=== PATIENT | female | born 1945 | race Caucasian/White ===

== ENCOUNTER 2020-08-27 16:33 | Inpatient (IN) | payer MEDICARE ==
[~2020-08-27] VITALS: Ht 167.7 cm; Wt 78.5 kg
[~2020-08-27 16:33] MED LIST: AZIT250T12 PO; METO10TA3 PO
--- NOTE | 2020-08-27 17:05 | ED Cough/URI ---
General Chief Complaint: Respiratory Problems Stated Complaint: SOB Nursing Triage Note: PT ARRIVED BY [facility] WITH CHIEF COMPLAINT OF SHAKING. PT WAS ALERT AND ORIENTED X 4 AT ARRIVAL. EMS STARTED IV IN LEFT AC WITH FLUIDS GOING. ABOUT 200 ML INPUT AT ARRIVAL. PT WAS SEEN IN [facility] [facility] AND WAS DIAGNOSED WITH PNEUMONIA. PT'S FAMILY WANTED PT TO GO STRAIGHT HERE. PT LAST TOOK HER ANTIBIOTIC TODAY AT 0600. PT STATED HER BREATHING IS BETTER. PT STATED SHE WOKE UP AND WAS SHAKING, SO SHE WENT TO STOVE AND COVERED UP WITH BLANKET AND COULDN'T GET WARM. EMS STATED THAT PT HAD FEVER OF 103. PT DID NOT TAKE ANYTHING FOR FEVER TODAY. Sepsis Screen: Possible Severe Sepsis Risk (UCHE FRANCO MD) History of Present Illness Date Seen by Provider: Aug 27, 2020 Time Seen by Provider: 16:50 Initial Comments Patient is a 74-year-old female who presents to the emergency department today with a chief complaint of generalized shaking all over "like I have Parkinson's disease". Patient states that she gets shaking and then she developed shortness of breath. Patient states that she was recently diagnosed with bilateral pneumonia at [facility] a couple of days ago. Patient at that time refused her coronavirus test. Patient states that she was given prescriptions for antibiotics at that time, per review of the medical record she was put on azithromycin. Patient states that she has been feeling pretty good but when she has the shaking spell she becomes very short of breath. Patient is not on home oxygen. Patient does have a history of diabetes and hypertension however she states her primary care doctor took her off all of her medications at her last visit. She only takes [id number] vitamins as prevention for COVID-19. All other review of systems reviewed and negative except as stated above. Timing/Duration: just prior to arrival Severity/Quality: mild (Mild cough) Prior Episodes/Possible Cause: occasional episodes Associated Symptoms: cough, fever/chills (UCHE FRANCO MD) Allergies and Home Medications Allergies Coded Allergies: No Known Drug Allergies (Unverified , 08/27/20) Home Medications Azithromycin 250 Mg Tablet, 250 MG PO DAILY Prescribed by: AG SUERO on 08/25/20 0908 Cefdinir 300 Mg Capsule, 300 MG PO BID Prescribed by: UCHE FRANCO on 08/27/20 1717 Metoclopramide HCl 10 Mg Tablet, 10 MG PO Q6H PRN for NAUSEA/VOMITING Prescribed by: GA SUERO on 08/25/20 0908 Patient Home Medication List Home Medication List Reviewed: Yes (UCHE FRANCO MD) Review of Systems Review of Systems Constitutional: see HPI EENTM: no symptoms reported Respiratory: cough, short of breath Cardiovascular: no symptoms reported Gastrointestinal: no symptoms reported Genitourinary: no symptoms reported Musculoskeletal: no symptoms reported Skin: no symptoms reported Psychiatric/Neurological: Tremors (UCHE FRANCO MD) All Other Systems Reviewed Negative Unless Noted: Yes (UCHE FRANCO MD) Past Ylhzzrg-Qpnnkc-Iqogme Hx Patient Social History Alcohol Use: Denies Use Smoking Status: Never a Smoker Recent Infectious Disease Expo: No Recent Hopitalizations: No (UCHE FRANCO MD) Seasonal Allergies Seasonal Allergies: No (UCHE FRANCO MD) Past Medical History Surgeries: Yes Orthopedic, Thyroidectomy Respiratory: No Cardiac: Yes Hypertension 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 oz. kg; 29.00 BMI Method: General Appearance: WD/WN, no apparent distress Eyes: Bilateral Eye Normal Inspection, Bilateral Eye PERRL, Bilateral Eye EOMI HEENT: normal ENT inspection Neck: full range of motion Respiratory: chest non-tender, lungs clear, normal breath sounds, no respiratory distress, no accessory muscle use Cardiovascular: regular rate, rhythm Gastrointestinal: normal bowel sounds Extremities: normal range of motion, non-tender, normal inspection, no pedal edema Neurologic/Psychiatric: alert, normal mood/affect, oriented x 3 Skin: normal color, warm/dry (UCHE FRANCO MD) Cardiovascular: no murmur Gastrointestinal: non tender (JOHN PRIETO MD) Focused Exam Lactate Level 08/27/20 17:44: Lactic Acid Level 1.68 (JOHN PRIETO MD) Lactic Acid Level Laboratory Tests Test 08/27/20 17:44 Lactic Acid Level 1.68 MMOL/L (0.50-2.00) (JOHN PRIETO MD) Progress/Results/Core Measures Suspected Sepsis Recent Fever Within 48 Hours: Yes Infection Criteria Present: Suspected New Infection New/Unexplained Altered Menta: No Sepsis Screen: Possible Severe Sepsis Risk SIRS Temperature: Pulse: 101 Respiratory Rate: 26 Blood Pressure 157 /76 Mean: 103 (UCHE FRANCO MD) SIRS Laboratory Tests 08/27/20 16:41: White Blood Count 19.2H 08/27/20 17:44: Lactic Acid Level 1.68 Laboratory Tests 08/27/20 16:41: Creatinine 0.88, INR Comment 1.1, Platelet Count 164, Total Bilirubin 1.0 (JOHN PRIETO MD) Results/Orders Lab Results Laboratory Tests Test 08/27/20 16:41 08/27/20 17:44 08/27/20 18:55 Range/Units White Blood Count 19.2 H 4.3-11.0 10^3/uL Red Blood Count 4.93 3.80-5.11 10^6/uL Hemoglobin 15.0 11.5-16.0 g/dL Hematocrit 44 35-52 % Mean Corpuscular Volume 89 80-99 fL Mean Corpuscular Hemoglobin 30 25-34 pg Mean Corpuscular Hemoglobin Concent 34 32-36 g/dL Red Cell Distribution Width 13.8 10.0-14.5 % Platelet Count 164 130-400 10^3/uL Mean Platelet Volume 11.6 9.0-12.2 fL Immature Granulocyte % (Auto) 2 % Neutrophils (%) (Auto) 87 H 42-75 % Lymphocytes (%) (Auto) 5 L 12-44 % Monocytes (%) (Auto) 4 0-12 % Eosinophils (%) (Auto) 2 0-10 % Basophils (%) (Auto) 0 0-10 % Neutrophils # (Auto) 16.6 H 1.8-7.8 10^3/uL Lymphocytes # (Auto) 0.9 L 1.0-4.0 10^3/uL Monocytes # (Auto) 0.8 0.0-1.0 10^3/uL Eosinophils # (Auto) 0.5 H 0.0-0.3 10^3/uL Basophils # (Auto) 0.1 0.0-0.1 10^3/uL Immature Granulocyte # (Auto) 0.4 H 0.0-0.1 10^3/uL Neutrophils % (Manual) 91 % Lymphocytes % (Manual) 5 % Monocytes % (Manual) 3 % Eosinophils % (Manual) 1 % Blood Morphology Comment NORMAL Prothrombin Time 14.9 H 12.2-14.7 SEC INR Comment 1.1 0.8-1.4 Activated Partial Thromboplast Time 33 24-35 SEC D-Dimer 2.09 H 0.00-0.49 UG/ML Sodium Level 136 135-145 MMOL/L Potassium Level 4.2 3.6-5.0 MMOL/L Chloride Level 102 98-107 MMOL/L Carbon Dioxide Level 23 21-32 MMOL/L Anion Gap 11 5-14 MMOL/L Blood Urea Nitrogen 22 H 7-18 MG/DL Creatinine 0.88 0.60-1.30 MG/DL Estimat Glomerular Filtration Rate > 60 BUN/Creatinine Ratio 25 Glucose Level 266 H 70-105 MG/DL Calcium Level 9.4 8.5-10.1 MG/DL Corrected Calcium 9.7 8.5-10.1 MG/DL Total Bilirubin 1.0 0.1-1.0 MG/DL Aspartate Amino Transf (AST/SGOT) 37 H 5-34 U/L Alanine Aminotransferase (ALT/SGPT) 66 H 0-55 U/L Alkaline Phosphatase 189 H 40-136 U/L C-Reactive Protein High Sensitivity 19.32 H 0.00-0.50 MG/DL Total Protein 6.7 6.4-8.2 GM/DL Albumin 3.6 3.2-4.5 GM/DL Procalcitonin 10.14 H <0.10 NG/ML Lactic Acid Level 1.68 0.50-2.00 MMOL/L Coronavirus 2018 (CHRISTA) Negative Negative Urine Color YELLOW Urine Clarity CLEAR Urine pH 6.0 5-9 Urine Specific [place] 1.025 H 1.016-1.022 Urine Protein 2+ H NEGATIVE Urine Glucose (UA) 3+ H NEGATIVE Urine Ketones TRACE H NEGATIVE Urine Nitrite POSITIVE H NEGATIVE Urine Bilirubin NEGATIVE NEGATIVE Urine Urobilinogen 1.0 < = 1.0 MG/DL Urine Leukocyte Esterase NEGATIVE NEGATIVE Urine RBC (Auto) 1+ H NEGATIVE Urine RBC 0-2 /HPF Urine WBC 10-25 H /HPF Urine Crystals NONE /LPF Urine Bacteria LARGE H /HPF Urine Casts PRESENT /LPF Urine Granular Casts 2-5 H /LPF Urine Mucus NEGATIVE /LPF Urine Culture Indicated CULTURE PENDING (JOHN PRIETO MD) My Orders Orders - JOHN PRIETO MD Cbc With Automated Diff (08/27/20 17:41) Comprehensive Metabolic Panel (08/27/20 17:41) Blood Culture (08/27/20 17:41) Sputum Culture (08/27/20 17:41) Urinalysis (08/27/20 17:41) Urine Culture (08/27/20 17:41) Protime With Inr (08/27/20 17:41) Partial Thromboplastin Time (08/27/20 17:41) Chest 1 View, Ap/Pa Only (08/27/20 17:41) Ed Iv/Invasive Line Start (08/27/20 17:41) Vital Signs Adult Sepsis Patie Q15M (08/27/20 17:41) O2 (08/27/20 17:41) Remove Rings In Anticipation O (08/27/20 17:41) Lactic Acid Analyzer (08/27/20 17:41) Fibrin Degradation Products (08/27/20 17:41) Procalcitonin (Pct) (08/27/20 17:41) Hs C Reactive Protein (08/27/20 17:41) Covid 19 Inhouse Test (08/27/20 17:41) Manual Differential (08/27/20 16:41) General/Regular (08/27/20 Dinner) (JOHN PRIETO MD) Medications Given in ED Current Medications Medications Dose Ordered Sig/Bridger Route Start Time Stop Time Status Last Admin Dose Admin Ceftriaxone Sodium 1000 mg/ Sterile Water 10 ml @ 200 mls/hr ONCE ONCE IV 08/27/20 17:15 08/27/20 17:17 DC 08/27/20 18:26 200 MLS/HR (JOHN PRIETO MD) Vital Signs/I&O 08/27/20 16:38 Temp 37.7 Pulse 101 Resp 26 B/P (MAP) 157/76 (103) Pulse Ox 92 O2 Delivery Room Air (JOHN PRIETO MD) Vital Signs/I&O Capillary Refill : Less Than 3 Seconds (UCHE FRANCO MD) Blood Pressure Mean: 103 Progress Note : Time: 17:10 Progress Note 74-year-old presents to the emergency room with a chief complaint of "shaking" and shortness of breath. Patient recently diagnosed with pneumonia and placed on a azithromycin. Patient declining her Covid test. Patient looks well satting 93 to 96% on room air. No complaints at this time, "shaking spell" has completely resolved as has her shortness of breath. Patient is not taking any Tylenol for fever since her diagnosis of pneumonia. She only takes 4 ibuprofen in the morning at home every day for her arthritis. Evaluation today includes a physical examination. Patient has clear lung sounds without any signs of respiratory distress. No swelling consistent with congestive heart failure, no chest pain. At this time the patient has no clinical or objective findings for an extensive work-up to be repeated. She did have a CTA at [facility] 2 days ago which was negative for acute pulmonary embolism. It did show bilateral groundglass opacities in the lung bases consistent with pneumonia. We will add cefdinir to her antibiotic regimen to broaden her coverage for bacterial illness. She is given a gram of Rocephin here in the emergency department. Plan of care is communicated to the patient. She is comfortable with it. All questions were sought and answered patient will be discharged (UCHE FRANCO MD) Progress Note : Progress Note 1740: Patient did receive 1 g of Rocephin IV. We did talk with her family who are very concerned about how the patient was acting at home and are concerned about worsening pneumonia or COVID-19. Patient has been sick since the . Patient's family did talk with the patient and now the patient is stating that she would like further work-up. She did have rather significant work-up a few days ago at our [place] location as discussed above. We will go ahead and repeat some labs for comparison given her change in concern and wished for evaluation. We will check COVID-19 swab and patient has ultimately decided she is okay with that now. Monitor patient. 1930: Patient was found to have urinary tract infection and there is a question of left lower lobe pneumonia. Her COVID-19 evaluation is negative and I do not believe that she has COVID-19. I believe her presentation and current laboratory findings are consistent with urinary tract infection. Of note, patient did get all labs drawn for sepsis protocol prior to antibiotic administration although was ordered after antib iotic administration as we had intended for her to go home. Patient did get 1 L of normal saline earlier. Overall doing better currently. That being said, patient does have quite elevated CRP and pro calcitonin indicating rather significant bacterial infection with negative lactic acid and normal blood pressures currently. Patient would benefit from inpatient admission for urinary tract infection monitoring and management till cultures are complete. Admit, inpatient status. Patient agrees with plan. I did discuss the case with Dr. Hargrove and she agrees to admission. 1950: I did update the family of the current situation and findings and they were appreciative of the admission and care. (JOHN PRIETO MD) Diagnostic Imaging Diagonstic Imaging: Xray Plain Films/CT/US/NM/MRI: chest Comments [facility]. [place], [place] NAME: ABRAHAM SANTIAGO [facility] REC#: [id number] PT STATUS: REG ER : 1945 PHYSICIAN: JOHN PRIETO MD ADMIT DATE: 08/27/20/ER Draft Date of Exam:08/27/20 CHEST 1 VIEW, AP/PA ONLY EXAMINATION: Chest 1 view. HISTORY: Sepsis. COMPARISON: 08/25/2020. FINDINGS: Left basilar airspace opacity is seen with silhouetting of the left hemidiaphragm. Heart is upper limits of normal for portable technique. No pneumothorax. IMPRESSION: Left base airspace opacity suggestive of pneumonia. Dictated on workstation # [id number] Dict: 08/27/20 1819 Trans: 08/27/20 1823 PJ [id number] Interpreted by: VIOLET WARD MD Electronically signed by: (JOHN PRIETO MD) Departure Communication (Admissions) Time/Spoke to Admitting Phy: 19:30 (JOHN PRIETO MD) Impression Primary Impression: Urinary tract infection Qualified Codes: N30.00 - Acute cystitis without hematuria Additional Impression: Left lower lobe pneumonia Qualified Codes: J18.9 - Pneumonia, unspecified organism Disposition: ADMITTED INPATIENT Condition: Stable Admissions Decision to Admit Reason: Admit from ER (General) Decision to Admit/Date: Aug 27, 2020 Time/Decision to Admit Time: 19:30 (JOHN PRIETO MD) Departure-Patient Inst. Decision time for Depature: 17:13 (UCHE FRANCO MD) Add. Discharge Instructions: Scripts Cefdinir (Cefdinir) 300 Mg Capsule 300 MG PO BID for 7 Days, #14 CAP 0 Refills Prov: UCHE FRANCO MD 08/27/20 UCHE FRANCO MD Aug 27, 2020 17:05 JOHN PRIETO MD Aug 27, 2020 17:53
[2020-08-27] MEDS ORDERED: cefTRIAXone FOR IV USE 1,000 MG in WATER (STERILE) FOR INJECTION 10 ML IV ONE (17:15)
[2020-08-27] MEDS ORDERED: CEFD300C3 PO (17:17)
[2020-08-27 17:54] LABS: ALBUMIN 3.6 GM/DL (3.2-4.5); CHLORIDE 102 MMOL/L (98-107); POTASSIUM 4.2 MMOL/L (3.6-5.0); SODIUM 136 MMOL/L (135-145)
[2020-08-27 17:55] LABS: CALCIUM 9.4 MG/DL (8.5-10.1)
[2020-08-27 17:56] LABS: BASOPHILS # (AUTO) 0.1 10^3/uL (0.0-0.1); BASOPHILS % (AUTO) 0 % (0-10); EOSINOPHILS # (AUTO) 0.5 10^3/uL (0.0-0.3); EOSINOPHILS % (AUTO) 2 % (0-10); HEMATOCRIT 44 % (35-52); LYMPHOCYTES # (AUTO) 0.9 10^3/uL (1.0-4.0); LYMPHOCYTES % (AUTO) 5 % (12-44); MEAN CORPUSCULAR HEMOGLOBIN 30 pg (25-34); MEAN CORPUSCULAR HGB CONC 34 g/dL (32-36); MEAN CORPUSCULAR VOLUME 89 fL (80-99); MEAN PLATELET VOLUME 11.6 fL (9.0-12.2); MONOCYTES # (AUTO) 0.8 10^3/uL (0.0-1.0); MONOCYTES % (AUTO) 4 % (0-12); NEUTROPHILS # (AUTO) 16.6 10^3/uL (1.8-7.8); NEUTROPHILS % (AUTO) 87 % (42-75); PLATELET COUNT 164 10^3/uL (130-400); WHITE BLOOD COUNT 19.2 10^3/uL (4.3-11.0)
[2020-08-27 17:57] LABS: GLUCOSE 266 MG/DL (70-105); TOTAL PROTEIN 6.7 GM/DL (6.4-8.2)
[2020-08-27 17:58] LABS: CARBON DIOXIDE 23 MMOL/L (21-32)
--- NOTE | 2020-08-27 17:59 | NUR ---
THIS RN TALKED TO FAMILY ABOUT PT REFUSING TO GET A COVID SWAB ON TUESDAY IN [place]. THIS RN EXPLAINED TO THE FAMILY THAT THERE IS VIRAL PNEUMONIA AND BACTERIAL PNEUMONIA. WE WILL NOT KNOW IF SHE HAS VIRAL PNEUMONIA WHICH CAN BE CAUSED BY COVID IF WE DO NOT TEST HER. FAMILY INSISTED ON SPEAKING TO PATIENT. AFTER THEY TALKED, THE PATIENT AGREED TO GET SWABBED FOR COVID. RAPID COVID AND SEND OUT COVID WAS OBTAINED.
[2020-08-27 18:00] LABS: ALKALINE PHOSPHATASE 189 U/L (40-136); CREATININE SERUM 0.88 MG/DL (0.60-1.30); GFR ESTIMATED > 60
[2020-08-27 18:01] LABS: BUN/CREATININE RATIO 25
[2020-08-27 18:03] LABS: ALANINE AMINOTRANSFERASE 66 U/L (0-55)
--- NOTE | 2020-08-27 18:23 | Diagnostic Imaging Report ---
EXAMINATION: Chest 1 view. HISTORY: Sepsis. COMPARISON: 08/25/2020. FINDINGS: Left basilar airspace opacity is seen with silhouetting of the left hemidiaphragm. Heart is upper limits of normal for portable technique. No pneumothorax. IMPRESSION: Left base airspace opacity suggestive of pneumonia. Dictated by: Dictated on workstation # [email or web address]
[2020-08-27 18:31] LABS: INR 1.1 (0.8-1.4); PROTHROMBIN TIME PATIENT 14.9 SEC (12.2-14.7)
[2020-08-27 18:32] LABS: FIBRIN DEGRADATION PRODUCTS 2.09 UG/ML (0.00-0.49)
[2020-08-27 19:17] LABS: BILIRUBIN,URINE NEGATIVE (NEGATIVE); CLARITY,URINE CLEAR; COLOR,URINE YELLOW; GLUCOSE, URINE (UA) 3+ (NEGATIVE); KETONES,URINE TRACE (NEGATIVE); LEUKOCYTE ESTERASE ,URINE NEGATIVE (NEGATIVE); NITRITE,URINE POSITIVE (NEGATIVE); PROTEIN,URINE 2+ (NEGATIVE); RBC,URINE 0-2 /HPF
[2020-08-27 19:18] LABS: BACTERIA,URINE LARGE /HPF
[2020-08-27 19:34] LABS: EOSINOPHILS % (MANUAL) 1 %; LYMPHOCYTES % (MANUAL) 5 %; MONOCYTES % (MANUAL) 3 %; NEUTROPHILS % (MANUAL) 91 %; RBC MORPH NORMAL
[2020-08-27 20:20] VITALS: BP 166/71
--- NOTE | 2020-08-27 20:20 | NUR ---
ABRAHAM SANTIAGO admitted to room 405-1, with an admitting diagnosis of Pneumonia and UTI, on 08/27/20 from AM via wheelchair, accompanied by ED staff.ABRAHAM SANTIAGO introduced to surroundings, call light, bed controls, phone, TV, temperature control, lights, meal times, smoking policy, visitor policy, side rail policy, bathrooms and showers. Patient Rights given to patient in the handbook. ABRAHAM SANTIAGO verbalizes understanding that [facility] is not responsible for the loss or damage to any personal effects or valuables that are kept in the patients possession during their hospitalization. ABRAHAM SANTIAGO verbalizes understanding of Interdisciplinary Patient Education. Patient and/or family were informed about the Rapid Response Team and its purpose.
[2020-08-27] MEDS ORDERED: NS IV 1000 ML 1,000 ML IV SCH (21:45)
[2020-08-27] MEDS ORDERED: ONDANSETRON 4 MG/2 ML (SDV) Z0FRAN IVP PRN (21:45)
[2020-08-27] MEDS ORDERED: ACETAMINOPHEN 500 MG TAB (TYLENOL) PO PRN (21:45)
[2020-08-28] VITALS: BP 160/75
[2020-08-28 04:00] VITALS: BP 171/75
[2020-08-28 06:13] LABS: BASOPHILS # (AUTO) 0.1 10^3/uL (0.0-0.1); BASOPHILS % (AUTO) 1 % (0-10); EOSINOPHILS % (AUTO) 0 % (0-10); HEMATOCRIT 40 % (35-52); HEMOGLOBIN 13.4 g/dL (11.5-16.0); LYMPHOCYTES # (AUTO) 2.5 10^3/uL (1.0-4.0); LYMPHOCYTES % (AUTO) 14 % (12-44); MEAN CORPUSCULAR HEMOGLOBIN 30 pg (25-34); MEAN CORPUSCULAR HGB CONC 33 g/dL (32-36); MEAN CORPUSCULAR VOLUME 90 fL (80-99); MEAN PLATELET VOLUME 10.5 fL (9.0-12.2); MONOCYTES # (AUTO) 1.8 10^3/uL (0.0-1.0); MONOCYTES % (AUTO) 10 % (0-12); NEUTROPHILS # (AUTO) 13.1 10^3/uL (1.8-7.8); NEUTROPHILS % (AUTO) 74 % (42-75); PLATELET COUNT 147 10^3/uL (130-400); WHITE BLOOD COUNT 17.7 10^3/uL (4.3-11.0)
[2020-08-28] MEDS: inSUlin ASPART (NovoLOG) 1 UNIT/0.01 ML (CHARGE PER UNIT) SC SCH ×4 (06:15→21:12)
[2020-08-28 06:24] LABS: ALBUMIN 3.2 GM/DL (3.2-4.5); CHLORIDE 106 MMOL/L (98-107); POTASSIUM 3.7 MMOL/L (3.6-5.0); SODIUM 137 MMOL/L (135-145)
[2020-08-28 06:25] LABS: CALCIUM 8.8 MG/DL (8.5-10.1)
[2020-08-28 06:27] LABS: GLUCOSE 189 MG/DL (70-105)
[2020-08-28 06:28] LABS: CARBON DIOXIDE 23 MMOL/L (21-32)
[2020-08-28 06:29] LABS: BILIRUBIN,TOTAL 0.8 MG/DL (0.1-1.0)
[2020-08-28 06:30] LABS: ALKALINE PHOSPHATASE 141 U/L (40-136); CREATININE SERUM 0.73 MG/DL (0.60-1.30); GFR ESTIMATED > 60
[2020-08-28 06:31] LABS: BUN/CREATININE RATIO 26
[2020-08-28 06:33] LABS: ALANINE AMINOTRANSFERASE 64 U/L (0-55)
[2020-08-28 08:00] VITALS: BP 198/89
[2020-08-28] MEDS ORDERED: ZINC50TA11 PO (09:56)
[2020-08-28] MEDS ORDERED: ASCO100024 PO (09:56)
[2020-08-28] MEDS ORDERED: NAPR220T66 PO (09:56)
[2020-08-28] MEDS ORDERED: AZIT250T12 PO (09:56)
[2020-08-28] MEDS ORDERED: CHOL20002 PO (09:56)
[2020-08-28] MEDS ORDERED: METO10TA3 PO (09:56)
[2020-08-28] MEDS ORDERED: MELA5TAB14 PO (09:56)
--- NOTE | 2020-08-28 09:57 | NUR ---
SPOKE WITH THE PT AND CALLED TUCKER PARKER TO COMPLETE THE MED REC ACCORDING TO THE PT THE ONLY PRESCRIPTIONS SHE TAKES ARE THE ANTIBIOTIC AND NAUSEA MEDICATION (AZITHROMYCIN AND METOCLOPRAMIDE). PT SAYS SHE USED TO TAKE A BLOOD PRESSURE MEDICATION (LISINOPRIL 20MG) BUT SHE WAS OUT OF REFILLS AND THE DR REQUESTED SHE COME IN FOR AN APPT. PT DID NOT GO SEE HER DR DUE TO COVID AND SHE ASSUMED THE DR WANTED HER TO QUIT THE MEDICATION SINCE HE DID NOT GIVE HER REFILLS. IN JULY 2020 PT WENT TO AN APPT AND I ASKED HER IF SHE BROUGHT UP THAT SHE WAS OUT OF REFILLS AND HAD NOT BEEN TAKING; BUT SAID NO AND THAT THE DR SHOULD KNOW ALL THAT. OTC MEDS: VIT D VIT C ZINC 50MG- PT SAYS SHE TAKES 4 BC SHE WAS TOLD TO TAKE A TOTAL OF 200MG DAILY MELATONIN ALEVE 220MG- PT SAYS SHE TAKES 4 TABS AM
--- NOTE | 2020-08-28 11:52 | History & Physical-Hospitalist ---
SRINIVAS CHAPMAN MED STUDENT 08/28/20 1152: History of Present Illness HPI/Chief Complaint This is a 74 year old famle that presented yesterday to the ED with shaking and SOB. She was diagnosed with pneumonia and sent to [facility]. She had pneumonia a few days prior and has been taking ABX fo rit. She has received cefdinir, rocephin, and azithromycin. She was also found to have a UTI. CXR suggested a Lower left lobe pneumonia. Today she has an elevated whit count of 17.7. She also complains of hip and knee pain. She states that she has surgery on it about a year ago and now takes aleeve for pain at home. She has not received any pain medication today. She has no other fever, pain, chest pain, SOB, stomach pains today. Denies pain with urination. She uses a walker at home, does not use O2. She lives by herself. Urine culture positive for E.coli. She expressed that she wants to leave hospital as soon as possible. Explained to patient it'll be at least one more day. Source: patient Exam Limitations: no limitations Date Seen 08/28/20 Time Seen by a Provider: 08:45 Attending Physician Nancy Hargrove MD PCP No,Local Physician Referring Physician Date of Admission Aug 27, 2020 at 19:45 Home Medications & Allergies Home Medications Reviewed patient Home Medication Reconciliation performed by pharmacy medication reconciliations reproduction technician and/or nursing. Patients Allergies have been reviewed. Allergies Allergies Coded Allergies No Known Drug Allergies (Unverified08/27/20) Past Tgikxms-Umnmte-Ijirwt Hx Past Med/Social Hx: Reviewed Nursing Past Med/Soc Hx Patient Social History Marrital Status: single Alcohol Use: Denies Use Recreational Drug Use: No Smoking Status: Former Smoker Recent Foreign Travel: No Contact w/other who traveled: No Recent Hopitalizations: No Recent Infectious Disease Expo: No Seasonal Allergies Seasonal Allergies: No Past Medical History Surgeries: Orthopedic, Thyroidectomy Cardiac: Hypertension Neurological: Stroke Menopausal Review of Systems Constitutional: no symptoms reported EENTM: no symptoms reported Respiratory: no symptoms reported Cardiovascular: no symptoms reported Gastrointestinal: no symptoms reported Genitourinary: no symptoms reported Musculoskeletal: joint pain (Joint pain in R hip and knee) Skin: no symptoms reported Psychiatric/Neurological: No Symptoms Reported Physical Exam Physical Exam Vital Signs Vital Signs - First Documented 08/27/20 16:38 Temp 37.7 Pulse 101 Resp 26 B/P (MAP) 157/76 (103) Pulse Ox 92 O2 Delivery Room Air Capillary Refill : Less Than 3 SecondsLess Than 3 Seconds Height, Weight, BMI Height: '" Weight: lbs. oz. kg; 27.91 BMI Method: General Appearance: No Apparent Distress, WD/WN Neck: Full Range of Motion, Non Tender Respiratory: Chest Non Tender, Lungs Clear, Normal Breath Sounds, No Accessory Muscle Use, No Respiratory Distress Cardiovascular: Regular Rate, Rhythm, No Edema, No Gallop, No JVD, No Murmur, Normal Peripheral Pulses Gastrointestinal: Normal Bowel Sounds, No Organomegaly, No Pulsatile Mass, Non Tender, Soft Rectal: Deferred Back: Normal Inspection, No Vertebral Tenderness Extremity: Normal Inspection, Normal Range of Motion, No Calf Tenderness, No Pedal Edema, Other (Pain in L knee and hip on palpation) Neurologic/Psychiatric: Alert, Oriented x3 Skin: Normal Color, Warm/Dry Lymphatic: No Adenopathy Results Results/Procedures Labs Laboratory Tests 08/27/20 16:41 08/28/20 06:08 Patient resulted labs reviewed. Assessment/Plan Admission Diagnosis UTI Admission Status: Inpatient Order (span 2 midnights) Reason for Inpatient Admission: IV ABX, Elevated WBC Assessment and Plan 74 Year old female recovering from pneumonia found to also have UTI and Hip pain Pneumonia -Pneumonia likely resolved -Continue to monitor for fevers and SOB -If any new respiratory sx arise, will prescribe abx, CXR UTI -Continue ABX -Monitor for worsening fever, or urinary symptoms HTN -Blood pressures likely due to Leg and hip pain -Will get Pt her home pain medications -If pressures to not improve with analgesia, consider adding or adjusting medication Hip/Knee Pain -Start Patient on home meds, 4x Aleve Diagnosis/Problems Diagnosis/Problems (1) Hyperglycemia Status: Acute (2) Diffuse pneumonia Status: Acute (3) Shortness of breath Status: Acute (4) Rigors Status: Acute (5) Urinary tract infection Status: Acute Qualifiers: Urinary tract infection type: acute cystitis Hematuria presence: without hematuria Qualified Codes: N30.00 - Acute cystitis without hematuria (6) Left lower lobe pneumonia Status: Acute Qualifiers: Pneumonia type: due to unspecified organism Qualified Codes: J18.9 - Pneu monia, unspecified organism Supervisory-Addendum Brief Verification & Attestation Participated in pt care: history, physical Personally performed: exam Care discussed with: other Procedures: n/a n/a NANCY HARGROVE MD 08/28/20 1832: History of Present Illness Source: patient Exam Limitations: no limitations Review of Systems Constitutional: No chills, No fever; malaise, weakness EENTM: no symptoms reported; No mouth pain, No nose congestion, No nose pain Respiratory: no symptoms reported; No cough, No dyspnea on exertion, No short of breath Cardiovascular: no symptoms reported; No chest pain, No edema, No palpitations Gastrointestinal: no symptoms reported; No abdominal pain, No constipation, No diarrhea, No nausea, No vomiting Genitourinary: No dysuria; frequency; No hematuria : No Musculoskeletal: joint pain (Joint pain in R hip and knee) Skin: lesions (left shoulder) Psychiatric/Neurological: No Symptoms Reported Physical Exam Physical Exam General Appearance: No Apparent Distress, WD/WN Neck: Full Range of Motion, Non Tender Respiratory: Chest Non Tender, Lungs Clear, Normal Breath Sounds, No Accessory Muscle Use, No Respiratory Distress Cardiovascular: Regular Rate, Rhythm, No Edema, No Murmur, Normal Peripheral Pulses Gastrointestinal: Normal Bowel Sounds, Non Tender, Soft Back: No CVA Tenderness, No Vertebral Tenderness Extremity: Normal Capillary Refill, Normal Inspection, Normal Range of Motion, No Calf Tenderness, No Pedal Edema; No Swelling; Other (Pain in L knee and hip on palpation) Neurologic/Psychiatric: Alert, Oriented x3, space studies faculty member II-XII Norm as Tested Skin: Other (lesion on left shoulder, irregular borders, puritic and raised) Lymphatic: No Adenopathy Assessment/Plan Admission Diagnosis Admission Status: Inpatient Order (span 2 midnights) Reason for Inpatient Admission: Needing IVFs and antibiotics Supervisory-Addendum Brief Verification & Attestation Participated in pt care: history, physical Personally performed: exam, history Care discussed with: Medical Student Procedures: n/a Verification and Attestation of Medical Student E/M Service A medical student performed and documented this service in my presence. I reviewed and verified all information documented by the medical student and made modifications to such information, when appropriate. I personally performed the physical exam and medical decision making. Nancy Hargrove, Aug 28, 2020,18:29 74 yo F that presented to ER with fatigue and found to have UTI UTI: Ecoli, continue Rocephin Bacteremia: Consistent with Ecoli HTN: Started on Lisinopril due to elevated blood pressures Elevated LFTs: Recommend patient have work up as outpatient Left Knee pain: Chronic, continue aleve Left shoulder lesion: Recommended that patient have lesion biopsied by PCP DVT PPx: Lovenox Dispo: Possible d/c in AM if labs improve SRINIVAS CHAPMAN MED STUDENT Aug 28, 2020 11:52 NANCY HARGROVE MD Aug 28, 2020 18:32
[2020-08-28 12:00] VITALS: BP 198/91
--- NOTE | 2020-08-28 12:09 | Short Stay Summary ---
SRINIVAS CHAPMAN MED STUDENT 08/28/20 1208: History of Present Illness History of Present Illness Reason for visit/HPI This is a 77 year old male that presented yesterday to ER with chest pains and a "fast heart". Said it started at rest. He gets afib intermittently but states that over 8 minutes is abnormal for him. He had chest pain that radiated to his back and both shoulders. He denies SOB, and NV, diaphoresis. His pain almost entirely resolved in the ED. He was admitted and sent to ICU to monitor Cardizem. States today that he has no pain other than the pain in his shoulder from a recent replacement. He denies CP, SOB. States his heart is feeling better. Has an ostomy bag. Can walk on his own. Lives at home with his and does not use O2 at home. He has a knee surgery scheduled for SEP 23. Dr. Guevara consulted. He is slightly hypokalemic today. His cardizem is currently off. Receiving elequis, he is on room air. Being monitored for anemia and K is being replaced. Date of Admission Aug 27, 2020 at 19:45 Date of Discharge Aug 28, 2020 Time Seen by Provider: 09:00 Attending Physician Ni Hargrove MD Admitting Physician No,Local Physician Consult Allergies and Home Medications Allergies Coded Allergies: No Known Drug Allergies (Unverified , 08/27/20) Home Medications Ascorbic Acid 1,000 Mg Tablet, 1,000 MG PO DAILY, (Reported) Azithromycin 250 Mg Tablet, 250 MG PO DAILY, (Reported) FILLED 08-25-2020 #4/4 DAY SUPPLY Cholecalciferol (Vitamin D3) 50 Mcg Capsule, 50 MCG PO DAILY, (Reported) Melatonin 5 Mg Tablet, 5 MG PO HS, (Reported) Metoclopramide HCl 10 Mg Tablet, 10 MG PO Q6H PRN for NAUSEA/VOMITING-3RD LINE, (Reported) Naproxen Sodium 220 Mg Tablet, 880 MG PO DAILY, (Reported) TAKES 4 (220MG) TABS Zinc Gluconate 50 Mg Tablet, 200 MG PO DAILY, (Reported) TAKES 4 (50MG) TABS Patient Home Medication List Home Medication List Reviewed: Yes Past Usxhxlf-Xelawp-Dcvxre Hx Patient Social History Marrital Status: single Smoking Status: Former Smoker Recent Hopitalizations: No Have you traveled recently?: No Alcohol Use?: No Pt feels they are or have been: No Seasonal Allergies Seasonal Allergies: No Surgeries Yes Orthopedic, Thyroidectomy Respiratory No Cardiovascular Yes Hypertension Neurological Yes Stroke 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 History: Menopausal Genitourinary No Gastrointestinal No Musculoskeletal No Endocrine History of Endocrine Disorders: No HEENT History of HEENT Disorders: No Cancer No Psychosocial History of Psychiatric Problem: No Integumentary History of Skin or Integumenta: No Review of Systems Constitutional: no symptoms reported EENTM: no symptoms reported Respiratory: no symptoms reported Cardiovascular: no symptoms reported Gastrointestinal: no symptoms reported Genitourinary: no symptoms reported Musculoskeletal: joint pain (Some R shoulder pain/Stiffness that is normal due to recent surgery) Skin: no symptoms reported Psychiatric/Neurological: No Symptoms Reported Physical Exam Vital Signs Vital Signs - First Documented 08/27/20 16:38 Temp 37.7 Pulse 101 Resp 26 B/P (MAP) 157/76 (103) Pulse Ox 92 O2 Delivery Room Air Capillary Refill : Less Than 3 SecondsLess Than 3 Seconds Height, Weight, BMI Height: '" Weight: lbs. oz. kg; 27.91 BMI Method: General Appearance: No Apparent Distress, WD/WN Neck: Full Range of Motion, Non Tender Respiratory: Chest Non Tender, Lungs Clear, Normal Breath Sounds, No Accessory Muscle Use, No Respiratory Distress Cardiovascular: Regular Rate, Rhythm, No Edema, No Gallop, No JVD, No Murmur, Normal Peripheral Pulses Gastrointestinal: Normal Bowel Sounds, No Organomegaly, No Pulsatile Mass, Non Tender, Soft Rectal: Deferred Back: No Vertebral Tenderness Extremity: Normal Capillary Refill, Normal Inspection, Normal Range of Motion, No Calf Tenderness, No Pedal Edema Neurologic/Psychiatric: Alert, Oriented x3 Skin: Normal Color, Warm/Dry Lymphatic: No Adenopathy Short Stay Diagnosis Discharge Diagnosis-Short Stay Admission Diagnosis: Afib Final Discharge Diagnosis: Afib Conclusion Labs Laboratory Tests 08/27/20 16:41: White Blood Count 19.2H, Red Blood Count 4.93, Hemoglobin 15.0, Hematocrit 44, Mean Corpuscular Volume 89, Mean Corpuscular Hemoglobin 30, Mean Corpuscular Hemoglobin Concent 34, Red Cell Distribution Width 13.8, Platelet Count 164, Mean Platelet Volume 11.6, Immature Granulocyte % (Auto) 2, Neutrophils (%) (Auto) 87H, Lymphocytes (%) (Auto) 5L, Monocytes (%) (Auto) 4, Eosinophils (%) (Auto) 2, Basophils (%) (Auto) 0, Neutrophils # (Auto) 16.6H, Lymphocytes # (Auto) 0.9L, Monocytes # (Auto) 0.8, Eosinophils # (Auto) 0.5H, Basophils # (Auto) 0.1, Immature Granulocyte # (Auto) 0.4H, Neutrophils % (Manual) 91, Lymphocytes % (Manual) 5, Monocytes % (Manual) 3, Eosinophils % (Manual) 1, Blood Morphology Comment NORMAL, Prothrombin Time 14.9H, INR Comment 1.1, Activated Partial Thromboplast Time 33, D-Dimer 2.09H, Sodium Level 136, Potassium Level 4.2, Chloride Level 102, Carbon Dioxide Level 23, Anion Gap 11, Blood Urea Nitrogen 22H, Creatinine 0.88, Estimat Glomerular Filtration Rate > 60, BUN/Creatinine Ratio 25, Glucose Level 266H, Calcium Level 9.4, Corrected Calcium 9.7, Total Bilirubin 1.0, Aspartate Amino Transf (AST/SGOT) 37H, Alanine Aminotransferase (ALT/SGPT) 66H, Alkaline Phosphatase 189H, C-Reactive Protein High Sensitivity 19.32H, Total Protein 6.7, Albumin 3.6, Procalcitonin 10.14H 08/27/20 17:44: Lactic Acid Level 1.68, Coronavirus 2019 ([facility]) Negative 08/27/20 18:55: Urine Color YELLOW, Urine Clarity CLEAR, Urine pH 6.0, Urine Specific [place] 1.025H, Urine Protein 2+H, Urine Glucose (UA) 3+H, Urine Ketones TRACEH, Urine Nitrite POSITIVEH, Urine Bilirubin NEGATIVE, Urine Urobilinogen 1.0, Urine Leukocyte Esterase NEGATIVE, Urine RBC (Auto) 1+H, Urine RBC 0-2, Urine WBC 10- 25H, Urine Crystals NONE, Urine Bacteria LARGEH, Urine Casts PRESENT, Urine Granular Casts 2-5H, Urine Mucus NEGATIVE, Urine Culture Indicated CULTURE PENDING 08/28/20 06:08: White Blood Count 17.7H, Red Blood Count 4.49, Hemoglobin 13.4, Hematocrit 40, Mean Corpuscular Volume 90, Mean Corpuscular Hemoglobin 30, Mean Corpuscular Hemoglobin Concent 33, Red Cell Distribution Width 13.6, Platelet Count 147, Mean Platelet Volume 10.5, Immature Granulocyte % (Auto) 1, Neutrophils (%) (Auto) 74, Lymphocytes (%) (Auto) 14, Monocytes (%) (Auto) 10, Eosinophils (%) (Auto) 0, Basophils (%) (Auto) 1, Neutrophils # (Auto) 13.1H, Lymphocytes # (Auto) 2.5, Monocytes # (Auto) 1.8H, Eosinophils # (Auto) 0.0, Basophils # (Auto) 0.1, Immature Granulocyte # (Auto) 0.2H, Sodium Level 137, Potassium Level 3.7, Chloride Level 106, Carbon Dioxide Level 23, Anion Gap 8, Blood Urea Nitrogen 19H, Creatinine 0.73, Estimat Glomerular Filtration Rate > 60, BUN/Creatinine Ratio 26, Glucose Level 189H, Calcium Level 8.8, Corrected Calcium 9.4, Total Bilirubin 0.8, Aspartate Amino Transf (AST/SGOT) 49H, Alanine Aminotransferase (ALT/SGPT) 64H, Alkaline Phosphatase 141H, Total Protein 6.0L, Albumin 3.2 08/28/20 06:09: Glucometer 164H 08/28/20 11:19: Glucometer 211H Microbiology 08/27/20 Urine Culture - Preliminary, Resulted Escherichia coli 08/27/20 Blood Culture - Preliminary, Resulted Gram Negative Bacillus 1 Conclusion/Plan This is a 77 YO male that presented with AFIB AFIB -Cardizem drip started, currently not running -Afib currently resolved -Monitor for new Chest pain, SOB, new AFIB -Elequis Hypokalemia -Monitored with labs -K replacement given Anemia -Anemia being watched with labs -Anemia is not severe, concern only if HGB continues to decrease -If worsens, consider Occult blood, or Surg consult. 08/28/20 1230: Allergies and Home Medications Allergies Coded Allergies: No Known Drug Allergies (Unverified , 08/27/20) Home Medications Ascorbic Acid 1,000 Mg Tablet, 1,000 MG PO DAILY, (Reported) Azithromycin 250 Mg Tablet, 250 MG PO DAILY, (Reported) FILLED 08-25-2020 #4/4 DAY SUPPLY Cholecalciferol (Vitamin D3) 50 Mcg Capsule, 50 MCG PO DAILY, (Reported) Melatonin 5 Mg Tablet, 5 MG PO HS, (Reported) Metoclopramide HCl 10 Mg Tablet, 10 MG PO Q6H PRN for NAUSEA/VOMITING-3RD LINE, (Reported) Naproxen Sodium 220 Mg Tablet, 880 MG PO DAILY, (Reported) TAKES 4 (220MG) TABS Zinc Gluconate 50 Mg Tablet, 200 MG PO DAILY, (Reported) TAKES 4 (50MG) TABS SRINIVAS CHAPMAN MED STUDENT Aug 28, 2020 12:08 AMLIK DICKEY Aug 28, 2020 12:30
--- NOTE | 2020-08-28 13:13 | NUR ---
I received a message patient's daughter Kiersten called (who is not listed as the social contact worker) for an update on her mother. Spoke with patient who indicated she already spoke with her other daughter Promise, designated contact and told me I didn't need to call Kiersten, indicated she would handle it.
--- NOTE | 2020-08-28 13:15 | NUR ---
"RD ASSESSMENT PMHx: HTN; stroke; PT INTERACTION: Pt was awake and pleasant during nutrition consult for MST score. Pt states current appetite is getting better. Note PO intake 100% x1meal, per chart review. Pt states following a regular diet at home, and has no issues with chewing/swallowing food. Pt states no recent issues with n/v/c/d, and that her last BM was 08/27. Note pt not currently on bowel regimen per chart review. Pt states recent wt loss, but was unsure of amount/timeframe. Note unable to determine recent wt hx, per chart review. Upon visual assessment, pt appears to adequately nourished with no visible signs of muscle/fat wasting, and a BMI of 27.9. Given PO intake, wt hx, and visual assessment, pt does not meet criteria for malnutrition per ASPEN guidelines. Est. kcal needs: 1265-4529 kcal | 20-25 kcal/kg Est. Pro needs: 63-79 g Pro | 0.8-1.0 g Pro/kg PES STATEMENT: Inadequate oral intake (NI-2.1) related to loss of appetite, as evidenced by pt interview. INTERVENTION: Continue with current diet order of CHO 60g/m 3snack diet. Will continue to follow and reassess as pt needs, intake, and status change. Kevan PAYNE, MS RD LD [phone] cell"
[2020-08-28] MEDS ORDERED: CATHETER FLUSH 10 ML SYR IV PRN (14:30)
[2020-08-28] MEDS ORDERED: IBUPROFEN 600 MG (MOTRIN) TAB PO SCH (14:30)
[2020-08-28] MEDS: lisINopril 10 MG (PRINIVIL) TABLET PO SCH (14:42)
[2020-08-28] MEDS: IBUPROFEN 600 MG (MOTRIN) TAB PO SCH ×2 (14:42→21:12)
[2020-08-28 15:55] VITALS: BP 176/80
[2020-08-28] MEDS ORDERED: cefTRIAXone FOR IV USE 1,000 MG in WATER (STERILE) FOR INJECTION 10 ML IV SCH (17:00)
[2020-08-28 19:49] VITALS: BP 180/77
[2020-08-29] VITALS: BP 178/92
[2020-08-29] MEDS: IBUPROFEN 600 MG (MOTRIN) TAB PO SCH ×2 (03:05→08:42)
[2020-08-29 04:00] VITALS: BP 178/84
[2020-08-29 05:05] LABS: BASOPHILS # (AUTO) 0.1 10^3/uL (0.0-0.1); BASOPHILS % (AUTO) 1 % (0-10); EOSINOPHILS # (AUTO) 0.1 10^3/uL (0.0-0.3); EOSINOPHILS % (AUTO) 1 % (0-10); HEMATOCRIT 43 % (35-52); HEMOGLOBIN 14.5 g/dL (11.5-16.0); LYMPHOCYTES # (AUTO) 3.4 10^3/uL (1.0-4.0); LYMPHOCYTES % (AUTO) 22 % (12-44); MEAN CORPUSCULAR HEMOGLOBIN 30 pg (25-34); MEAN CORPUSCULAR HGB CONC 34 g/dL (32-36); MEAN CORPUSCULAR VOLUME 90 fL (80-99); MONOCYTES # (AUTO) 1.9 10^3/uL (0.0-1.0); MONOCYTES % (AUTO) 12 % (0-12); NEUTROPHILS # (AUTO) 8.8 10^3/uL (1.8-7.8); NEUTROPHILS % (AUTO) 57 % (42-75); PLATELET COUNT 183 10^3/uL (130-400); WHITE BLOOD COUNT 15.4 10^3/uL (4.3-11.0)
[2020-08-29 05:13] LABS: ALBUMIN 3.2 GM/DL (3.2-4.5); CHLORIDE 105 MMOL/L (98-107); POTASSIUM 3.5 MMOL/L (3.6-5.0); SODIUM 139 MMOL/L (135-145)
[2020-08-29 05:14] LABS: CALCIUM 8.9 MG/DL (8.5-10.1)
[2020-08-29 05:16] LABS: GLUCOSE 134 MG/DL (70-105)
[2020-08-29 05:17] LABS: CARBON DIOXIDE 23 MMOL/L (21-32)
[2020-08-29 05:18] LABS: BILIRUBIN,TOTAL 0.8 MG/DL (0.1-1.0)
[2020-08-29 05:19] LABS: ALKALINE PHOSPHATASE 147 U/L (40-136); CREATININE SERUM 0.74 MG/DL (0.60-1.30); GFR ESTIMATED > 60
[2020-08-29 05:20] LABS: BUN/CREATININE RATIO 20
[2020-08-29 05:22] LABS: ALANINE AMINOTRANSFERASE 76 U/L (0-55)
[2020-08-29] MEDS: inSUlin ASPART (NovoLOG) 1 UNIT/0.01 ML (CHARGE PER UNIT) SC SCH ×2 (05:40→12:09)
[2020-08-29 08:00] VITALS: BP 182/83
[2020-08-29] MEDS: lisINopril 10 MG (PRINIVIL) TABLET PO SCH (08:42)
--- NOTE | 2020-08-29 09:06 | Progress Note - Hospitalist ---
SRINIVAS CHAPMAN MED STUDENT 08/29/20 0906: Subjective HPI/CC On Admission Date Seen by Provider: Aug 29, 2020 Time Seen by Provider: 08:35 This is a 74 year old famle that presented yesterday to the ED with shaking and SOB. She was diagnosed with pneumonia and sent [facility]. She had pneumonia a few days prior and has been taking ABX fo rit. She has received cefdinir, rocephin, and azithromycin. She was also found to have a UTI. CXR suggested a Lower left lobe pneumonia. Today she has an elevated whit count of 17.7. She also complains of hip and knee pain. She states that she has surgery on it about a year ago and now takes aleeve for pain at home. She has not received any pain medication today. She has no other fever, pain, chest pain, SOB, stomach pains today. Denies pain with urination. She uses a walker at home, does not use O2. She lives by herself. Urine culture positive for E.coli. She expressed that she wants to leave hospital as soon as possible. Explained to patient it'll be at least one more day. Subjective/Events-last exam Pt states that she is feeling great this morning. She states that since she got her pain medication her hip has not bothered her at all. Her blood pressure is elevated to 178/84. She was started on lisinopril. She states she was taken off all her other BP meds by her doctor recently. She thinks it is also elevated due to the stress of being in the hospital. She denies any new headaches, CP, SOB, NVD, and stomach pain. She states she is ready to go home. She is afebrile and her white count has decreased. She is able to swallow and take oral medication. She has no other complaints or concerns this morning. Focused Exam Lactate Level 08/27/20 17:44: Lactic Acid Level 1.68 Objective Exam Vital Signs Vital Signs Date Time Temp Pulse Resp B/P (MAP) Pulse Ox O2 Delivery O2 Flow Rate FiO2 08/29/20 08:00 36.2 75 18 182/83 (116) 96 Room Air Capillary Refill : Less Than 3 SecondsLess Than 3 Seconds General Appearance: No Apparent Distress, WD/WN Neck: Full Range of Motion, Non Tender Respiratory: Chest Non Tender, Lungs Clear, Normal Breath Sounds, No Accessory Muscle Use, No Respiratory Distress Cardiovascular: Regular Rate, Rhythm, No Edema, No Gallop, No JVD, No Murmur, Normal Peripheral Pulses Gastrointestinal: Normal Bowel Sounds, No Organomegaly, No Pulsatile Mass, Non Tender, Soft Rectal: Deferred Back: Normal Inspection, No Vertebral Tenderness Extremity: Normal Inspection, Normal Range of Motion, Non Tender, No Calf Tenderness, No Pedal Edema Neurologic/Psychiatric: Alert, Oriented x3, No Motor/Sensory Deficits Skin: Normal Color, Warm/Dry Lymphatic: No Adenopathy Results/Procedures Lab Laboratory Tests 08/29/20 04:40 Patient resulted labs reviewed. Assessment/Plan Assessment and Plan Assess & Plan/Chief Complaint 74 Year old female recovering from pneumonia found to also have UTI and Hip pain Pneumonia 08/29 -Resolved 08/28 -Pneumonia likely resolved -Continue to monitor for fevers and SOB -If any new respiratory sx arise, will prescribe abx, CXR UTI 08/29 -Switched to oral ABX -White count improved 08/28 -Continue ABX -Monitor for worsening fever, or urinary symptoms HTN 08/29 -Started lisinopril -Schedule F/u with pcp to restart BP medications 08/28 -Blood pressures likely due to Leg and hip pain -Will get Pt her home pain medications -If pressures to not improve with analgesia, consider adding or adjusting medication Hip/Knee Pain 08/29 -Pt received home pain medications, pain completely resolved this morning 08/28 -Start Patient on home meds, 4x Aleve Hypokalemia 08/29 -Mild, continue to monitor Pt WBC improvement and has ability to take oral medications. Can discharge tod ay. Diagnosis/Problems Diagnosis/Problems (1) Hyperglycemia Status: Acute (2) Diffuse pneumonia Status: Acute (3) Shortness of breath Status: Acute (4) Rigors Status: Acute (5) Urinary tract infection Status: Acute Qualifiers: Qualified Codes: N30.00 - Acute cystitis without hematuria (6) Left lower lobe pneumonia Status: Acute Qualifiers: Qualified Codes: J18.9 - Pneumonia, unspecified organism Supervisory-Addendum Brief Verification & Attestation Participated in pt care: history, physical Personally performed: exam Care discussed with: other Procedures: n/a n/a NANCY HARGROVE MD 2/11/21 1300: Subjective Review of Systems Pulmonary: No Dyspnea Cardiovascular: No: Chest Pain, Orthopnea, Edema Gastrointestinal: No: Nausea, Abdominal Pain, Diarrhea, Constipation Neurological: Weakness; No: Confusion Objective Exam General Appearance: No Apparent Distress, WD/WN Respiratory: Chest Non Tender, Lungs Clear, Normal Breath Sounds, No Accessory Muscle Use, No Respiratory Distress Cardiovascular: Regular Rate, Rhythm, No Edema, No Murmur, Normal Peripheral Pulses Gastrointestinal: Normal Bowel Sounds, Non Tender, Soft Back: Normal Inspection, No Vertebral Tenderness Extremity: Normal Capillary Refill, Normal Range of Motion, Non Tender, No Calf Tenderness, No Pedal Edema Neurologic/Psychiatric: Alert, Oriented x3, No Motor/Sensory Deficits Skin: Normal Color, Warm/Dry Lymphatic: No Adenopathy Assessment/Plan Assessment and Plan Assess & Plan/Chief Complaint See Discharge Summary Supervisory-Addendum Brief Verification & Attestation Participated in pt care: history, physical Personally performed: exam, history Care discussed with: Medical Student Procedures: n/a Verification and Attestation of Medical Student E/M Service A medical student performed and documented this service in my presence. I reviewed and verified all information documented by the medical student and made modifications to such information, when appropriate. I personally performed the physical exam and medical decision making. Nancy Hargrove, Aug 29, 2020,13:00 SRINIVAS CHAPMAN MED STUDENT Aug 29, 2020 09:06 NANCY HARGROVE MD Sep 18, 2020 13:00
--- NOTE | 2020-08-29 12:24 | Discharge Summary ---
Diagnosis/Chief Complaint Date of Admission Aug 27, 2020 at 19:45 Date of Discharge 08/29/2020 Admission Diagnosis Admission Diagnosis UTI Hip Pain HTN Discharge Diagnosis See Above Discharge Summary-Simple/Stand Consultations Discharge Physical Examination Allergies: Coded Allergies: No Known Drug Allergies (Unverified , 08/27/20) Vitals & I&Os Vital Sign - Last 12Hours Date Time Temp Pulse Resp B/P (MAP) Pulse Ox O2 Delivery O2 Flow Rate FiO2 08/29/20 08:00 90 Room Air 08/29/20 08:00 36.2 75 18 182/83 (116) Intake and Output 08/29/20 00:00 Intake Total 1450 ml Balance 1450 ml General Appearance: Alert, Oriented X3, Cooperative, No Acute Distress Respiratory: Clear to Auscultation, Normal Air Movement Cardiovascular: Regular Rate, No Murmurs Abdominal: Normal Bowel Sounds, Soft, No Tenderness, No Masses Extremities: Other (mild ttp right hip with ROM) Neuro: Normal Speech, Sensation Intact, Cranial Nerves 3-12 NL Hospital Course See final discharge diagnosis. Discharge Condition at discharge Stable Instructions to patient/family Please see electronic discharge instructions given to patient. Discharge Medications Reviewed and agree with Discharge Medication list on patient's Discharge Instruction sheet NANCY MORRISON MD Aug 29, 2020 12:24
[2020-08-29] MEDS ORDERED: LISI10TA2 PO (12:26)
[2020-08-29] MEDS ORDERED: CEFD300C3 PO (12:26)
--- NOTE | 2020-08-29 12:27 | Discharge Summary ---
Discharge [facility] Reconcile Patient Problems Problems Reviewed?: Yes Discharge Medications New, Converted or Re-Newed RX: Transmitted to Pharmacy New Medications: Cefdinir (Cefdinir) 300 Mg Capsule 300 MG PO BID for 5 Days, #10 CAP Lisinopril (Lisinopril) 10 Mg Tablet 10 MG PO DAILY, #30 TAB Continued Medications: Ascorbic Acid (Vitamin C) 1,000 Mg Tablet 1000 MG PO DAILY, TAB Cholecalciferol (Vitamin D3) (Vitamin D3) 50 Mcg Capsule 50 MCG PO DAILY, CAP Melatonin (Melatonin) 5 Mg Tablet 5 MG PO HS, TAB Naproxen Sodium (Aleve) 220 Mg Tablet 880 MG PO DAILY, TAB TAKES 4 (220MG) TABS Zinc Gluconate (Zinc) 50 Mg Tablet 200 MG PO DAILY, TAB TAKES 4 (50MG) TABS Discontinued Medications: Azithromycin (Azithromycin) 250 Mg Tablet 250 MG PO DAILY, TAB FILLED 08-25-2020 #4/4 DAY SUPPLY Metoclopramide HCl (Metoclopramide HCl) 10 Mg Tablet 10 MG PO Q6H PRN for NAUSEA/VOMITING-3RD LINE, TAB Patient Instructions Goal/Follow Up Appt: FMaryu next week with PCP Andrew Patient Instructions: - Make sure to complete your antibiotics Activity & Diet Discharge Diet: Cardiac Diet Copy Copies To 1: [facility] NANCY Valentin MD Aug 29, 2020 12:27
--- NOTE | 2020-08-29 14:22 | NUR ---
Reviewed patients discharge orders, follow up appts, and medications. She had no questions. Family picked her up at 1400.
--- NOTE | 2020-09-01 13:36 | Physician Query Clarification ---
PQ-Further Specificity Admission/Discharge Admission Date: Aug 27, 2020 at 19:45 Discharge Date: Aug 29, 2020 at 14:00 Dr. Hargrove, The medical record reflects the following clinical scenario: History/Risk Factors: E COLI UTI, Pneumonia, diabetes, HTN Clinical Findings: rigors, T 37.7, P 101, R 26, WBC 19.2, Lactic acid 1.68 Treatment: IV Ceftriaxone Question: Can you further specify the medical condition associated with e coli blood culture per the clinical indicators above? Please document a response in the Progress Notes or Discharge Summary. 1. e coli sepsis d/t UTI 2. e coli bacteremia only, no sepsis 3. Other, with explanation of the clinical findings. 4. Clinically undetermined, no explanation for the clinical findings. PHYSICIAN RESPONSE Can you specify per above: 2 Please remember a lack of response to the above will prompt a phone page by CDI/Coding staff. In responding to this query, please exercise your independent professional judgment. The purpose of this communication is to more accurately reflect the complexity of your patients condition. The fact that a question is asked does not imply that any particular answer is desired or expected. Thank you for your timely response to this clarification. Requestors name: Zuleima jose [email or web address] THIS PHYSICIAN QUERY FORM IS A PERMANENT PART OF THE MEDICAL RECORD ZULEIMA METCALF Sep 01, 2020 13:36 NANCY HARGROVE MD Sep 18, 2020 12:58
== END 2020-08-29 14:00 | disposition home or self-care (01) | DRG 689 ==
LOC: EDUNIT# 16:33 → ER 16:35 → 4TH 19:45
PROVIDERS: ADMIT Family Medicine; ATTEND Family Medicine
DX: N39.0 Urinary tract infection, site not specified (principal); J18.9 Pneumonia, unspecified organism; R78.81 Bacteremia; B96.20 Unspecified Escherichia coli [E. coli] as the cause of diseases classified elsewhere; Z20.822 Contact with and (suspected) exposure to COVID-19; E11.65 Type 2 diabetes mellitus with hyperglycemia; I10 Essential (primary) hypertension; M19.91 Primary osteoarthritis, unspecified site; E87.6 Hypokalemia
CPT/HCPCS: 36415; 71045; 80053; 81000; 82962; 83605; 84145; 85007; 85025; 85027; 85379; 85610; 85730; 86141; 87040; 87077; 87088; 87186; 87635; 96374

== ENCOUNTER 2020-09-01 22:12 | Inpatient (IN) | payer MEDICARE ==
[~2020-09-01] VITALS: Ht 172 cm; Wt 77.4 kg
[~2020-09-01 22:12] MED LIST changes: +ASCO100024 PO; +CEFD300C3 PO; +CHOL20002 PO; +LISI10TA2 PO; +MELA5TAB14 PO; +NAPR220T66 PO; +ZINC50TA11 PO
--- NOTE | 2020-09-01 22:32 | ED Cardiac General ---
History of Present Illness General Chief Complaint: Chest Pain Stated Complaint: CHEST PAIN/SOA Source: patient (LIMITED HISTORIAN ), EMS, old records History of Present Illness Date Seen by Provider: Sep 01, 2020 Time Seen by Provider: 22:13 Initial Comments PT ARRIVES VIA [facility] FROM HOME, [place] [facility] C/O CHEST PAIN SINCE 1400 THIS AFTERNOON PAIN IS IN LEFT BREAST AREA NO RADIATION OF PAIN STATES PAIN WAS 10/10, TOOK NTG X 4 THROUGHOUT THE DAY, PAIN DOWN TO 6/10 PT WAS SHORT OF BREATH--STATES SHE IS NOT VERY SHORT OF BREATH NOW PT STATES SHE DID BREAK OUT IN A SWEAT, BUT IS NOT NOW. EMS GAVE 4 BABY ASPIRIN, AND MORPHINE 2 MG AND PAIN IS COMPLETELY GONE NOW PT WAS SEEN AT [facility] 08/25/20 AND DX WITH PNEUMONIA AND SENT HOME WITH RX FOR ZITHROMAX. PT HAD CT CHEST ANGIOGRAM--NO P.E. FOUND, CXR AND GB ULTRASOUND WHICH SHOWED MULTIPLE GALLSTONES. ADMITTED HERE 08/27-08/29/20 FOR UTI, PNEUMONIA, CHEST PAIN AND SENT HOME ON ANTIBIOTIC. RECORDS SHOW PT SENT HOME WITH CEFDINIR AND LISINOPRIL. PT ALSO FOUND TO HAVE ELEVATED BLOOD SUGARS DURING HOSPITAL STAY NO COUGH NO FEVER NO LOSS OF TASTE OR SMELL NO HEADACHE NO BODY ACHES NO NAUSEA/VOMITING/DIARRHEA OR ABDOMINAL PAIN PCP: DR. RAMSAY, WITH [facility] --SEES HIM IN [place] Allergies and Home Medications Allergies Coded Allergies: No Known Drug Allergies (Unverified , 08/27/20) Home Medications Ascorbic Acid 1,000 Mg Tablet, 1,000 MG PO DAILY, (Reported) Cefdinir 300 Mg Capsule, 300 MG PO BID Prescribed by: NANCY MORRISON on 08/29/20 1226 Cholecalciferol (Vitamin D3) 50 Mcg Capsule, 50 MCG PO DAILY, (Reported) Lisinopril 10 Mg Tablet, 10 MG PO DAILY Prescribed by: NANCY MORRISON on 08/29/20 1226 Melatonin 5 Mg Tablet, 5 MG PO HS, (Reported) Naproxen Sodium 220 Mg Tablet, 880 MG PO DAILY, (Reported) TAKES 4 (220MG) TABS Zinc Gluconate 50 Mg Tablet, 200 MG PO DAILY, (Reported) TAKES 4 (50MG) TABS Patient Home Medication List Home Medication List Reviewed: Yes Review of Systems Review of Systems Constitutional: see HPI, diaphoresis; No fever, No malaise EENTM: No Symptoms Reported Respiratory: See HPI; Denies Cough; Shortness of Air Cardiovascular: See HPI, Chest Pain; Denies Edema, Denies Lightheadedness, Denies Syncope Gastrointestinal: No Symptoms Reported; Denies Abdominal Pain, Denies Diarrhea, Denies Nausea, Denies Vomiting Genitourinary: No Symptoms Reported Musculoskeletal: no symptoms reported Skin: no symptoms reported Psychiatric/Neurological: No Symptoms Reported Endocrine: No Symptoms Reported Hematologic/Lymphatic: No Symptoms Reported Past Fzeuqsi-Yxgklk-Sakspe Hx Past Med/Social Hx: Reviewed and Corrections made Patient Social History Alcohol Use: Denies Use Drug of Choice: DENIES Smoking Status: Former Smoker (QUIT YEARS AGO) Type Used: Cigarettes Recent Hopitalizations: No Seasonal Allergies Seasonal Allergies: No Past Medical History Surgeries: Yes (BILATERAL KNEE REPLACEMENTS; NEUROMA RIGHT FOOT) Joint Replacement, Orthopedic, Thyroidectomy Respiratory: Yes (PNEUMONIA DX 08/25/20) Pneumonia Cardiac: Yes Hypertension Neurological: Yes Stroke HR INTERNSHIP History: Menopausal Genitourinary: No Gastrointestinal: Yes (GALLSTONES ON CT AND US 08/25/20) Gall Bladder Disease Musculoskeletal: Yes (HIP AND KNEE PAIN ;BILAT KNEE REPLACEMENTS; NEUROMA RIGHT FOOT) Arthritis Endocrine: Yes (HYPERGLYCEMIA ON ADMIT 08/27/20 ;THYROIDECTOMY) Hypothyroidsim HEENT: No Cancer: No Psychosocial: No Integumentary: No Blood Disorders: No Physical Exam Vital Signs Vital Signs - First Documented 09/01/20 22:24 Temp 36.5 Pulse 96 Resp 17 B/P (MAP) 135/72 (93) Pulse Ox 93 O2 Delivery Nasal Cannula O2 Flow Rate 2.00 Capillary Refill : Height, Weight, BMI Height: '" Weight: lbs. oz. kg; 27.91 BMI Method: General Appearance: No Apparent Distress, WD/WN, Obese, Other (SMILING, LAUGHING, TALKS AT LENGTH, DOES NOT APPEAR TO BE IN ANY DISCOMFORT OR DISTRESS) Neck: Full Range of Motion, Normal Inspection, Non Tender, Supple; No Carotid Bruit, No JVD Respiratory: Chest Non Tender, No Accessory Muscle Use, No Respiratory Distress Cardiovascular: Regular Rate, Rhythm, No Edema, No JVD, No Murmur, Normal Peripheral Pulses Gastrointestinal: Non Tender, Soft Extremity: Normal Capillary Refill, Normal Inspection, Normal Range of Motion, Non Tender, No Calf Tenderness, No Pedal Edema Neurologic/Psychiatric: Alert, Oriented x3, No Motor/Sensory Deficits, Normal 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 ) Focused Exam Lactate Level 09/01/20 23:31: Lactic Acid Level 1.32 Lactic Acid Level Laboratory Tests Test 09/01/20 23:31 Lactic Acid Level 1.32 MMOL/L (0.50-2.00) Progress/Results/Core Measures Results/Orders Lab Results Laboratory Tests Test 09/01/20 23:06 09/01/20 23:31 09/01/20 23:42 09/02/20 02:55 Range/Units White Blood Count 33.7 *H 4.3-11.0 10^3/uL Red Blood Count 4.84 3.80-5.11 10^6/uL Hemoglobin 14.7 11.5-16.0 g/dL Hematocrit 43 35-52 % Mean Corpuscular Volume 89 80-99 fL Mean Corpuscular Hemoglobin 30 25-34 pg Mean Corpuscular Hemoglobin Concent 34 32-36 g/dL Red Cell Distribution Width 13.4 10.0-14.5 % Platelet Count 309 130-400 10^3/uL Mean Platelet Volume 9.7 9.0-12.2 fL Immature Granulocyte % (Auto) 3 % Neutrophils (%) (Auto) 90 H 42-75 % Lymphocytes (%) (Auto) 4 L 12-44 % Monocytes (%) (Auto) 3 0-12 % Eosinophils (%) (Auto) 0 0-10 % Basophils (%) (Auto) 0 0-10 % Neutrophils # (Auto) 30.2 H 1.8-7.8 10^3/uL Lymphocytes # (Auto) 1.3 1.0-4.0 10^3/uL Monocytes # (Auto) 1.1 H 0.0-1.0 10^3/uL Eosinophils # (Auto) 0.0 0.0-0.3 10^3/uL Basophils # (Auto) 0.1 0.0-0.1 10^3/uL Immature Granulocyte # (Auto) 1.0 H 0.0-0.1 10^3/uL Neutrophils % (Manual) 91 % Lymphocytes % (Manual) 2 % Monocytes % (Manual) 0 % Eosinophils % (Manual) 0 % Basophils % (Manual) 0 % Band Neutrophils 6 % Reactive Lymphocytes 1 % Smudge Cells SLIGHT Rouleau SLIGHT Prothrombin Time 13.9 12.2-14.7 SEC INR Comment 1.0 0.8-1.4 Activated Partial Thromboplast Time 29 24-35 SEC D-Dimer 1.30 H 0.00-0.49 UG/ML Sodium Level 136 135-145 MMOL/L Potassium Level 3.8 3.6-5.0 MMOL/L Chloride Level 102 98-107 MMOL/L Carbon Dioxide Level 23 21-32 MMOL/L Anion Gap 11 5-14 MMOL/L Blood Urea Nitrogen 17 7-18 MG/DL Creatinine 0.95 0.60-1.30 MG/DL Estimat Glomerular Filtration Rate 57 BUN/Creatinine Ratio 18 Glucose Level 350 H 70-105 MG/DL Calcium Level 9.1 8.5-10.1 MG/DL Corrected Calcium 9.5 8.5-10.1 MG/DL Magnesium Level 2.3 1.6-2.4 MG/DL Total Bilirubin 0.7 0.1-1.0 MG/DL Aspartate Amino Transf (AST/SGOT) 37 H 5-34 U/L Alanine Aminotransferase (ALT/SGPT) 57 H 0-55 U/L Alkaline Phosphatase 175 H 40-136 U/L Total Creatine Kinase 21 L 29-168 U/L Creatine Kinase MB 0.7 <6.6 NG/ML Myoglobin 45.8 10.0-92.0 NG/ML Troponin I < 0.028 <0.028 NG/ML C-Reactive Protein High Sensitivity 8.73 H 0.00-0.50 MG/DL B-Type Natriuretic Peptide 56.9 <100.0 PG/ML Total Protein 6.7 6.4-8.2 GM/DL Albumin 3.5 3.2-4.5 GM/DL Amylase Level 55 25-125 U/L Lipase 22 8-78 U/L Procalcitonin 2.51 H <0.10 NG/ML Erythrocyte Sedimentation Rate 11 0-30 MM/HR Lactic Acid Level 1.32 0.50-2.00 MMOL/L Urine Color YELLOW Urine Clarity CLEAR Urine pH 6.0 5-9 Urine Specific [place] 1.025 H 1.016-1.022 Urine Protein NEGATIVE NEGATIVE Urine Glucose (UA) 3+ H NEGATIVE Urine Ketones 1+ H NEGATIVE Urine Nitrite NEGATIVE NEGATIVE Urine Bilirubin NEGATIVE NEGATIVE Urine Urobilinogen 1.0 < = 1.0 MG/DL Urine Leukocyte Esterase NEGATIVE NEGATIVE Urine RBC (Auto) 1+ H NEGATIVE Urine RBC 10-25 H /HPF Urine WBC RARE /HPF Urine Squamous Epithelial Cells 5-10 /HPF Urine Crystals NONE /LPF Urine Bacteria NEGATIVE /HPF Urine Casts NONE /LPF Urine Mucus LARGE H /LPF Urine Culture Indicated NO My Orders Orders - CHARLIE ROACH DO Ed Iv/Invasive Line Start (09/01/20 22:20) Ekg Tracing (09/01/20 22:20) O2 (09/01/20 22:20) Monitor-Rhythm Ecg Trace Only (09/01/20 22:20) Cbc With Automated Diff (09/01/20 22:20) Magnesium (09/01/20 22:20) Chest 1 View, Ap/Pa Only (09/01/20 22:20) Ekg Tracing (09/01/20 22:20) Comprehensive Metabolic Panel (09/01/20 22:20) Myoglobin Serum (09/01/20 22:20) Protime With Inr (09/01/20 22:20) Partial Thromboplastin Time (09/01/20 22:20) O2 (09/01/20 22:20) Ed Iv/Invasive Line Start (09/01/20 22:20) Creatine Kinase (09/01/20 22:20) Creatine Kinase Mb (09/01/20 22:20) Lipase (09/01/20 22:20) Amylase (09/01/20 22:20) BNP (09/01/20 22:20) Fibrin Degradation Products (09/01/20 22:20) Troponin I (09/01/20 22:20) Manual Differential (09/01/20 23:06) Hs C Reactive Protein (09/01/20 23:20) Lactic Acid Analyzer (09/01/20 23:20) Procalcitonin (Pct) (09/01/20 23:20) Ua Culture If Indicated (09/01/20 23:20) Blood Culture (09/01/20 23:20) Erythrocyte Sedimentation Rate (09/01/20 23:20) Ct Ellen Chest/Noang Abd-Pelv W (09/02/20 00:09) Iohexol Injection (Omnipaque 350 Mg/Ml 1 (09/02/20 01:00) Received Contrast (Hold Metformin- Contr (09/02/20 01:00) Ns (Ivpb) (Sodium Chloride 0.9% Ivpb Bag (09/02/20 01:00) Troponin I (09/02/20 02:29) Ed Iv/Invasive Line Start (09/02/20 02:42) Ns Iv 1000 Ml (Sodium Chloride 0.9%) (09/02/20 02:45) Meropenem (Merrem 500 Mg) (09/02/20 02:45) Influenza A And B Antigens (09/02/20 02:49) Covid 19 Inhouse Test (09/02/20 02:49) Urine Culture (09/02/20 02:49) Vital Signs Adult Sepsis Patie Q15M (09/02/20 02:49) Remove Rings In Anticipation O (09/02/20 02:49) Lactic Acid Analyzer (09/02/20 02:49) Medications Given in ED Current Medications Medications Dose Ordered Sig/Bridger Route Start Time Stop Time Status Last Admin Dose Admin Iohexol 100 ml ONCE ONCE IV 09/02/20 01:00 09/02/20 01:01 DC 09/02/20 01:17 100 ML Meropenem 500 mg/ Sterile Water 10 ml @ 200 mls/hr ONCE ONCE IV 09/02/20 02:45 09/02/20 02:47 DC 09/02/20 02:58 200 MLS/HR Sodium Chloride 80 ml ONCE ONCE IV 09/02/20 01:00 09/02/20 01:01 DC 09/02/20 01:17 80 ML Vital Signs/I&O 09/01/20 09/01/20 22:24 22:32 Temp 36.5 Pulse 96 Resp 17 B/P (MAP) 135/72 (93) Pulse Ox 93 O2 Delivery Nasal Cannula Nasal Cannula O2 Flow Rate 2.00 2.0 Progress Progress Note : Progress Note NO COMPLAINTS OF CHEST PAIN OR ANY OTHER COMPLAINTS OF ANY KIND DURING ENTIRE ER STAY PT RESTED QUIETLY FOR MOST OF ER STAY PT ADAMANTLY REFUSES COVID-1O AND FLU TESTS PT ADAMANTLY REFUSES CATHETER VITALS STABLE Initial ECG Impression Date: Sep 01, 2020 Initial ECG Impression Time: 22:28 Initial ECG Rate: 95 Initial ECG Rhythm: Normal Sinus Initial ECG Impression: Nonspecific Changes Diagnostic Imaging Comments CXR--CARDIOMEGALY, MILD VASCULAR CONGESTION--PENDING RADIOLOGIST REVIEW CT ANGIOGRAM CHEST /ABDOMEN AND PELVIS--PER [facility] VIA FAX AT 2298 NON-SPECIFIC GROUND GLASS INFILTRATES BILATERALLY--INTERSTITIAL EDEMA OR PNEUMONITIS. NO P.E. INFLAMMATORY OR COMPLEX CYSTIC LESION IN RIGHT KIDNEY 2.5 CM DIAMETER. --DIFF DX SMALL RENAL ABSCESS OR INFECTED CYST. UNLIKELY NEOPLASM. CHOLELITHIASIS, OTHERWISE NORMAL GALLBLADDER 6 CM MASS ON UTERUS-POSSIBLE FIBROID FATTY LIVER BENIGN APPEARING 1.6 CM SPLENIC CYST 8 MM RIGHT ADRENAL ADENOMA Reviewed: Reviewed by [place] Departure Communication (Admissions) 0235--SPOKE WITH DR. GARCIA, HOSPITALIST FOR [facility], ACCEPTS PT FOR ADMIT. ORDERS NOTED. Impression Primary Impression: Severe sepsis Additional Impressions: Pneumonitis UTI (urinary tract infection) Gallstones without obstruction of gallbladder Hyperglycemia Chest pain INFLAMED RIGHT RENAL CYST ABNORMAL SKIN LESION LEFT SHOULDER Disposition: ADMITTED INPATIENT Condition: Stable Admissions Decision to Admit Reason: Admit from ER (General) Decision to Admit/Date: Sep 02, 2020 Time/Decision to Admit Time: 02:35 Departure-Patient Inst. Referrals: NO,LOCAL PHYSICIAN (PCP/Family) Primary Care Physician CHARLIE ROACH DO Sep 01, 2020 22:32
[2020-09-01 23:15] LABS: BASOPHILS # (AUTO) 0.1 10^3/uL (0.0-0.1); BASOPHILS % (AUTO) 0 % (0-10); EOSINOPHILS % (AUTO) 0 % (0-10); HEMATOCRIT 43 % (35-52); HEMOGLOBIN 14.7 g/dL (11.5-16.0); LYMPHOCYTES # (AUTO) 1.3 10^3/uL (1.0-4.0); LYMPHOCYTES % (AUTO) 4 % (12-44); MEAN CORPUSCULAR HEMOGLOBIN 30 pg (25-34); MEAN CORPUSCULAR HGB CONC 34 g/dL (32-36); MEAN CORPUSCULAR VOLUME 89 fL (80-99); MEAN PLATELET VOLUME 9.7 fL (9.0-12.2); MONOCYTES # (AUTO) 1.1 10^3/uL (0.0-1.0); MONOCYTES % (AUTO) 3 % (0-12); NEUTROPHILS # (AUTO) 30.2 10^3/uL (1.8-7.8); NEUTROPHILS % (AUTO) 90 % (42-75); PLATELET COUNT 309 10^3/uL (130-400)
[2020-09-01 23:19] LABS: WHITE BLOOD COUNT 33.7 10^3/uL (4.3-11.0)
[2020-09-01 23:24] LABS: ALBUMIN 3.5 GM/DL (3.2-4.5); POTASSIUM 3.8 MMOL/L (3.6-5.0)
[2020-09-01 23:26] LABS: CALCIUM 9.1 MG/DL (8.5-10.1)
[2020-09-01 23:27] LABS: PROTHROMBIN TIME PATIENT 13.9 SEC (12.2-14.7); TOTAL PROTEIN 6.7 GM/DL (6.4-8.2)
[2020-09-01 23:28] LABS: BILIRUBIN,TOTAL 0.7 MG/DL (0.1-1.0)
[2020-09-01 23:30] LABS: CREATININE SERUM 0.95 MG/DL (0.60-1.30)
[2020-09-01 23:31] LABS: BAND NEUTROPHILS 6 %; BASOPHILS % (MANUAL) 0 %; EOSINOPHILS % (MANUAL) 0 %; LYMPHOCYTES % (MANUAL) 2 %; MONOCYTES % (MANUAL) 0 %; NEUTROPHILS % (MANUAL) 91 %; REACTIVE LYMPHOCYTES 1 %; ROULEAUX SLIGHT; SMUDGE CELLS SLIGHT
[2020-09-01 23:33] LABS: MAGNESIUM 2.3 MG/DL (1.6-2.4)
[2020-09-01 23:41] LABS: CREATINE KINASE MB 0.7 NG/ML (<6.6)
[2020-09-01 23:49] LABS: BILIRUBIN,URINE NEGATIVE (NEGATIVE); CLARITY,URINE CLEAR; COLOR,URINE YELLOW; GLUCOSE, URINE (UA) 3+ (NEGATIVE); KETONES,URINE 1+ (NEGATIVE); LEUKOCYTE ESTERASE ,URINE NEGATIVE (NEGATIVE); NITRITE,URINE NEGATIVE (NEGATIVE); PROTEIN,URINE NEGATIVE (NEGATIVE)
[2020-09-02 00:05] LABS: BACTERIA,URINE NEGATIVE /HPF; WBC,URINE RARE /HPF
[2020-09-02] MEDS ORDERED: IOHEXOL 350 MG/ML 100 ML (OMNIPAQUE 350) VIAL IV ONE (01:00)
[2020-09-02] MEDS ORDERED: HOLD METFORMIN - RECEIVED CONTRAST 20 ML VIAL IV SCH (01:00)
[2020-09-02] MEDS ORDERED: NS 100 ML (IVPB) BAG IV ONE (01:00)
[2020-09-02] MEDS ORDERED: MEROPENEM 500 MG in WATER (STERILE) FOR INJECTION 10 ML IV ONE (02:45)
[2020-09-02] MEDS ORDERED: NS IV 1000 ML 1,000 ML IV SCH ×2 (02:45→05:00)
--- NOTE | 2020-09-02 03:00 | NUR ---
PT REFUSES COVID-19 SWAB ET FLU SWAB STATING, "YOU AINT SHOVING THAT UP MY NOSE AGAIN! I WAS NEGATIVE LAST WEEEK!" Addendum: 09/02/20 at 0435 by KENNY PROVIDER NOTIFIED.
--- NOTE | 2020-09-02 03:50 | NUR ---
PER PT REQUEST THIS RN DID NOT CONTACT DAUGHTER REGARDING ADMISSION STATUS. PT REPORTS HER DAUGHTER WILL CONTACT PT WHEN SHE WAKES UP FOR THE DAY.
[2020-09-02] MEDS ORDERED: VANCOMYCIN INJECTION 1,000 MG in NS (IVPB) 250 ML IV NR (04:15)
[2020-09-02 04:21] VITALS: BP 148/81
[2020-09-02 04:30] VITALS: BP 147/91
[2020-09-02] MEDS ORDERED: ACETAMINOPHEN 500 MG TAB (TYLENOL) PO PRN (04:30)
[2020-09-02] MEDS ORDERED: ONDANSETRON 4 MG/2 ML (SDV) Z0FRAN IV PRN (04:30)
[2020-09-02] MEDS ORDERED: IBUPROFEN 800 MG (MOTRIN) TAB PO PRN (04:30)
[2020-09-02 04:45] VITALS: BP 122/93
[2020-09-02] MEDS ORDERED: morphine INJ 4 MG/ML 1 ML (VIAL/SYRINGE) IV PRN (04:45)
[2020-09-02] MEDS ORDERED: NITROGLYCERIN 0.4 MG SL TABS BTL 25'S SL PRN (04:45)
[2020-09-02] MEDS ORDERED: VASOPRESSIN INJECTION 20 UNIT in NS (IVPB) 100 ML IV SCH (05:00)
[2020-09-02] MEDS ORDERED: NOREPINEPHRINE 4 MG/250 ML 250 ML IV SCH (05:00)
[2020-09-02] MEDS ORDERED: EPINEPHrine 1 MG INJECTION 4 MG in NS (IVPB) 248 ML IV SCH (05:00)
--- NOTE | 2020-09-02 05:21 | Pulmonary Consultation ---
History of Present Illness History of Present Illness Date Seen by Provider: Sep 02, 2020 Time Seen by Provider: 05:16 Date of Admission Allergies and Home Medications Allergies Coded Allergies: No Known Drug Allergies (Unverified , 08/27/20) Home Medications Ascorbic Acid 1,000 Mg Tablet, 1,000 MG PO DAILY, (Reported) Cefdinir 300 Mg Capsule, 300 MG PO BID Prescribed by: NANCY MORRISON on 08/29/20 1226 Cholecalciferol (Vitamin D3) 50 Mcg Capsule, 50 MCG PO DAILY, (Reported) Lisinopril 10 Mg Tablet, 10 MG PO DAILY Prescribed by: NANCY MORRISON on 08/29/20 1226 Melatonin 5 Mg Tablet, 5 MG PO HS, (Reported) Naproxen Sodium 220 Mg Tablet, 880 MG PO DAILY, (Reported) TAKES 4 (220MG) TABS Zinc Gluconate 50 Mg Tablet, 200 MG PO DAILY, (Reported) TAKES 4 (50MG) TABS Past Oflnxvq-Ehxodd-Aqcxvn Hx Past Med/Social Hx: Reviewed and Corrections made Patient Social History Alcohol Use: Denies Use Drug of Choice: DENIES Smoking Status: Former Smoker (QUIT YEARS AGO) Type Used: Cigarettes Recent Infectious Disease Expo: No Recent Hopitalizations: No Seasonal Allergies Seasonal Allergies: No Past Medical History Surgeries: Yes (BILATERAL KNEE REPLACEMENTS; NEUROMA RIGHT FOOT) Joint Replacement, Orthopedic, Thyroidectomy Respiratory: Yes (PNEUMONIA DX 08/25/20) Pneumonia Cardiac: Yes Hypertension 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 oz. kg; 27.10 BMI Method: Exam Exam Vital Signs Date Time Temp Pulse Resp B/P (MAP) Pulse Ox O2 Delivery O2 Flow Rate FiO2 09/02/20 04:21 36.7 72 16 148/81 (103) 99 Nasal Cannula 2.00 09/02/20 04:05 36.5 74 18 148/95 (93) 98 Nasal Cannula 2.00 09/01/20 22:32 Nasal Cannula 2.0 09/01/20 22:24 36.5 96 17 135/72 (93) 93 Nasal Cannula 2.00 Height & Weight Height: '" Weight: lbs. oz. kg; 27.10 BMI Method: General Appearance: No Apparent Distress, WD/WN, Obese, Other (SMILING, LAUGHING, TALKS AT LENGTH, DOES NOT APPEAR TO BE IN ANY DISCOMFORT OR DISTRESS) Neck: Full Range of Motion, Normal Inspection, Non Tender, Supple; No Carotid Bruit, No JVD Respiratory: Chest Non Tender, No Accessory Muscle Use, No Respiratory Distress Cardiovascular: Regular Rate, Rhythm, No Edema, No JVD, No Murmur, Normal Peripheral Pulses Capillary Refill: Less Than 3 Seconds Extremity: Normal Capillary Refill, Normal Inspection, Normal Range of Motion, Non Tender, No Calf Tenderness, No Pedal Edema Neurologic/Psychiatric: Alert, Oriented x3, No Motor/Sensory Deficits, Normal 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 ) Results Lab Laboratory Tests 09/01/20 23:06 Assessment/Plan Assessment/Plan Severe sepsis with pneumonia -oxygen - Only requiring 2 liters -Pt is refusing COVID and influenza testing -Pt is DNR -Pt is not hypotensive CP - now resolved NSTEMI -Cardiology following JOSEPH FRAZIER DO Sep 02, 2020 05:21
[2020-09-02] MEDS ORDERED: PHARMACY TO DOSE IV SCH (05:30)
[2020-09-02] MEDS ORDERED: VANCOMYCIN 1000 MG/VIAL ONE (05:43)
[2020-09-02] MEDS ORDERED: NS (IVPB) 250 ML ONE (05:43)
[2020-09-02 05:47] LABS: BASOPHILS # (AUTO) 0.1 10^3/uL (0.0-0.1); BASOPHILS % (AUTO) 0 % (0-10); EOSINOPHILS % (AUTO) 0 % (0-10); HEMATOCRIT 41 % (35-52); HEMOGLOBIN 13.8 g/dL (11.5-16.0); LYMPHOCYTES # (AUTO) 3.1 10^3/uL (1.0-4.0); LYMPHOCYTES % (AUTO) 12 % (12-44); MEAN CORPUSCULAR HEMOGLOBIN 31 pg (25-34); MEAN CORPUSCULAR HGB CONC 34 g/dL (32-36); MEAN CORPUSCULAR VOLUME 90 fL (80-99); MEAN PLATELET VOLUME 9.6 fL (9.0-12.2); MONOCYTES # (AUTO) 1.2 10^3/uL (0.0-1.0); MONOCYTES % (AUTO) 5 % (0-12); NEUTROPHILS # (AUTO) 21.1 10^3/uL (1.8-7.8); NEUTROPHILS % (AUTO) 81 % (42-75); PLATELET COUNT 290 10^3/uL (130-400); WHITE BLOOD COUNT 26.1 10^3/uL (4.3-11.0)
[2020-09-02 05:56] LABS: CHLORIDE 107 MMOL/L (98-107); POTASSIUM 3.6 MMOL/L (3.6-5.0); SODIUM 138 MMOL/L (135-145)
[2020-09-02 05:57] LABS: ALBUMIN 3.1 GM/DL (3.2-4.5)
[2020-09-02 05:58] LABS: CALCIUM 8.5 MG/DL (8.5-10.1)
[2020-09-02 05:59] LABS: GLUCOSE 156 MG/DL (70-105); TOTAL PROTEIN 6.1 GM/DL (6.4-8.2); TRIGLYCERIDES 114 MG/DL (<150); VLDL CHOLESTEROL 23 MG/DL (5-40)
[2020-09-02 06:00] LABS: CARBON DIOXIDE 21 MMOL/L (21-32)
[2020-09-02 06:01] LABS: BILIRUBIN,TOTAL 0.6 MG/DL (0.1-1.0)
[2020-09-02 06:03] LABS: ALKALINE PHOSPHATASE 149 U/L (40-136); GFR ESTIMATED > 60
[2020-09-02 06:04] LABS: BUN/CREATININE RATIO 19; CHOLESTEROL 119 MG/DL (< 200); PHOSPHORUS 2.6 MG/DL (2.3-4.7)
[2020-09-02 06:05] LABS: HDL CHOLESTEROL 21 MG/DL (40-60)
[2020-09-02 06:06] LABS: ALANINE AMINOTRANSFERASE 47 U/L (0-55); MAGNESIUM 2.2 MG/DL (1.6-2.4)
[2020-09-02 06:21] VITALS: BP 168/72
[2020-09-02] MEDS: NS IV 1000 ML 1,000 ML IV SCH ×4 (06:25→23:40)
[2020-09-02] MEDS: inSUlin ASPART (NovoLOG) 1 UNIT/0.01 ML (CHARGE PER UNIT) SC SCH ×4 (06:25→20:35)
[2020-09-02] MEDS ORDERED: VANCOMYCIN INJECTION 500 MG in NS (IVPB) 100 ML IV ONE (07:00)
--- NOTE | 2020-09-02 07:05 | Diagnostic Imaging Report ---
Clinical indication: Patient with chest pain. Exam: Portable chest x-ray upright view. Comparisons: Chest x-ray dated 08/27/2020. Findings: Lungs/pleura: There is suspected mild bibasilar atelectasis. Otherwise, lungs are clear. There is no pneumothorax. There is no pleural effusion. Mediastinum: Unremarkable. Pulmonary vasculature: There is increased curvilinear opacities in both lungs which may represent pulmonary venous distention. Heart: There is cardiomegaly. Bones/extrathoracic soft tissue: Right curvature of the thoracic spine is noted. Impression: 1: There is cardiomegaly with suspected mild pulmonary venous distention. 2: There is suspected mild bibasilar atelectasis. Dictated by: Dictated on workstation # [id number]
--- NOTE | 2020-09-02 07:27 | Diagnostic Imaging Report ---
INDICATION: CP, ELEVATE WBC, ELEVATED LFT'S CTA chest, abdomen and pelvis Thin axial sections through the chest, abdomen and pelvis are obtained following intravenous contrast bolus. Multiplanar MIP images were reconstructed and reviewed. All CT scans use one or more of the following dose optimizing techniques: automated exposure control, MA and/or KvP adjustment based on patient size and exam type or iterative reconstruction. CORRELATION STUDY: CTA chest 08/25/2020 FINDINGS: CTA CHEST: Overall assessment of the pulmonary arteries is limited with motion artifact and contrast bolus timing. No definitive large central pulmonary embolus. Small peripheral emboli could easily go undetected. Heart size is an enlarged but without disproportionate right ventricular dysfunction. No pericardial effusion. Thoracic aortic contour unremarkable. No pathologically enlarged mediastinal lymph nodes. Small hiatal hernia. Lung camp are with scattered vague groundglass opacities. No walter lobar consolidation. No pneumothorax or effusion. CT ABDOMEN and PELVIS: Diffuse hepatic steatosis. Gallbladder is filled with multiple gallstones. Small low-density foci anterior spleen favors probable cyst. Pancreas unremarkable. Right adrenal gland contains small low attenuating nodule, just under 1 cm. Left adrenal gland unremarkable. Approximately 2.5 cm low density mass superior pole right kidney. There does appear to be somewhat ill-defined thickening along the peripheral margins may be reflective of inflammation. Additional mild stranding adjacent capsule margin of the cyst. The kidney and collecting system otherwise unremarkable. Left kidney unremarkable. Gastrointestinal tract demonstrates a few fluid-filled loops of small bowel to be present. No obstruction. Mild stool retention within the colon. Minimal diverticulosis. No evidence for acute diverticulitis. No evidence for acute appendicitis. Urinary bladder unremarkable. The uterus contains a approximately 5.8 x 5.9 cm mass fundal aspect. Leftward curvature lumbar spine with moderate multilevel degenerative changes are present. There is rather severe degenerative changes left hip. IMPRESSION: CTA CHEST: 1. No definitive CT evidence for pulmonary emboli. However, examination compromised by respiratory motion artifact. Smaller peripheral emboli could easily go undetected. 2. Groundglass infiltrates throughout both lung camp. Nonspecific but could be reflective of edema versus a underlying pneumonitis. CT ABDOMEN and PELVIS: 1. Inflammatory or complex cystic lesion superior pole right kidney. This may reflect potential abscess or infected cyst. Cystic neoplasm is also the differential. 2. Cholelithiasis with a gallbladder filled with gallstones. However, otherwise relatively normal appearance about the gallbladder. 3. Nearly 6 cm mass of the uterus may reflect a fibroid. However, correlation with pelvic ultrasound imaging recommended. 4. Additional incidental findings including hepatic steatosis, rather benign-appearing splenic cyst and probable right adrenal adenoma. Initial report was provided by [facility]. Dictated by: Dictated on workstation # [id number]
[2020-09-02] MEDS: MEROPENEM 500 MG in WATER (STERILE) FOR INJECTION 10 ML IV SCH ×3 (08:22→20:24)
[2020-09-02] MEDS: ASPIRIN E.C. 81 MG (ECOTRIN) TAB PO SCH (08:23)
[2020-09-02] MEDS: ENOXAPARIN 40 MG/0.4 ML (LOVENOX) SYR SC SCH (08:23)
--- NOTE | 2020-09-02 09:07 | Consultation-Cardiology ---
HPI-Cardiology Cardiology Consultation Date of Consultation 09/02/20 Date of Admission Time Seen by Provider: 05:22 Indication: chest pain HPI 74-year-old lady with no significant cardiac history, was seen last week for pneumonia started on antibiotic. Reported episode of chest pain, described it as severe, dull in the retrosternal area associated with diaphoresis, no shortness of breath. Patient came into the emergency room and noted to have urinary tract infection and persistent pulmonary infiltrate. On my evaluation she denied any active chest pain at this point, no acute KG changes. She reported that the nitroglycerin she has used were for her Home Medications & Allergies Allergies: Coded Allergies: No Known Drug Allergies (Unverified , 08/27/20) Home Medication List Reviewed: Yes WBH-Bhqwps-Subjck Hx Patient Social History Marital Status: Employed/Student: retired Recreational Drug Use: No Drug of Choice: DENIES Smoking Status: Former Smoker (QUIT YEARS AGO) Type Used: Cigarettes Recent Hopitalizations: No Past Medical History discussed below Review of Systems-General Review of Systems Constitutional: see HPI, diaphoresis; No fever, No malaise; weakness EENTM: see HPI Respiratory: see HPI; No cough, No dyspnea on exertion, No hemoptysis, No orthopnea, No phlegm; short of breath; No stridor, No wheezing, No other Cardiovascular: see HPI, chest pain; No edema, No Hx of Intervention, No palpitations, No syncope, No vascular heart diseas, No other Gastrointestinal: no symptoms reported, see HPI Genitourinary: no symptoms reported, see HPI Musculoskeletal: no symptoms reported, see HPI Skin: no symptoms reported, see HPI Psychiatric/Neurological: No Symptoms Reported, See HPI Reviewed Test Results Reviewed Test Results Lab Laboratory Tests Test 09/01/20 23:06 09/01/20 23:31 09/01/20 23:42 09/02/20 02:55 Range/Units White Blood Count 33.7 *H 4.3-11.0 10^3/uL Red Blood Count 4.84 3.80-5.11 10^6/uL Hemoglobin 14.7 11.5-16.0 g/dL Hematocrit 43 35-52 % Mean Corpuscular Volume 89 80-99 fL Mean Corpuscular Hemoglobin 30 25-34 pg Mean Corpuscular Hemoglobin Concent 34 32-36 g/dL Red Cell Distribution Width 13.4 10.0-14.5 % Platelet Count 309 130-400 10^3/uL Mean Platelet Volume 9.7 9.0-12.2 fL Immature Granulocyte % (Auto) 3 % Neutrophils (%) (Auto) 90 H 42-75 % Lymphocytes (%) (Auto) 4 L 12-44 % Monocytes (%) (Auto) 3 0-12 % Eosinophils (%) (Auto) 0 0-10 % Basophils (%) (Auto) 0 0-10 % Neutrophils # (Auto) 30.2 H 1.8-7.8 10^3/uL Lymphocytes # (Auto) 1.3 1.0-4.0 10^3/uL Monocytes # (Auto) 1.1 H 0.0-1.0 10^3/uL Eosinophils # (Auto) 0.0 0.0-0.3 10^3/uL Basophils # (Auto) 0.1 0.0-0.1 10^3/uL Immature Granulocyte # (Auto) 1.0 H 0.0-0.1 10^3/uL Neutrophils % (Manual) 91 % Lymphocytes % (Manual) 2 % Monocytes % (Manual) 0 % Eosinophils % (Manual) 0 % Basophils % (Manual) 0 % Band Neutrophils 6 % Reactive Lymphocytes 1 % Smudge Cells SLIGHT Rouleau SLIGHT Prothrombin Time 13.9 12.2-14.7 SEC INR Comment 1.0 0.8-1.4 Activated Partial Thromboplast Time 29 24-35 SEC D-Dimer 1.30 H 0.00-0.49 UG/ML Sodium Level 136 135-145 MMOL/L Potassium Level 3.8 3.6-5.0 MMOL/L Chloride Level 102 98-107 MMOL/L Carbon Dioxide Level 23 21-32 MMOL/L Anion Gap 11 5-14 MMOL/L Blood Urea Nitrogen 17 7-18 MG/DL Creatinine 0.95 0.60-1.30 MG/DL Estimat Glomerular Filtration Rate 57 BUN/Creatinine Ratio 18 Glucose Level 350 H 70-105 MG/DL Calcium Level 9.1 8.5-10.1 MG/DL Corrected Calcium 9.5 8.5-10.1 MG/DL Magnesium Level 2.3 1.6-2.4 MG/DL Total Bilirubin 0.7 0.1-1.0 MG/DL Aspartate Amino Transf (AST/SGOT) 37 H 5-34 U/L Alanine Aminotransferase (ALT/SGPT) 57 H 0-55 U/L Alkaline Phosphatase 175 H 40-136 U/L Total Creatine Kinase 21 L 29-168 U/L Creatine Kinase MB 0.7 <6.6 NG/ML Myoglobin 45.8 10.0-92.0 NG/ML Troponin I < 0.028 0.046 H <0.028 NG/ML C-Reactive Protein High Sensitivity 8.73 H 0.00-0.50 MG/DL B-Type Natriuretic Peptide 56.9 <100.0 PG/ML Total Protein 6.7 6.4-8.2 GM/DL Albumin 3.5 3.2-4.5 GM/DL Amylase Level 55 25-125 U/L Lipase 22 8-78 U/L Procalcitonin 2.51 H <0.10 NG/ML Erythrocyte Sedimentation Rate 11 0-30 MM/HR Lactic Acid Level 1.32 0.50-2.00 MMOL/L Urine Color YELLOW Urine Clarity CLEAR Urine pH 6.0 5-9 Urine Specific Bowden 1.025 H 1.016-1.022 Urine Protein NEGATIVE NEGATIVE Urine Glucose (UA) 3+ H NEGATIVE Urine Ketones 1+ H NEGATIVE Urine Nitrite NEGATIVE NEGATIVE Urine Bilirubin NEGATIVE NEGATIVE Urine Urobilinogen 1.0 < = 1.0 MG/DL Urine Leukocyte Esterase NEGATIVE NEGATIVE Urine RBC (Auto) 1+ H NEGATIVE Urine RBC 10-25 H /HPF Urine WBC RARE /HPF Urine Squamous Epithelial Cells 5-10 /HPF Urine Crystals NONE /LPF Urine Bacteria NEGATIVE /HPF Urine Casts NONE /LPF Urine Mucus LARGE H /LPF Urine Culture Indicated NO Test 09/02/20 05:34 09/02/20 08:20 Range/Units White Blood Count 26.1 H 4.3-11.0 10^3/uL Red Blood Count 4.52 3.80-5.11 10^6/uL Hemoglobin 13.8 11.5-16.0 g/dL Hematocrit 41 35-52 % Mean Corpuscular Volume 90 80-99 fL Mean Corpuscular Hemoglobin 31 25-34 pg Mean Corpuscular Hemoglobin Concent 34 32-36 g/dL Red Cell Distribution Width 13.6 10.0-14.5 % Platelet Count 290 130-400 10^3/uL Mean Platelet Volume 9.6 9.0-12.2 fL Immature Granulocyte % (Auto) 2 % Neutrophils (%) (Auto) 81 H 42-75 % Lymphocytes (%) (Auto) 12 12-44 % Monocytes (%) (Auto) 5 0-12 % Eosinophils (%) (Auto) 0 0-10 % Basophils (%) (Auto) 0 0-10 % Neutrophils # (Auto) 21.1 H 1.8-7.8 10^3/uL Lymphocytes # (Auto) 3.1 1.0-4.0 10^3/uL Monocytes # (Auto) 1.2 H 0.0-1.0 10^3/uL Eosinophils # (Auto) 0.0 0.0-0.3 10^3/uL Basophils # (Auto) 0.1 0.0-0.1 10^3/uL Immature Granulocyte # (Auto) 0.5 H 0.0-0.1 10^3/uL Sodium Level 138 135-145 MMOL/L Potassium Level 3.6 3.6-5.0 MMOL/L Chloride Level 107 98-107 MMOL/L Carbon Dioxide Level 21 21-32 MMOL/L Anion Gap 10 5-14 MMOL/L Blood Urea Nitrogen 13 7-18 MG/DL Creatinine 0.70 0.60-1.30 MG/DL Estimat Glomerular Filtration Rate > 60 BUN/Creatinine Ratio 19 Glucose Level 156 H 70-105 MG/DL Lactic Acid Level 0.86 0.50-2.00 MMOL/L Calcium Level 8.5 8.5-10.1 MG/DL Corrected Calcium 9.2 8.5-10.1 MG/DL Phosphorus Level 2.6 2.3-4.7 MG/DL Magnesium Level 2.2 1.6-2.4 MG/DL Total Bilirubin 0.6 0.1-1.0 MG/DL Aspartate Amino Transf (AST/SGOT) 29 5-34 U/L Alanine Aminotransferase (ALT/SGPT) 47 0-55 U/L Alkaline Phosphatase 149 H 40-136 U/L Troponin I 0.054 H <0.028 NG/ML Total Protein 6.1 L 6.4-8.2 GM/DL Albumin 3.1 L 3.2-4.5 GM/DL Triglycerides Level 114 <150 MG/DL Cholesterol Level 119 < 200 MG/DL LDL Cholesterol Direct 82 1-129 MG/DL VLDL Cholesterol 23 5-40 MG/DL HDL Cholesterol 21 L 40-60 MG/DL Radiology CTA CHEST: 1. No definitive CT evidence for pulmonary emboli. However, examination compromised by respiratory motion artifact. Smaller peripheral emboli could easily go undetected. 2. Groundglass infiltrates throughout both lung camp. Nonspecific but could be reflective of edema versus a underlying pneumonitis. CT ABDOMEN and PELVIS: 1. Inflammatory or complex cystic lesion superior pole right kidney. This may reflect potential abscess or infected cyst. Cystic neoplasm is also the differential. 2. Cholelithiasis with a gallbladder filled with gallstones. However, otherwise relatively normal appearance about the gallbladder. 3. Nearly 6 cm mass of the uterus may reflect a fibroid. However, correlation with pelvic ultrasound imaging recommended. 4. Additional incidental findings including hepatic steatosis, rather benign-appearing splenic cyst and probable right adrenal adenoma. Physical Exam Physical Exam Vital Signs Vital Signs - First Documented 09/01/20 22:24 Temp 36.5 Pulse 96 Resp 17 B/P (MAP) 135/72 (93) Pulse Ox 93 O2 Delivery Nasal Cannula O2 Flow Rate 2.00 Capillary Refill : Less Than 3 Seconds Height, Weight, BMI Height: '" Weight: lbs. oz. kg; 27.10 BMI Method: General Appearance: No Apparent Distress, WD/WN, Obese, Other (SMILING, LAUG NATHALY, TALKS AT LENGTH, DOES NOT APPEAR TO BE IN ANY DISCOMFORT OR DISTRESS) Neck: Full Range of Motion, Normal Inspection, Non Tender, Supple; No Carotid Bruit, No JVD Respiratory: Chest Non Tender, No Accessory Muscle Use, No Respiratory Distress Cardiovascular: Regular Rate, Rhythm, No Edema, No JVD, No Murmur, Normal Peripheral Pulses Gastrointestinal: Non Tender, Soft Extremity: Normal Capillary Refill, Normal Inspection, Normal Range of Motion, Non Tender, No Calf Tenderness, No Pedal Edema Neurologic/Psychiatric: Alert, Oriented x3, No Motor/Sensory Deficits, Normal 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 ) A/P-Cardiology Admission Diagnosis sepsis Pneumonia Urinary tract infection Type II myocardial infarction Assessment/Plan Severe sepsis with pneumonia, admitted to intensive care unit and started on antibiotic, reporting improvement in her symptoms. Continue to monitor Pneumonia, receiving antibiotic, managed by primary care team Urinary tract infection, receiving antibiotic, managed by primary care team Chest pain, no acute EKG changes, mild elevation in troponin, probably secondary to hypoxemia and sepsis, underlying coronary artery disease cannot be excluded. Patient will be started on aspirin and Lovenox and monitor tolerance and response Hypertension was on lisinopril as an outpatient. Restart and monitor blood pressure COVID-19 testing on August 27, 2020 was negative, another set was sent and it is pending CT of the abdomen and pelvis reported gallstones, 6 cm uterine mass, possible fibroid, managed by primary care team Clinical Quality Measures AMI/AHF: ASA po Prior to arrival: Yes MARZENA AVALOS MD Sep 02, 2020 09:07
--- NOTE | 2020-09-02 10:42 | Progress Note ---
VENICE KOCH MED STUDENT 09/02/20 1042: Progress Note HPI Cecilia Hess is a 74yoWF who presented to [facility] ED on 09/01/20 via [facility] for c/o chest pain and was given ASA and morphine by EMS which relieved pain. Upon presentation she had a WBC of 33.7k, lactic acid 1.32 and glucose 350. She was admitted to ICU with severe sepsis secondary to PNA with a UTI and started on abx with 2L O2 NC. After one day she is improving nicely - WBC down to 26.1k and O2 98% on the 2L. She has been ill the preceding 2 weeks, seen at [facility] for PNA 08/25/20 (sent home with Zithromax) and admitted to [facility] for UTI, PNA, and chest pain 08/27-08/29/20 (sent home with Cefdinir and Lisinopril). She is a former smoker with a history of hyperglycemia, thyroidectomy, multiple joint replacements and gallstones. Cardiology was consulted and found no abnormalities on EKG but could not exclude underlying CAD so initiated ASA, Lovenox and Lisinopril. CT scan revealed no evidence of PE but did show ground glass infiltrates throughout lungs with an inflammatory or complex cystic lesion found on right kidney and possible uterine fibroid. Influenza and COVID-19 testing pending. Patient will remain in ICU as sepsis resolves. Workup of lesion on right kidney may be warranted as well as outpatient cardiac followup upon recovery. Assessment/Plan Sepsis secondary to PNA - continue broad spectrum abx UTI HTN - Lisinopril CAD - Lovenox and ASA, cardiology following Hyperglycemia - continue insulin Inflamed cyst R kidney - monitor labs for maintained kidney function Abnormal skin lesion L shoulder R adrenal adenoma Splenic cyst Hepatic steatosis Possible uterine fibroid Cholelithiasis Bilateral knee replacements Neuroma R foot H/O hypothyroidism - previous thyroidectomy QUYEN GARCIA DO 09/02/20 2015: Supervisory-Addendum Brief Verification & Attestation Participated in pt care: history, MDM, physical Personally performed: exam, history, MDM, supervision of care Care discussed with: Medical Student Procedures: n/a Results interpretation: Verified all documentation Verification and Attestation of Medical Student E/M Service A medical student performed and documented this service in my presence. I reviewed and verified all information documented by the medical student and made modifications to such information, when appropriate. I personally performed the physical exam and medical decision making. Quyen Garcia, Sep 02, 2020,20:15 VENICE KOCH MED STUDENT Sep 02, 2020 10:42 QUYEN GARCIA DO Sep 02, 2020 20:15
[2020-09-02] MEDS ORDERED: CEFD300C3 PO (10:51)
[2020-09-02] MEDS ORDERED: LISI10TA2 PO (10:51)
--- NOTE | 2020-09-02 10:52 | NUR ---
SPOKE WITH THE PT (CALLED THE ROOM PHONE) AND CALLED [facility] TO COMPLETE THE MED REC 08-29-2019 LISINOPRIL 10MG #30/30DS 08-29-2019 CEFDINIR 300MG #10/5DS OTC MEDS: VIT D VIT C ZINC 50MG- PT SAYS SHE TAKES 4 TABS AT A TIME MELATONIN ALEVE 220MG- PT SAYS SHE TAKES 4 TABS AM
[2020-09-02 13:45] VITALS: BP 138/80
--- NOTE | 2020-09-02 20:16 | History & Physical-Hospitalist ---
History of Present Illness HPI/Chief Complaint CC: Severe sepsis from pneumonia HPI: This is a 74yoWF who presented to the ER with severe pneumonia, UTI, and chest pain. Pt was found to have a recurrent pneumonia. CT Scan did not show any evidence of any pulmonary embolism but artifact precluded a detailed evaluation. WC was 33,000, it is improved at 26,000 for empiric treatment and pt will undergo catheterization tomorrow if she is willing. She is historically declined any testing. 98% on two liters currently. Source: patient Exam Limitations: clinical condition Date Seen 09/02/20 Time Seen by a Provider: 10:00 Attending Physician Quyen Aguirre DO PCP [facility] Referring Physician Date of Admission Sep 02, 2020 at 02:35 Home Medications & Allergies Home Medications Reviewed patient Home Medication Reconciliation performed by pharmacy medication reconciliations technical maintenance technician and/or nursing. Patients Allergies have been reviewed. Allergies Allergies Coded Allergies No Known Drug Allergies (Unverified08/27/20) Past Xvqkiys-Bgbwzp-Rcqpsf Hx Past Med/Social Hx: Reviewed Nursing Past Med/Soc Hx, Reviewed and Corrections made Patient Social History Marrital Status: Employed/Student: retired Alcohol Use: Denies Use Recreational Drug Use: No Drug of Choice: DENIES Smoking Status: Former Smoker (QUIT YEARS AGO) Type Used: Cigarettes Recent Foreign Travel: No Contact w/other who traveled: No Recent Hopitalizations: No Recent Infectious Disease Expo: No Seasonal Allergies Seasonal Allergies: No Past Medical History Surgeries: Joint Replacement, Orthopedic, Thyroidectomy Respiratory: COPD, Pneumonia Cardiac: Hypertension Neurological: Stroke Menopausal Gastrointestinal: Gall Bladder Disease Musculoskeletal: Arthritis Endocrine: Hypothyroidsim History of Blood Disorders: No Review of Systems Constitutional: see HPI, dizziness, fever, malaise, weakness Respiratory: cough, dyspnea on exertion Physical Exam Physical Exam Vital Signs Vital Signs - First Documented 09/01/20 22:24 Temp 36.5 Pulse 96 Resp 17 B/P (MAP) 135/72 (93) Pulse Ox 93 O2 Delivery Nasal Cannula O2 Flow Rate 2.00 Capillary Refill : Less Than 3 Seconds Height, Weight, BMI Height: '" Weight: lbs. oz. kg; 27.10 BMI Method: General Appearance: No Apparent Distress, Chronically ill Eyes: Right Eye Normal Inspection, Right Eye PERRL HEENT: PERRL/EOMI, Normal ENT Inspection, Pharynx Normal, Moist Mucous Membranes Neck: Full Range of Motion, Normal Inspection, Non Tender Respiratory: Chest Non Tender, No Accessory Muscle Use, No Respiratory Distress, Crackles, Decreased Breath Sounds Cardiovascular: Regular Rate, Rhythm, No Edema, No Gallop, No JVD, No Murmur, Normal Peripheral Pulses Gastrointestinal: Normal Bowel Sounds, No Organomegaly, No Pulsatile Mass, Non Tender, Soft Back: Normal Inspection, No CVA Tenderness, No Vertebral Tenderness Extremity: Normal Capillary Refill, Normal Inspection, Normal Range of Motion, Non Tender, No Calf Tenderness, No Pedal Edema Neurologic/Psychiatric: Alert, Oriented x3, No Motor/Sensory Deficits, Normal Mood/Affect Skin: Normal Color, Warm/Dry Lymphatic: No Adenopathy Results Results/Procedures Labs Laboratory Tests 09/01/20 23:06 09/02/20 05:34 09/03/20 03:15 Patient resulted labs reviewed. Assessment/Plan Admission Diagnosis Assessment: Severe sepsis PNA Leukocytosis Gram negative bacteremia Elevated troponin Plan: Dr Mejía and eicu appreciated Abx Admission Status: Inpatient Order (span 2 midnights) Reason for Inpatient Admission: severe sepsis Diagnosis/Problems Diagnosis/Problems (1) Severe sepsis Status: Acute (2) Pneumonitis Status: Acute (3) Chest pain Status: Acute (4) UTI (urinary tract infection) Status: Acute (5) Left lower lobe pneumonia Status: Acute (6) Gallstones without obstruction of gallbladder Status: Acute Clinical Quality Measures AMI/AHF: ASA po Prior to arrival: Yes QUYEN AGUIRRE DO Sep 02, 2020 20:16
[2020-09-02] MEDS: VANCOMYCIN INJECTION 750 MG in NS (IVPB) 250 ML IV SCH (20:24)
[2020-09-02 20:27] VITALS: BP 140/70
[2020-09-03] VITALS (7 sets, daily range): BP systolic 116–187; BP diastolic 73–91
[2020-09-03] MEDS: MEROPENEM 500 MG in WATER (STERILE) FOR INJECTION 10 ML IV SCH ×4 (03:19→20:25)
[2020-09-03 03:50] LABS: BASOPHILS # (AUTO) 0.1 10^3/uL (0.0-0.1); BASOPHILS % (AUTO) 0 % (0-10); EOSINOPHILS # (AUTO) 0.1 10^3/uL (0.0-0.3); EOSINOPHILS % (AUTO) 1 % (0-10); HEMATOCRIT 38 % (35-52); HEMOGLOBIN 12.9 g/dL (11.5-16.0); LYMPHOCYTES # (AUTO) 2.9 10^3/uL (1.0-4.0); LYMPHOCYTES % (AUTO) 15 % (12-44); MEAN CORPUSCULAR HEMOGLOBIN 30 pg (25-34); MEAN CORPUSCULAR HGB CONC 34 g/dL (32-36); MEAN CORPUSCULAR VOLUME 90 fL (80-99); MEAN PLATELET VOLUME 9.7 fL (9.0-12.2); MONOCYTES # (AUTO) 1.5 10^3/uL (0.0-1.0); MONOCYTES % (AUTO) 8 % (0-12); NEUTROPHILS % (AUTO) 75 % (42-75); PLATELET COUNT 272 10^3/uL (130-400); WHITE BLOOD COUNT 18.8 10^3/uL (4.3-11.0)
[2020-09-03 04:12] LABS: CHLORIDE 107 MMOL/L (98-107); POTASSIUM 3.2 MMOL/L (3.6-5.0); SODIUM 138 MMOL/L (135-145)
[2020-09-03 04:13] LABS: CALCIUM 8.4 MG/DL (8.5-10.1)
[2020-09-03 04:14] LABS: GLUCOSE 107 MG/DL (70-105)
[2020-09-03 04:15] LABS: TOTAL PROTEIN 5.9 GM/DL (6.4-8.2)
[2020-09-03 04:16] LABS: BILIRUBIN,TOTAL 0.6 MG/DL (0.1-1.0); CARBON DIOXIDE 22 MMOL/L (21-32)
[2020-09-03 04:18] LABS: ALKALINE PHOSPHATASE 156 U/L (40-136); CREATININE SERUM 0.61 MG/DL (0.60-1.30); GFR ESTIMATED > 60; PHOSPHORUS 2.2 MG/DL (2.3-4.7)
[2020-09-03 04:19] LABS: BUN/CREATININE RATIO 15
[2020-09-03 04:21] LABS: ALANINE AMINOTRANSFERASE 47 U/L (0-55); MAGNESIUM 2.2 MG/DL (1.6-2.4)
[2020-09-03] MEDS: inSUlin ASPART (NovoLOG) 1 UNIT/0.01 ML (CHARGE PER UNIT) SC SCH ×4 (05:00→20:43)
--- NOTE | 2020-09-03 05:34 | Pulmonary Progress Note ---
Subjective Time Seen by a Provider: 05:30 Subjective/Events-last exam No complications noted. Sepsis Event Evaluation Height, Weight, BMI Height: '" Weight: lbs. oz. kg; 27.10 BMI Method: Focused Exam Lactate Level 09/01/20 23:31: Lactic Acid Level 1.32 09/02/20 05:34: Lactic Acid Level 0.86 Exam Exam Vital Signs Date Time Temp Pulse Resp B/P (MAP) Pulse Ox O2 Delivery O2 Flow Rate FiO2 09/03/20 03:18 70 13 156/75 (102) 94 Room Air 09/03/20 01:00 68 09/03/20 00:00 67 25 148/79 (102) 92 Room Air 09/02/20 23:37 36.5 09/02/20 21:00 98 Room Air 09/02/20 20:27 36.4 80 20 140/70 (93) 95 Room Air 09/02/20 19:00 74 09/02/20 16:00 79 24 89 Nasal Cannula 2.00 09/02/20 13:45 104 44 138/80 (99) 93 Nasal Cannula 2.00 09/02/20 13:03 107 09/02/20 12:00 99 Nasal Cannula 2.00 09/02/20 09:45 99 Nasal Cannula 2.00 09/02/20 08:00 99 Nasal Cannula 2.00 09/02/20 06:21 74 18 168/72 (104) 98 Nasal Cannula 2.00 I & O 09/03/20 07:00 Intake Total 3667.5 ml Output Total 1300 ml Balance 2367.5 ml Height & Weight Height: '" Weight: lbs. oz. kg; 27.10 BMI Method: General Appearance: No Apparent Distress, WD/WN, Obese, Other (SMILING, LAUGHING, TALKS AT LENGTH, DOES NOT APPEAR TO BE IN ANY DISCOMFORT OR DISTRESS) Neck: Full Range of Motion, Normal Inspection, Non Tender, Supple; No Carotid Bruit, No JVD Respiratory: Chest Non Tender, No Accessory Muscle Use, No Respiratory Distress Cardiovascular: Regular Rate, Rhythm, No Edema, No JVD, No Murmur, Normal Peripheral Pulses Capillary Refill: Less Than 3 Seconds Extremity: Normal Capillary Refill, Normal Inspection, Normal Range of Motion, Non Tender, No Calf Tenderness, No Pedal Edema Neurologic/Psychiatric: Alert, Oriented x3, No Motor/Sensory Deficits, Normal Mood/Affect, 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 ) Results Lab Laboratory Tests 09/01/20 23:06 09/02/20 05:34 09/03/20 03:15 Assessment/Plan Assessment/Plan Severe sepsis with pneumonia -oxygen - Only requiring 2 liters -COVID is negative -Pt is DNR Hypokalemia and hypophos -Replace CP - now resolved NSTEMI -Cardiology following UTI JOSEPH IZAGUIRRE DO Sep 03, 2020 05:34
[2020-09-03] MEDS: POTASSIUM CL 10MEQ/50ML IVPB 50 ML IV SCH ×2 (05:59→07:02)
[2020-09-03] MEDS: NS IV 1000 ML 1,000 ML IV SCH ×2 (06:32→14:21)
[2020-09-03] MEDS: ENOXAPARIN 40 MG/0.4 ML (LOVENOX) SYR SC SCH (08:40)
[2020-09-03] MEDS: ASPIRIN E.C. 81 MG (ECOTRIN) TAB PO SCH (08:40)
--- NOTE | 2020-09-03 08:41 | Diagnostic Imaging Report ---
INDICATION: Pneumonia Compared with study 09/01/2020. FINDINGS: No focal consolidation. The heart size stable. No effusion, pneumothorax or overt failure pattern. IMPRESSION: Stable chest. Dictated by: Dictated on workstation # [id number]
[2020-09-03] MEDS: VANCOMYCIN INJECTION 750 MG in NS (IVPB) 250 ML IV SCH (08:44)
[2020-09-03] MEDS ORDERED: POTASSIUM PHOSPHATE INJ 30 MM in NS (IVPB) 250 ML IV ONE (09:00)
--- NOTE | 2020-09-03 11:29 | Progress Note - Hospitalist ---
VENICE KOCH MED STUDENT 09/03/20 1129: Subjective HPI/CC On Admission Date Seen by Provider: Sep 03, 2020 Time Seen by Provider: 09:00 CC: Severe sepsis from pneumonia HPI: This is a 74yoWF who presented to the ER with severe pneumonia, UTI, and chest pain. Pt was found to have a recurrent pneumonia. CT Scan did not show any evidence of any pulmonary embolism but artifact precluded a detailed evaluation. WC was 33,000, it is improved at 26,000 for empiric treatment and pt will undergo catheterization tomorrow if she is willing. She is historically declined any testing. 98% on two liters currently. Subjective/Events-last exam Pt doing well Reports mild shortness of breath and denies chest pain WBC trending down (18.8k down from 26.1 yesterday) CXR today reveals no focal consolidation NPO - will go to aquatic laborer today Focused Exam Lactate Level 09/01/20 23:31: Lactic Acid Level 1.32 09/02/20 05:34: Lactic Acid Level 0.86 Objective Exam Vital Signs Vital Signs Date Time Temp Pulse Resp B/P (MAP) Pulse Ox O2 Delivery O2 Flow Rate FiO2 09/03/20 11:05 36.5 09/03/20 09:00 98 Room Air 09/03/20 07:03 85 09/03/20 03:18 13 156/75 (102) 09/02/20 16:00 2.00 Capillary Refill : Less Than 3 Seconds General Appearance: No Apparent Distress, WD/WN HEENT: Pharynx Normal, Moist Mucous Membranes Neck: Full Range of Motion, Non Tender Respiratory: Chest Non Tender, Normal Breath Sounds, No Accessory Muscle Use, No Respiratory Distress Cardiovascular: Regular Rate, Rhythm, No Gallop, No JVD, Normal Peripheral Pulses Gastrointestinal: No Pulsatile Mass, Non Tender, Soft Back: Normal Inspection, No Vertebral Tenderness Extremity: Normal Capillary Refill, No Calf Tenderness, No Pedal Edema Neurologic/Psychiatric: Alert, Oriented x3, Normal Mood/Affect Skin: Normal Color, Warm/Dry Lymphatic: No Adenopathy Results/Procedures Lab Laboratory Tests 09/03/20 03:15 Patient resulted labs reviewed. Assessment/Plan Assessment and Plan Assess & Plan/Chief Complaint Assessment: Severe sepsis PNA Leukocytosis Gram negative bacteremia Elevated troponin Plan: Dr Mejía and chelsea appreciated Abx 09/03/20 Continue abx Cardiology following - aquatic laborer today Clinical Quality Measures AMI/AHF: ASA po Prior to arrival: Yes QUYEN GARCIA DO 09/04/20 0523: Subjective Subjective/Events-last exam Cardiac cath will be held off for a couple of days until severe sepsis resolves Transferring to fourth floor Overall improved Updated daughter who called for an update Antibiotics maintained Review of Systems General: Fatigue, Malaise Objective Exam General Appearance: No Apparent Distress, WD/WN, Chronically ill Respiratory: Lungs Clear Cardiovascular: Regular Rate, Rhythm Neurologic/Psychiatric: Alert, Oriented x3, No Motor/Sensory Deficits, Normal Mood/Affect Assessment/Plan Assessment and Plan Assess & Plan/Chief Complaint 09/03/20: IV abx Monitor closely Cath soon Supervisory-Addendum Brief Verification & Attestation Participated in pt care: history, MDM, physical Personally performed: exam, history, MDM, supervision of care Care discussed with: Medical Student Procedures: n/a Results interpretation: Verified all documentation Verification and Attestation of Medical Student E/M Service A medical student performed and documented this service in my presence. I reviewed and verified all information documented by the medical student and made modifications to such information, when appropriate. I personally performed the physical exam and medical decision making. Quyen Garcia, Sep 04, 2020,05:21 VENICE KOCH MED STUDENT Sep 03, 2020 11:29 QUYEN GARCIA DO Sep 04, 2020 05:23
--- NOTE | 2020-09-03 14:19 | Cardiology Progress Note ---
Subjective Date Seen by Provider: Sep 03, 2020 Time Seen by Provider: 14:18 Subjective/Events-last exam Patient sitting up in bed, denies any chest pain Focused Exam Lactate Level 09/01/20 23:31: Lactic Acid Level 1.32 09/02/20 05:34: Lactic Acid Level 0.86 Objective-Cardiology Exam Last Set of Vital Signs Vital Signs 09/02/20 09/03/20 09/03/20 16:00 14:15 15:18 Temp 37.2 Pulse 76 Resp 26 B/P (MAP) 149/91 (110) Pulse Ox 96 O2 Delivery Room Air O2 Flow Rate 2.00 Capillary Refill : Less Than 3 Seconds I&O Intake and Output 09/03/20 00:00 Intake Total 4617.5 ml Output Total 1100 ml Balance 3517.5 ml Intake Oral 980 ml IV Total 3637.5 ml Output Urine Total 1100 ml General: Alert, Oriented X3, Cooperative HEENT: Atraumatic, PERRLA Neck: Supple, No JVD, No Thyromegaly Lungs: Other (bilat rhonchi) Heart: Regular Rate, Normal S1, Normal S2 Abdomen: Soft, No Tenderness Extremities: No Clubbing, No Edema Neuro: Normal Speech, Cranial Nerves 3-12 NL Results Lab Laboratory Tests 09/03/20 03:15 A/P-Cardiology Admission Diagnosis sepsis Pneumonia Urinary tract infection Type II myocardial infarction Assessment/Plan Severe sepsis with pneumonia, admitted to intensive care unit and started on antibiotic, reporting improvement in her symptoms. Continue to monitor Pneumonia, receiving antibiotic, managed by primary care team Urinary tract infection, receiving antibiotic, managed by primary care team Chest pain, no acute EKG changes, mild elevation in troponin, probably secondary to hypoxemia and sepsis, underlying coronary artery disease cannot be excluded. Started on aspirin and Lovenox. Denies any further episode of chest pain Hypertension, controlled, continue to monitor. COVID-19 testing on August 27, 2020 was negative, another set was sent and it is pending CT of the abdomen and pelvis reported gallstones, 6 cm uterine mass, possible fibroid, managed by primary care team Patient was seen and evaluated with Isatu, examination performed, management plan was discussed, agree with the current scribed note, I made few changes to the note using Italic font Continue on current medication, patient is reporting improvement I am considering cardiac catheterization once her pneumonia and sepsis are under control. At this time there is no urgency to proceed with any cardiac procedure Clinical Quality Measures AMI/AHF: ASA po Prior to arrival: Yes ISATU LOPEZ Sep 03, 2020 14:19 MARZENA AVALOS MD Sep 03, 2020 17:06
[2020-09-03] MEDS ORDERED: TROUGH ORDER-PHARMACY XX NR (19:00)
[2020-09-03] MEDS ORDERED: VANCOMYCIN 1250 MG/NS 250 ML IVPB IV SCH ×2 (20:00)
[2020-09-03] MEDS ORDERED: amLODIPine 5 MG (NORVASC) TAB PO NR (20:30)
[2020-09-03] MEDS ORDERED: ONDANSETRON 4 MG/2 ML (SDV) Z0FRAN IVP PRN (20:30)
[2020-09-03] MEDS ORDERED: FUROSEMIDE 40 MG/4 ML INJ (LASIX) IVP NR (20:30)
[2020-09-03] MEDS ORDERED: diphenhydrAMINE 25 MG TAB (BENADRYL) PO PRN (20:30)
[2020-09-03] MEDS ORDERED: HYDROcodone/APAP 5 MG/325 MG (LORTAB) TAB PO PRN (20:30)
[2020-09-03] MEDS ORDERED: hydrALAZINE (APESOLINE) 20 MG/ML VIAL IV PRN (20:30)
[2020-09-03] MEDS ORDERED: ALPRAZolam 0.25 MG (XANAX) TAB PO PRN (20:30)
[2020-09-03] MEDS ORDERED: CALCIUM CARBONATE 500 MG (TUMS) TAB.CHEW PO PRN (20:30)
[2020-09-03] MEDS ORDERED: DOCUSATE SODIUM 100 MG (COLACE) CAP PO PRN (20:30)
[2020-09-03] MEDS: MELATONIN 10 MG TABLET PO SCH (20:36)
[2020-09-03] MEDS: polyethylene glycoL POWDER 17 GM (MIRALAX) PACK PO SCH (20:37)
[2020-09-03] MEDS: SENNA W/DOCUSATE (SENOKOT S) TABLET PO SCH (20:37)
[2020-09-03] MEDS ORDERED: NON-FORMULARY MEDICATION 1 EA EA (Melatonin 5 MG) PO SCH (21:00)
[2020-09-04 01:55] VITALS: BP 150/78
[2020-09-04] MEDS: MEROPENEM 500 MG in WATER (STERILE) FOR INJECTION 10 ML IV SCH ×4 (03:08→20:05)
[2020-09-04 03:10] VITALS: BP 159/89
[2020-09-04 03:39] LABS: BASOPHILS # (AUTO) 0.1 10^3/uL (0.0-0.1); BASOPHILS % (AUTO) 0 % (0-10); EOSINOPHILS # (AUTO) 0.1 10^3/uL (0.0-0.3); EOSINOPHILS % (AUTO) 1 % (0-10); HEMATOCRIT 41 % (35-52); HEMOGLOBIN 13.7 g/dL (11.5-16.0); LYMPHOCYTES % (AUTO) 16 % (12-44); MEAN CORPUSCULAR HEMOGLOBIN 30 pg (25-34); MEAN CORPUSCULAR HGB CONC 33 g/dL (32-36); MEAN CORPUSCULAR VOLUME 89 fL (80-99); MEAN PLATELET VOLUME 9.6 fL (9.0-12.2); MONOCYTES # (AUTO) 1.4 10^3/uL (0.0-1.0); MONOCYTES % (AUTO) 8 % (0-12); NEUTROPHILS # (AUTO) 13.6 10^3/uL (1.8-7.8); NEUTROPHILS % (AUTO) 74 % (42-75); PLATELET COUNT 331 10^3/uL (130-400); WHITE BLOOD COUNT 18.4 10^3/uL (4.3-11.0)
[2020-09-04 03:59] LABS: ALANINE AMINOTRANSFERASE 40 U/L (0-55); ALBUMIN 3.1 GM/DL (3.2-4.5); ALKALINE PHOSPHATASE 134 U/L (40-136); BILIRUBIN,TOTAL 0.7 MG/DL (0.1-1.0); BUN/CREATININE RATIO 12; CALCIUM 8.7 MG/DL (8.5-10.1); CARBON DIOXIDE 21 MMOL/L (21-32); CHLORIDE 105 MMOL/L (98-107); CREATININE SERUM 0.66 MG/DL (0.60-1.30); GFR ESTIMATED > 60; GLUCOSE 130 MG/DL (70-105); MAGNESIUM 2.2 MG/DL (1.6-2.4); PHOSPHORUS 2.6 MG/DL (2.3-4.7); POTASSIUM 3.5 MMOL/L (3.6-5.0); SODIUM 139 MMOL/L (135-145); TOTAL PROTEIN 6.3 GM/DL (6.4-8.2)
--- NOTE | 2020-09-04 04:15 | Pulmonary Progress Note ---
Subjective Time Seen by a Provider: 04:13 Subjective/Events-last exam No complications noted. Sepsis Event Evaluation Height, Weight, BMI Height: '" Weight: lbs. oz. kg; 27.10 BMI Method: Focused Exam Lactate Level 09/01/20 23:31: Lactic Acid Level 1.32 09/02/20 05:34: Lactic Acid Level 0.86 Exam Exam Vital Signs Date Time Temp Pulse Resp B/P (MAP) Pulse Ox O2 Delivery O2 Flow Rate FiO2 09/04/20 03:10 87 20 159/89 (112) 37 Room Air 09/04/20 01:55 36.9 83 22 150/78 (102) 95 Room Air 09/04/20 01:00 80 09/03/20 23:35 36.3 77 18 166/83 (110) 95 Room Air 09/03/20 21:28 37.3 82 22 165/73 (103) 98 Room Air 09/03/20 20:30 97 Room Air 09/03/20 20:25 38.1 09/03/20 19:36 37.9 09/03/20 19:00 37.9 92 28 187/79 (115) 97 Room Air 09/03/20 19:00 93 09/03/20 15:18 37.2 09/03/20 14:15 76 26 149/91 (110) 96 Room Air 09/03/20 12:44 84 09/03/20 11:05 36.5 09/03/20 09:15 68 12 116/82 (93) 95 Room Air 09/03/20 09:00 98 Room Air 09/03/20 07:03 85 I & O 09/04/20 07:00 Intake Total 1072.5 ml Output Total 5375 ml Balance -4302.5 ml Height & Weight Height: '" Weight: lbs. oz. kg; 27.10 BMI Method: General Appearance: No Apparent Distress, WD/WN HEENT: Pharynx Normal, Moist Mucous Membranes Neck: Full Range of Motion, Non Tender Respiratory: Chest Non Tender, Normal Breath Sounds, No Accessory Muscle Use, No Respiratory Distress Cardiovascular: Regular Rate, Rhythm, No Gallop, No JVD, Normal Peripheral Pulses Capillary Refill: Less Than 3 Seconds Extremity: Normal Capillary Refill, No Calf Tenderness, No Pedal Edema Neurologic/Psychiatric: Alert, Oriented x3, Normal Mood/Affect Skin: Normal Color, Warm/Dry Lymphatic: No Adenopathy Results Lab Laboratory Tests 09/02/20 05:34 09/03/20 03:15 09/04/20 03:17 Assessment/Plan Assessment/Plan Severe sepsis with pneumonia -oxygen - Only requiring 2 liters -COVID is negative -Pt is DNR Hypokalemia and hypophos -Replace CP - now resolved NSTEMI -Cardiology following UTI JOSEPH IZAGUIRRE DO Sep 04, 2020 04:15
[2020-09-04] MEDS: inSUlin ASPART (NovoLOG) 1 UNIT/0.01 ML (CHARGE PER UNIT) SC SCH ×4 (04:24→20:05)
--- NOTE | 2020-09-04 05:51 | Pulmonary Progress Note ---
Subjective Time Seen by a Provider: 05:48 Subjective/Events-last exam No complications noted. Sepsis Event Evaluation Height, Weight, BMI Height: '" Weight: lbs. oz. kg; 27.10 BMI Method: Focused Exam Lactate Level 09/01/20 23:31: Lactic Acid Level 1.32 09/02/20 05:34: Lactic Acid Level 0.86 Exam Exam Vital Signs Date Time Temp Pulse Resp B/P (MAP) Pulse Ox O2 Delivery O2 Flow Rate FiO2 09/04/20 03:10 87 20 159/89 (112) 97 Room Air 09/04/20 01:55 36.9 83 22 150/78 (102) 95 Room Air 09/04/20 01:00 80 09/03/20 23:35 36.3 77 18 166/83 (110) 95 Room Air 09/03/20 21:28 37.3 82 22 165/73 (103) 98 Room Air 09/03/20 20:30 97 Room Air 09/03/20 20:25 38.1 09/03/20 19:36 37.9 09/03/20 19:00 37.9 92 28 187/79 (115) 97 Room Air 09/03/20 19:00 93 09/03/20 15:18 37.2 09/03/20 14:15 76 26 149/91 (110) 96 Room Air 09/03/20 12:44 84 09/03/20 11:05 36.5 09/03/20 09:15 68 12 116/82 (93) 95 Room Air 09/03/20 09:00 98 Room Air 09/03/20 07:03 85 I & O 09/04/20 07:00 Intake Total 1222.5 ml Output Total 5775 ml Balance -4552.5 ml Height & Weight Height: '" Weight: lbs. oz. kg; 27.10 BMI Method: General Appearance: No Apparent Distress, WD/WN, Chronically ill HEENT: Pharynx Normal, Moist Mucous Membranes Neck: Full Range of Motion, Non Tender Respiratory: Lungs Clear Cardiovascular: Regular Rate, Rhythm Capillary Refill: Less Than 3 Seconds Extremity: Normal Capillary Refill, No Calf Tenderness, No Pedal Edema Neurologic/Psychiatric: Alert, Oriented x3, No Motor/Sensory Deficits, Normal Mood/Affect Skin: Normal Color, Warm/Dry Lymphatic: No Adenopathy Results Lab Laboratory Tests 09/03/20 03:15 09/04/20 03:17 Assessment/Plan Assessment/Plan Severe sepsis with pneumonia -Pt is now on RA -COVID is negative -Pt is DNR Hypokalemia and hypophos -Replace CP - now resolved NSTEMI -Cardiology following UTI JOSEPH IZAGUIRRE DO Sep 04, 2020 05:51
--- NOTE | 2020-09-04 06:57 | Diagnostic Imaging Report ---
HISTORY: Pneumonia COMPARISON: 09/03/2020 TECHNIQUE: Frontal view of the chest FINDINGS: Lung volumes are mildly low. There is increased perihilar opacities bilaterally, which may be accentuated by the low lung volumes. The cardiac silhouette is stable in size. There is no pleural effusion or pneumothorax. IMPRESSION: 1. Increased perihilar opacities, likely accentuated by the low lung volumes. These may be due to edema or infection. Dictated by: Dictated on workstation # [id number]
[2020-09-04 07:30] VITALS: BP 163/96
[2020-09-04] MEDS ORDERED: KCL 20 MEQ TAB (K-DUR) PO ONE ×2 (08:00→10:00)
[2020-09-04] MEDS: SENNA W/DOCUSATE (SENOKOT S) TABLET PO SCH ×2 (08:13→20:20)
[2020-09-04] MEDS: ASPIRIN E.C. 81 MG (ECOTRIN) TAB PO SCH (08:13)
[2020-09-04] MEDS: ENOXAPARIN 40 MG/0.4 ML (LOVENOX) SYR SC SCH (08:13)
[2020-09-04] MEDS: amLODIPine 5 MG (NORVASC) TAB PO SCH (08:14)
[2020-09-04] MEDS: lisINopril 10 MG (PRINIVIL) TABLET PO SCH (08:14)
[2020-09-04] MEDS: polyethylene glycoL POWDER 17 GM (MIRALAX) PACK PO SCH ×2 (08:19→20:20)
--- NOTE | 2020-09-04 08:53 | Cardiology Progress Note ---
Subjective Date Seen by Provider: Sep 04, 2020 Time Seen by Provider: 08:51 Subjective/Events-last exam patient is sitting in bed, feeling better today. No new complaint Review of Systems General: No Chills, No Night Sweats, No Fatigue, No Malaise, No Appetite, No Other HEENT: No Head Aches, No Visual Changes, No Eye Pain, No Ear Pain, No Dysphasia, No Sinus Congestion, No Post Nasal Drip, No Sore Throat, No Other Pulmonary: No Dyspnea, No Cough, No Pleuritic Chest Pain, No Other Cardiovascular: No: Chest Pain, Palpitations, Orthopnea, Paroxysmal Noc. Dyspnea, Edema, Lt Headedness, Other Focused Exam Lactate Level 09/01/20 23:31: Lactic Acid Level 1.32 09/02/20 05:34: Lactic Acid Level 0.86 Objective-Cardiology Exam Last Set of Vital Signs Vital Signs 09/02/20 09/04/20 09/04/20 09/04/20 16:00 03:10 06:47 08:00 Temp 37.2 Pulse 75 Resp 20 B/P (MAP) 159/89 (112) Pulse Ox 97 O2 Delivery Room Air O2 Flow Rate 2.00 Capillary Refill : Less Than 3 Seconds I&O Intake and Output 09/04/20 00:00 Intake Total 2032.5 ml Output Total 6425 ml Balance -4392.5 ml Intake Oral 700 ml IV Total 1332.5 ml Output Urine Total 6425 ml # Bowel Movements 2 General: Alert, Oriented X3, Cooperative HEENT: Atraumatic, PERRLA Neck: Supple, No JVD, No Thyromegaly Lungs: Other (bilat rhonchi) Heart: Regular Rate, Normal S1, Normal S2 Abdomen: Soft, No Tenderness Extremities: No Clubbing, No Edema Neuro: Normal Speech, Cranial Nerves 3-12 NL Results Lab Laboratory Tests 09/04/20 03:17 A/P-Cardiology Admission Diagnosis sepsis Pneumonia Urinary tract infection Type II myocardial infarction Assessment/Plan Severe sepsis with pneumonia, admitted to intensive care unit and started on antibiotic, reporting improvement in her symptoms. Continue to monitor Pneumonia, receiving antibiotic, managed by primary care team Urinary tract infection, receiving antibiotic, managed by primary care team Chest pain, no acute EKG changes, mild elevation in troponin, probably secondary to hypoxemia and sepsis, underlying coronary artery disease cannot be excluded. Started on aspirin and Lovenox. planning for left heart catheter tomorrow Hypertension, controlled, continue to monitor. COVID-19 testing on August 27, 2020 was negative, another set was sent and it is pending CT of the abdomen and pelvis reported gallstones, 6 cm uterine mass, possible fibroid, managed by primary care team Clinical Quality Measures AMI/AHF: ASA po Prior to arrival: Yes MARZENA AVALOS MD Sep 04, 2020 08:53
[2020-09-04 11:45] VITALS: BP 165/85
--- NOTE | 2020-09-04 12:37 | Progress Note - Hospitalist ---
VENICE KOCH MED STUDENT 09/04/20 1237: Subjective HPI/CC On Admission Date Seen by Provider: Sep 04, 2020 Time Seen by Provider: 10:00 CC: Severe sepsis from pneumonia HPI: This is a 74yoWF who presented to the ER with severe pneumonia, UTI, and chest pain. Pt was found to have a recurrent pneumonia. CT Scan did not show any evidence of any pulmonary embolism but artifact precluded a detailed evaluation. WC was 33,000, it is improved at 26,000 for empiric treatment and pt will undergo catheterization tomorrow if she is willing. She is historically declined any testing. 98% on two liters currently. Subjective/Events-last exam Pt sitting up in bed doing well this am after a "good night of rest" Denies shortness of breath, chest pain, N/V, diarrhea WBC continues to trend down (18.4) BP 159/89 - cardiology following CXR shows increased perihilar opacities bilaterally with lung volumes low Focused Exam Lactate Level 09/01/20 23:31: Lactic Acid Level 1.32 09/02/20 05:34: Lactic Acid Level 0.86 Objective Exam Vital Signs Vital Signs Date Time Temp Pulse Resp B/P (MAP) Pulse Ox O2 Delivery O2 Flow Rate FiO2 09/04/20 09:00 97 Room Air 09/04/20 08:00 37.2 09/04/20 07:30 85 26 163/96 (118) 09/02/20 16:00 2.00 Capillary Refill : Less Than 3 Seconds General Appearance: No Apparent Distress, WD/WN HEENT: PERRL/EOMI, Moist Mucous Membranes Neck: Full Range of Motion, Non Tender Respiratory: Chest Non Tender, Lungs Clear, No Accessory Muscle Use, No Respiratory Distress Cardiovascular: Regular Rate, Rhythm, No Edema, No JVD, Normal Peripheral Pulses Gastrointestinal: Normal Bowel Sounds, Non Tender Back: Normal Inspection, No Vertebral Tenderness Extremity: No Calf Tenderness, No Pedal Edema Neurologic/Psychiatric: Alert, Oriented x3, Normal Mood/Affect Skin: Normal Color, Warm/Dry Lymphatic: No Adenopathy Results/Procedures Lab Laboratory Tests 09/04/20 03:17 Patient resulted labs reviewed. Assessment/Plan Assessment and Plan Assess & Plan/Chief Complaint Assessment: Severe sepsis PNA Leukocytosis Gram negative bacteremia Elevated troponin Plan: Dr Mejía and eicu appreciated Abx 09/03/20 Continue abx Cardiology following - lab clerk today 09/04/20 L heart cath tomorrow per Dr. Arevalo d/gracie Vancomycin Clinical Quality Measures AMI/AHF: ASA po Prior to arrival: Yes QUYEN GARCIA DO 09/05/20 0539: Subjective Subjective/Events-last exam Pt feels a lot better today Cardiac catheterization tomorrow WBC 18.4 Elevated BP noted Chest X-ray reviewed PT and OT will be started Supervisory-Addendum Brief Verification & Attestation Participated in pt care: history, MDM, physical Personally performed: exam, history, MDM, supervision of care Care discussed with: Medical Student Procedures: n/a Results interpretation: Verified all documentation Verification and Attestation of Medical Student E/M Service A medical student performed and documented this service in my presence. I reviewed and verified all information documented by the medical student and made modifications to such information, when appropriate. I personally performed the physical exam and medical decision making. Quyen Garcia, Sep 05, 2020,05:38 VENICE KOCH MED STUDENT Sep 04, 2020 12:37 QUYEN GARCIA DO Sep 05, 2020 05:39
[2020-09-04 16:00] VITALS: BP 157/81
--- NOTE | 2020-09-04 19:22 | Physician Query Clarification ---
"Physician Query-General Query to Physician: The medical record reflects the following clinical scenario: History/Risk factors: Sepsis, significant cardiac history Clinical Findings: Troponin 0.046, 0.054, 0.035, c/o Chest pain, SOB Treatment: Aspirin, Lovenox, Cardiology Consult Question: Do you agree with the impression of Type II OR per Irina Shaikh? If you agree, please document in Progress Notes or Discharge Summary. 1. Yes; will document Type II OR in the Progress Notes 2. No; will continue to document Elevated troponin in the Progress Notes 3. Other; will document explanation of clinical findings 4. Clinically undetermined; no explanation for clinical findings Please remember a lack of response to the above will prompt a phone page by CDI/coding staff. In responding to this query, please exercise your independent professional judgment. The purpose of this communication is to more accurately reflect the complexity of your patients condition. The fact that a question is asked does not imply that any particular answer is desired or expected. Thank you for timely response to this clarification. Geneva Morgan, MSN, RN RN Specialist-Clinical Doc Improvement CD -Health Info Mgmt Operations [address] [facility] t: [phone] | f: [phone] If you are unable to reach me at my extension, I may be working from home. Please contact me at [phone] PHYSICIAN RESPONSE: Based on the clinical findings in the record, please respond to the query above on this document as an addendum. Physician Response: Physician Response 1 If you have questions please contact: [place]: Ext: Thank you for your time and cooperation. Clinical Artist'S Representative/[place] This is a permanent part of the medical record GENEVA MORGAN Sep 04, 2020 19:22 MING GARCIA DO Sep 04, 2020 20:42"
[2020-09-04 19:51] VITALS: BP 133/80
[2020-09-04] MEDS: MELATONIN 10 MG TABLET PO SCH (20:20)
[2020-09-05 00:08] VITALS: BP 128/82
[2020-09-05] MEDS: MEROPENEM 500 MG in WATER (STERILE) FOR INJECTION 10 ML IV SCH ×2 (02:24→11:26)
[2020-09-05 03:55] LABS: BASOPHILS # (AUTO) 0.1 10^3/uL (0.0-0.1); BASOPHILS % (AUTO) 0 % (0-10); EOSINOPHILS % (AUTO) 0 % (0-10); HEMATOCRIT 42 % (35-52); HEMOGLOBIN 14.2 g/dL (11.5-16.0); LYMPHOCYTES # (AUTO) 2.4 10^3/uL (1.0-4.0); LYMPHOCYTES % (AUTO) 14 % (12-44); MEAN CORPUSCULAR HEMOGLOBIN 30 pg (25-34); MEAN CORPUSCULAR HGB CONC 34 g/dL (32-36); MEAN CORPUSCULAR VOLUME 88 fL (80-99); MEAN PLATELET VOLUME 9.6 fL (9.0-12.2); MONOCYTES # (AUTO) 1.2 10^3/uL (0.0-1.0); MONOCYTES % (AUTO) 7 % (0-12); NEUTROPHILS # (AUTO) 12.8 10^3/uL (1.8-7.8); NEUTROPHILS % (AUTO) 77 % (42-75); PLATELET COUNT 388 10^3/uL (130-400); WHITE BLOOD COUNT 16.6 10^3/uL (4.3-11.0)
[2020-09-05 04:10] LABS: ALBUMIN 3.2 GM/DL (3.2-4.5); CHLORIDE 103 MMOL/L (98-107); POTASSIUM 4.2 MMOL/L (3.6-5.0); SODIUM 134 MMOL/L (135-145)
[2020-09-05 04:11] LABS: CALCIUM 8.9 MG/DL (8.5-10.1)
[2020-09-05 04:12] LABS: GLUCOSE 241 MG/DL (70-105); TOTAL PROTEIN 6.6 GM/DL (6.4-8.2)
[2020-09-05 04:13] LABS: CARBON DIOXIDE 21 MMOL/L (21-32)
[2020-09-05 04:14] LABS: BILIRUBIN,TOTAL 0.6 MG/DL (0.1-1.0)
[2020-09-05 04:15] LABS: PHOSPHORUS 2.5 MG/DL (2.3-4.7)
[2020-09-05 04:16] LABS: ALKALINE PHOSPHATASE 146 U/L (40-136); GFR ESTIMATED > 60
[2020-09-05 04:17] LABS: BUN/CREATININE RATIO 21
[2020-09-05 04:19] LABS: ALANINE AMINOTRANSFERASE 35 U/L (0-55); MAGNESIUM 2.2 MG/DL (1.6-2.4)
[2020-09-05 04:20] VITALS: BP 110/84
--- NOTE | 2020-09-05 04:51 | Pulmonary Progress Note ---
Subjective Time Seen by a Provider: 04:50 Subjective/Events-last exam Plan is for heart cath today. Sepsis Event Evaluation Height, Weight, BMI Height: '" Weight: lbs. oz. kg; 27.10 BMI Method: Focused Exam Lactate Level 09/02/20 05:34: Lactic Acid Level 0.86 Exam Exam Vital Signs Date Time Temp Pulse Resp B/P (MAP) Pulse Ox O2 Delivery O2 Flow Rate FiO2 09/05/20 04:20 37.2 89 20 110/84 (93) 95 Room Air 09/05/20 01:00 90 09/05/20 00:08 37.2 94 20 128/82 (97) 95 Room Air 09/04/20 21:00 97 Room Air 09/04/20 19:51 37.3 6 20 133/80 (97) 96 Room Air 09/04/20 19:00 83 09/04/20 16:00 85 23 157/81 (106) 94 Room Air 09/04/20 12:39 75 09/04/20 12:00 37.3 09/04/20 11:45 84 20 165/85 (111) Room Air 09/04/20 09:00 97 Room Air 09/04/20 08:00 37.2 09/04/20 07:30 85 26 163/96 (118) Room Air 09/04/20 06:47 75 I & O 09/05/20 07:00 Intake Total 1960 ml Output Total 2390 ml Balance -430 ml Height & Weight Height: '" Weight: lbs. oz. kg; 27.10 BMI Method: General Appearance: No Apparent Distress, WD/WN HEENT: PERRL/EOMI, Moist Mucous Membranes Neck: Full Range of Motion, Non Tender Respiratory: Chest Non Tender, Lungs Clear, No Accessory Muscle Use, No Respiratory Distress Cardiovascular: Regular Rate, Rhythm, No Edema, No JVD, Normal Peripheral Pulses Capillary Refill: Less Than 3 Seconds Extremity: No Calf Tenderness, No Pedal Edema Neurologic/Psychiatric: Alert, Oriented x3, Normal Mood/Affect Skin: Normal Color, Warm/Dry Lymphatic: No Adenopathy Results Lab Laboratory Tests 09/04/20 03:17 09/05/20 03:30 Assessment/Plan Assessment/Plan Severe sepsis with pneumonia- improving -Pt is now on RA -COVID is negative -Pt is DNR Hypokalemia and hypophos -Replace CP - now resolved NSTEMI -Cardiology following UTI JOSEPH IZAGUIRRE DO Sep 05, 2020 04:51
[2020-09-05] MEDS: inSUlin ASPART (NovoLOG) 1 UNIT/0.01 ML (CHARGE PER UNIT) SC SCH ×2 (05:06→11:27)
[2020-09-05 08:00] VITALS: BP 173/86
[2020-09-05] MEDS ORDERED: HEParin (CATH LAB) 2,000 ML IV ONE (08:58)
[2020-09-05] MEDS ORDERED: NS IV 1000 ML 1,000 ML ONE (08:58)
[2020-09-05] MEDS ORDERED: LIDOCAINE 1% INJ 20 ML 20 ML VIAL ONE (08:58)
[2020-09-05] MEDS ORDERED: fentaNYL INJECTION 100 MCG/2 ML AMP ONE (08:59)
[2020-09-05] MEDS ORDERED: MIDAZOLAM 5 MG/5 ML (VERSED) VIAL ONE (08:59)
[2020-09-05] MEDS ORDERED: NITRO DRIP 25000 MCG/D5W 250 ML IV ONE (09:22)
[2020-09-05] MEDS ORDERED: HEParin 1000 UNIT/ML (10ML VIAL) FOR BOLUS ONE (09:22)
[2020-09-05] MEDS ORDERED: VERAPAMIL 5 MG/2 ML (CALAN) VIAL IV ONE (09:22)
--- NOTE | 2020-09-05 10:01 | Cardiac Procedure Note-CS/ASA ---
Pre-Procedure Note Pre-Op Procedure Note H&P Reviewed The H&P was reviewed, patient examined and no changes noted. Date H&P Reviewed: Sep 05, 2020 Time H&P Reviewed: 10:01 Conscious Sedation Pre-Proced Time 10:01 ASA Score 3 For ASA 3 and 4: Consider anesthesia and medical clearance. Also, for patients with a history of failed moderate sedation consider anesthesia. Airway Lungs Heart ASA score ASA 1: a normal healthy patient ASA 2: a patient with a mild systemic disease (mid diabetes, controlled hypertension, obesity x ASA 3: a patient with a severe systemic disease that limits activity (angina, COPD, prior Myocardial infarction) ASA 4: a patient with an incapacitating disease that is a constant threat to life (CHF, renal failure) ASA 5: a moribund patient not expected to survive 24 hrs. (ruptured aneurysm) ASA 6: a declared brain- patient whose organs are being harvested. For emergent operations, add the letter E after the classification Mallampati Classification Grade 3 Sedation Plan Analgesia, Amnesia, Plan communicated to team members, Discussed options with patient/fam, Discussed risks with patient/fam The patient is an appropriate candidate to undergo the planned procedure, sedation, and anesthesia. The patient immediately re-assessed prior to indication. MARZENA AVALOS MD Sep 05, 2020 10:01
--- NOTE | 2020-09-05 10:06 | Cardiac Cath Report ---
Cardiac Cath Report Physician (s)/Insurance Sales Specialist (s) Physician MARZENA AVALOS MD Pre-Procedure Diagnosis Pre-Procedure Diagnosis: non-ST elevation myocardial infarction Post-Procedure Note Procedure Start Date: Sep 05, 2020 Name of Procedure: Left heart catheterization Aortic arch angiogram Findings/Procedure Note PROCEDURE NOTE: 74-year-old lady admitted with sepsis and pneumonia, UTI, treated with antibiotic, had elevation in troponin and reported some chest pain on admission. Has been asymptomatic since admission. Due to her elevated troponin and chest pain I decided to proceed with cardiac catheterization possible PTCA. After explaining the procedure to the patient, all pros and cons were explained, all questions were answered. The patient signed the consent and then she was placed on the cardiac catheterization laboratory. Groin was prepped SL fashion local anesthesia was used. Sheath placed in the right radial artery, Acton catheter advanced to the left ventricular cavity, pressure was measured, pullback LV to aorta was done. Advanced to the left coronary system and an giogram was done then to the right coronary system and angiogram was done. Then the catheter was pulled back to the aortic arch and aortic arch angiogram was done At the end of the procedure the sheath was removed. Vascular band was used FINDINGS: Hemodynamics LV 130/15 end-diastolic pressure 15 Aorta 118/66 mean of 83 ANATOMY: Left Main is free of obstructive disease Left Anterior Descending is tortuous artery with moderate to severe lesion in the midportion and moderate lesion distally Left Circumflex is moderate in size, first obtuse marginal branch has severe stenosis proximally, the proper circumflex artery has severe stenosis and it is a small artery Right Coronory Artery is a dominant artery with severe stenosis at the ostium and proximal LV Gram was not done pressure was measured Aorta evaluation done with aortic arch angiogram showing normal aortic arch with mild hypertensive changes slightly tortuous innominate artery, nonobstructive disease in the left carotid and left subclavian arteries CONCLUSION: 1. Multivessel coronary artery disease including moderate severe stenosis in the mid LAD, severe stenosis at the distal LAD, severe stenosis at the first obtuse marginal branch and proper circumflex artery, severe stenosis at the ostium and proximal right coronary artery 2. Normal left ventricular end-diastolic pressure 3. Normal aortic arch and great vessels of the neck DISCUSSION AND RECOMMENDATION: Arrangement for evaluation for high risk intervention versus CABG Anesthesia Type: Conscious Sedation Estimated blood loss (mL): 10 ml Contrast Amount: 64 ml Total Radiation Dose: 337 mGy Post-Procedure Diagnosis (1) Severe sepsis (2) Pneumonitis (3) Chest pain (4) UTI (urinary tract infection) (5) Left lower lobe pneumonia (6) Gallstones without obstruction of gallbladder MARZENA AVALOS MD Sep 05, 2020 10:06 am
--- NOTE | 2020-09-05 10:11 | Cardiology Progress Note ---
Subjective Date Seen by Provider: Sep 05, 2020 Time Seen by Provider: 10:09 Subjective/Events-last exam Patient was seen at bedside sitting comfortably, denied any active pain, reporting improvement in her symptoms. Review of Systems General: No Chills, No Night Sweats, No Fatigue, No Malaise, No Appetite, No Other HEENT: No Head Aches, No Visual Changes, No Eye Pain, No Ear Pain, No Dysphasia, No Sinus Congestion, No Post Nasal Drip, No Sore Throat, No Other Pulmonary: No Dyspnea, No Cough, No Pleuritic Chest Pain, No Other Cardiovascular: No: Chest Pain, Palpitations, Orthopnea, Paroxysmal Noc. Dyspnea, Edema, Lt Headedness, Other Objective-Cardiology Exam Last Set of Vital Signs Vital Signs 09/02/20 09/05/20 09/05/20 16:00 04:20 08:00 Temp 37.2 Pulse 85 Resp 13 B/P (MAP) 173/86 (115) Pulse Ox 95 O2 Delivery Room Air O2 Flow Rate 2.00 Capillary Refill : Less Than 3 Seconds I&O Intake and Output 09/05/20 00:00 Intake Total 2220 ml Output Total 3240 ml Balance -1020 ml Intake Oral 2210 ml IV Total 10 ml Output Urine Total 3240 ml # Voids 3 # Bowel Movements 1 General: Alert, Oriented X3, Cooperative HEENT: Atraumatic, PERRLA Neck: Supple, No JVD, No Thyromegaly Lungs: Other (bilat rhonchi) Heart: Regular Rate, Normal S1, Normal S2 Abdomen: Soft, No Tenderness Extremities: No Clubbing, No Edema Skin: No Rashes, No Breakdown Neuro: Normal Gait, Normal Speech, Strength at 5/5 X4 Ext, Cranial Nerves 3-12 NL Psych/Mental Status: Mental Status NL, Mood NL Results Lab Laboratory Tests 09/05/20 03:30 A/P-Cardiology Admission Diagnosis sepsis Pneumonia Urinary tract infection Type II myocardial infarction Assessment/Plan Severe sepsis with pneumonia, improved, receiving antibiotic, managed by primary care team Non-ST elevation myocardial infarction, no acute EKG changes, had some chest pain with elevated troponin, cardiac catheterization showed severe multivessel coronary artery disease, planning to arrange for evaluation for CABG Pneumonia, receiving antibiotic, reporting improvement. Continue to monitor Urinary tract infection, improved, managed by primary care physician Hypertension, controlled, continue to monitor. COVID-19 testing on August 27, 2020 was negative, another set was sent and it is pending CT of the abdomen and pelvis reported gallstones, 6 cm uterine mass, possible fibroid, managed by primary care team LDL 82, I am adding Lipitor 10 mg daily Clinical Quality Measures AMI/AHF: ASA po Prior to arrival: Yes MARZENA AVALOS MD Sep 05, 2020 10:11 am
[2020-09-05] MEDS ORDERED: NS IV 1000 ML 1,000 ML IV SCH (10:15)
[2020-09-05] MEDS: SENNA W/DOCUSATE (SENOKOT S) TABLET PO SCH (11:26)
[2020-09-05] MEDS: polyethylene glycoL POWDER 17 GM (MIRALAX) PACK PO SCH (11:26)
[2020-09-05] MEDS: ASPIRIN E.C. 81 MG (ECOTRIN) TAB PO SCH (11:26)
[2020-09-05] MEDS: ENOXAPARIN 40 MG/0.4 ML (LOVENOX) SYR SC SCH (11:27)
[2020-09-05] MEDS: lisINopril 10 MG (PRINIVIL) TABLET PO SCH (11:27)
[2020-09-05] MEDS: amLODIPine 5 MG (NORVASC) TAB PO SCH (11:27)
[2020-09-06] MEDS ORDERED: ASPIRIN E.C. 81 MG (ECOTRIN) TAB PO SCH (09:00)
== END 2020-09-05 13:30 | disposition short-term general hospital (02) | DRG 871 ==
LOC: EDUNIT# 22:12 → ER 22:20 → ICU 09-02 02:35 → CSD 09-05 10:47
PROVIDERS: ADMIT Internal Medicine; ATTEND Internal Medicine
PROC: 4A023N7 Measurement of Cardiac Sampling and Pressure, Left Heart, Percutaneous Approach (ICD-10-PCS; principal; 2020-09-05)
PROC: B2151ZZ Fluoroscopy of Left Heart using Low Osmolar Contrast (ICD-10-PCS; 2020-09-05)
PROC: B2111ZZ Fluoroscopy of Multiple Coronary Arteries using Low Osmolar Contrast (ICD-10-PCS; 2020-09-05)
PROC: B3101ZZ Fluoroscopy of Thoracic Aorta using Low Osmolar Contrast (ICD-10-PCS; 2020-09-05)
DX: A41.9 Sepsis, unspecified organism (principal); J18.9 Pneumonia, unspecified organism; I21.A1 Myocardial infarction type 2; N39.0 Urinary tract infection, site not specified; R65.20 Severe sepsis without septic shock; Z87.891 Personal history of nicotine dependence; Z66 Do not resuscitate; Z20.822 Contact with and (suspected) exposure to COVID-19; I10 Essential (primary) hypertension; R07.9 Chest pain, unspecified; M19.90 Unspecified osteoarthritis, unspecified site; E03.9 Hypothyroidism, unspecified; Z86.73 Personal history of transient ischemic attack (TIA), and cerebral infarction without residual deficits; I25.10 Atherosclerotic heart disease of native coronary artery without angina pectoris; R73.9 Hyperglycemia, unspecified; N28.1 Cyst of kidney, acquired; L98.9 Disorder of the skin and subcutaneous tissue, unspecified; D35.01 Benign neoplasm of right adrenal gland; D73.4 Cyst of spleen; E88.89 Other specified metabolic disorders; D25.9 Leiomyoma of uterus, unspecified; K80.20 Calculus of gallbladder without cholecystitis without obstruction; D36.13 Benign neoplasm of peripheral nerves and autonomic nervous system of lower limb, including hip; E87.6 Hypokalemia; E83.39 Other disorders of phosphorus metabolism
CPT/HCPCS: 36221; 36415; 71045; 71275; 74177; 80053; 80061; 80202; 81000; 82150; 82550; 82553; 82962; 83605; 83690; 83735; 83874; 83880; 84100; 84145; 84484; 85007; 85025; 85027; 85379; 85610; 85652; 85730; 86141; 87040; 87077; 87081; 87088; 87186; 87635; 93005; 93041; 93306; 93458

== ENCOUNTER 2020-10-06 21:17 | Emergency (ER) | payer MEDICARE ==
[~2020-10-06] VITALS: Ht 167.7 cm; Wt 72.5 kg
[~2020-10-06 21:17] MED LIST changes: -LISI10TA2 PO; +LISI10TA25 PO; -METO10TA3 PO; +MTC10T PO
[2020-10-06] MEDS ORDERED: NS IV 1000 ML 1,000 ML IV SCH (21:45)
[2020-10-06 21:50] LABS: HEMOGLOBIN 10.3 G/DL (11.5-16.0); WHITE BLOOD COUNT 8.7 10^3/uL (4.3-11.0)
[2020-10-06 21:51] LABS: MEAN PLATELET VOLUME 9.5 FL (7.4-10.4)
[2020-10-06 22:04] LABS: PROTHROMBIN TIME PATIENT 13.4 SEC (12.2-14.7)
[2020-10-06 22:11] LABS: BUN/CREATININE RATIO 30; CALCIUM 9.4 MG/DL (8.5-10.1); CARBON DIOXIDE 21 MMOL/L (21-32); CHLORIDE 109 MMOL/L (98-107); CREATININE SERUM 0.82 MG/DL (0.60-1.30); GFR ESTIMATED > 60; GLUCOSE 158 MG/DL (70-105); POTASSIUM 4.2 MMOL/L (3.6-5.0); SODIUM 141 MMOL/L (135-145)
[2020-10-06 22:12] LABS: ALANINE AMINOTRANSFERASE 14 U/L (0-55); ALBUMIN 4.1 GM/DL (3.2-4.5); ALKALINE PHOSPHATASE 97 U/L (40-136); BILIRUBIN,TOTAL 0.3 MG/DL (0.1-1.0); TOTAL PROTEIN 6.7 GM/DL (6.4-8.2)
--- NOTE | 2020-10-06 23:23 | ED General ---
General Chief Complaint: Female Reproductive Stated Complaint: VAGINAL BLEEDING Nursing Triage Note: Patient states that she began bleeding from her vagina on 10/04/20 and has intermittently bled since that date. Patient states that she had a D&C a month ago at [place] and she has bled intermittently since then. Patient states these periods of bleeding are often severe and she went to see Dr. Chung for this. Patient states that she is unable to get the bleeding to stop this time so she came to the ER for evaluation. Patient currently has on 2 pads and she has bled through. When patient stood up to transfer on the bed, there was a steady stream of bright red blood. is notified. Nursing Sepsis Screen: No Definite Risk History of Present Illness Date Seen by Provider: Oct 06, 2020 Time Seen by Provider: 22:30 Initial Comments Patient is a 74-year-old female with history of coronary artery disease with recent stent placement x3 at [facility] per Dr. 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 Eliel Ford. D&C was performed over a month ago. Since that time patient has intermittent vaginal bleeding which was treated with Provera 10 mg daily and TXA 1300 mg 3 times daily f starting 2 weeks ago. However, the patient has had recurrence of moderate vaginal bleeding since completing TXA and Provera. Reports pulling and gushing when standing. She denies dizziness lightheadedness chest pain palpitations shortness of breath. She has not spoken with Dr. Ford or Dr. Chung today about her current symptoms. She continues to take Plavix as prescribed and recommended. No other symptoms or complaints. Timing/Duration: Other (1 month) Modifying Factors: improves with Other Associated Systoms: Other Allergies and Home Medications Allergies Coded Allergies: No Known Drug Allergies (Unverified , 08/27/20) Home Medications Ascorbic Acid 1,000 Mg Tablet, 1,000 MG PO DAILY, (Reported) Cefdinir 300 Mg Capsule, 300 MG PO BID, (Reported) FILLED 08-29-2020 #10/5 DAY SUPPLY Cholecalciferol (Vitamin D3) 50 Mcg Capsule, 50 MCG PO DAILY, (Reported) Lisinopril 10 Mg Tablet, 10 MG PO DAILY, (Reported) Melatonin 5 Mg Tablet, 5 MG PO HS, (Reported) Naproxen Sodium 220 Mg Tablet, 880 MG PO DAILY, (Reported) TAKES 4 (220MG) TABS Zinc Gluconate 50 Mg Tablet, 200 MG PO DAILY, (Reported) TAKES 4 (50MG) TABS Patient Home Medication List Home Medication List Reviewed: Yes Review of Systems Review of Systems Constitutional: see HPI EENTM: see HPI Respiratory: see HPI Cardiovascular: see HPI Gastrointestinal: see HPI Genitourinary: see HPI Musculoskeletal: see HPI Skin: see HPI Psychiatric/Neurological: See HPI Hematologic/Lymphatic: See HPI Immunological/Allergic: see HPI All Other Systems Reviewed Negative Unless Noted: Yes Past Kvznbbg-Nenfwk-Zynanm Hx Past Med/Social Hx: Reviewed Nursing Past Med/Soc Hx Patient Social History Alcohol Use: Denies Use Drug of Choice: DENIES Smoking Status: Never a Smoker Type Used: Cigarettes Recent Infectious Disease Expo: No Recent Hopitalizations: No Seasonal Allergies Seasonal Allergies: No Past Medical History Surgeries: Yes (BILATERAL KNEE REPLACEMENTS; NEUROMA RIGHT FOOT, D&C) Coronary Stent, Joint Replacement, Orthopedic, Thyroidectomy Respiratory: Yes (PNEUMONIA DX 08/25/20) Pneumonia Cardiac: Yes Hypertension Neurological: Yes Stroke 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 oz. kg; 25.00 BMI Method: General Appearance: Other Eyes: Bilateral Eye Normal Inspection, Bilateral Eye PERRL, Bilateral Eye EOMI HEENT: PERRL/EOMI, Normal ENT Inspection, Pharynx Normal Neck: Full Range of Motion, Non Tender, Supple Respiratory: Lungs Clear Cardiovascular: Regular Rate, Rhythm Gastrointestinal: Non Tender, Soft Neurologic/Psychiatric: Alert, Oriented x3, Other Reflexes: 4+ Bicep (R), 4+ Bicep (L), 4+ Tricep (R) Skin: Normal Color Lymphatic: No Adenopathy Focused Exam Sepsis Stage: Ruled Out Progress/Results/Core Measures Suspected Sepsis Recent Fever Within 48 Hours: No Infection Criteria Present: None New/Unexplained Altered Menta: No Sepsis Screen: No Definite Risk SIRS Temperature: Pulse: 80 Respiratory Rate: 20 Laboratory Tests 10/06/20 21:41: White Blood Count 8.7 Blood Pressure 144 /68 Mean: 93 Laboratory Tests 10/06/20 21:41: Creatinine 0.82, INR Comment 1.0, Platelet Count 329, Total Bilirubin 0.3 Results/Orders Lab Results Laboratory Tests Test 10/06/20 21:41 Range/Units White Blood Count 8.7 4.3-11.0 10^3/uL Red Blood Count 3.46 L 4.35-5.85 10^6/uL Hemoglobin 10.3 L 11.5-16.0 G/DL Hematocrit 32 L 35-52 % Mean Corpuscular Volume 91 80-99 FL Mean Corpuscular Hemoglobin 30 25-34 PG Mean Corpuscular Hemoglobin Concent 33 32-36 G/DL Red Cell Distribution Width 15.0 H 10.0-14.5 % Platelet Count 329 130-400 10^3/uL Mean Platelet Volume 9.5 7.4-10.4 FL Prothrombin Time 13.4 12.2-14.7 SEC INR Comment 1.0 0.8-1.4 Activated Partial Thromboplast Time 28 24-35 SEC Sodium Level 141 135-145 MMOL/L Potassium Level 4.2 3.6-5.0 MMOL/L Chloride Level 109 H 98-107 MMOL/L Carbon Dioxide Level 21 21-32 MMOL/L Anion Gap 11 5-14 MMOL/L Blood Urea Nitrogen 25 H 7-18 MG/DL Creatinine 0.82 0.60-1.30 MG/DL Estimat Glomerular Filtration Rate > 60 BUN/Creatinine Ratio 30 Glucose Level 158 H 70-105 MG/DL Calcium Level 9.4 8.5-10.1 MG/DL Corrected Calcium 9.3 8.5-10.1 MG/DL Total Bilirubin 0.3 0.1-1.0 MG/DL Aspartate Amino Transf (AST/SGOT) 21 5-34 U/L Alanine Aminotransferase (ALT/SGPT) 14 0-55 U/L Alkaline Phosphatase 97 40-136 U/L Total Protein 6.7 6.4-8.2 GM/DL Albumin 4.1 3.2-4.5 GM/DL My Orders Orders - NARDA JAMES DO Cbc No Diff (10/06/20 21:36) Comprehensive Metabolic Panel (10/06/20 21:36) Protime With Inr (10/06/20 21:36) Partial Thromboplastin Time (10/06/20 21:36) Ns Iv 1000 Ml (Sodium Chloride 0.9%) (10/06/20 21:45) Continuous Ekg Monitoring (10/06/20 21:36) Ed Iv/Invasive Line Start (10/06/20 21:46) Ekg Tracing (10/06/20 21:46) Vital Signs/I&O 10/06/20:21 Temp 37.0 Pulse 80 Resp 20 B/P (MAP) 144/68 (93) Pulse Ox 99 O2 Delivery Room Air Capillary Refill : Less Than 3 Seconds Blood Pressure Mean: 93 Departure Communication (Admissions) Lab work reviewed. Patient with bleeding fibroids unable to have surgery due to Plavix or dis continue Plavix due to recent coronary stent placement. She has had approximately a 4 g drop of hemoglobin since her surgery 4 weeks ago. Patient has trial of TXA and Provera which she has failed. Case reviewed in detail with Dr. 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 Recommendations are for Aygestin 5 mg daily, watchful waiting and for 2 weeks with close follow-up with Dr. Rasheed in the office. This was discussed with the patient in detail that it is in her in her best interest to avoid surgery if at all possible for several more months. Return precautions reviewed. Patient verbalizes understanding and agreement with discharge instructions prior to departure. Impression Primary Impression: Vaginal bleeding Disposition: HOME, SELF-CARE Condition: Stable Departure-Patient Inst. Referrals: GALILEA CHUNG DO (PCP) Primary Care Physician [facility] (Family) Primary Care Physician Patient Instructions: Bleeding After Menopause Add. Discharge Instructions: Please take newly prescribed medications and follow-up with Dr. Chung office or your PCPs later this week for repeat CBC. Contact Dr. Ford's office to schedule follow-up appointment. Return to the ED if he developed dizziness lightheadedness chest pain shortness of breath or other symptoms. All discharge instructions reviewed with patient and/or family. Voiced understanding. Scripts Norethindrone Acetate (Aygestin) 5 Mg Tablet 5 MG PO DAILY, #14 TAB Prov: NARDA JAMES DO 10/06/20 NARDA JAMES DO Oct 06, 2020 23:23
[2020-10-06] MEDS ORDERED: NORE5TAB2 PO (23:35)
[2020-10-07 01:03] LABS: HEMATOCRIT 28 % (35-52); HEMOGLOBIN 8.9 G/DL (11.5-16.0); MEAN CORPUSCULAR HEMOGLOBIN 30 PG (25-34); WHITE BLOOD COUNT 9.2 10^3/uL (4.3-11.0)
[2020-10-07 01:04] LABS: BASOPHILS # (AUTO) 0.1 10^3/uL (0.0-0.1); BASOPHILS % (AUTO) 1 % (0-10); EOSINOPHILS # (AUTO) 0.2 10^3/uL (0.0-0.3); EOSINOPHILS % (AUTO) 3 % (0-10); LYMPHOCYTES # (AUTO) 3.5 X 10^3 (1.0-4.0); LYMPHOCYTES % (AUTO) 38 % (12-44); MEAN CORPUSCULAR HGB CONC 32 G/DL (32-36); MEAN CORPUSCULAR VOLUME 93 FL (80-99); MEAN PLATELET VOLUME 9.7 FL (7.4-10.4); MONOCYTES # (AUTO) 0.6 X 10^3 (0.0-1.0); MONOCYTES % (AUTO) 7 % (0-12); NEUTROPHILS # (AUTO) 4.8 X 10^3 (1.8-7.8); NEUTROPHILS % (AUTO) 52 % (42-75); PLATELET COUNT 315 10^3/uL (130-400)
[2020-10-07 01:36] VITALS: BP 130/74
== END 2020-10-07 01:54 | disposition home or self-care (01) ==
LOC: EDUNIT# 21:17 → ER FS 21:18
DX: N93.9 Abnormal uterine and vaginal bleeding, unspecified (principal); I10 Essential (primary) hypertension; Z95.5 Presence of coronary angioplasty implant and graft
CPT/HCPCS: 36415; 80053; 84484; 85025; 85027; 85610; 85730; 93005

== ENCOUNTER 2021-02-04 03:11 | Emergency (ER) | payer MEDICARE ==
[~2021-02-04] VITALS: Ht 167.7 cm; Wt 78.0 kg
[~2021-02-04 03:11] MED LIST changes: +NORE5TAB2 PO
--- NOTE | 2021-02-04 03:29 | ED GU-Female ---
General Stated Complaint: VAGINAL BLEEDING,CRAMPING,NECK PAIN,HIGH BP Source: patient Exam Limitations: no limitations History of Present Illness Date Seen by Provider: Feb 04, 2021 Time Seen by Provider: 03:24 Initial Comments 75-year-old female presents with vaginal bleeding for the past 4 days. Pain has been heavy and dark red. She has been changing a mini pad hourly tonight. History of present illness patient had onset of vaginal bleeding 4 months ago and was seen at [facility] as well as [facility] for the same. Patient advised to have a hysterectomy, however she is on Plavix and her sports medicine masseur does not want her off of it. Also 4 months ago she had two stents put in due to coronary artery disease. Patient had a D&C and a complete work-up showing no significant abnormality other than the bleeding, according to the patient. She denies feeling lightheaded or dizzy, just tired of the bleeding and feeling weak. She did have a blood transfusion 4 months ago as well. Allergies and Home Medications Allergies Coded Allergies: No Known Drug Allergies (Unverified , 08/27/20) Home Medications Ascorbic Acid 1,000 Mg Tablet, 1,000 MG PO DAILY, (Reported) Cefdinir 300 Mg Capsule, 300 MG PO BID, (Reported) FILLED 08-29-2020 #10/5 DAY SUPPLY Cephalexin 500 Mg Tablet, 500 MG PO TID Prescribed by: UCHE FRANCO on 02/04/212106 Cholecalciferol (Vitamin D3) 50 Mcg Capsule, 50 MCG PO DAILY, (Reported) Hydrocodone/Acetaminophen 1 Each Tablet, 1 TAB PO Q6H PRN for PAIN-MODERATE (5- 7) Prescribed by: UCHE FRANCO on 02/04/212107 Lisinopril 10 Mg Tablet, 10 MG PO DAILY, (Reported) Melatonin 5 Mg Tablet, 5 MG PO HS, (Reported) Naproxen Sodium 220 Mg Tablet, 880 MG PO DAILY, (Reported) TAKES 4 (220MG) TABS Norethindrone Acetate 5 Mg Tablet, 5 MG PO DAILY Prescribed by: NARDA JAMES on 10/06/20 2335 Progesterone,Micronized 200 Mg Capsule, 200 MG PO DAILY Prescribed by: DUSTIN GO on 02/04/21 0416 Zinc Gluconate 50 Mg Tablet, 200 MG PO DAILY, (Reported) TAKES 4 (50MG) TABS Patient Home Medication List Home Medication List Reviewed: Yes Review of Systems Review of Systems Constitutional: No chills, No diaphoresis, No dizziness, No fever, No malaise; weakness EENTM: no symptoms reported Respiratory: No cough, No short of breath, No stridor, No wheezing Cardiovascular: No chest pain, No edema, No palpitations, No syncope Gastrointestinal: No abdominal pain, No constipation, No loss of appetite, No nausea, No vomiting Genitourinary: see HPI; denies dysuria, denies frequency, denies flank pain, denies hematuria, denies incontinence; pain (uterine cramping) Skin: No change in color, No rash Psychiatric/Neurological: Denies Headache, Denies Numbness, Denies Paresthesia Hematologic/Lymphatic: See HPI, Blood Clots, Easy Bleeding Past Xwomgiv-Hnuzxx-Jseyxr Hx Past Med/Social Hx: Reviewed Nursing Past Med/Soc Hx Patient Social History Drug of Choice: DENIES Type Used: Cigarettes Recent Hopitalizations: No Seasonal Allergies Seasonal Allergies: No Past Medical History Surgeries: Yes (BILATERAL KNEE REPLACEMENTS; NEUROMA RIGHT FOOT, D&C) Coronary Stent, Joint Replacement, Orthopedic, Thyroidectomy Respiratory: Yes (PNEUMONIA DX 08/25/20) Pneumonia Cardiac: Yes Hypertension Neurological: Yes Stroke 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 oz. kg; 25.00 BMI Method: General Appearance: WD/WN, no apparent distress Cardiovascular: regular rate, rhythm, no edema, no JVD Respiratory: chest non-tender, lungs clear, normal breath sounds, no respiratory distress, no accessory muscle use Gastrointestinal: soft; No distended, No guarding, No rebound; tenderness (lower abdominal/pelvic) Pelvic: normal external exam; No mass; vaginal bleeding (dark red blood vaginal vault - small amount. NO active bleeding) Progress/Results/Core Measures Suspected Sepsis SIRS Temperature: Pulse: Respiratory Rate: Blood Pressure / Mean: Results/Orders Lab Results My Orders Vital Signs/I&O Capillary Refill : Progress Note : Progress Note Patient with normal vital signs, no distress and relatively benign exam with some small dark blood in the vaginal vault without active bleeding. No significant abdominal or flank tenderness. Hemoglobin hematocrit very stable. Patient vies follow-up with her RESOURCES REPRESENTATIVE who she is already established care with and has an appointment in just a couple weeks. Departure Impression Primary Impression: Vaginal bleeding Disposition: HOME, SELF-CARE Condition: Stable Departure-Patient Inst. Decision time for Depature: 04:00 Referrals: GALILEA BROWN DO (PCP) Primary Care Physician [facility] (Family) Primary Care Physician PJ TAY BASHAR J MD Patient Instructions: Bleeding After Menopause Add. Discharge Instructions: Call Dr Tay this morning (when office opens) to notify them of continued vaginal bleeding and need for care. Also, notify Dr Arevalo of continued bleeding since he is prescribing your Plavix Scripts Progesterone,Micronized (Progesterone) 200 Mg Capsule 200 MG PO DAILY, #14 CAP Prov: DUSTIN GO DO 02/04/21 DUSTIN GO DO Feb 04, 2021 03:29
[2021-02-04 03:57] LABS: HEMOGLOBIN 13.9 G/DL (11.5-16.0); MEAN CORPUSCULAR HEMOGLOBIN 27 PG (25-34); WHITE BLOOD COUNT 11.4 10^3/uL (4.3-11.0)
[2021-02-04 03:58] LABS: BASOPHILS # (AUTO) 0.1 10^3/uL (0.0-0.1); BASOPHILS % (AUTO) 0 % (0-10); EOSINOPHILS # (AUTO) 0.2 10^3/uL (0.0-0.3); EOSINOPHILS % (AUTO) 2 % (0-10); HEMATOCRIT 41 % (35-52); LYMPHOCYTES # (AUTO) 2.9 X 10^3 (1.0-4.0); LYMPHOCYTES % (AUTO) 25 % (12-44); MEAN CORPUSCULAR HGB CONC 34 G/DL (32-36); MEAN CORPUSCULAR VOLUME 81 FL (80-99); MEAN PLATELET VOLUME 9.3 FL (7.4-10.4); MONOCYTES % (AUTO) 9 % (0-12); NEUTROPHILS # (AUTO) 7.3 X 10^3 (1.8-7.8); NEUTROPHILS % (AUTO) 64 % (42-75); PLATELET COUNT 376 10^3/uL (130-400)
[2021-02-04 04:06] LABS: PROTHROMBIN TIME PATIENT 13.2 SEC (12.2-14.7)
[2021-02-04 04:13] LABS: ALANINE AMINOTRANSFERASE 15 U/L (0-55); ALBUMIN 4.2 GM/DL (3.2-4.5); ALKALINE PHOSPHATASE 77 U/L (40-136); BILIRUBIN,TOTAL 0.6 MG/DL (0.1-1.0); BUN/CREATININE RATIO 23; CALCIUM 9.2 MG/DL (8.5-10.1); CARBON DIOXIDE 22 MMOL/L (21-32); CHLORIDE 102 MMOL/L (98-107); GFR ESTIMATED > 60; GLUCOSE 149 MG/DL (70-105); POTASSIUM 3.8 MMOL/L (3.6-5.0); SODIUM 137 MMOL/L (135-145); TOTAL PROTEIN 7.1 GM/DL (6.4-8.2)
[2021-02-04] MEDS ORDERED: fentaNYL INJ 100 MCG/2 ML AMP IVP ONE (04:15)
[2021-02-04] MEDS ORDERED: PROG200C10 PO (04:16)
[2021-02-04] MEDS ORDERED: HYDROcodone/APAP 5 MG/325 MG (LORTAB) TAB ONE (04:19)
[2021-02-04 04:30] VITALS: BP 183/81
[2021-02-04] MEDS ORDERED: ACHD5005 PO (21:07)
[2021-02-04] MEDS ORDERED: CEPH500T PO (21:07)
== END 2021-02-04 04:30 | disposition home or self-care (01) ==
LOC: EDUNIT# 03:11 → ER FS 03:13
DX: N93.9 Abnormal uterine and vaginal bleeding, unspecified (principal); I10 Essential (primary) hypertension; Z86.73 Personal history of transient ischemic attack (TIA), and cerebral infarction without residual deficits
CPT/HCPCS: 36415; 80053; 85025; 85610; 85730

== ENCOUNTER 2021-02-04 18:56 | Emergency (ER) | payer MEDICARE ==
[~2021-02-04 18:56] MED LIST changes: +PROG200C10 PO
[2021-02-04 19:39] LABS: BASOPHILS # (AUTO) 0.1 10^3/uL (0.0-0.1); BASOPHILS % (AUTO) 0 % (0-10); EOSINOPHILS # (AUTO) 0.3 10^3/uL (0.0-0.3); EOSINOPHILS % (AUTO) 2 % (0-10); HEMATOCRIT 43 % (35-52); LYMPHOCYTES # (AUTO) 2.6 10^3/uL (1.0-4.0); LYMPHOCYTES % (AUTO) 19 % (12-44); MEAN CORPUSCULAR HEMOGLOBIN 27 pg (25-34); MEAN CORPUSCULAR HGB CONC 33 g/dL (32-36); MEAN CORPUSCULAR VOLUME 83 fL (80-99); MEAN PLATELET VOLUME 9.4 fL (9.0-12.2); MONOCYTES # (AUTO) 1.4 10^3/uL (0.0-1.0); MONOCYTES % (AUTO) 10 % (0-12); NEUTROPHILS # (AUTO) 9.5 10^3/uL (1.8-7.8); NEUTROPHILS % (AUTO) 68 % (42-75); PLATELET COUNT 380 10^3/uL (130-400); WHITE BLOOD COUNT 13.9 10^3/uL (4.3-11.0)
--- NOTE | 2021-02-04 19:40 | ED Abdominal Pain ---
General Chief Complaint: Female Reproductive Stated Complaint: VAGINAL BLEEDING Nursing Triage Note: PRESENTS TO ROOM #5 VIA ER W/C FROM POV W/CO ABNORMAL VAGINAL BLEEDING AND ABD CRAMPING. PT REPORTS SHE BEGAN TO EXPERIENCE VAGINAL BLEEDING THAT BEGAN ON 02/01/21 AND HAS BEEN PERSISTANT SINCE ONSET. PT DESCRIBED VAGINAL BLEEDING DARK RED. PT REPORTS SHE BEGAN TO EXPERIENCE BILAT SHOULDER DISCOMFORT RADIATING DOWN NECK THAT BEGAN "A COUPLE DAYS AGO." PT STATES "IT FEELS LIKE I'M HAVING A KID." PT REPORTS SHE IS PRESCRIBED PLAVIX D/T CARDIAC STENTS. Source of Information: Patient Exam Limitations: No Limitations History of Present Illness Date Seen by Provider: Feb 04, 2021 Time Seen by Provider: 19:25 Initial Comments Patient is a 75-year-old female who presents to the emergency department today with a chief complaint of vaginal bleeding. Patient states that she had onset of heavy vaginal bleeding on Tuesday. She has had this vaginal bleeding off and on for several months since she had stents placed by Dr. Orta at [facility] and was started on Plavix. Patient states around that time as well she was seen by Dr. Rasheed at [facility] and they were investigating a polyp that she had. She actually ultimately underwent a D&C. Patient states that the bleeding has been intermittent since that time. She has been on a round of Provera and TXA. She has been on Aygestin. She states that the bleeding has not stopped. She states that she is currently on the Aygestin. Nothing seems to be helping the bleeding and she feels like she is getting "weaker and weaker". Patient denies any lightheaded or shortness or dizziness with standing. She denies shortness of breath or chest pain. Patient states for the last 3 days she has had some left lateral neck pain and shoulder pain that has been persistent and unchanging. She states she has not stopped taking her Plavix and is under the care of Dr. Fletcher for cardiology. No recent illnesses such as fevers, chills, cough or congestion. She denies dysuria, urgency or frequency. She is having lower abdominal cramping that she states feels like "having a baby". All other review of systems reviewed and negative except as stated above. Timing/Duration: 2-3 Days Severity/Quality: Cramping Location: Suprapubic Associated Symptoms: Other (Neck pain) Allergies and Home Medications Allergies Coded Allergies: No Known Drug Allergies (Unverified , 08/27/20) Home Medications Ascorbic Acid 1,000 Mg Tablet, 1,000 MG PO DAILY, (Reported) Cefdinir 300 Mg Capsule, 300 MG PO BID, (Reported) FILLED 08-29-2020 #10/5 DAY SUPPLY Cephalexin 500 Mg Tablet, 500 MG PO TID Prescribed by: UCHE FRANCO on 02/04/212106 Cholecalciferol (Vitamin D3) 50 Mcg Capsule, 50 MCG PO DAILY, (Reported) Hydrocodone/Acetaminophen 1 Each Tablet, 1 TAB PO Q6H PRN for PAIN-MODERATE (5- 7) Prescribed by: UCHE FRANCO on 02/04/212107 Lisinopril 10 Mg Tablet, 10 MG PO DAILY, (Reported) Melatonin 5 Mg Tablet, 5 MG PO HS, (Reported) Naproxen Sodium 220 Mg Tablet, 880 MG PO DAILY, (Reported) TAKES 4 (220MG) TABS Norethindrone Acetate 5 Mg Tablet, 5 MG PO DAILY Prescribed by: NARDA JAMES on 10/06/20 2335 Progesterone,Micronized 200 Mg Capsule, 200 MG PO DAILY Prescribed by: DUSTIN GO on 02/04/21 0416 Zinc Gluconate 50 Mg Tablet, 200 MG PO DAILY, (Reported) TAKES 4 (50MG) TABS Patient Home Medication List Home Medication List Reviewed: Yes Review of Systems Review of Systems Constitutional: see HPI EENTM: No Symptoms Reported Respiratory: No Symptoms Reported Cardiovascular: No Symptoms Reported Gastrointestinal: Abdominal Pain Genitourinary: Other (Heavy vaginal bleeding) Musculoskeletal: neck pain Skin: no symptoms reported Psychiatric/Neurological: No Symptoms Reported All Other Systems Reviewed Negative Unless Noted: Yes Past Ddvvlka-Xmosat-Lxsuta Hx Seasonal Allergies Seasonal Allergies: No Past Medical History Surgeries: Yes (BILATERAL KNEE REPLACEMENTS; NEUROMA RIGHT FOOT, D&C) Coronary Stent, Joint Replacement, Orthopedic, Thyroidectomy Respiratory: Yes (PNEUMONIA DX 08/25/20) Pneumonia Cardiac: Yes Hypertension 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 oz. kg; 27.00 BMI Method: General Appearance: WD/WN, no apparent distress HEENT: PERRL/EOMI Neck: non-tender, full range of motion Respiratory: lungs clear, normal breath sounds, no respiratory distress, no accessory muscle use Cardiovascular: regular rate, rhythm Gastrointestinal: non tender, soft Extremities: non-tender, normal inspection, no pedal edema, no calf tenderness Neurologic/Psychiatric: alert, normal mood/affect, oriented x 3 Skin: normal color, warm/dry Progress/Results/Core Measures Results/Orders Lab Results Laboratory Tests Test 02/04/21 19:20 02/04/21 19:35 02/04/21 19:55 Range/Units White Blood Count 13.9 H 4.3-11.0 10^3/uL Red Blood Count 5.11 3.80-5.11 10^6/uL Hemoglobin 14.0 11.5-16.0 g/dL Hematocrit 43 35-52 % Mean Corpuscular Volume 83 80-99 fL Mean Corpuscular Hemoglobin 27 25-34 pg Mean Corpuscular Hemoglobin Concent 33 32-36 g/dL Red Cell Distribution Width 17.1 H 10.0-14.5 % Platelet Count 380 130-400 10^3/uL Mean Platelet Volume 9.4 9.0-12.2 fL Immature Granulocyte % (Auto) 0 % Neutrophils (%) (Auto) 68 42-75 % Lymphocytes (%) (Auto) 19 12-44 % Monocytes (%) (Auto) 10 0-12 % Eosinophils (%) (Auto) 2 0-10 % Basophils (%) (Auto) 0 0-10 % Neutrophils # (Auto) 9.5 H 1.8-7.8 10^3/uL Lymphocytes # (Auto) 2.6 1.0-4.0 10^3/uL Monocytes # (Auto) 1.4 H 0.0-1.0 10^3/uL Eosinophils # (Auto) 0.3 0.0-0.3 10^3/uL Basophils # (Auto) 0.1 0.0-0.1 10^3/uL Immature Granulocyte # (Auto) 0.1 0.0-0.1 10^3/uL Sodium Level 138 135-145 MMOL/L Potassium Level 3.7 3.6-5.0 MMOL/L Chloride Level 105 98-107 MMOL/L Carbon Dioxide Level 22 21-32 MMOL/L Anion Gap 11 5-14 MMOL/L Blood Urea Nitrogen 16 7-18 MG/DL Creatinine 0.88 0.60-1.30 MG/DL Estimat Glomerular Filtration Rate > 60 BUN/Creatinine Ratio 18 Glucose Level 195 H 70-105 MG/DL Calcium Level 9.5 8.5-10.1 MG/DL Total Creatine Kinase 47 29-168 U/L Creatine Kinase MB 0.7 <6.6 NG/ML Troponin I < 0.028 <0.028 NG/ML Urine Color DARK YELLOW Urine Clarity SL CLOUDY Urine pH 5.5 5-9 Urine Specific [place] >=1.030 1.016-1.022 Urine Protein TRACE H NEGATIVE Urine Glucose (UA) TRACE H NEGATIVE Urine Ketones NEGATIVE NEGATIVE Urine Nitrite POSITIVE H NEGATIVE Urine Bilirubin NEGATIVE NEGATIVE Urine Urobilinogen 2.0 < = 1.0 MG/DL Urine Leukocyte Esterase NEGATIVE NEGATIVE Urine RBC (Auto) TRACE-I NEGATIVE Urine RBC RARE /HPF Urine WBC 5-10 H /HPF Urine Squamous Epithelial Cells RARE /HPF Urine Crystals NONE /LPF Urine Bacteria LARGE H /HPF Urine Casts NONE /LPF Urine Mucus NEGATIVE /LPF Urine Culture Indicated YES My Orders Orders - UCHE FRANCO MD Cbc With Automated Diff (02/04/21 19:25) Basic Metabolic Panel (02/04/21 19:35) Ua Culture If Indicated (02/04/21 19:35) Creatine Kinase (02/04/21 19:35) Creatine Kinase Mb (02/04/21 19:35) Troponin I (02/04/21 19:35) Orphenadrine Inj (Ed Only) (Norflex Inje (02/04/21 20:00) Urine Culture (02/04/21 19:55) Rx-Hydrocodone/Apap 5-325 Mg (Rx-Vicodin (02/04/21 21:15) Medications Given in ED Current Medications Medications Dose Ordered Sig/Bridger Route Start Time Stop Time Status Last Admin Dose Admin Acetaminophen/ Hydrocodone Bitart 1 ea Q6H PRN PO 02/04/21 21:15 02/04/21 21:26 DC 02/04/21 21:10 1 EA Orphenadrine Citrate 30 mg ONCE ONCE IV 02/04/21 20:00 02/04/21 20:01 DC 02/04/21 20:02 30 MG Vital Signs/I&O 02/04/21 02/04/21 19:10 21:25 Temp 36.7 36.7 Pulse 85 97 Resp 17 16 B/P (MAP) 182/77 (112) 178/91 (112) Pulse Ox 95 97 O2 Delivery Room Air Room Air Blood Pressure Mean: 112 Progress Progress Note : Time: 20:20 Progress Note Discussed with Dr. Cantrell on for BE[employer]PAR[employer] call. He recommends outpatient follow-up for this patient who has continued vaginal bleeding and a stable hemoglobin. I have reviewed the case with him including her vital signs laboratory evaluation and physical exam findings. He states that there is no emergent reason for which to admit her to the hospital at this time. He recommends that she call Dr. Tay's office first thing in the morning for a follow-up appointment. Initial ECG Impression Date: Feb 05, 2021 Initial ECG Impression Time: 19:18 Initial ECG Rate: 89 Initial ECG Rhythm: Normal Sinus Initial ECG Intervals: Normal Initial ECG Impression: Nonspecific Changes Departure Impression Primary Impression: Vaginal bleeding, abnormal Additional Impressions: Cervical pain (neck) Urinary tract infection Disposition: 01 HOME, SELF-CARE Condition: Stable Departure-Patient Inst. Decision time for Depature: 21:03 Referrals: AMY RAMSAY MD (PCP) Primary Care Physician PJ TAY DENNIS G MD Patient Instructions: IRREGULAR VAGINAL BLEEDING, Urinary Tract Infection, Adult (DC) Add. Discharge Instructions: Please call Dr. Tay's office in the morning or Dr. Cantrell for follow-up of your abnormal vaginal bleeding. I have given you a prescription for hydrocodone for your neck pain. You can take 1 every 6 hours as needed for pain. You also have a urinary tract infection this evening. I have sent you a prescription for antibiotics to your pharmacy. Please take 1 3 times daily for 7 days. Follow-up with your primary care physician as needed. Return to the emergency room for any new, concerning or emergent complaints. Scripts Hydrocodone/Acetaminophen (Hydrocodone-Acetamin 5-325 mg) 1 Each Tablet 1 TAB PO Q6H PRN for PAIN-MODERATE (5-7), #10 TAB Prov: UCHE FRANCO MD 02/04/21 Cephalexin (Cephalexin) 500 Mg Tablet 500 MG PO TID for 7 Days, #21 TAB 0 Refills Prov: UCHE FRANCO MD 02/04/21 Work/School Note: Family Work Note Patient Received Medical Care In the Emergency Department On: Feb 04, 2021 Patient Will Be Able to Return to Work/School On: Feb 06, 2021 Patient Restrictions: patient family member will need to be off work 02/05/21 UCHE FRANCO MD Feb 04, 2021 19:40
[2021-02-04 19:42] LABS: CHLORIDE 105 MMOL/L (98-107); POTASSIUM 3.7 MMOL/L (3.6-5.0); SODIUM 138 MMOL/L (135-145)
[2021-02-04 19:43] LABS: CALCIUM 9.5 MG/DL (8.5-10.1)
[2021-02-04 19:44] LABS: GLUCOSE 195 MG/DL (70-105)
[2021-02-04 19:45] LABS: CARBON DIOXIDE 22 MMOL/L (21-32)
[2021-02-04 19:48] LABS: BUN/CREATININE RATIO 18; CREATININE SERUM 0.88 MG/DL (0.60-1.30); GFR ESTIMATED > 60
[2021-02-04 19:50] LABS: CREATINE KINASE 47 U/L (29-168)
[2021-02-04 19:56] LABS: CREATINE KINASE MB 0.7 NG/ML (<6.6)
[2021-02-04] MEDS ORDERED: ORPHENADRINE 60 MG/2 ML (NORFLEX) AMP (ED ONLY) IV ONE (20:00)
[2021-02-04 20:05] LABS: BILIRUBIN,URINE NEGATIVE (NEGATIVE); COLOR,URINE DARK YELLOW; GLUCOSE, URINE (UA) TRACE (NEGATIVE); KETONES,URINE NEGATIVE (NEGATIVE); LEUKOCYTE ESTERASE ,URINE NEGATIVE (NEGATIVE); NITRITE,URINE POSITIVE (NEGATIVE); PH,URINE 5.5 (5-9); PROTEIN,URINE TRACE (NEGATIVE)
[2021-02-04 20:10] LABS: CLARITY,URINE SL CLOUDY
[2021-02-04 20:11] LABS: BACTERIA,URINE LARGE /HPF; RBC,URINE RARE /HPF; SQUAMOUS EPITHELIAL CELL,UR RARE /HPF
[2021-02-04] MEDS ORDERED: CEPH500T PO (21:07)
[2021-02-04] MEDS ORDERED: ACHD5005 PO (21:07)
[2021-02-04 21:25] VITALS: BP 178/91
== END 2021-02-04 21:25 | disposition home or self-care (01) ==
LOC: EDUNIT# 18:56 → ER 18:58
DX: N93.9 Abnormal uterine and vaginal bleeding, unspecified (principal); M54.2 Cervicalgia; N39.0 Urinary tract infection, site not specified; I10 Essential (primary) hypertension; Z86.73 Personal history of transient ischemic attack (TIA), and cerebral infarction without residual deficits
CPT/HCPCS: 36415; 80048; 81000; 82550; 82553; 84484; 85025; 87088; 93005; 96374

== ENCOUNTER 2021-02-09 16:07 | Emergency (ER) | payer MEDICARE ==
[~2021-02-09] VITALS: Ht 167 cm; Wt 78.0 kg
[~2021-02-09 16:07] MED LIST changes: +ACHD5005 PO; +CEPH500T PO
[2021-02-09] MEDS ORDERED: fentaNYL INJ 100 MCG/2 ML AMP IVP ONE ×2 (16:30→18:00)
--- NOTE | 2021-02-09 16:31 | ED GU-Female ---
General Stated Complaint: VAGINAL BLEEDING Source: patient Exam Limitations: no limitations (DICKSON HERNANDEZ APRN) History of Present Illness Date Seen by Provider: Feb 09, 2021 Time Seen by Provider: 16:31 Initial Comments To ER with vaginal bleeding x 4 months. . She also has some recent coronary stenting and is on Plavix. She is had several hospital admissions for vaginal bleeding. Today she passed a very large clot has severe lower abdominal cramping and lightheadedness. She is scheduled to see Dr. Tay on the . Timing/Duration: just prior to arrival Severity/Quality: moderate Location: unknown Radiation: none Activities at Onset: none Prior Genitourinary Problems: none Associated Symptoms: denies symptoms (DICKSON HERNANDEZ APRN) Allergies and Home Medications Allergies Coded Allergies: No Known Drug Allergies (Unverified , 08/27/20) Home Medications Ascorbic Acid 1,000 Mg Tablet, 1,000 MG PO DAILY, (Reported) Cefdinir 300 Mg Capsule, 300 MG PO BID, (Reported) FILLED 08-29-2020 #10/5 DAY SUPPLY Cephalexin 500 Mg Tablet, 500 MG PO TID Prescribed by: UCHE FRANCO on 02/04/212106 Cholecalciferol (Vitamin D3) 50 Mcg Capsule, 50 MCG PO DAILY, (Reported) Hydrocodone/Acetaminophen 1 Each Tablet, 1 TAB PO Q6H PRN for PAIN-MODERATE (5- 7) Prescribed by: UCHE FRANCO on 02/04/212107 Lisinopril 10 Mg Tablet, 10 MG PO DAILY, (Reported) Medroxyprogesterone Acetate 10 Mg Tablet, 10 MG PO DAILY Prescribed by: DICKSON HERNANDEZ on 02/09/211922 Melatonin 5 Mg Tablet, 5 MG PO HS, (Reported) Naproxen Sodium 220 Mg Tablet, 880 MG PO DAILY, (Reported) TAKES 4 (220MG) TABS Norethindrone Acetate 5 Mg Tablet, 5 MG PO DAILY Prescribed by: NARDA JAMES on 10/06/20 2335 Progesterone,Micronized 200 Mg Capsule, 200 MG PO DAILY Prescribed by: DUSTIN GO on 02/04/21 0416 Zinc Gluconate 50 Mg Tablet, 200 MG PO DAILY, (Reported) TAKES 4 (50MG) TABS Patient Home Medication List Home Medication List Reviewed: Yes (DICKSON HERNANDEZ APRN) Review of Systems Review of Systems Constitutional: see HPI EENTM: see HPI Respiratory: no symptoms reported Cardiovascular: no symptoms reported Genitourinary: no symptoms reported Musculoskeletal: no symptoms reported Skin: no symptoms reported Psychiatric/Neurological: No Symptoms Reported Endocrine: No Symptoms Reported (DICKSON HERNANDEZ APRN) Past Cgxyfyj-Tygjno-Ffqkvb Hx Seasonal Allergies Seasonal Allergies: No (DICKSON HERNANDEZ APRN) Past Medical History Surgeries: Yes (BILATERAL KNEE REPLACEMENTS; NEUROMA RIGHT FOOT, D&C) Coronary Stent, Joint Replacement, Orthopedic, Thyroidectomy Respiratory: Yes (PNEUMONIA DX 08/25/20) Pneumonia Cardiac: Yes Hypertension 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 Genitourinary: No Gastrointestinal: Yes (GALLSTONES ON CT AND US 08/25/20) Gall Bladder Disease Musculoskeletal: Yes (HIP AND KNEE PAIN ;BILAT KNEE REPLACEMENTS; NEUROMA RIGHT FOOT) Arthritis Endocrine: Yes (HYPERGLYCEMIA ON ADMIT 08/27/20 ;THYROIDECTOMY) Hypothyroidsim HEENT: No Cancer: No Psychosocial: No Integumentary: No Blood Disorders: No (DICKSON HERNANDEZ APRN) Physical Exam Vital Signs Vital Signs - First Documented 02/09/21 16:12 Temp 36.7 Pulse 79 Resp 20 B/P (MAP) 169/66 (100) Pulse Ox 100 O2 Delivery Room Air (FRANCY COX MD) Vital Signs Capillary Refill : (DICKSON HERNANDEZ APRN) Height, Weight, BMI Height: '" Weight: lbs. oz. kg; 27.00 BMI Method: General Appearance: WD/WN, no apparent distress HEENT: PERRL/EOMI, normal ENT inspection Neck: non-tender, full range of motion Cardiovascular: regular rate, rhythm Respiratory: no respiratory distress, no accessory muscle use Gastrointestinal: normal bowel sounds, non tender Pelvic: other (Pelvic exam done with Carmella WHITE at the bedside there is clotted blood in the vaginal vault and clotted blood coming from the cervical os.) Neurologic/Psychiatric: alert, normal mood/affect, oriented x 3 Skin: normal color, warm/dry (DICKSON HERNANDEZ APRN) Progress/Results/Core Measures Suspected Sepsis SIRS Temperature: Pulse: Respiratory Rate: Laboratory Tests 02/09/21 16:24: White Blood Count 10.0 Blood Pressure / Mean: Laboratory Tests 02/09/21 16:24: Creatinine 0.78, INR Comment 1.0, Platelet Count 465H, Total Bilirubin 0.3 (DICKSON HERNANDEZ APRN) Results/Orders Lab Results Laboratory Tests Test 02/09/21 16:24 Range/Units White Blood Count 10.0 4.3-11.0 10^3/uL Red Blood Count 3.73 L 3.80-5.11 10^6/uL Hemoglobin 10.0 #L 11.5-16.0 g/dL Hematocrit 31 L 35-52 % Mean Corpuscular Volume 83 80-99 fL Mean Corpuscular Hemoglobin 27 25-34 pg Mean Corpuscular Hemoglobin Concent 32 32-36 g/dL Red Cell Distribution Width 16.7 H 10.0-14.5 % Platelet Count 465 H 130-400 10^3/uL Mean Platelet Volume 9.1 9.0-12.2 fL Immature Granulocyte % (Auto) 1 % Neutrophils (%) (Auto) 61 42-75 % Lymphocytes (%) (Auto) 25 12-44 % Monocytes (%) (Auto) 11 0-12 % Eosinophils (%) (Auto) 2 0-10 % Basophils (%) (Auto) 1 0-10 % Neutrophils # (Auto) 6.2 1.8-7.8 10^3/uL Lymphocytes # (Auto) 2.5 1.0-4.0 10^3/uL Monocytes # (Auto) 1.1 H 0.0-1.0 10^3/uL Eosinophils # (Auto) 0.2 0.0-0.3 10^3/uL Basophils # (Auto) 0.1 0.0-0.1 10^3/uL Immature Granulocyte # (Auto) 0.1 0.0-0.1 10^3/uL Prothrombin Time 13.4 12.2-14.7 SEC INR Comment 1.0 0.8-1.4 Activated Partial Thromboplast Time 30 24-35 SEC Sodium Level 141 135-145 MMOL/L Potassium Level 3.6 3.6-5.0 MMOL/L Chloride Level 106 98-107 MMOL/L Carbon Dioxide Level 22 21-32 MMOL/L Anion Gap 13 5-14 MMOL/L Blood Urea Nitrogen 11 7-18 MG/DL Creatinine 0.78 0.60-1.30 MG/DL Estimat Glomerular Filtration Rate > 60 BUN/Creatinine Ratio 14 Glucose Level 186 H 70-105 MG/DL Calcium Level 9.2 8.5-10.1 MG/DL Corrected Calcium 9.3 8.5-10.1 MG/DL Total Bilirubin 0.3 0.1-1.0 MG/DL Aspartate Amino Transf (AST/SGOT) 29 5-34 U/L Alanine Aminotransferase (ALT/SGPT) 38 0-55 U/L Alkaline Phosphatase 66 40-136 U/L Total Protein 7.3 6.4-8.2 GM/DL Albumin 3.9 3.2-4.5 GM/DL (FRANCY COX MD) Medications Given in ED Current Medications Medications Dose Ordered Sig/Bridger Route Start Time Stop Time Status Last Admin Dose Admin Fentanyl Citrate 50 mcg ONCE ONCE IVP 02/09/21 16:30 02/09/21 16:31 DC 02/09/21 16:36 50 MCG Fentanyl Citrate 50 mcg ONCE ONCE IVP 02/09/21 18:00 02/09/21 18:01 DC 02/09/21 18:02 50 MCG Medroxyprogesterone Acetate 15 mg ONCE ONCE PO 02/09/21 18:15 02/09/21 18:16 DC 02/09/21 18:30 15 MG Tranexamic Acid 1,000 mg ONCE ONCE IV 02/09/21 18:30 02/09/21 18:31 DC 02/09/21 18:43 1,000 MG (FRANCY COX MD) Vital Signs/I&O 02/09/21 02/09/21 16:12 19:34 Temp 36.7 Pulse 79 86 Resp 20 20 B/P (MAP) 169/66 (100) 159/85 Pulse Ox 100 99 O2 Delivery Room Air Room Air (FRANCY COX MD) Vital Signs/I&O Capillary Refill : (DICKSON HERNANDEZ APRN) Departure Communication (Admissions) Shes had a 4 g drop in hemoglobin in the last 5 days. 1812-spoke with Dr. Tay, recommends Provera 10 to 15 mg daily and he will see her on Tuesday as scheduled. She is hemodynamically stable with a heart rate of 71, she is not hypotensive. 1919-patient is upset that she is going home. She feels like she should be admitted for hysterectomy. I discussed with her that that was not going to be done here or likely at any hospital on an emergency basis given that she is hemodynamically stable. She certainly is frustrated and understandably so given the duration of symptoms. I touched base with Dr. Tay again to ask about observation admission however with stable vital signs and the follow-up for only 36 hours from now this current plan should be just fine. We will proceed as planned with a prescription for Provera. Her ultrasound reports 2 masses in the uterus, these are likely clots. [place] [facility] [place] (DICKSON HERNANDEZ APRN) Impression Primary Impression: Vaginal bleeding, abnormal Disposition: HOME, SELF-CARE Condition: Stable Departure-Patient Inst. Decision time for Depature: 19:23 (DICKSON HERNANDEZ APRN) Referrals: AMY RAMSAY MD (PCP/Family) Primary Care Physician Patient Instructions: IRREGULAR VAGINAL BLEEDING Add. Discharge Instructions: 1. Fill the Provera prescription and start tomorrow. Return to ER for any lightheadedness shortness of breath or other concerns. Keep your appointment with Dr. Tay on Tuesday. Scripts Medroxyprogesterone Acetate (Provera) 10 Mg Tablet 10 MG PO DAILY, #7 TAB Prov: DICKSON HERNANDEZ APRN 02/09/21 ATTENDING PHYSICIAN NOTE: I was physically present as attending physician in the emergency department during the care of this patient, but I was not directly involved in the decision making or delivery of care for this patient. (FRANCY COX MD) DICKSON HERNANDEZ APRN Feb 09, 2021 16:31 FRANCY COX MD Feb 09, 2021 20:34
[2021-02-09 16:39] LABS: BASOPHILS # (AUTO) 0.1 10^3/uL (0.0-0.1); BASOPHILS % (AUTO) 1 % (0-10); EOSINOPHILS # (AUTO) 0.2 10^3/uL (0.0-0.3); EOSINOPHILS % (AUTO) 2 % (0-10); HEMATOCRIT 31 % (35-52); LYMPHOCYTES # (AUTO) 2.5 10^3/uL (1.0-4.0); LYMPHOCYTES % (AUTO) 25 % (12-44); MEAN CORPUSCULAR HEMOGLOBIN 27 pg (25-34); MEAN CORPUSCULAR HGB CONC 32 g/dL (32-36); MEAN CORPUSCULAR VOLUME 83 fL (80-99); MEAN PLATELET VOLUME 9.1 fL (9.0-12.2); MONOCYTES # (AUTO) 1.1 10^3/uL (0.0-1.0); MONOCYTES % (AUTO) 11 % (0-12); NEUTROPHILS # (AUTO) 6.2 10^3/uL (1.8-7.8); NEUTROPHILS % (AUTO) 61 % (42-75); PLATELET COUNT 465 10^3/uL (130-400)
[2021-02-09 16:50] LABS: ALBUMIN 3.9 GM/DL (3.2-4.5)
[2021-02-09 16:51] LABS: CHLORIDE 106 MMOL/L (98-107); POTASSIUM 3.6 MMOL/L (3.6-5.0); SODIUM 141 MMOL/L (135-145)
[2021-02-09 16:52] LABS: CALCIUM 9.2 MG/DL (8.5-10.1)
[2021-02-09 16:53] LABS: GLUCOSE 186 MG/DL (70-105); TOTAL PROTEIN 7.3 GM/DL (6.4-8.2)
[2021-02-09 16:54] LABS: CARBON DIOXIDE 22 MMOL/L (21-32)
[2021-02-09 16:55] LABS: BILIRUBIN,TOTAL 0.3 MG/DL (0.1-1.0); PROTHROMBIN TIME PATIENT 13.4 SEC (12.2-14.7)
[2021-02-09 16:56] LABS: ALKALINE PHOSPHATASE 66 U/L (40-136)
[2021-02-09 16:57] LABS: CREATININE SERUM 0.78 MG/DL (0.60-1.30); GFR ESTIMATED > 60
[2021-02-09 16:58] LABS: BUN/CREATININE RATIO 14
[2021-02-09 16:59] LABS: ALANINE AMINOTRANSFERASE 38 U/L (0-55)
--- NOTE | 2021-02-09 18:06 | Diagnostic Imaging Report ---
PROCEDURE: US Non-ob pelvis comp/trans. TECHNIQUE: Multiple realtime grayscale images were obtained of the pelvis in various projections endovaginally. Transabdominal imaging was also performed. INDICATION: Vaginal bleeding. COMPARISON: None Available FINDINGS: Transabdominal: The uterus has a heterogeneous and enlarged appearance. The adnexa have a unremarkable transabdominal appearance. Transvaginal images were obtained for additional characterization. Transvaginal: The uterus is anteverted and measures 10.3 x 6.2 x 5.3 cm. There is a heterogeneous appearance of the uterus with 2 prominent masses within the uterus. This obscures visualization of the endometrium. Cystic components are also present within these masses. The ovaries are not visualized due to overlying bowel gas. No adnexal masses. No free fluid is seen in the pelvis. IMPRESSION: 1. Heterogeneous masses within the uterus which obscure the endometrium. There is fluid and debris noted associated with these masses. Findings may represent fibroids with other etiologies not excluded. Consider further evaluation with MRI of the pelvis. 2. Nonvisualization of the ovaries due to overlying bowel gas. Dictated by: Dictated on workstation # [id number]
[2021-02-09] MEDS ORDERED: medroxyPROGESTERone 10 MG (PROVERA) TAB PO ONE (18:15)
[2021-02-09] MEDS ORDERED: TRANEXAMIC ACID 100 MG/ML 10 ML INJECTION IV ONE (18:30)
[2021-02-09] MEDS ORDERED: MEDR10TA PO (19:23)
[2021-02-09 19:34] VITALS: BP 159/85
== END 2021-02-09 19:34 | disposition home or self-care (01) ==
LOC: EDUNIT# 16:07 → ER 16:09
DX: N93.9 Abnormal uterine and vaginal bleeding, unspecified (principal); I10 Essential (primary) hypertension; Z86.73 Personal history of transient ischemic attack (TIA), and cerebral infarction without residual deficits; Z95.5 Presence of coronary angioplasty implant and graft; Z79.01 Long term (current) use of anticoagulants
CPT/HCPCS: 36415; 76830; 76856; 80053; 85025; 85610; 85730; 86850; 86900; 86901

== ENCOUNTER 2021-02-12 11:02 | Emergency (ER) | payer MEDICARE, OTHER ==
[~2021-02-12 11:02] MED LIST changes: +MEDR10TA PO
--- NOTE | 2021-02-12 11:07 | ED GU-Female ---
General Stated Complaint: VAGINAL BLEEDING History of Present Illness Date Seen by Provider: Feb 12, 2021 Time Seen by Provider: 11:07 Initial Comments 75-year-old female presents with vaginal bleeding x4 months. Patient was seen at [facility] on 02/09/2021. At that time her hemoglobin was 10 and ultrasound showed a large clot. The ER at [facility] consulted Dr. Tay. She was started on Provera and had a follow-up appointment with him yesterday. Patient reports that yesterday all he talks about his bleeding and what sounds like an IUD. Patient is angry because she wants to go to [place]. Patient was brought in by EMS and wanted EMS just to take her to [facility] in [place]. Patient symptoms that she presents with today are not new. Allergies and Home Medications Allergies Coded Allergies: No Known Drug Allergies (Unverified , 08/27/20) Home Medications Ascorbic Acid 1,000 Mg Tablet, 1,000 MG PO DAILY, (Reported) Cefdinir 300 Mg Capsule, 300 MG PO BID, (Reported) FILLED 08-29-2020 #10/5 DAY SUPPLY Cephalexin 500 Mg Tablet, 500 MG PO TID Prescribed by: UCHE FRANCO on 02/04/212106 Cholecalciferol (Vitamin D3) 50 Mcg Capsule, 50 MCG PO DAILY, (Reported) Hydrocodone/Acetaminophen 1 Each Tablet, 1 TAB PO Q6H PRN for PAIN-MODERATE (5- 7) Prescribed by: UCHE FRANCO on 02/04/212107 Lisinopril 10 Mg Tablet, 10 MG PO DAILY, (Reported) Medroxyprogesterone Acetate 10 Mg Tablet, 10 MG PO DAILY Prescribed by: DICKSON HERNANDEZ on 02/09/21 192 Melatonin 5 Mg Tablet, 5 MG PO HS, (Reported) Naproxen Sodium 220 Mg Tablet, 880 MG PO DAILY, (Reported) TAKES 4 (220MG) TABS Norethindrone Acetate 5 Mg Tablet, 5 MG PO DAILY Prescribed by: NARDA JAMES on 10/06/20 233 Progesterone,Micronized 200 Mg Capsule, 200 MG PO DAILY Prescribed by: DUSTIN GO on 02/04/21 0416 Zinc Gluconate 50 Mg Tablet, 200 MG PO DAILY, (Reported) TAKES 4 (50MG) TABS Patient Home Medication List Home Medication List Reviewed: Yes Review of Systems Review of Systems Constitutional: no symptoms reported EENTM: no symptoms reported Respiratory: no symptoms reported Cardiovascular: no symptoms reported Gastrointestinal: see HPI Genitourinary: see HPI Musculoskeletal: no symptoms reported Skin: no symptoms reported Past Dlhfcqf-Axdazj-Kinwrt Hx Seasonal Allergies Seasonal Allergies: No Past Medical History Surgeries: Yes (BILATERAL KNEE REPLACEMENTS; NEUROMA RIGHT FOOT, D&C) Coronary Stent, Joint Replacement, Orthopedic, Thyroidectomy Respiratory: Yes (PNEUMONIA DX 08/25/20) Pneumonia Cardiac: Yes Hypertension Neurological: Yes Stroke 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 oz. kg; 27.00 BMI Method: General Appearance: no apparent distress Cardiovascular: regular rate, rhythm Respiratory: no respiratory distress, no accessory muscle use Progress/Results/Core Measures Suspected Sepsis SIRS Temperature: Pulse: Respiratory Rate: Laboratory Tests 02/12/21 11:50: White Blood Count 11.7H Blood Pressure / Mean: Laboratory Tests 02/12/21 11:50: Platelet Count 640H Results/Orders Lab Results Laboratory Tests Test 02/12/21 11:50 Range/Units White Blood Count 11.7 H 4.3-11.0 10^3/uL Red Blood Count 3.40 L 4.35-5.85 10^6/uL Hemoglobin 9.2 L 11.5-16.0 G/DL Hematocrit 28 L 35-52 % Mean Corpuscular Volume 84 80-99 FL Mean Corpuscular Hemoglobin 27 25-34 PG Mean Corpuscular Hemoglobin Concent 32 32-36 G/DL Red Cell Distribution Width 17.0 H 10.0-14.5 % Platelet Count 640 H 130-400 10^3/uL Mean Platelet Volume 8.5 7.4-10.4 FL Immature Granulocyte % (Auto) 1 % Neutrophils (%) (Auto) 71 42-75 % Lymphocytes (%) (Auto) 19 12-44 % Monocytes (%) (Auto) 8 0-12 % Eosinophils (%) (Auto) 1 0-10 % Basophils (%) (Auto) 1 0-10 % Neutrophils # (Auto) 8.3 H 1.8-7.8 X 10^3 Lymphocytes # (Auto) 2.2 1.0-4.0 X 10^3 Monocytes # (Auto) 1.0 0.0-1.0 X 10^3 Eosinophils # (Auto) 0.1 0.0-0.3 10^3/uL Basophils # (Auto) 0.1 0.0-0.1 10^3/uL Immature Granulocyte # (Auto) 0.1 0.0-0.1 10^3/uL My Orders Orders - RUDOLPH PINTO DO Basic Metabolic Panel (02/12/21 11:07) Cbc With Automated Diff (02/12/21 11:07) Vital Signs/I&O 02/12/21 11:02 Temp 36.5 Pulse 80 Resp 20 B/P (MAP) 153/52 (85) Pulse Ox 99 O2 Delivery Room Air Capillary Refill : Progress Note : Progress Note Patient is refusing labs and care here at our hospital. She reports that she just wants to go to [place]. Patient has a limited physical exam based on this. She will be discharged for private transfer by her family to [place] since that is her request. Patient agreed to have her hemoglobin and labs checked. This time her hemoglobin is 9.2. Discussed with her at this time there is no reason for emergent transfer. However I did offered to call [facility] and her OB at [facility]. She declined this offer. Patient to be discharged in stable condition and should follow-up with her OB on an outpatient basis as already discussed with her OB yesterday. Departure Impression Primary Impression: Vaginal bleeding, abnormal Disposition: 01 HOME, SELF-CARE Condition: Stable Departure-Patient Inst. Referrals: AMY RAMSAY MD (PCP/Family) Primary Care Physician Add. Discharge Instructions: Follow-up with your costume director as discussed yesterday or get a second opinion if you feel that that is warranted with another costume director. Take your medication as prescribed. RUDOLPH PINTO DO Feb 12, 2021 11:07
[2021-02-12 12:02] LABS: HEMATOCRIT 28 % (35-52); HEMOGLOBIN 9.2 G/DL (11.5-16.0); MEAN CORPUSCULAR HEMOGLOBIN 27 PG (25-34); MEAN CORPUSCULAR HGB CONC 32 G/DL (32-36); MEAN CORPUSCULAR VOLUME 84 FL (80-99); MEAN PLATELET VOLUME 8.5 FL (7.4-10.4); PLATELET COUNT 640 10^3/uL (130-400); WHITE BLOOD COUNT 11.7 10^3/uL (4.3-11.0)
[2021-02-12 12:03] LABS: BASOPHILS # (AUTO) 0.1 10^3/uL (0.0-0.1); BASOPHILS % (AUTO) 1 % (0-10); EOSINOPHILS # (AUTO) 0.1 10^3/uL (0.0-0.3); EOSINOPHILS % (AUTO) 1 % (0-10); LYMPHOCYTES # (AUTO) 2.2 X 10^3 (1.0-4.0); LYMPHOCYTES % (AUTO) 19 % (12-44); MONOCYTES % (AUTO) 8 % (0-12); NEUTROPHILS # (AUTO) 8.3 X 10^3 (1.8-7.8); NEUTROPHILS % (AUTO) 71 % (42-75)
[2021-02-12 12:21] LABS: BUN/CREATININE RATIO 15; CARBON DIOXIDE 24 MMOL/L (21-32); CHLORIDE 105 MMOL/L (98-107); CREATININE SERUM 0.75 MG/DL (0.60-1.30); GFR ESTIMATED > 60; GLUCOSE 120 MG/DL (70-105); POTASSIUM 3.6 MMOL/L (3.6-5.0); SODIUM 140 MMOL/L (135-145)
[2021-02-12 12:41] VITALS: BP 138/72
== END 2021-02-12 12:40 | disposition home or self-care (01) ==
LOC: EDUNIT# 11:02 → ER FS 11:04
DX: N93.9 Abnormal uterine and vaginal bleeding, unspecified (principal); I10 Essential (primary) hypertension; Z86.73 Personal history of transient ischemic attack (TIA), and cerebral infarction without residual deficits
CPT/HCPCS: 36415; 80048; 85025

== ENCOUNTER 2021-05-05 09:57 | Inpatient (IN) | payer MEDICARE, OTHER ==
[~2021-05-05] VITALS: Ht 167.7 cm; Wt 69.6 kg
--- NOTE | 2021-05-05 10:56 | ED Cough/URI ---
General Chief Complaint: Cough/Cold/Flu Symptoms Stated Complaint: COUGHING BLOOD Nursing Triage Note: Patient presents to the ED with c/o coughing up blood. Patient states that she is feeling a little more short of breath for the last 2 days and started coughing yesterday. This morning she reports that she coughed up a small amount of bright red blood. She states she recently had a open total hysterectomy. Source: patient Exam Limitations: no limitations History of Present Illness Date Seen by Provider: May 05, 2021 Time Seen by Provider: 10:10 Initial Comments 75-year-old female with past medical history of hypertension, CAD with stenting, and recent hysterectomy due to vaginal bleeding just under a month ago coming in due to an episode of hemoptysis. She has had 3 days of cough as well as left- sided chest wheezing she said. She says she feels short of breath specifically when she lays on her left side and better when she lays on her right side. She had an episode of hemoptysis a couple hours prior to arrival this morning. She has not had a repeat episode. It was about the size of a half dollar. This is never happened in the past. She is currently not taking any blood thinners. She has not been on Plavix since her surgery beginning of April. Denies any history of DVT or PE. Her surgery was in [place] at [facility] and she was told it was not cancerous. She is otherwise denying any other acute complaints. Allergies and Home Medications Allergies Coded Allergies: No Known Drug Allergies (Unverified , 08/27/20) Patient Home Medication List Home Medication List Reviewed: Yes Ascorbic Acid (Vitamin C) 1,000 Mg Tablet, 1,000 MG PO DAILY, (Reported) Entered as Reported by: RYAN GARCÍA on 08/28/20 0956 Cefdinir (Cefdinir) 300 Mg Capsule, 300 MG PO BID, (Reported) Entered as Reported by: RYAN GARCÍA on 09/02/20 1051 Cephalexin (Cephalexin) 500 Mg Tablet, 500 MG PO TID Prescribed by: UCHE FRANCO on 02/04/212106 Cholecalciferol (Vitamin D3) (Vitamin D3) 50 Mcg Capsule, 50 MCG PO DAILY, (Reported) Entered as Reported by: RYAN GARCÍA on 08/28/20 0956 Hydrocodone/Acetaminophen (Hydrocodone-Acetamin 5-325 mg) 1 Each Tablet, 1 TAB PO Q6H PRN for PAIN-MODERATE (5-7) Prescribed by: UCHE FRANCO on 02/04/212107 Lisinopril (Lisinopril) 10 Mg Tablet, 10 MG PO DAILY, (Reported) Entered as Reported by: RYAN GARCÍA on 09/02/20 105 Medroxyprogesterone Acetate (Provera) 10 Mg Tablet, 10 MG PO DAILY Prescribed by: DICKSON HERNANDEZ on 02/09/21 192 Melatonin (Melatonin) 5 Mg Tablet, 5 MG PO HS, (Reported) Entered as Reported by: RYAN GARCÍA on 08/28/20 0956 Naproxen Sodium (Aleve) 220 Mg Tablet, 880 MG PO DAILY, (Reported) Entered as Reported by: RYAN GARCÍA on 08/28/20 09 Norethindrone Acetate (Aygestin) 5 Mg Tablet, 5 MG PO DAILY Prescribed by: NARDA JAMES on 10/06/20 2335 Progesterone,Micronized (Progesterone) 200 Mg Capsule, 200 MG PO DAILY Prescribed by: DUSTIN GO on 02/04/21 0416 Zinc Gluconate (Zinc) 50 Mg Tablet, 200 MG PO DAILY, (Reported) Entered as Reported by: RYAN GARCÍA on 08/28/20 0956 Review of Systems Review of Systems Constitutional: No fever EENTM: no symptoms reported Respiratory: cough, hemoptysis, short of breath Cardiovascular: No chest pain, No palpitations Gastrointestinal: No abdominal pain, No melena, No nausea, No vomiting Genitourinary: no symptoms reported : No Musculoskeletal: no symptoms reported Skin: no symptoms reported Psychiatric/Neurological: No Symptoms Reported Hematologic/Lymphatic: No Symptoms Reported Immunological/Allergic: no symptoms reported All Other Systems Reviewed Negative Unless Noted: Yes Past Pokmboh-Mwablm-Gklway Hx Patient Social History Tobacco Use?: No Use of E-Cig and/or Vaping dev: No Substance use?: No Alcohol Use?: No Pt feels they are or have been: No Immunizations Up To Date First/Initial COVID19 Vaccinat: Not currently vaccinated Seasonal Allergies Seasonal Allergies: No Past Medical History Surgery/Hospitalization HX: Total open hysterectomy around 04/08/21. 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 oz. kg; 30.00 BMI Method: General Appearance: WD/WN, no apparent distress HEENT: PERRL/EOMI, normal ENT inspection, pharynx normal Neck: non-tender, full range of motion, supple, normal inspection Respiratory: chest non-tender, lungs clear, no respiratory distress, no accessory muscle use, crackles Cardiovascular: regular rate, rhythm, no edema, no murmur Gastrointestinal: normal bowel sounds, non tender, soft; No distended, No guarding, No rebound Extremities: normal range of motion, non-tender, normal inspection, no pedal edema, no calf tenderness, normal capillary refill Neurologic/Psychiatric: no motor/sensory deficits, alert, normal mood/affect Skin: normal color, warm/dry Lymphatic: no adenopathy Progress/Results/Core Measures Suspected Sepsis SIRS Temperature: Pulse: 92 Respiratory Rate: 18 Laboratory Tests 05/05/21 11:00: White Blood Count 11.7H Blood Pressure 164 /67 Mean: 99 Laboratory Tests 05/05/21 11:00: Creatinine 0.75, INR Comment 1.1, Platelet Count 21*L 05/05/21 11:29: Platelet Count 19*L Results/Orders Lab Results Laboratory Tests Test 05/05/21 11:00 05/05/21 11:29 Range/Units White Blood Count 11.7 H 4.3-11.0 10^3/uL Red Blood Count 3.77 L 3.80-5.11 10^6/uL Hemoglobin 9.0 L 11.5-16.0 g/dL Hematocrit 30 L 35-52 % Mean Corpuscular Volume 79 L 80-99 fL Mean Corpuscular Hemoglobin 24 L 25-34 pg Mean Corpuscular Hemoglobin Concent 30 L 32-36 g/dL Red Cell Distribution Width 22.4 H 10.0-14.5 % Platelet Count 21 *L 19 *L 130-400 10^3/uL Mean Platelet Volume 9.0-12.2 fL Immature Granulocyte % (Auto) 1 % Neutrophils (%) (Auto) 72 42-75 % Lymphocytes (%) (Auto) 17 12-44 % Monocytes (%) (Auto) 8 0-12 % Eosinophils (%) (Auto) 2 0-10 % Basophils (%) (Auto) 1 0-10 % Neutrophils # (Auto) 8.4 H 1.8-7.8 X 10^3 Lymphocytes # (Auto) 2.0 1.0-4.0 X 10^3 Monocytes # (Auto) 0.9 0.0-1.0 X 10^3 Eosinophils # (Auto) 0.2 0.0-0.3 10^3/uL Basophils # (Auto) 0.1 0.0-0.1 10^3/uL Immature Granulocyte # (Auto) 0.1 0.0-0.1 10^3/uL Neutrophils % (Manual) 74 % Lymphocytes % (Manual) 19 % Monocytes % (Manual) 3 % Eosinophils % (Manual) 3 % Basophils % (Manual) 1 % Nucleated Red Blood Cells 1 Platelet Estimate DECREASED Percent Immature Platelet Fraction 12.1 H 0.0-7.6 % Polychromasia MODERATE Hypochromasia MODERATE Anisocytosis MARKED Microcytosis MODERATE Blood Morphology Comment NORMAL Prothrombin Time 14.2 12.2-14.7 SEC INR Comment 1.1 0.8-1.4 Activated Partial Thromboplast Time 32 24-35 SEC D-Dimer 6.57 H 0.00-0.49 UG/ML Sodium Level 140 135-145 MMOL/L Potassium Level 4.2 3.6-5.0 MMOL/L Chloride Level 104 98-107 MMOL/L Carbon Dioxide Level 25 21-32 MMOL/L Anion Gap 11 5-14 MMOL/L Blood Urea Nitrogen 13 7-18 MG/DL Creatinine 0.75 0.60-1.30 MG/DL Estimat Glomerular Filtration Rate 75 BUN/Creatinine Ratio 17 Glucose Level 170 H 70-105 MG/DL Calcium Level 9.9 8.5-10.1 MG/DL Pro-B-Type Natriuretic Peptide 130.3 H <75.0 PG/ML Smear Scan NUC RBC'S NOTED My Orders Orders - FELIPA GONZALEZ MD Basic Metabolic Panel (05/05/21 10:43) Cbc With Automated Diff (05/05/21 10:43) Fibrin Degradation Products (05/05/21 10:43) Protime With Inr (05/05/21 10:43) Partial Thromboplastin Time (05/05/21 10:43) Probnp Fs (05/05/21 10:43) Chest 1 View Ap/Pa Only (05/05/21 10:43) Covid 19 Inhouse Test (05/05/21 10:43) Ekg Tracing (05/05/21 10:59) Platelet Count (05/05/21 11:26) Manual Differential (05/05/21 11:00) Ct Angio Chest W (05/05/21 12:15) Iohexol Injection (Omnipaque 350 Mg/Ml 1 (05/05/21 12:30) Received Contrast (Hold Metformin- Contr (05/05/21 12:30) Sodium Chloride Flush (Catheter Flush Sy (05/05/21 12:30) Ns (Ivpb) (Sodium Chloride 0.9% Ivpb Bag (05/05/21 12:30) Acetaminophen Tablet (Tylenol Tablet) (05/05/21 14:00) Medications Given in ED Current Medications Medications Dose Ordered Sig/Bridger Route Start Time Stop Time Status Last Admin Dose Admin Acetaminophen 1,000 mg ONCE ONCE PO 05/05/21 14:00 05/05/21 14:01 DC 05/05/21 13:55 1,000 MG Iohexol 150 ml ONCE ONCE IV 05/05/21 12:30 05/05/21 12:31 DC 05/05/21 12:51 125 ML Sodium Chloride 10 ml NEEDED PRN IV 05/05/21 12:30 05/05/21 12:51 10 ML Sodium Chloride 100 ml ONCE ONCE IV 05/05/21 12:30 05/05/21 12:31 DC 05/05/21 12:51 80 ML Vital Signs/I&O 05/05/21 05/05/21 10:07 13:50 Temp 36.8 36.7 Pulse 92 89 Resp 18 18 B/P (MAP) 164/67 (99) 190/83 Pulse Ox 96 95 O2 Delivery Room Air Room Air Capillary Refill : Less Than 3 Seconds Blood Pressure Mean: 99 Progress Note : Progress Note 75-year-old female with above history coming in due to 1 episode of hemoptysis in the setting of 3 days of cough. ABCs were intact and vitals were stable on presentation. Physical exam reassuring with no obvious signs of bleeding, no petechiae or bruising, some crackles in her lung bases. An IV was placed and labs were drawn were significant for a platelet count of 21 with a repeat of 19. Unsure as to why she has such profound thrombocytopenia, her recent platelet counts done in our hospital have all been normal or high. She says she has never been low that she knows of. She has received blood transfusions in the past but never received platelet transfusions. Does not take any blood thinners such as heparin or Lovenox ruling out HIT. Differential is broad for her thrombocytopenia including ITP, TTP, essential thrombocytopenia, medication related, infectious related, versus some other etiology. D-dimer is elevated an d given the hemoptysis with that CT PE protocol ordered. On my interpretation I do not see any large saddle pulmonary embolus, pneumothorax, or hemothorax. She does have scattered opacities however. I called and discussed the case with Dr. Hargrove with [facility] he will admit the patient for further evaluation and management and she recommended inpatient status. I then contacted Dr. Ramirez for consult as well for the thrombocytopenia. ECG Initial ECG Impression Date: May 05, 2021 Initial ECG Impression Time: 11:00 Initial ECG Rate: 95 Initial ECG Rhythm: Normal Sinus Comment Narrow QRS, normal axis, no significant ST changes or T wave abnormalities, baseline wander, Q waves in III and aVF Diagnostic Imaging Diagonstic Imaging: Xray Plain Films/CT/US/NM/MRI: chest Comments [facility] [place], [place] NAME: ABRAHAM SANTIAGO [facility] REC#: [id number] PT STATUS: REG ER : 1945 PHYSICIAN: FELIPA GONZALEZ MD ADMIT DATE: 05/05/21/ER FS Draft Date of Exam:05/05/21 CHEST 1 VIEW AP/PA ONLY Indication: Hemoptysis Comparison: 09/04/2020 Findings: Single view of the chest demonstrates slight cardiac enlargement. Perihilar infiltrates are present. There is no pneumothorax or effusion. Osseous structures are stable. Impression: Perihilar infiltrates. Followup recommended. If this does not resolve, consider CT imaging. Dictated on workstation # [id number] Dict: 05/05/21 1056 Trans: 05/05/21 1100 CV [id number] Interpreted by: PARVIZ RENE Electronically signed by: MICHAEL VIA [place], [place] NAME: ABRAHAM SANTIAGO [facility] REC#: [id number] PT STATUS: REG ER : 1945 PHYSICIAN: FELIPA GONZALEZ MD ADMIT DATE: 05/05/21/ER FS Draft Date of Exam:05/05/21 CT ANGIO CHEST W PROCEDURE: CT angiography of the chest with contrast. TECHNIQUE: Multiple contiguous axial images were obtained through the chest after uneventful bolus administration of intravenous contrast. 3D reconstructed CTA MIP acquisitions were also performed. Auto Exposure Controls were utilized during the CT exam to meet ALARA standards for radiation dose reduction. INDICATION: Positive D-dimer with chest pain and hemoptysis. COMPARISON: Study is compared with exam 09/02/2020. FINDINGS: There are new multi-foci nodular areas of ground-glass infiltrate bilaterally involving the left greater than right lungs but seen in all five lobes. A more peripheral juxtapleural airspace wedged configured opacity and airspace consolidation in the lingular segment of the left upper lobe is present. Aorta is patent, nonaneurysmal, and nonacute. There are no intraluminal pulmonary arterial filling defects. No PE is found. There has, however, been interval development of pathological appearing lymph nodes in the jimmy and mediastinum. A precarinal node measured 2.3 x 1.8 cm. A lower right paratracheal node has a short axis of 1.6 cm. A subcarinal mass measures 3.0 x 1.9 cm. An AP window lymph node has a short axis of 1.5 cm. The largest left pulmonary hilar mass has a diameter of 2.1 cm. The largest right hilar nodule measures 2.7 x 2.4 cm. Some posteroinferior right hilar adenopathy is contiguous with a soft tissue density nodule in the right lower lobe, which may be carcinoma versus consolidation. This lesion measured 3.3 x 1.9 cm. This patient has a tiny subcentimeter right pleural effusion, nonloculated, and a new small pericardial effusion anteriorly measuring a thickness of 1 cm. Visualized upper abdomen shows an upper pole anterior splenic cyst, chronic. The incompletely visualized liver is nonacute and nonfocal. There are gallstones without biliary dilatation. No acute or suspect bone lesion. IMPRESSION: 1. No identifiable PE or acute aortic disease. 2. New pathological-appearing hilar and mediastinal lymphadenopathy, worrisome for neoplastic infiltration. Medial right lower lobe juxtahilar lung masses may be a primary carcinoma. 3. There are multifocal nodular ground-glass infiltrates scattered throughout the five lobes suspicious for superimposed infectious etiology including viral pathogens such as COVID; correlate clinically. 4. Small right pleural and pericardial effusions with cholelithiasis. Dictated on workstation # [id number] Dict: 05/05/21 1256 Trans: 05/05/21 1309 [id number] Interpreted by: CAITLYN ROLLINS Electronically signed by: Departure Impression Primary Impression: Hemoptysis Additional Impression: Thrombocytopenia Disposition: 30 STILL A PATIENT Condition: Stable Transfer Transfer Reason: Patient preference Time Spoke to Accepting Phy: 13:00 Transfer Progress Notes Called and discussed with Dr. Hargrove who accepted as inpatient. Dr. Ramirez consulted. Transfer Time: 14:20 Transfer Facility: [facility] Method of Transfer: EMS Departure-Patient Inst. Referrals: AMY RAMSAY MD (PCP/Family) Primary Care Physician FELIPA GONZALEZ MD May 05, 2021 10:56
--- NOTE | 2021-05-05 11:00 | Diagnostic Imaging Report ---
Indication: Hemoptysis Comparison: 09/04/2020 Findings: Single view of the chest demonstrates slight cardiac enlargement. Perihilar infiltrates are present. There is no pneumothorax or effusion. Osseous structures are stable. Impression: Perihilar infiltrates. Followup recommended. If this does not resolve, consider CT imaging. Dictated by: Dictated on workstation # [id number]
[2021-05-05 11:22] LABS: HEMATOCRIT 30 % (35-52); MEAN CORPUSCULAR HEMOGLOBIN 24 pg (25-34); WHITE BLOOD COUNT 11.7 10^3/uL (4.3-11.0)
[2021-05-05 11:23] LABS: MEAN CORPUSCULAR HGB CONC 30 g/dL (32-36); MEAN CORPUSCULAR VOLUME 79 fL (80-99)
[2021-05-05 11:29] LABS: BASOPHILS % (AUTO) 1 % (0-10); EOSINOPHILS % (AUTO) 2 % (0-10); LYMPHOCYTES % (AUTO) 17 % (12-44); MONOCYTES % (AUTO) 8 % (0-12); NEUTROPHILS % (AUTO) 72 % (42-75); PLATELET COUNT 21 10^3/uL (130-400)
[2021-05-05 11:30] LABS: BASOPHILS # (AUTO) 0.1 10^3/uL (0.0-0.1); EOSINOPHILS # (AUTO) 0.2 10^3/uL (0.0-0.3); MONOCYTES # (AUTO) 0.9 X 10^3 (0.0-1.0); NEUTROPHILS # (AUTO) 8.4 X 10^3 (1.8-7.8)
[2021-05-05 11:33] LABS: SMEAR SCAN COMMENT NUC RBC'S NOTED
[2021-05-05 11:57] LABS: ANISOCYTOSIS MARKED; BASOPHILS % (MANUAL) 1 %; EOSINOPHILS % (MANUAL) 3 %; HYPOCHROMASIA MODERATE; LYMPHOCYTES % (MANUAL) 19 %; MICROCYTOSIS MODERATE; MONOCYTES % (MANUAL) 3 %; NEUTROPHILS % (MANUAL) 74 %; NUCLEATED RED BLOOD CELLS 1; PLATELET ESTIMATE DECREASED; RBC MORPH NORMAL
[2021-05-05 11:58] LABS: POLYCHROMASIA MODERATE
[2021-05-05 12:02] LABS: POTASSIUM 4.2 MMOL/L (3.6-5.0)
[2021-05-05 12:03] LABS: CALCIUM 9.9 MG/DL (8.5-10.1); CREATININE SERUM 0.75 MG/DL (0.60-1.30)
[2021-05-05 12:04] LABS: INR 1.1 (0.8-1.4); PROTHROMBIN TIME PATIENT 14.2 SEC (12.2-14.7)
[2021-05-05 12:05] LABS: FIBRIN DEGRADATION PRODUCTS 6.57 UG/ML (0.00-0.49)
[2021-05-05] MEDS ORDERED: HOLD METFORMIN - RECEIVED CONTRAST 20 ML VIAL IV SCH (12:30)
[2021-05-05] MEDS ORDERED: NS 100 ML (IVPB) BAG IV ONE (12:30)
[2021-05-05] MEDS ORDERED: CATHETER FLUSH 10 ML SYR IV PRN ×2 (12:30→15:45)
[2021-05-05] MEDS ORDERED: IOHEXOL 350 MG/ML 150 ML (OMNIPAQUE 350) VIAL IV ONE (12:30)
--- NOTE | 2021-05-05 13:09 | Diagnostic Imaging Report ---
PROCEDURE: CT angiography of the chest with contrast. TECHNIQUE: Multiple contiguous axial images were obtained through the chest after uneventful bolus administration of intravenous contrast. 3D reconstructed CTA MIP acquisitions were also performed. Auto Exposure Controls were utilized during the CT exam to meet ALARA standards for radiation dose reduction. INDICATION: Positive D-dimer with chest pain and hemoptysis. COMPARISON: Study is compared with exam 09/02/2020. FINDINGS: There are new multi-foci nodular areas of ground-glass infiltrate bilaterally involving the left greater than right lungs but seen in all five lobes. A more peripheral juxtapleural airspace wedged configured opacity and airspace consolidation in the lingular segment of the left upper lobe is present. Aorta is patent, nonaneurysmal, and nonacute. There are no intraluminal pulmonary arterial filling defects. No PE is found. There has, however, been interval development of pathological appearing lymph nodes in the jimmy and mediastinum. A precarinal node measured 2.3 x 1.8 cm. A lower right paratracheal node has a short axis of 1.6 cm. A subcarinal mass measures 3.0 x 1.9 cm. An AP window lymph node has a short axis of 1.5 cm. The largest left pulmonary hilar mass has a diameter of 2.1 cm. The largest right hilar nodule measures 2.7 x 2.4 cm. Some posteroinferior right hilar adenopathy is contiguous with a soft tissue density nodule in the right lower lobe, which may be carcinoma versus consolidation. This lesion measured 3.3 x 1.9 cm. This patient has a tiny subcentimeter right pleural effusion, nonloculated, and a new small pericardial effusion anteriorly measuring a thickness of 1 cm. Visualized upper abdomen shows an upper pole anterior splenic cyst, chronic. The incompletely visualized liver is nonacute and nonfocal. There are gallstones without biliary dilatation. No acute or suspect bone lesion. IMPRESSION: 1. No identifiable PE or acute aortic disease. 2. New pathological-appearing hilar and mediastinal lymphadenopathy, worrisome for neoplastic infiltration. Medial right lower lobe juxtahilar lung masses may be a primary carcinoma. 3. There are multifocal nodular ground-glass infiltrates scattered throughout the five lobes suspicious for superimposed infectious etiology including viral pathogens such as COVID; correlate clinically. 4. Small right pleural and pericardial effusions with cholelithiasis. Dictated by: Dictated on workstation # [id number]
[2021-05-05] MEDS ORDERED: ACETAMINOPHEN 500 MG TAB (TYLENOL) PO ONE (14:00)
--- NOTE | 2021-05-05 16:30 | Oncology Consultation ---
Visit Information Visit Information Date of Admission May 05, 2021 at 15:10 Attending Physician Ni Hargrove MD Admitting Physician Spencer Morales MD Chief Complaint Coughing out blood, Plt acutely drop from normal to 19 today, recent hysterectomy at [facility] Interval History Called to see this pt as consult for acute thrombocytopenia and hemoptsis. Ms. Hess is a 75 year old white female who had over 6 months of vaginal bleeding and had open hysterectomy at [facility] by Dr Levi. She needed 4 units of RBC transfusion during nad after the surgery. She was discharged home and had her stitches out last Tuesday05/01/2021. She has no idea her pathology report from the surgery. She refused to go back to [facility] for f/u. She presented to [place] [facility] with 2 days h/o coughing up blood and was found to have Plt 21, and repeat Plt 19. WBC 11.7, Hb 9, Hct 30. normal diff. CXR showed perihilar infiltrates and slightly enlarged heart. She had nearly normal CBC 02/04/2021. On 03/04/2021, CBC showed WBC 11.7, Hb 9.2, Hct 28, Plt 640 unremarkable diff. I consulted the patient on: 05/05/21 16:23 Time Seen by Provider: 16:00 Review of Systems Constitutional: see HPI Health Status Allergies Coded Allergies: No Known Drug Allergies (Unverified , 08/27/20) Home Medications Acetaminophen (Tylenol Extra Strength) 500 Mg Tablet, 500 MG PO Q4H PRN for PAIN-MILD (1-4), (Reported) Ascorbic Acid (Vitamin C) 1,000 Mg Tablet, 1,000 MG PO DAILY, (Reported) Atorvastatin Calcium (Atorvastatin Calcium) 40 Mg Tablet, 40 MG PO HS, (Reported) Carvedilol (Carvedilol) 3.125 Mg Tablet, 3.125 MG PO BID, (Reported) Cholecalciferol (Vitamin D3) (Vitamin D3) 50 Mcg Capsule, 50 MCG PO DAILY, ( Reported) Cyanocobalamin (Vitamin B-12) (B-12) 1,000 Mcg Tablet, 1,000 MCG PO DAILY, (Reported) Multivitamin with Folic Acid (One Daily Multivitamin Tablet) 400 Mcg Tablet, 400 MCG PO DAILY, (Reported) [id number] Hx Patient Social History Drug of Choice: DENIES Type Used: Cigarettes 2nd Hand Smoke Exposure: No Recent Hopitalizations: No Alcohol Use?: No Have you traveled recently?: No Physical Exam Vital Signs Vital Signs - First Documented 05/05/21 05/05/21 10:07 16:45 Temp 36.8 Pulse 92 Resp 18 B/P (MAP) 164/67 (99) Pulse Ox 96 O2 Delivery Room Air O2 Flow Rate 1.00 Capillary Refill : Less Than 3 Seconds Height, Weight, BMI Height: '" Weight: lbs. oz. kg; 30.00 BMI Method: General Appearance: No Apparent Distress Neck: Non Tender, Supple Respiratory: No Accessory Muscle Use, No Respiratory Distress, Wheezing Cardiovascular: Regular Rate, Rhythm, No Edema Gastrointestinal: Non Tender, Soft, Other (Long incision scar in the mid abdome n, no drainage nor sign of infection) Extremity: Non Tender, No Calf Tenderness, No Pedal Edema Neurologic/Psychiatric: Alert, Oriented x3 Data Review Labs Laboratory Tests 05/06/21 13:35 Laboratory Tests 05/05/21 11:00: White Blood Count 11.7H, Red Blood Count 3.77L, Hemoglobin 9.0L, Hematocrit 30L, Mean Corpuscular Volume 79L, Mean Corpuscular Hemoglobin 24L, Mean Corpuscular Hemoglobin Concent 30L, Red Cell Distribution Width 22.4H, Platelet Count 21*L, Neutrophils # (Auto) 8.4H, Percent Immature Platelet Fraction 12.1H, D-Dimer 6.57H, Glucose Level 170H, Pro-B-Type Natriuretic Peptide 130.3H 05/05/21 11:29: Platelet Count 19*L 05/06/21 13:35: White Blood Count 11.7H, Red Blood Count 3.47L, Hemoglobin 8.3L, Hematocrit 27L, Mean Corpuscular Volume 79L, Mean Corpuscular Hemoglobin 24L, Mean Corpuscular Hemoglobin Concent 30L, Red Cell Distribution Width 22.4H, Platelet Count 22*L, Neutrophils # (Auto) 9.5H, Percent Immature Platelet Fraction 17.7H, Neutrophils (%) (Auto) 81H, Immature Granulocyte # (Auto) 0.3H Impression & Plan Impression & Plan IMP: 1. Acute thrombocytopenia, possible ITP. ?trigger factor. Need to get the record from [facility] for recent hysterectomy 2. 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 3. ?pnuemonia on CXR showed perihilar infiltration 4. Recent open total hysterectomy at [facility] by Dr Levi. Pt was not happy with the service there and refuse to go back. 5. Anemia from chronic bleeding and recent surgery. She required 4 units of the blood during and after the hysterectomy early this month. Plan: 1. Trial of high dose steroid (Methyprednisone 500mg IV today and Prednisone 60mg daily) and repeat CBC tomorrow morning. Pepcid while on high dose steroid. 2. Get the record from [facility] 3. Will re-evaluate patient tomorrow . 4. Pt is stable. Hold off Plt transfusion for now unless acutely change or major bleeding. HECTOR ALONSO MD May 05, 2021 16:30
[2021-05-05 16:45] VITALS: BP 187/84
[2021-05-05] MEDS ORDERED: METHYLPREDNISOLONE SOD SUCC IV ONE (17:15)
[2021-05-05] MEDS ORDERED: NS IV ONE (17:15)
[2021-05-05 19:10] VITALS: BP 204/88
[2021-05-05 19:54] VITALS: BP 178/77
[2021-05-05] MEDS: FAMOTIDINE 20 MG (PEPCID) TABLET PO SCH (21:32)
[2021-05-06] VITALS (8 sets, daily range): BP systolic 130–193; BP diastolic 65–94
[2021-05-06] MEDS: CATHETER FLUSH 10 ML SYR IV SCH ×4 (00:45→21:45)
[2021-05-06] MEDS: HYDROcodone/APAP 5 MG/325 MG (LORTAB) TAB PO PRN ×3 (00:58→16:39)
[2021-05-06] MEDS: lisINopril 10 MG (PRINIVIL) TABLET ONE ×2 (01:21→01:37)
[2021-05-06] MEDS ORDERED: lisINopril 10 MG (PRINIVIL) TABLET PO ONE (01:30)
[2021-05-06] MEDS: predniSONE 20 MG TAB PO SCH ×2 (06:42)
[2021-05-06] MEDS: FAMOTIDINE 20 MG (PEPCID) TABLET PO SCH (08:08)
[2021-05-06] MEDS: lisINopril 10 MG (PRINIVIL) TABLET PO SCH (08:09)
[2021-05-06] MEDS ORDERED: CARV3.122 PO (12:54)
[2021-05-06] MEDS ORDERED: ATOR40TA70 PO (12:54)
[2021-05-06] MEDS ORDERED: ACET325C7 PO (12:55)
[2021-05-06] MEDS ORDERED: ACET500P24 PO (12:56)
[2021-05-06] MEDS ORDERED: CYAN100088 PO (12:57)
[2021-05-06] MEDS ORDERED: ACET-2267 PO (13:05)
[2021-05-06] MEDS ORDERED: MULT400T5 PO (13:19)
[2021-05-06 13:42] LABS: BASOPHILS % (AUTO) 0 % (0-10); HEMOGLOBIN 8.3 g/dL (11.5-16.0); WHITE BLOOD COUNT 11.7 10^3/uL (4.3-11.0)
[2021-05-06 13:44] LABS: EOSINOPHILS % (AUTO) 0 % (0-10); HEMATOCRIT 27 % (35-52); LYMPHOCYTES # (AUTO) 1.4 10^3/uL (1.0-4.0); LYMPHOCYTES % (AUTO) 12 % (12-44); MEAN CORPUSCULAR HEMOGLOBIN 24 pg (25-34); MEAN CORPUSCULAR HGB CONC 30 g/dL (32-36); MEAN CORPUSCULAR VOLUME 79 fL (80-99); MONOCYTES # (AUTO) 0.5 10^3/uL (0.0-1.0); MONOCYTES % (AUTO) 4 % (0-12); NEUTROPHILS # (AUTO) 9.5 10^3/uL (1.8-7.8); NEUTROPHILS % (AUTO) 81 % (42-75)
[2021-05-06 13:57] LABS: PLATELET COUNT 22 10^3/uL (130-400)
--- NOTE | 2021-05-06 14:22 | Progress Note ---
Progress Note Assessment/Plan Date Seen by Provider: May 06, 2021 Time Seen by Provider: 14:22 Events since last exam Pt is feeling better. No more coughing out blood. No active bleeding. Still trying to get the record from [place]. Plt is 22 today, 19 yesterday. Hb 8.3. Laboratory Tests 05/06/21 13:35 Assessment/Plan IMP: 1. Acute thrombocytopenia, possible ITP. ?trigger factor. Need to get the record from [place] for recent hysterectomy 2. 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 3. ?pnuemonia on CXR showed perihilar infiltration 4. Recent open total hysterectomy at [facility] by Dr Levi. Pt was not happy with the service there and refuse to go back. 5. Anemia from chronic bleeding and recent surgery. She required 4 units of the blood during and after the hysterectomy early this month. Hb slightly lower today, most likely dilution. Hemodynamic stable. Plan: 1. Stay on Prednisone 60mg daily for now and repeat CBC tomorrow morning. Pepcid while on high dose steroid. 2. Get the record from [place] 3. Will re-evaluate patient tomorrow . 4. Pt is stable. Hold off Plt transfusion for now unless acutely change or major bleeding. 5. Watch for anemia for now. Vitals Last set of Vitals Signs Vital Signs Date Time Temp Pulse Resp B/P (MAP) Pulse Ox O2 Delivery O2 Flow Rate FiO2 05/06/21 11:27 37.0 99 18 160/72 (101) 93 Nasal Cannula 1.00 I&O I&O Intake and Output 05/06/21 00:00 Intake Total 580 ml Balance 580 ml Intake Oral 480 ml IV Total 100 ml # Voids 2 Daily Weight Change Yes, Greater than 33 lbs Labs Laboratory Tests 05/06/21 13:35: White Blood Count 11.7H, Red Blood Count 3.47L, Hemoglobin 8.3L, Hematocrit 27L, Mean Corpuscular Volume 79L, Mean Corpuscular Hemoglobin 24L, Mean Corpuscular Hemoglobin Concent 30L, Red Cell Distribution Width 22.4H, Platelet Count 22*L, Mean Platelet Volume , Immature Granulocyte % (Auto) 3, Neutrophils (%) (Auto) 81H, Lymphocytes (%) (Auto) 12, Monocytes (%) (Auto) 4, Eosinophils (%) (Auto) 0, Basophils (%) (Auto) 0, Neutrophils # (Auto) 9.5H, Lymphocytes # (Auto) 1.4, Monocytes # (Auto) 0.5, Eosinophils # (Auto) 0.0, Basophils # (Auto) 0.0, Immature Granulocyte # (Auto) 0.3H, Percent Immature Platelet Fraction 17.7H HECTOR ALONSO MD May 06, 2021 14:22
[2021-05-06] MEDS ORDERED: ZOLPIDEM 5 MG (AMBIEN) TAB PO PRN (15:30)
[2021-05-06] MEDS ORDERED: RT-ALBUTEROL/IPRATROPIUM 3 ML (DUONEB) VIAL INH PRN (16:00)
--- NOTE | 2021-05-06 16:51 | History & Physical ---
HPI History of Present Illness: 75 yo F that was having significant post menopausal bleeding and underwent hysterectomy several weeks ago. Patient has continued to have some vaginal bleeding and then started coughing up blood yesterday prior to arrival to ER. Patient was found to have extremely low plts. Denies ever having bleeding concerns or blood clots. Patient states that she has not previously had any episodes of coughing up blood. Denies any pain at this time. States that she does not know pathology from her hysterecomy but was told that it was not cancer. CT in ER had concerns for mediastinal lymphedenopathy. Source: patient Exam Limitations: no limitations Date seen by provider: May 06, 2021 Time Seen by Provider: 10:25 Attending Physician Nancy Hargrove MD PCP Spencer Morales MD Consult Date of Admission May 05, 2021 at 15:10 Home Medications Home Medications Reviewed patient Home Medication Reconciliation performed by pharmacy medication reconciliations weld technician and/or nursing. Patients Allergies have been reviewed. Allergies Coded Allergies: No Known Drug Allergies (Unverified , 08/27/20) [id number]-[id number] Hx Patient Social History Drug of Choice: DENIES Smoking Status: Former Smoker 2nd Hand Smoke Exposure: No Recent Hopitalizations: No Alcohol Use?: No Have you traveled recently?: No Past Medical History Post menopausal bleeding s/p hysterectomy Family Medical History Significant Family History: No Pertinent Family Hx Review of Systems ([facility]) Constitutional: No chills, No fever; malaise; No weakness EENTM: no symptoms reported; No epistaxis, No nose congestion, No throat pain Respiratory: No cough, No dyspnea on exertion; hemoptysis; No short of breath Cardiovascular: no symptoms reported; No chest pain, No edema, No palpitations Gastrointestinal: no symptoms reported; No abdominal pain, No constipation, No diarrhea, No nausea, No vomiting Genitourinary: no symptoms reported; No dysuria, No frequency, No hematuria : No Musculoskeletal: no symptoms reported; No back pain, No joint pain, No muscle pain Skin: other (brusing on arms) Psychiatric/Neurological: No Symptoms Reported; Denies Anxiety, Denies Depressed, Denies Weakness Reviewed Test Results Reviewed Test Results Lab Laboratory Tests Test 05/06/21 13:35 Range/Units White Blood Count 11.7 H 4.3-11.0 10^3/uL Red Blood Count 3.47 L 3.80-5.11 10^6/uL Hemoglobin 8.3 L 11.5-16.0 g/dL Hematocrit 27 L 35-52 % Mean Corpuscular Volume 79 L 80-99 fL Mean Corpuscular Hemoglobin 24 L 25-34 pg Mean Corpuscular Hemoglobin Concent 30 L 32-36 g/dL Red Cell Distribution Width 22.4 H 10.0-14.5 % Platelet Count 22 *L 130-400 10^3/uL Mean Platelet Volume 9.0-12.2 fL Immature Granulocyte % (Auto) 3 % Neutrophils (%) (Auto) 81 H 42-75 % Lymphocytes (%) (Auto) 12 12-44 % Monocytes (%) (Auto) 4 0-12 % Eosinophils (%) (Auto) 0 0-10 % Basophils (%) (Auto) 0 0-10 % Neutrophils # (Auto) 9.5 H 1.8-7.8 10^3/uL Lymphocytes # (Auto) 1.4 1.0-4.0 10^3/uL Monocytes # (Auto) 0.5 0.0-1.0 10^3/uL Eosinophils # (Auto) 0.0 0.0-0.3 10^3/uL Basophils # (Auto) 0.0 0.0-0.1 10^3/uL Immature Granulocyte # (Auto) 0.3 H 0.0-0.1 10^3/uL Percent Immature Platelet Fraction 17.7 H 0.0-7.6 % Physical Exam-([facility]) Physical Exam Vital Signs VS - Last 72 Hours, by Label 05/05/21 05/05/21 05/05/21 05/05/21 10:07 13:50 16:45 17:01 Temp 36.8 36.7 36.8 Pulse 92 89 79 Resp 18 18 18 B/P (MAP) 164/67 (99) 190/83 187/84 (118) Pulse Ox 96 95 96 O2 Delivery Room Air Room Air Nasal Cannula Nasal Cannula O2 Flow Rate 1.00 1.00 05/05/21 05/05/21 05/05/21 05/06/21 19:10 19:54 19:55 00:58 Temp 36.8 36.6 Pulse 84 98 100 Resp 22 18 18 B/P (MAP) 204/88 (126) 178/77 (110) 193/94 (127) Pulse Ox 95 95 96 O2 Delivery Nasal Cannula Room Air Nasal Cannula Nasal Cannula O2 Flow Rate 1.00 1.00 1.00 05/06/21 05/06/21 05/06/21 05/06/21 04:00 07:37 08:00 08:35 Temp 36.8 36.2 Pulse 92 98 Resp 18 20 B/P (MAP) 174/82 (112) 171/86 (114) Pulse Ox 95 96 96 O2 Delivery Nasal Cannula Nasal Cannula Nasal Cannula Nasal Cannula O2 Flow Rate 1.00 1.00 1.00 1.00 05/06/21 05/06/21 05/06/21 11:27 15:32 15:42 Temp 37.0 36.2 36.2 Pulse 99 97 97 Resp 18 18 B/P (MAP) 160/72 (101) 141/74 (96) Pulse Ox 93 95 95 O2 Delivery Nasal Cannula Nasal Cannula O2 Flow Rate 1.00 1.00 FiO2 24 Capillary Refill : Less Than 3 Seconds General Appearance: WD/WN, no apparent distress HEENT: PERRL/EOMI Neck: non-tender, full range of motion, supple Respiratory: chest non-tender, lungs clear, normal breath sounds, no respiratory distress, no accessory muscle use Cardiovascular: normal peripheral pulses, regular rate, rhythm, no edema, no murmur Gastrointestinal: normal bowel sounds, non tender, soft Back: no CVA tenderness, no vertebral tenderness Extremities: normal range of motion, non-tender, normal inspection, no pedal edema, no calf tenderness, normal capillary refill Neurologic/Psychiatric: regulatory affairs director II-XII nml as tested, no motor/sensory deficits, alert, normal mood/affect, oriented x 3 Skin: ecchymosis Lymphatic: no adenopathy Assessment/Plan Assessment/Plan Admission Status: Inpatient Order (span 2 midnights) Reason for Inpatient Admission: Close monitoring for bleeding risk (1) Hemoptysis Status: Acute Assessment & Plan: - Mediastinal LA, D-dimer elevated, normal CTA (2) Thrombocytopenia Status: Acute Assessment & Plan: - Hematology consulted, appreciated recommendations, high dose steroids, monitoring CBC (3) Mediastinal lymphadenopathy Status: Acute (4) Microcytic anemia Status: Acute Assessment & Plan: - Iron studies pending (5) Vaginal bleeding, abnormal Status: Acute Assessment & Plan: - s/p hysterectomy GAULT,NANCY R MD May 06, 2021 16:51
[2021-05-06] MEDS: RT-ALBUTEROL/IPRATROPIUM 3 ML (DUONEB) VIAL INH SCH ×2 (19:31→22:21)
[2021-05-06] MEDS ORDERED: fentaNYL INJ 100 MCG/2 ML AMP IVP PRN (21:45)
[2021-05-07] VITALS (12 sets, daily range): BP systolic 140–193; BP diastolic 63–105
[2021-05-07] MEDS: RT-ALBUTEROL/IPRATROPIUM 3 ML (DUONEB) VIAL INH SCH ×6 (02:11→22:43)
[2021-05-07] MEDS: HYDROcodone/APAP 5 MG/325 MG (LORTAB) TAB PO PRN ×2 (05:16→18:30)
[2021-05-07 05:37] LABS: BASOPHILS % (AUTO) 0 % (0-10); EOSINOPHILS % (AUTO) 0 % (0-10); HEMOGLOBIN 7.5 g/dL (11.5-16.0); NEUTROPHILS % (AUTO) 78 % (42-75)
[2021-05-07 05:40] LABS: HEMATOCRIT 25 % (35-52); LYMPHOCYTES # (AUTO) 2.1 10^3/uL (1.0-4.0); LYMPHOCYTES % (AUTO) 11 % (12-44); MEAN CORPUSCULAR HEMOGLOBIN 24 pg (25-34); MEAN CORPUSCULAR HGB CONC 31 g/dL (32-36); MEAN CORPUSCULAR VOLUME 80 fL (80-99); MONOCYTES # (AUTO) 1.3 10^3/uL (0.0-1.0); MONOCYTES % (AUTO) 7 % (0-12); NEUTROPHILS # (AUTO) 14.5 10^3/uL (1.8-7.8); WHITE BLOOD COUNT 18.6 10^3/uL (4.3-11.0)
[2021-05-07 05:54] LABS: CALCIUM 9.8 MG/DL (8.5-10.1)
[2021-05-07 05:59] LABS: CREATININE SERUM 0.88 MG/DL (0.60-1.30)
[2021-05-07] MEDS: predniSONE 20 MG TAB PO SCH ×2 (06:08→06:09)
[2021-05-07] MEDS: CATHETER FLUSH 10 ML SYR IV SCH ×3 (06:10→21:18)
[2021-05-07 06:12] LABS: BAND NEUTROPHILS 2 %; BASOPHILS % (MANUAL) 0 %; EOSINOPHILS % (MANUAL) 0 %; LYMPHOCYTES % (MANUAL) 16 %; MONOCYTES % (MANUAL) 6 %; NEUTROPHILS % (MANUAL) 76 %; NUCLEATED RED BLOOD CELLS 1; PLATELET COUNT 31 10^3/uL (130-400); POLYCHROMASIA SLIGHT
[2021-05-07 06:13] LABS: HYPOCHROMASIA MARKED; ROULEAUX SLIGHT
[2021-05-07 06:14] LABS: ANISOCYTOSIS MODERATE
[2021-05-07] MEDS: lisINopril 10 MG (PRINIVIL) TABLET PO SCH (09:04)
[2021-05-07] MEDS: FAMOTIDINE 20 MG (PEPCID) TABLET PO SCH (09:05)
[2021-05-07] MEDS ORDERED: predniSONE 20 MG TAB PO ONE (10:00)
[2021-05-07] MEDS ORDERED: IVIG 40 GM/400 ML (PRIVIGEN) IV ONE (10:00)
--- NOTE | 2021-05-07 10:01 | Progress Note ---
Progress Note Assessment/Plan Date Seen by Provider: May 07, 2021 Time Seen by Provider: 10:00 Events since last exam No more bleeding Plt slightly better to 30s Assessment/Plan IMP: 1. Acute thrombocytopenia, possible ITP. ?trigger factor. Need to get the record from [place] for recent hysterectomy 2. 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 3. ?pnuemonia on CXR showed perihilar infiltration 4. Recent open total hysterectomy at [facility] by Dr Levi. Pt was not happy with the service there and refuse to go back. 5. Anemia from chronic bleeding and recent surgery. She required 4 units of the blood during and after the hysterectomy early this month. Hb slightly lower today, most likely dilution. Hemodynamic stable. Plan: 1. Increase Prednisone to 100mg daily. Pepcid while on high dose steroid. Add IVIG 40g today. 2. Get the record from [place] 3. Will re-evaluate patient tomorrow . 4. Pt is stable. Hold off Plt transfusion for now unless acutely change or major bleeding. 5. Watch for anemia for now. If Hb is below 7, then transfuse one unit. Or transfuse RBC and Plt if patient becomes hemodynamic unstable. Vitals Last set of Vitals Signs Vital Signs Date Time Temp Pulse Resp B/P (MAP) Pulse Ox O2 Delivery O2 Flow Rate FiO2 05/07/21 08:21 37.0 97 18 164/74 (104) 92 Room Air 05/07/21 03:26 1.00 05/06/21 15:42 24 I&O I&O Intake and Output 05/07/21 00:00 Intake Total 2070 ml Output Total 860 ml Balance 1210 ml Intake Oral 2070 ml Output Urine Total 860 ml # Voids 1 # Bowel Movements 1 Labs Laboratory Tests 05/06/21 13:15: 05/06/21 13:35: White Blood Count 11.7H, Red Blood Count 3.47L, Hemoglobin 8.3L, Hematocrit 27L, Mean Corpuscular Volume 79L, Mean Corpuscular Hemoglobin 24L, Mean Corpuscular Hemoglobin Concent 30L, Red Cell Distribution Width 22.4H, Platelet Count 22*L, Mean Platelet Volume , Immature Granulocyte % (Auto) 3, Neutrophils (%) (Auto) 81H, Lymphocytes (%) (Auto) 12, Monocytes (%) (Auto) 4, Eosinophils (%) (Auto) 0, Basophils (%) (Auto) 0, Neutrophils # (Auto) 9.5H, Lymphocytes # (Auto) 1.4, Monocytes # (Auto) 0.5, Eosinophils # (Auto) 0.0, Basophils # (Auto) 0.0, Immature Granulocyte # (Auto) 0.3H, Percent Immature Platelet Fraction 17.7H 05/07/21 05:18: White Blood Count 18.6H, Red Blood Count 3.07L, Hemoglobin 7.5L, Hematocrit 25L, Mean Corpuscular Volume 80, Mean Corpuscular Hemoglobin 24L, Mean Corpuscular Hemoglobin Concent 31L, Red Cell Distribution Width 22.5H, Platelet Count 31*L, Mean Platelet Volume , Immature Granulocyte % (Auto) 4, Neutrophils (%) (Auto) 78H, Lymphocytes (%) (Auto) 11L, Monocytes (%) (Auto) 7, Eosinophils (%) (Auto) 0, Basophils (%) (Auto) 0, Neutrophils # (Auto) 14.5H, Lymphocytes # (Auto) 2.1, Monocytes # (Auto) 1.3H, Eosinophils # (Auto) 0.0, Basophils # (Auto) 0.0, Immature Granulocyte # (Auto) 0.7H, Percent Immature Platelet Fraction 13.6H, Neutrophils % (Manual) 76, Lymphocytes % (Manual) 16, Monocytes % (Manual) 6, Eosinophils % (Manual) 0, Basophils % (Manual) 0, Band Neutrophils 2, Nucleated Red Blood Cells 1, Polychromasia SLIGHT, Hypochromasia MARKED, Anisocytosis MODERATE, Rouleau SLIGHT, Sodium Level 135, Potassium Level 4.0, Chloride Level 102, Carbon Dioxide Level 19L, Anion Gap 14, Blood Urea Nitrogen 27H, Creatinine 0.88, Estimat Glomerular Filtration Rate 62, BUN/Creatinine Ratio 31, Glucose Level 222H, Calcium Level 9.8 HECTOR ALONSO MD May 07, 2021 10:01
[2021-05-07] MEDS: IVIG 20 GM (PRIVIGEN) 200 ML IV SCH ×2 (14:47→17:07)
--- NOTE | 2021-05-07 16:48 | Progress Note ---
Subjective Subjective/Events-last exam Patient doing well this AM. No acute concerns. Tolerating ambulation and PO diet. States that she has been getting little bruises on her arms Review of Systems General: Fatigue Pulmonary: No Dyspnea, No Cough Cardiovascular: No: Chest Pain, Palpitations, Edema Gastrointestinal: No: Nausea, Vomiting, Abdominal Pain, Diarrhea, Constipation Genitourinary: No Dysuria, No Frequency, No Hematuria Neurological: Weakness Objective Exam Last Set of Vital Signs Vital Signs Date Time Temp Pulse Resp B/P (MAP) Pulse Ox O2 Delivery O2 Flow Rate FiO2 05/07/21 16:21 37.2 104 18 154/105 (121) 94 Room Air 05/07/21 03:26 1.00 05/06/21 15:42 24 Capillary Refill : Less Than 3 Seconds I&O Intake and Output 05/06/21 23:59 Intake Total 2070 ml Output Total 860 ml Balance 1210 ml Intake Oral 2070 ml Output Urine Total 860 ml # Voids 1 # Bowel Movements 1 General: Alert, Oriented X3, Cooperative, No Acute Distress Lungs: Clear to Auscultation, Normal Air Movement Heart: Regular Rate, No Murmurs Abdomen: Normal Bowel Sounds, Soft, No Tenderness, No Masses Extremities: No Edema, No Tenderness/Swelling Neuro: Normal Speech, Sensation Intact, Cranial Nerves 3-12 NL Results/Procedures Lab Laboratory Tests 05/07/21 05:18: White Blood Count 18.6H, Red Blood Count 3.07L, Hemoglobin 7.5L, Hematocrit 25L, Mean Corpuscular Volume 80, Mean Corpuscular Hemoglobin 24L, Mean Corpuscular Hemoglobin Concent 31L, Red Cell Distribution Width 22.5H, Platelet Count 31*L, Mean Platelet Volume , Immature Granulocyte % (Auto) 4, Neutrophils (%) (Auto) 78H, Lymphocytes (%) (Auto) 11L, Monocytes (%) (Auto) 7, Eosinophils (%) (Auto) 0, Basophils (%) (Auto) 0, Neutrophils # (Auto) 14.5H, Lymphocytes # (Auto) 2.1, Monocytes # (Auto) 1.3H, Eosinophils # (Auto) 0.0, Basophils # (Auto) 0.0, Immature Granulocyte # (Auto) 0.7H, Neutrophils % (Manual) 76, Lymphocytes % (Manual) 16, Monocytes % (Manual) 6, Eosinophils % (Manual) 0, Basophils % (Manual) 0, Band Neutrophils 2, Nucleated Red Blood Cells 1, Percent Immature Platelet Fraction 13.6H, Polychromasia SLIGHT, Hypochromasia MARKED, Anisocytosis MODERATE, Rouleau SLIGHT, Sodium Level 135, Potassium Level 4.0, Chloride Level 102, Carbon Dioxide Level 19L, Anion Gap 14, Blood Urea Nitrogen 27H, Creatinine 0.88, Estimat Glomerular Filtration Rate 62, BUN/Creatinine Ratio 31, Glucose Level 222H, Calcium Level 9.8 Assessment/Plan Assessment/Plan (1) Hemoptysis Status: Acute Assessment & Plan: - Mediastinal LA, D-dimer elevated, normal CTA 05/07: No further episodes, will continue to monitor, patient states that she has had mediastinal LA for many years (2) Thrombocytopenia Status: Acute Assessment & Plan: - Hematology consulted, appreciated recommendations, high dose steroids, monitoring CBC 05/07: Steroids increased today, IVIG started today, will continue to monitor, patient is HDS (3) Mediastinal lymphadenopathy Status: Acute (4) Microcytic anemia Status: Acute Assessment & Plan: - Iron studies pending (5) Vaginal bleeding, abnormal Status: Acute Assessment & Plan: - s/p hysterectomy NANCY MORRISON MD May 07, 2021 16:48
[2021-05-07] MEDS ORDERED: FUROSEMIDE 40 MG/4 ML INJ (LASIX) IVP NR (17:30)
[2021-05-08] VITALS (11 sets, daily range): BP systolic 134–179; BP diastolic 65–82
[2021-05-08] MEDS: HYDROcodone/APAP 5 MG/325 MG (LORTAB) TAB PO PRN ×3 (00:45→23:18)
[2021-05-08] MEDS: CATHETER FLUSH 10 ML SYR IV SCH ×3 (05:33→20:25)
[2021-05-08] MEDS: predniSONE 20 MG TAB PO SCH ×3 (06:44→06:49)
[2021-05-08] MEDS: RT-ALBUTEROL/IPRATROPIUM 3 ML (DUONEB) VIAL INH SCH ×4 (07:49→19:04)
[2021-05-08 08:36] LABS: MEAN CORPUSCULAR HEMOGLOBIN 24 pg (25-34); MEAN CORPUSCULAR HGB CONC 30 g/dL (32-36)
[2021-05-08 08:38] LABS: BASOPHILS % (AUTO) 0 % (0-10); EOSINOPHILS % (AUTO) 0 % (0-10); HEMATOCRIT 22 % (35-52); LYMPHOCYTES # (AUTO) 2.9 10^3/uL (1.0-4.0); LYMPHOCYTES % (AUTO) 18 % (12-44); MEAN CORPUSCULAR VOLUME 80 fL (80-99); MONOCYTES # (AUTO) 1.3 10^3/uL (0.0-1.0); MONOCYTES % (AUTO) 8 % (0-12); NEUTROPHILS # (AUTO) 10.8 10^3/uL (1.8-7.8); NEUTROPHILS % (AUTO) 67 % (42-75); WHITE BLOOD COUNT 16.1 10^3/uL (4.3-11.0)
[2021-05-08 08:51] LABS: HEMOGLOBIN 6.8 g/dL (11.5-16.0)
[2021-05-08 08:52] LABS: PLATELET COUNT 34 10^3/uL (130-400)
[2021-05-08] MEDS ORDERED: lisINopril 10 MG (PRINIVIL) TABLET PO SCH (09:00)
[2021-05-08 09:01] LABS: CALCIUM 9.1 MG/DL (8.5-10.1); CREATININE SERUM 0.81 MG/DL (0.60-1.30); POTASSIUM 3.2 MMOL/L (3.6-5.0)
[2021-05-08 09:05] LABS: BAND NEUTROPHILS 2 %; BASOPHILS % (MANUAL) 0 %; EOSINOPHILS % (MANUAL) 0 %; HYPOCHROMASIA MODERATE; LYMPHOCYTES % (MANUAL) 17 %; METAMYELOCYTES % 2 %; MONOCYTES % (MANUAL) 6 %; NEUTROPHILS % (MANUAL) 73 %; NUCLEATED RED BLOOD CELLS 2; POLYCHROMASIA MODERATE
[2021-05-08 09:06] LABS: ANISOCYTOSIS MARKED
[2021-05-08] MEDS: lisINopril 20 MG (PRINIVIL) TABLET PO SCH (09:48)
[2021-05-08] MEDS: FAMOTIDINE 20 MG (PEPCID) TABLET PO SCH (09:48)
[2021-05-08] MEDS ORDERED: NS IV 500 ML 500 ML IV SCH (10:30)
--- NOTE | 2021-05-08 11:09 | Progress Note ---
Subjective Subjective/Events-last exam Patient doing well this AM. No acute concerns. ON: Patient had episodes of combative actions. Pulled out IV. Required robbie and Eric Review of Systems General: Fatigue, Malaise Pulmonary: Dyspnea; No Cough Cardiovascular: No: Chest Pain, Palpitations, Edema Gastrointestinal: No: Nausea, Vomiting, Abdominal Pain, Diarrhea, Constipation Genitourinary: No Dysuria, No Frequency Neurological: Weakness Objective Exam Last Set of Vital Signs Vital Signs Date Time Temp Pulse Resp B/P (MAP) Pulse Ox O2 Delivery O2 Flow Rate FiO2 05/08/21 10:36 91 Nasal Cannula 2.00 05/08/21 07:36 37.6 92 22 165/76 (105) 05/08/21 00:56 21 Capillary Refill : Less Than 3 Seconds I&O Intake and Output 05/08/21 00:00 Intake Total 2000 ml Output Total 1625 ml Balance 375 ml Intake Oral 2000 ml Output Urine Total 1625 ml # Voids 1 # Bowel Movements 2 General: Alert, Oriented X3, Cooperative, No Acute Distress Lungs: Clear to Auscultation, Normal Air Movement Heart: Regular Rate, No Murmurs Abdomen: Normal Bowel Sounds, Soft, No Tenderness, No Masses Extremities: No Edema, No Tenderness/Swelling Skin: Other (brusing present on arms bilaterally) Neuro: Normal Speech, Sensation Intact, Cranial Nerves 3-12 NL Psych/Mental Status: Mental Status NL, Mood NL Results/Procedures Lab Laboratory Tests 05/08/21 08:25: White Blood Count 16.1H, Red Blood Count 2.81L, Hemoglobin 6.8*L, Hematocrit 22L , Mean Corpuscular Volume 80, Mean Corpuscular Hemoglobin 24L, Mean Corpuscular Hemoglobin Concent 30L, Red Cell Distribution Width 22.7H, Platelet Count 34*L, Mean Platelet Volume , Immature Granulocyte % (Auto) 7, Neutrophils (%) (Auto) 67, Lymphocytes (%) (Auto) 18, Monocytes (%) (Auto) 8, Eosinophils (%) (Auto) 0, Basophils (%) (Auto) 0, Neutrophils # (Auto) 10.8H, Lymphocytes # (Auto) 2.9, Monocytes # (Auto) 1.3H, Eosinophils # (Auto) 0.0, Basophils # (Auto) 0.0, Immature Granulocyte # (Auto) 1.1H, Neutrophils % (Manual) 73, Lymphocytes % (Manual) 17, Monocytes % (Manual) 6, Eosinophils % (Manual) 0, Basophils % (Manual) 0, Metamyelocytes % 2, Band Neutrophils 2, Nucleated Red Blood Cells 2, Percent Immature Platelet Fraction 10.7H, Polychromasia MODERATE, Hypochromasia MODERATE, Basophilic Stippling MODERATE, Anisocytosis MARKED, Sodium Level 136, Potassium Level 3.2L, Chloride Level 102, Carbon Dioxide Level 20L, Anion Gap 14, Blood Urea Nitrogen 29H, Creatinine 0.81, Estimat Glomerular Filtration Rate 69, BUN/Creatinine Ratio 36, Glucose Level 223H, Calcium Level 9.1 Assessment/Plan Assessment/Plan (1) Hemoptysis Status: Acute Assessment & Plan: - Mediastinal LA, D-dimer elevated, normal CTA 05/07: No further episodes, will continue to monitor, patient states that she has had mediastinal LA for many years 05/08: Will need further workup outpatient (2) Thrombocytopenia Status: Acute Assessment & Plan: - Hematology consulted, appreciated recommendations, high dose steroids, monitoring CBC 05/07: Steroids increased today, IVIG started today, will continue to monitor, patient is HDS 05/08: Continue to monitor (3) Mediastinal lymphadenopathy Status: Acute (4) Microcytic anemia Status: Acute Assessment & Plan: - Iron studies pending 05/08: Hgb 6.8 today, transfuse 1 unit (5) Vaginal bleeding, abnormal Status: Acute Assessment & Plan: - s/p hysterectomy NANCY MORRISON MD May 08, 2021 11:09
--- NOTE | 2021-05-08 17:28 | Progress Note ---
Standard Progress Note Progress Notes/Assess & Plan Date Seen by a Provider: May 08, 2021 Time Seen by a Provider: 17:22 Progress/Assessment & Plan 75-year-old female admitted to the hospital with new onset significant thrombocytopenia and mild hemoptysis. Patient had previous history of postme nopausal bleeding and underwent abdominal hysterectomy at [facility] a month ago. Patient was evaluated by Dr. Ramirez and started on treatment for ITP with high-dose steroids. Patient also received IVIG x2 but yesterday's dose was not completed as patient pulled out her IV lines. Hemoglobin level dropped to less than 7 g/dL today and patient received 1 unit of PRBC transfusion. I reviewed the peripheral smear from today morning which showed significant hypochromia as well as anisocytosis. No schistocytes noted. Platelets where decreased and no platelet clumps noted. Right shifted neutrophils noted with few activated/atypical lymphocytes. Patient feels good and denied any new problems. Platelet count was 34,000 today. I will obtain a CBC, CMP, LDH level and DIC panel tomorrow morning. Will follow patient with you during Dr. Ramirez's absence. GLENDY CANO May 08, 2021 17:28
[2021-05-09] VITALS (7 sets, daily range): BP systolic 137–201; BP diastolic 76–83
[2021-05-09] MEDS ORDERED: ZIPRASIDONE 20 MG INJ (GEODON) VIAL IM PRN (05:30)
[2021-05-09] MEDS ORDERED: HALOPERIDOL 5 MG/ML (HALDOL) VIAL IM PRN (05:30)
[2021-05-09] MEDS ORDERED: LORazepam INJ 2 MG/ML (ATIVAN) VIAL IM PRN (05:30)
[2021-05-09] MEDS ORDERED: WATER (STERILE) FOR INJ 10 ML BTL INJ SCH (05:30)
[2021-05-09] MEDS ORDERED: LORazepam INJ 2 MG/ML (ATIVAN) VIAL IVP PRN (05:30)
[2021-05-09] MEDS: CATHETER FLUSH 10 ML SYR IV SCH ×3 (05:39→20:22)
[2021-05-09 05:54] LABS: BASOPHILS % (AUTO) 0 % (0-10); EOSINOPHILS % (AUTO) 0 % (0-10); HEMATOCRIT 27 % (35-52); HEMOGLOBIN 8.5 g/dL (11.5-16.0); LYMPHOCYTES # (AUTO) 2.5 10^3/uL (1.0-4.0); LYMPHOCYTES % (AUTO) 16 % (12-44); MEAN CORPUSCULAR HEMOGLOBIN 25 pg (25-34); MEAN CORPUSCULAR HGB CONC 32 g/dL (32-36); MEAN CORPUSCULAR VOLUME 79 fL (80-99); MEAN PLATELET VOLUME 10.1 fL (9.0-12.2); MONOCYTES # (AUTO) 1.5 10^3/uL (0.0-1.0); MONOCYTES % (AUTO) 9 % (0-12); NEUTROPHILS # (AUTO) 10.4 10^3/uL (1.8-7.8); NEUTROPHILS % (AUTO) 66 % (42-75); WHITE BLOOD COUNT 15.8 10^3/uL (4.3-11.0)
[2021-05-09 05:57] LABS: PLATELET COUNT 34 10^3/uL (130-400)
[2021-05-09] MEDS: predniSONE 20 MG TAB PO SCH (05:58)
[2021-05-09 06:03] LABS: ALBUMIN 3.4 GM/DL (3.2-4.5)
[2021-05-09 06:04] LABS: POTASSIUM 3.5 MMOL/L (3.6-5.0)
[2021-05-09 06:05] LABS: CALCIUM 9.3 MG/DL (8.5-10.1)
[2021-05-09 06:06] LABS: TOTAL PROTEIN 6.5 GM/DL (6.4-8.2)
[2021-05-09 06:08] LABS: BILIRUBIN,TOTAL 1.5 MG/DL (0.1-1.0)
[2021-05-09 06:10] LABS: CREATININE SERUM 0.72 MG/DL (0.60-1.30)
[2021-05-09 06:16] LABS: FIBRIN DEGRADATION PRODUCTS 6.63 UG/ML (0.00-0.49); INR 1.2 (0.8-1.4); PROTHROMBIN TIME PATIENT 15.1 SEC (12.2-14.7)
[2021-05-09] MEDS: RT-ALBUTEROL/IPRATROPIUM 3 ML (DUONEB) VIAL INH SCH (07:28)
--- NOTE | 2021-05-09 08:03 | Progress Note - Hospitalist ---
Subjective HPI/CC On Admission Date Seen by Provider: May 09, 2021 Time Seen by Provider: 11:00 Subjective/Events-last exam Patient became very agitated last night Eric and Candelario given Patient with a one-on-one Overall improved but still sedated She did eat breakfast Review of Systems Neurological: Confusion Objective Exam Vital Signs Vital Signs Date Time Temp Pulse Resp B/P (MAP) Pulse Ox O2 Delivery O2 Flow Rate FiO2 05/10/21 04:20 37.1 80 20 189/85 (119) 93 Room Air 05/09/21 23:49 0.50 05/08/21 00:56 21 Capillary Refill : Less Than 3 Seconds General Appearance: No Apparent Distress, WD/WN, Chronically ill, Other (Sleeping) Respiratory: Lungs Clear Cardiovascular: Regular Rate, Rhythm Results/Procedures Lab Laboratory Tests 05/09/21 05:40 Patient resulted labs reviewed. Assessment/Plan Assessment and Plan Assess & Plan/Chief Complaint Assessment: ITP Severe delirium Vaginal bleeding Hemoptysis Plan: Supportive care Steroids Clinical Quality Measures DVT/VTE Risk/Contraindication: Contraindications-Pharm: Other *list below* Other: low platelets MING GARCIA DO May 09, 2021 08:03
[2021-05-09] MEDS: lisINopril 20 MG (PRINIVIL) TABLET PO SCH (08:09)
[2021-05-09] MEDS: FAMOTIDINE 20 MG (PEPCID) TABLET PO SCH (08:09)
[2021-05-09] MEDS: HYDROcodone/APAP 5 MG/325 MG (LORTAB) TAB PO PRN (08:10)
--- NOTE | 2021-05-09 13:03 | Progress Note ---
Standard Progress Note Progress Notes/Assess & Plan Date Seen by a Provider: May 09, 2021 Time Seen by a Provider: 13:01 Progress/Assessment & Plan 75-year-old female admitted to the hospital with new onset significant thrombocytopenia and mild hemoptysis. Patient had previous history of postme nopausal bleeding and underwent abdominal hysterectomy at [facility] a month ago. Patient was evaluated by Dr. Ramirez and started on treatment for ITP with high-dose steroids. Patient also received IVIG x2 but 's dose was not completed as patient pulled out her IV lines. Patient received 1 unit of PRBC transfusion yesterday. Platelet count was 34,000 today. Patient was confused earlier today and received Geodon and Ativan. She is somnolent at the time of evaluation. Repeat lab work in a.m. If her platelet count is not improving, she may need a bone marrow aspiration and biopsy. Will follow patient with you during Dr. Ramirez's absence. GLENDY CANO May 09, 2021 13:03
[2021-05-09] MEDS ORDERED: polyethylene glycoL POWDER 17 GM (MIRALAX) PACK PO ONE (16:15)
[2021-05-09] MEDS: polyethylene glycoL POWDER 17 GM (MIRALAX) PACK PO SCH (20:16)
[2021-05-09] MEDS: SENNA W/DOCUSATE (SENOKOT S) TABLET PO SCH (20:16)
[2021-05-10] MEDS: HYDROcodone/APAP 5 MG/325 MG (LORTAB) TAB PO PRN ×3 (01:23→23:45)
[2021-05-10 04:20] VITALS: BP 189/85
[2021-05-10] MEDS: CATHETER FLUSH 10 ML SYR IV SCH ×3 (05:59→20:28)
[2021-05-10] MEDS: predniSONE 20 MG TAB PO SCH (06:00)
[2021-05-10 06:19] LABS: EOSINOPHILS % (AUTO) 0 % (0-10); HEMOGLOBIN 8.4 g/dL (11.5-16.0); MONOCYTES # (AUTO) 1.4 10^3/uL (0.0-1.0)
[2021-05-10 06:20] LABS: BASOPHILS # (AUTO) 0.1 10^3/uL (0.0-0.1); BASOPHILS % (AUTO) 0 % (0-10); HEMATOCRIT 27 % (35-52); LYMPHOCYTES # (AUTO) 2.7 10^3/uL (1.0-4.0); LYMPHOCYTES % (AUTO) 17 % (12-44); MEAN CORPUSCULAR HEMOGLOBIN 25 pg (25-34); MEAN CORPUSCULAR HGB CONC 32 g/dL (32-36); MEAN CORPUSCULAR VOLUME 81 fL (80-99); MONOCYTES % (AUTO) 9 % (0-12); NEUTROPHILS % (AUTO) 67 % (42-75); WHITE BLOOD COUNT 16.3 10^3/uL (4.3-11.0)
[2021-05-10 06:27] LABS: PLATELET COUNT 37 10^3/uL (130-400)
[2021-05-10 06:37] LABS: ALBUMIN 3.3 GM/DL (3.2-4.5)
[2021-05-10 06:38] LABS: POTASSIUM 3.8 MMOL/L (3.6-5.0)
[2021-05-10 06:39] LABS: CALCIUM 9.2 MG/DL (8.5-10.1)
[2021-05-10 06:40] LABS: TOTAL PROTEIN 6.1 GM/DL (6.4-8.2)
[2021-05-10 06:42] LABS: BILIRUBIN,TOTAL 1.5 MG/DL (0.1-1.0)
[2021-05-10 06:44] LABS: CREATININE SERUM 0.79 MG/DL (0.60-1.30)
[2021-05-10 06:47] LABS: FIBRIN DEGRADATION PRODUCTS 5.97 UG/ML (0.00-0.49); INR 1.3 (0.8-1.4); PROTHROMBIN TIME PATIENT 16.4 SEC (12.2-14.7)
[2021-05-10 06:51] LABS: BAND NEUTROPHILS 1 %; LYMPHOCYTES % (MANUAL) 14 %; MONOCYTES % (MANUAL) 10 %; NEUTROPHILS % (MANUAL) 72 %
[2021-05-10 06:52] LABS: ANISOCYTOSIS MODERATE; ATYPICAL LYMPHOCYTES 2 %; HYPOCHROMASIA MODERATE; MICROCYTOSIS SLIGHT; NUCLEATED RED BLOOD CELLS 7; POLYCHROMASIA SLIGHT; REACTIVE LYMPHOCYTES 1 %
--- NOTE | 2021-05-10 08:02 | Progress Note - Hospitalist ---
Subjective HPI/CC On Admission Date Seen by Provider: May 10, 2021 Time Seen by Provider: 11:00 Subjective/Events-last exam Patient doing much better No antipsychotics required last night Bowels moved after MiraLAX Still confused Asked me whether she had a hysterectomy and I told her that was 1 month ago Thought that she had a given her abdominal incision Review of Systems General: Fatigue, Malaise Objective Exam Vital Signs Vital Signs Date Time Temp Pulse Resp B/P (MAP) Pulse Ox O2 Delivery O2 Flow Rate FiO2 05/11/21 00:44 73 160/71 (100) 05/10/21 23:45 37.1 20 94 Nasal Cannula 0.50 05/08/21 00:56 21 Capillary Refill : Less Than 3 Seconds General Appearance: No Apparent Distress, WD/WN, Chronically ill Respiratory: Lungs Clear, No Accessory Muscle Use, No Respiratory Distress, Decreased Breath Sounds Cardiovascular: Regular Rate, Rhythm Neurologic/Psychiatric: Alert, Oriented x3, No Motor/Sensory Deficits, Normal Mood/Affect, Disoriented Results/Procedures Lab Laboratory Tests 05/10/21 06:03 Patient resulted labs reviewed. Assessment/Plan Assessment and Plan Assess & Plan/Chief Complaint Assessment: ITP Severe delirium Vaginal bleeding Hemoptysis Plan: Supportive care Steroids 05/10/2021: Supportive care Steroids Delirium treatment Improved status Clinical Quality Measures DVT/VTE Risk/Contraindication: Contraindications-Pharm: Other *list below* Other: low platelets MING GARCIA DO May 10, 2021 08:02
[2021-05-10 08:30] VITALS: BP 196/85
[2021-05-10] MEDS: SENNA W/DOCUSATE (SENOKOT S) TABLET PO SCH ×2 (08:54→20:27)
[2021-05-10] MEDS: lisINopril 20 MG (PRINIVIL) TABLET PO SCH (08:54)
[2021-05-10] MEDS: FAMOTIDINE 20 MG (PEPCID) TABLET PO SCH (08:54)
--- NOTE | 2021-05-10 11:58 | Progress Note ---
Standard Progress Note Progress Notes/Assess & Plan Date Seen by a Provider: May 10, 2021 Time Seen by a Provider: 11:55 Progress/Assessment & Plan 75-year-old female admitted to the hospital with new onset significant thrombocytopenia and mild hemoptysis. Patient had previous history of postme nopausal bleeding and underwent abdominal hysterectomy at [facility] a month ago. Patient was evaluated by Dr. Ramirez and started on treatment for ITP with high-dose steroids. Patient also received IVIG x2 but 's dose was not completed as patient pulled out her IV lines. Patient received 1 unit of PRBC transfusion on Tuesday. Platelet count was 37,000 today. Patient awake and answering simple questions appropriately although appears confused at times. Not sleeping well probably due to steroids. No new bleeding or significant bruising. Repeat lab work in the morning. Will need to decrease steroids soon. If her platelet count is not improving, she may need a bone marrow aspiration and biopsy. Will follow patient with you during Dr. Ramirez's absence. GLENDY CANO May 10, 2021 11:58
[2021-05-10 12:00] VITALS: BP 179/80
[2021-05-10 16:27] VITALS: BP 180/77
[2021-05-10] MEDS: inSUlin ASPART (NovoLOG) 1 UNIT/0.01 ML (CHARGE PER UNIT) SC SCH ×2 (18:41→20:28)
[2021-05-10] MEDS ORDERED: amLODIPine 5 MG (NORVASC) TAB PO ONE (20:15)
[2021-05-10] MEDS: polyethylene glycoL POWDER 17 GM (MIRALAX) PACK PO SCH (20:27)
[2021-05-10 23:45] VITALS: BP 177/82
[2021-05-10] MEDS: hydrALAZINE (APRESOLINE) 25 MG TAB PO PRN (23:53)
[2021-05-11] VITALS (7 sets, daily range): BP systolic 130–188; BP diastolic 68–81
[2021-05-11] MEDS: predniSONE 20 MG TAB PO SCH (06:01)
[2021-05-11] MEDS: CATHETER FLUSH 10 ML SYR IV SCH ×3 (06:02→20:51)
[2021-05-11 06:08] LABS: EOSINOPHILS # (AUTO) 0.1 10^3/uL (0.0-0.3); EOSINOPHILS % (AUTO) 0 % (0-10); HEMATOCRIT 27 % (35-52); MEAN CORPUSCULAR VOLUME 81 fL (80-99); MONOCYTES # (AUTO) 1.4 10^3/uL (0.0-1.0); MONOCYTES % (AUTO) 9 % (0-12)
[2021-05-11 06:10] LABS: BASOPHILS % (AUTO) 0 % (0-10); HEMOGLOBIN 8.2 g/dL (11.5-16.0); LYMPHOCYTES # (AUTO) 3.4 10^3/uL (1.0-4.0); LYMPHOCYTES % (AUTO) 22 % (12-44); MEAN CORPUSCULAR HEMOGLOBIN 25 pg (25-34); MEAN CORPUSCULAR HGB CONC 31 g/dL (32-36); NEUTROPHILS # (AUTO) 9.7 10^3/uL (1.8-7.8); NEUTROPHILS % (AUTO) 62 % (42-75); WHITE BLOOD COUNT 15.5 10^3/uL (4.3-11.0)
[2021-05-11 06:13] LABS: PLATELET COUNT 33 10^3/uL (130-400)
[2021-05-11] MEDS: inSUlin ASPART (NovoLOG) 1 UNIT/0.01 ML (CHARGE PER UNIT) SC SCH ×4 (06:17→20:50)
[2021-05-11 06:30] LABS: ALBUMIN 3.1 GM/DL (3.2-4.5); POTASSIUM 3.5 MMOL/L (3.6-5.0)
[2021-05-11 06:32] LABS: CALCIUM 8.9 MG/DL (8.5-10.1)
[2021-05-11 06:33] LABS: TOTAL PROTEIN 5.8 GM/DL (6.4-8.2)
[2021-05-11 06:35] LABS: BILIRUBIN,TOTAL 1.4 MG/DL (0.1-1.0)
[2021-05-11 06:36] LABS: CREATININE SERUM 0.75 MG/DL (0.60-1.30)
[2021-05-11] MEDS: amLODIPine 5 MG (NORVASC) TAB PO SCH (08:19)
[2021-05-11] MEDS: FAMOTIDINE 20 MG (PEPCID) TABLET PO SCH (08:19)
[2021-05-11] MEDS: SENNA W/DOCUSATE (SENOKOT S) TABLET PO SCH ×3 (08:19→20:52)
[2021-05-11] MEDS: lisINopril 20 MG (PRINIVIL) TABLET PO SCH (08:19)
[2021-05-11] MEDS: cloNIDine 0.1 MG (CATAPRES) TAB PO PRN ×2 (08:30→23:46)
--- NOTE | 2021-05-11 09:40 | Progress Note - Hospitalist ---
Subjective HPI/CC On Admission Date Seen by Provider: May 11, 2021 Time Seen by Provider: 11:00 Subjective/Events-last exam Pt doing well Still confused, unsure if its the Prednisone or dementia related with the P rednisone and acute illness Definitely needs detention at [facility] Platelet count 34,000 Hgb stable After rounds apparently Dr. Hardy updated her on pathology from [place] from hysterectomy and told her she had cancer but she does not want any treatment she wants to go home but she is not competent to make those decisions so we will explore other options because she needs supervision 28/02 Review of Systems General: Fatigue, Malaise Objective Exam Vital Signs Vital Signs Date Time Temp Pulse Resp B/P (MAP) Pulse Ox O2 Delivery O2 Flow Rate FiO2 05/12/21 04:14 37.0 847 18 191/82 (118) 97 Room Air 05/11/21 23:55 0.50 05/08/21 00:56 21 Capillary Refill : Less Than 3 Seconds General Appearance: No Apparent Distress, WD/WN, Chronically ill Respiratory: Lungs Clear, Normal Breath Sounds Cardiovascular: Regular Rate, Rhythm Neurologic/Psychiatric: Alert, Disoriented Results/Procedures Lab Laboratory Tests 05/11/21 06:00 05/12/21 04:35 Patient resulted labs reviewed. Assessment/Plan Assessment and Plan Assess & Plan/Chief Complaint Assessment: ITP Severe delirium Vaginal bleeding status post hysterectomy at [place] 1 month ago Hemoptysis Plan: Supportive care Steroids 05/10/2021: Supportive care Steroids Delirium treatment Improved status 05/11/2021: Supportive care Monitor platelets Not competent to make decisions Clinical Quality Measures DVT/VTE Risk/Contraindication: Contraindications-Pharm: Other *list below* Other: low platelets MING GARCIA DO May 11, 2021 09:40
[2021-05-11] MEDS: inSUlin (REGULAR) HUMAN 1 UNIT/0.01 ML (CHARGE PER UNIT) SC PRN (11:19)
[2021-05-11] MEDS: HYDROcodone/APAP 5 MG/325 MG (LORTAB) TAB PO PRN ×2 (11:23→19:24)
--- NOTE | 2021-05-11 13:01 | Progress Note ---
Progress Note Assessment/Plan Time Seen by Provider: 11:00 Events since last exam No more bleeding. Records from [facility] showed 1) right retroperitoneal mass: metastatic neoplasm involving fibroadipose tissue with extensive areas of tumor necrosis and hemorrhage and morphology consistent with with uterine tumor. 2) Appendex: extensive involvement by a malignant neoplasm, possible adenocarcinoma 3) CT of the chest showed multiple small nodular lesions most likely mets. CBC 04-08-2021 at [facility]: WBC 12, Hb 6.3, MCV 70, Plt 526k. I discussed with the patient of the above [facility] records. Pt does NOT want to have any chemotherapy. "my father and my brother got chemo for their cancer and both a month after the chemo. They had miserable life from the chemo. I am now seeing them at night. I do not want to have chemo. This is my final decision. I am done and I want to go home. I want to go home today. If I am in pain, just give me some pain medication and make me pain free." Assessment/Plan A/P 1. 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 She had plt 526 on 04-08-2021 at [facility] while she had her surgery there. 2. 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 Pt is NOT interested in chemotherapy. 3. ?pnuemonia on CXR showed perihilar infiltration, most likely related to malignancy. 4. Recent open total hysterectomy at [facility] by Dr Ford. Pt was not happy with the service there and refuse to go back. 5. Anemia from chronic bleeding and recent surgery as well as tumor involved in the bone marrow. She required 4 units of the blood during and after the hysterectomy early this month. Plan: 1. Reduce Prednisone to 60mg daily. Pepcid while on high dose steroid. 2. Pt can be discharged home from hem/onc point of view and f/u with me as out- pt about the prednisone taper in 2 weeks. 3. I discussed with her about the hospice since she does NOT want to have cancer treatment. She said NO. If she insists to go home and not to have cancer treatment, I still think the hospice care is the best option for her terminal illness if she would accept it. Vitals Last set of Vitals Signs Vital Signs Date Time Temp Pulse Resp B/P (MAP) Pulse Ox O2 Delivery O2 Flow Rate FiO2 05/11/21 11:40 35.6 86 22 130/68 (88) 94 Room Air 05/11/21 08:00 0.50 05/08/21 00:56 21 I&O I&O Intake and Output 05/11/21 00:00 Intake Total 2000 ml Output Total 1200 ml Balance 800 ml Intake Oral 2000 ml Output Urine Total 1200 ml # Voids 2 # Bowel Movements 3 Labs Laboratory Tests 05/10/21 20:15: Glucometer 418*H 05/11/21 06:00: White Blood Count 15.5H, Red Blood Count 3.27L, Hemoglobin 8.2L, Hematocrit 27L, Mean Corpuscular Volume 81, Mean Corpuscular Hemoglobin 25, Mean Corpuscular Hemoglobin Concent 31L, Red Cell Distribution Width 22.0H, Platelet Count 33*L, Mean Platelet Volume , Immature Granulocyte % (Auto) 6, Neutrophils (%) (Auto) 62, Lymphocytes (%) (Auto) 22, Monocytes (%) (Auto) 9, Eosinophils (%) (Auto) 0, Basophils (%) (Auto) 0, Neutrophils # (Auto) 9.7H, Lymphocytes # (Auto) 3.4, Monocytes # (Auto) 1.4H, Eosinophils # (Auto) 0.1, Basophils # (Auto) 0.0, Immature Granulocyte # (Auto) 1.0H, Percent Immature Platelet Fraction 12.6H, Sodium Level 134L, Potassium Level 3.5L, Chloride Level 101, Carbon Dioxide Level 26, Anion Gap 7, Blood Urea Nitrogen 22H, Creatinine 0.75, Estimat Glomerular Filtration Rate 75, BUN/Creatinine Ratio 29, Glucose Level 201H, Calcium Level 8.9, Corrected Calcium 9.6, Total Bilirubin 1.4H, Aspartate Amino Transf (AST/SGOT) 26, Alanine Aminotransferase (ALT/SGPT) 20, Alkaline Ph osphatase 81, Total Protein 5.8L, Albumin 3.1L 05/11/21 06:09: Glucometer 209H 05/11/21 11:08: Glucometer 444*H 05/11/21 12:36: Lab Scanned Report Transfusion Reaction Form Clinical Quality Measures DVT/VTE Risk/Contraindication: Contraindications-Pharm: Other *list below* Other: low platelets HECTOR ALONSO MD May 11, 2021 13:01
--- NOTE | 2021-05-11 14:08 | Physical Therapy Evaluation ---
PT Evaluation-General Medical Diagnosis Admission Date May 05, 2021 at 15:10 Medical Diagnosis: thrombocytopenia/bleeding Onset Date: May 05, 2021 Therapy Diagnosis Therapy Diagnosis: debility/weakness Precautions Precautions/Isolations: Fall Prevention, Standard Precautions Referral Physician: Timothy Reason for Referral: Evaluation/Treatment Medical History Pertinent Medical History: CAD, CVA, HTN, Hypothroidism Current History ER secondary to coughing up blood Reviewed History: Yes Social History Home: Single Level Current Living Status: Alone Entry Into Home: Level Entry Prior Prior Level of Function SCALE: Activities may be completed with or without assistive devices. 1-Dlgqylrbyy-blloxri completes the activity by him/herself with no assistance from a helper. 5-Set-up or Clean-up Assistance-helper sets up or cleans up; patient completes activity. [place] assists only prior to or following the activity. 4-Supervision or Touching Assistance-helper provides verbal cues and/or touching/steadying and/or contact guard assistance as patient completes activity. Assistance may be provided throughout the activity or intermittently. 3-Partial/Moderate Assistance-helper does LESS THAN HALF the effort. [place] lifts, holds or supports trunk or limbs, but provides less than half the effort. 2-Substantial/Maximal Assistance-helper does MORE THAN HALF the effort. [place] lifts or holds trunk or limbs and provides more than half the effort. 7-Wkprhwumx-pxnllg does ALL the effort. Patient does none of the effort to complete the activity. Or, the assistance of 2 or more helpers is required for the patient to complete the activity. If activity was not attempted, code reason: 7-Patient Refused. 9-Not Applicable-not attempted and the patient did not perform the activity before the current illness, exacerbation or injury. 10-Not Attempted due to Environmental Limitations-(lack of equipment, weather restraints, etc.). 88-Not Attempted due to Medical Conditions or Safety Concerns. Bed Mobility: 6 Transfers (B,C,W/C): 6 Gait: 6 Indoor Mobility (Ambulation): Independent Prior Devices Use: Walker PT Evaluation-Current Subjective Patient agrees to PT. Patient reports her daughter is going to move in with her and take care of her when she leaves here. Objective Patient Orientation: Person, Time, Situation Attachments: Oxygen ROM/Strength ROM Lower Extremities bilateral LE WFL Strength Lower Extremities 3+/5 grossly bilateral LE Integumentary/Posture Bowel Incontinence: No Bladder Incontinence: No Posture WFL Neuromuscular (Tone, Coordination, Reflexes) grossly intact Sensory Vision: Wears Glasses Hearing: Functional Transfers Sit to Lying (QC): 6 Lying to Sitting/Side of Bed(Q: 6 Sit to Stand (QC): 4 Gait Does the Patient Walk?: Yes Mode of Locomotion: Walk Anticipated Mode of Locomotion: Walk Walk 10 feet (QC): 4 Walk 50 ft with 2 Turns(QC): 4 Walk 150 ft (QC): 4 Distance: 300' Gait Assistive Device: FWW Comments/Gait Description functional gait sequence/no deviation Balance Sitting Static: Normal Sitting Dynamic: Normal Standing Static: Normal Standing Dynamic: Normal Assessment/Needs 75 y.o. female, will benefit from short term skilled PT to address functional strength and mobility to improve current LOF to safely return to home at maximum LOF. Rehab Potential: Fair PT Correction Goals In Tube Conversion Technician Goals PT In Tube Conversion Technician Goals Time Frame: May 23, 2021 Roll Left & Right (QC): 6 Sit to Lying (QC): 6 Lying-Sitting on Side/Bed(QC): 6 Sit to Stand (QC): 6 Chair/Kbg-dz-Wsdcu Xfer(QC): 6 Toilet Transfer (QC): 6 Walk 10 feet (QC): 6 Walk 50ft with 2 Turns (QC): 6 Walk 150 ft (QC): 6 PT Plan Problem List Problem List: Activity Tolerance, Safety Treatment/Plan Treatment Plan: Continue Plan of Care Treatment Plan: Bed Mobility, Education, Functional Activity Alda, Functional Strength, Gait, Safety, Therapeutic Exercise, Transfers Treatment Duration: May 23, 2021 Frequency: 6 times per week Estimated Hrs Per Day: .25 hour per day Patient and/or Family Agrees t: Yes Time/GCodes Time In: 1300 Time Out: 1313 Total Billed Treatment Time: 13 Total Billed Treatment 1 visit EVMod 13 min ALONZO RESENDEZ PT May 11, 2021 14:08
--- NOTE | 2021-05-11 14:49 | Occupational Therapy Eval ---
OT Evaluation-General/PLF Medical Diagnosis Admission Date May 05, 2021 at 15:10 Medical Diagnosis: thrombocytopenia/bleeding Onset Date: May 05, 2021 Therapy Diagnosis Therapy Diagnosis: n/a Precautions Precautions/Isolations: Fall Prevention, Standard Precautions Safety Interventions: Bed Exit Alarm Referral Physician: Timothy Jernigan Reason: Evaluation/Treatment Medical History Pertinent Medical History: CAD, CVA, HTN, Hypothroidism Current History Presents to ER with significant menopausal bleeding. She underwent hysterectomy several weeks ago. Pt coughing up blood in ER. Found to have extremely low platelets. Per chart, pt with possible hospice consult. Prior to arrival, pt indep with adls and iadls. She reports still driving and using a walker. She reports that her daughter will be moving in with her and assist with all needs. Pt refuses any home health therapy or hospice care. Reviewed History: Yes Social History Home: Single Level Current Living Status: Alone Entry Into Home: Level Entry ADL-Prior Level of Function SCALE: Activities may be completed with or without assistive devices. 9-Mmzlpamkdj-tsttpag completes the activity by him/herself with no assistance from a helper. 5-Set-up or Clean-up Assistance-helper sets up or cleans up; patient completes activity. [place] assists only prior to or following the activity. 4-Supervision or Touching Assistance-helper provides verbal cues and/or touching/steadying and/or contact guard assistance as patient completes activity. Assistance may be provided throughout the activity or intermittently. 3-Partial/Moderate Assistance-helper does LESS THAN HALF the effort. [place] lifts, holds or supports trunk or limbs, but provides less than half the effort. 2-Substantial/Maximal Assistance-helper does MORE THAN HALF the effort. [place] lifts or holds trunk or limbs and provides more than half the effort. 7-Ffmabhjnz-vpbmjj does ALL the effort. Patient does none of the effort to complete the activity. Or, the assistance of 2 or more helpers is required for the patient to complete the activity. If activity was not attempted, code reason: 7-Patient Refused. 9-Not Applicable-not attempted and the patient did not perform the activity before the current illness, exacerbation or injury. 10-Not Attempted due to Environmental Limitations-(lack of equipment, weather restraints, etc.). 88-Not Attempted due to Medical Conditions or Safety Concerns. Self Care: Independent Functional Cognition: Independent DME/Equipment: Bath Chair, Shower Hose Eye Dropper Assembler, Tub/Shower Drive Self: Yes OT Current Status Subjective Pt reports bleeding only from vagina. No longer coughing up blood. Appearance Pt left supine in bed, alarm set, all needs within reach. Mental Status/Objective Patient Orientation: Person, Place, Situation Attachments: Oxygen Current Glasses/Contacts: Yes Hand Dominance: Right Upper Extremity ROM 3/4 shoulder flex: baseline Upper Extremity Strength not formally tested, appears at least 4/5 throughout ADL-Treatment Eating (QC): 6 Lower Body Dressing (QC): 4 On/Off Footwear (QC): 5 Toileting Hygiene (QC): 4 Pt supine in bed at OT arrival, agreeable to treatment. Pt able to sit EOB indep. ABle to don/doff shoes with set up assist. Sit<>stand: Indep. She ambulated around room with use of walker and supervision only for safety. No unsteadiness observed. Able to lower/stand from toilet without assist. Demonstrates good balance standing at sink for hand hygiene. Discussed/demonstrated tub transfer with chair. Pt reports her daughter can assist if needed. Education OT Patient Education: Modified ADL techniques, Progress toward Goal/Update tx plan, Purpose of tx/functional activities Teaching Recipient: Patient Teaching Methods: Demonstration, Discussion Response to Teaching: Verbalize Understanding, Return Demonstration OT Entry Level Accounting Clerk Goals Entry Level Accounting Clerk Goals 1=Demonstrate adherence to instructed precautions during ADL tasks. 2=Patient will verbalize/demonstrate understanding of assistive devices/modifications for ADL. 3=Patient will improve strength/tolerance for activity to enable patient to perform ADL's. OT Education/Plan Problem List/Assessment Assessment: No Skilled OT Needs ID'd Discharge Recommendations Plan/Recommendations: Discontinue OT Therapy Discharge Recommendati: Homemaker Support, Home & Family Target Placement Home with family support. Pt refuses any outside help into home. Pt may require supervision/assist with medication management and bill pay. Treatment Plan/Plan of Care Treatment,Training & Education: Yes Patient would benefit from OT for education, treatment and training to promote independence in ADL's, mobility, safety and/or upper extremity function for ADL's. Plan of Care: ADL Retraining Treatment Duration: May 11, 2021 Frequency: 1 time per week Estimated Hrs Per Day: .25 hour per day Agreement: Yes Rehab Potential: Guarded Time/GCodes Start Time: 14:15 Stop Time: 14:34 Total Time Billed (hr/min): 19 Billed Treatment Time 1 visit, Alva Carbajal OT May 11, 2021 14:49
[2021-05-11] MEDS: polyethylene glycoL POWDER 17 GM (MIRALAX) PACK PO SCH (20:50)
[2021-05-11] MEDS: hydrALAZINE (APRESOLINE) 25 MG TAB PO PRN (23:46)
[2021-05-12] MEDS: cloNIDine 0.1 MG (CATAPRES) TAB PO PRN (03:58)
[2021-05-12] MEDS: hydrALAZINE (APRESOLINE) 25 MG TAB PO PRN (03:58)
[2021-05-12 04:14] VITALS: BP 191/82
[2021-05-12 04:46] LABS: BASOPHILS # (AUTO) 0.1 10^3/uL (0.0-0.1); BASOPHILS % (AUTO) 0 % (0-10); EOSINOPHILS # (AUTO) 0.1 10^3/uL (0.0-0.3); EOSINOPHILS % (AUTO) 1 % (0-10); HEMATOCRIT 27 % (35-52); HEMOGLOBIN 8.5 g/dL (11.5-16.0); LYMPHOCYTES # (AUTO) 4.8 10^3/uL (1.0-4.0); LYMPHOCYTES % (AUTO) 23 % (12-44); MEAN CORPUSCULAR HEMOGLOBIN 26 pg (25-34); MEAN CORPUSCULAR HGB CONC 32 g/dL (32-36); MEAN CORPUSCULAR VOLUME 81 fL (80-99); MONOCYTES # (AUTO) 1.6 10^3/uL (0.0-1.0); MONOCYTES % (AUTO) 8 % (0-12); NEUTROPHILS # (AUTO) 12.7 10^3/uL (1.8-7.8); NEUTROPHILS % (AUTO) 62 % (42-75); PLATELET COUNT 80 10^3/uL (130-400); WHITE BLOOD COUNT 20.7 10^3/uL (4.3-11.0)
[2021-05-12 04:55] LABS: ALBUMIN 3.3 GM/DL (3.2-4.5); POTASSIUM 5.1 MMOL/L (3.6-5.0)
[2021-05-12 04:56] LABS: CALCIUM 8.7 MG/DL (8.5-10.1)
[2021-05-12 04:57] LABS: TOTAL PROTEIN 6.6 GM/DL (6.4-8.2)
[2021-05-12 04:59] LABS: BILIRUBIN,TOTAL 1.3 MG/DL (0.1-1.0)
[2021-05-12 05:01] LABS: CREATININE SERUM 0.83 MG/DL (0.60-1.30)
[2021-05-12 05:50] VITALS: BP 159/77
[2021-05-12] MEDS: inSUlin ASPART (NovoLOG) 1 UNIT/0.01 ML (CHARGE PER UNIT) SC SCH ×2 (05:51→12:07)
[2021-05-12] MEDS: CATHETER FLUSH 10 ML SYR IV SCH (06:29)
[2021-05-12] MEDS: HYDROcodone/APAP 5 MG/325 MG (LORTAB) TAB PO PRN (06:30)
[2021-05-12] MEDS ORDERED: predniSONE 20 MG TAB PO SCH (07:00)
[2021-05-12] MEDS ORDERED: predniSONE 10 MG TAB PO SCH (07:00)
[2021-05-12] MEDS: lisINopril 20 MG (PRINIVIL) TABLET PO SCH (08:20)
[2021-05-12] MEDS: FAMOTIDINE 20 MG (PEPCID) TABLET PO SCH (08:20)
[2021-05-12] MEDS: SENNA W/DOCUSATE (SENOKOT S) TABLET PO SCH (08:20)
[2021-05-12] MEDS: amLODIPine 5 MG (NORVASC) TAB PO SCH (08:20)
[2021-05-12 08:39] VITALS: BP 159/84
--- NOTE | 2021-05-12 09:24 | Progress Note ---
Progress Note Assessment/Plan Date Seen by Provider: May 12, 2021 Time Seen by Provider: 09:24 Events since last exam Plt is up to 80k today. Hb stable at 8.5, WBC [address] Aguirre to decide the discharge plan. Please discharge her on prednisone 60mg daily along with Pepcid or Protonix for GI protection while on the high dose steroid. See me at cancer in 2 weeks at cancer center for ITP and steroid taper. Pt declined any chemotherapy for her cancer. Assessment/Plan A/P 1. 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 She had plt 526 on 04-08-2021 at [place] while she had her surgery there. 2. 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 Pt is NOT interested in chemotherapy. 3. ?pnuemonia on CXR showed perihilar infiltration, most likely related to malignancy. 4. Recent open total hysterectomy at [place] by Dr Ford. Pt was not happy with the service there and refuse to go back. 5. Anemia from chronic bleeding and recent surgery as well as tumor involved in the bone marrow. She required 4 units of the blood during and after the hystere ctomy early this month. Plan: 1. Reduce Prednisone to 60mg daily. Pepcid while on high dose steroid. 2. Pt can be discharged home from hem/onc point of view and f/u with me as out- pt about the prednisone taper in 2 weeks. 3. I discussed with her about the hospice since she does NOT want to have cancer treatment. She said NO. If she insists to go home and not to have cancer treat ment, I still think the hospice care is the best option for her terminal illness if she would accept it. Vitals Last set of Vitals Signs Vital Signs Date Time Temp Pulse Resp B/P (MAP) Pulse Ox O2 Delivery O2 Flow Rate FiO2 05/12/21 08:39 36.2 75 18 159/84 (109) 95 Room Air 05/12/21 07:39 1.00 05/08/21 00:56 21 I&O I&O Intake and Output 05/12/21 00:00 Intake Total 1620 ml Output Total 1575 ml Balance 45 ml Intake Oral 1620 ml Output Urine Total 1575 ml # Voids 2 Labs Laboratory Tests 05/11/21 11:08: Glucometer 444*H 05/11/21 12:36: Lab Scanned Report Transfusion Reaction Form 05/11/21 15:34: Glucometer 274H 05/11/21 20:14: Glucometer 318H 05/12/21 04:35: White Blood Count 20.7H, Red Blood Count 3.29L, Hemoglobin 8.5L, Hematocrit 27L, Mean Corpuscular Volume 81, Mean Corpuscular Hemoglobin 26, Mean Corpuscular Hemoglobin Concent 32, Red Cell Distribution Width 22.5H, Platelet Count 80L, Mean Platelet Volume , Immature Granulocyte % (Auto) 7, Neutrophils (%) (Auto) 62, Lymphocytes (%) (Auto) 23, Monocytes (%) (Auto) 8, Eosinophils (%) (Auto) 1, Basophils (%) (Auto) 0, Neutrophils # (Auto) 12.7H, Lymphocytes # (Auto) 4.8H, Monocytes # (Auto) 1.6H, Eosinophils # (Auto) 0.1, Basophils # (Auto) 0.1, Immature Granulocyte # (Auto) 1.4H, Sodium Level 134L, Potassium Level 5.1H, Chloride Level 101, Carbon Dioxide Level 23, Anion Gap 10, Blood Urea Nitrogen 26H, Creatinine 0.83, Estimat Glomerular Filtration Rate 67, BUN/Creatinine Ratio 31, Glucose Level 192H, Calcium Level 8.7, Corrected Calcium 9.3, Total Bilirubin 1.3H, Aspartate Amino Transf (AST/SGOT) 88H, Alanine Aminotransferase (ALT/SGPT) 27, Alkaline Phosphatase 79, Total Protein 6.6, Albumin 3.3 Clinical Quality Measures DVT/VTE Risk/Contraindication: Contraindications-Pharm: Other *list below* Other: low platelets HECTOR ALONSO MD May 12, 2021 09:24
--- NOTE | 2021-05-12 10:08 | Physical Therapy Daily Note ---
PT Daily Note-Current Subjective Patient is in bed naked. Agrees to PT. Does agree to put a gown on after encouragement. Mental Status Patient Orientation: Confused Attachments: Oxygen Transfers SCALE: Activities may be completed with or without assistive devices. 5-Uruwbhewnb-pexltam completes the activity by him/herself with no assistance from a helper. 5-Set-up or Clean-up Assistance-helper sets up or cleans up; patient completes activity. [place] assists only prior to or following the activity. 4-Supervision or Touching Assistance-helper provides verbal cues and/or touching/steadying and/or contact guard assistance as patient completes activity. Assistance may be provided throughout the activity or intermittently. 3-Partial/Moderate Assistance-helper does LESS THAN HALF the effort. [place] lifts, holds or supports trunk or limbs, but provides less than half the effort. 2-Substantial/Maximal Assistance-helper does MORE THAN HALF the effort. [place] lifts or holds trunk or limbs and provides more than half the effort. 7-Nkeadkski-jjkmns does ALL the effort. Patient does none of the effort to complete the activity. Or, the assistance of 2 or more helpers is required for the patient to complete the activity. If activity was not attempted, code reason: 7-Patient Refused. 9-Not Applicable-not attempted and the patient did not perform the activity before the current illness, exacerbation or injury. 10-Not Attempted due to Environmental Limitations-(lack of equipment, weather restraints, etc.). 88-Not Attempted due to Medical Conditions or Safety Concerns. Sit to Lying (QC): 6 Lying to Sitting/Side of Bed(Q: 6 Sit to Stand (QC): 4 Gait Training Does the Patient Walk?: Yes Distance: 275' Walk 10 feet (QC): 4 Walk 50 ft with 2 Turns(QC): 4 Walk 150 ft (QC): 4 Gait Assistive Device: FWW safe and functional (CGA to SBA for safety due to patient's confusion) Assessment Patient returned to bed with bed alarm activated and 4 rails up. Increase activity. PT Master Scheduler Goals Snf Goals PT Master Scheduler Goals Time Frame: May 23, 2021 Roll Left & Right (QC): 6 Sit to Lying (QC): 6 Lying-Sitting on Side/Bed(QC): 6 Sit to Stand (QC): 6 Chair/Otb-cm-Uzfmz Xfer(QC): 6 Toilet Transfer (QC): 6 Walk 10 feet (QC): 6 Walk 50ft with 2 Turns (QC): 6 Walk 150 ft (QC): 6 PT Plan Treatment/Plan Treatment Plan: Continue Plan of Care Treatment Plan: Bed Mobility, Education, Functional Activity Alda, Functional Strength, Gait, Safety, Therapeutic Exercise, Transfers Treatment Duration: May 23, 2021 Frequency: 6 times per week Estimated Hrs Per Day: .25 hour per day Patient and/or Family Agrees t: Yes Time/GCodes Time In: 825 Time Out: 839 Total Billed Treatment Time: 14 Total Billed Treatment 1 visit FA 14 min ALONZO RESENDEZ PT May 12, 2021 10:08
[2021-05-12] MEDS ORDERED: FAMO20TA5 PO (10:51)
[2021-05-12] MEDS ORDERED: PRED10TA22 PO (10:51)
[2021-05-12] MEDS ORDERED: LISI20TA26 PO (10:51)
[2021-05-12] MEDS ORDERED: GLYB1.253 PO (10:51)
[2021-05-12] MEDS ORDERED: AMLO-250 PO (10:51)
[2021-05-12] MEDS ORDERED: ACHD5005 PO (10:51)
--- NOTE | 2021-05-12 10:52 | Discharge Summary ---
Discharge Summary Hospital Course Was the Problem List Reviewed?: Yes Problems/Dx: (1) Acute ITP (2) Endometrial cancer Hospital Course Date of Admission: May 05, 2021 at 15:10 Admission Diagnosis : Family Physician/Provider: Spencer Morales MD Date of Discharge: 05/12/21 Discharge Diagnosis: Acute ITP, endometrial cancer refusing treatment, delirium Hospital Course: Hospital course: Pt had an lengthy hospital course for 8 days after she was admitted for vaginal bleeding and amoptosis found to have a platelet count severely low requiring hematology consolation, ITP diagnosed, Prednisone started, severe delirium ensued and antipsychotics given that resolved, endometrial cancer was diagnosed after following up with [facility] pathology reports. She wanted to go on Hospice without at treatment so that was arranged along with long Prednisone taper dose. Labs and Pending Lab Test: Laboratory Tests 05/11/21 11:08: Glucometer 444*H 05/11/21 12:36: Lab Scanned Report Transfusion Reaction Form 05/11/21 15:34: Glucometer 274H 05/11/21 20:14: Glucometer 318H 05/12/21 04:35: White Blood Count 20.7H, Red Blood Count 3.29L, Hemoglobin 8.5L, Hematocrit 27L, Mean Corpuscular Volume 81, Mean Corpuscular Hemoglobin 26, Mean Corpuscular Hemoglobin Concent 32, Red Cell Distribution Width 22.5H, Platelet Count 80L, Mean Platelet Volume , Immature Granulocyte % (Auto) 7, Neutrophils (%) (Auto) 62, Lymphocytes (%) (Auto) 23, Monocytes (%) (Auto) 8, Eosinophils (%) (Auto) 1, Basophils (%) (Auto) 0, Neutrophils # (Auto) 12.7H, Lymphocytes # (Auto) 4.8H, Monocytes # (Auto) 1.6H, Eosinophils # (Auto) 0.1, Basophils # (Auto) 0.1, Immature Granulocyte # (Auto) 1.4H, Sodium Level 134L, Potassium Level 5.1H, Chloride Level 101, Carbon Dioxide Level 23, Anion Gap 10, Blood Urea Nitrogen 26H, Creatinine 0.83, Estimat Glomerular Filtration Rate 67, BUN/Creatinine Ratio 31, Glucose Level 192H, Calcium Level 8.7, Corrected Calcium 9.3, Total Bilirubin 1.3H, Aspartate Amino Transf (AST/SGOT) 88H, Alanine Aminotransferase (ALT/SGPT) 27, Alkaline Phosphatase 79, Total Protein 6.6, Albumin 3.3 Home Meds Active Prednisone 10 Mg Tab.ds.pk 10 Mg PO DAILY Take 6 pills daily for 7 days then decrease by 1 pill every week until see PCP Glyburide 1.25 Mg Tablet 1.25 Mg PO BID Famotidine 20 Mg Tablet 20 Mg PO BID HYDROcodone/APAP 5 MG/325 MG TAB (Acetaminophen/Hydrocodone Bitart) 1 Tab Tab 1 Ea PO Q6H PRN Lisinopril 20 Mg Tablet 20 Mg PO DAILY@0900 Amlodipine Besylate 5 Mg Tablet 5 Mg PO DAILY Reported One Daily Multivitamin Tablet (Multivitamin with Folic Acid) 400 Mcg Tablet 400 Mcg PO DAILY Tylenol Extra Strength (Acetaminophen) 500 Mg Tablet 500 Mg PO Q4H PRN B-12 (Cyanocobalamin (Vitamin B-12)) 1,000 Mcg Tablet 1,000 Mcg PO DAILY Atorvastatin Calcium 40 Mg Tablet 40 Mg PO HS Carvedilol 3.125 Mg Tablet 3.125 Mg PO BID Vitamin D3 (Cholecalciferol (Vitamin D3)) 50 Mcg Capsule 50 Mcg PO DAILY Vitamin C (Ascorbic Acid) 1,000 Mg Tablet 1,000 Mg PO DAILY Assessment/Pt Instructions PCP in 1 week Discharge Instructions Discharge Diet: No Restrictions Discharge Physical Examination Vital Signs Vital Signs Date Time Temp Pulse Resp B/P (MAP) Pulse Ox O2 Delivery O2 Flow Rate FiO2 05/12/21 08:39 36.2 75 18 159/84 (109) 95 Room Air 05/12/21 08:00 0.50 05/08/21 00:56 21 General Appearance: No Apparent Distress, WD/WN, Chronically ill Allergies: Coded Allergies: fentanyl (Verified Allergy, Unknown, 05/07/21) CAUSES SEVERE CONFUSION Discharge Summary Date of Admission May 05, 2021 at 15:10 Date of Discharge Discharge Date: May 12, 2021 Discharge Diagnosis Assessment: ITP Severe delirium Vaginal bleeding status post hysterectomy at [facility] 1 month ago Hemoptysis Plan: Supportive care Steroids 05/10/2021: Supportive care Steroids Delirium treatment Improved status 05/11/2021: Supportive care Monitor platelets Not competent to make decisions Clinical Quality Measures DVT/VTE Risk/Contraindication: Contraindications-Pharm: Other *list below* Other: low platelets MING GARCIA DO May 12, 2021 10:52
[2021-05-12] MEDS: inSUlin (REGULAR) HUMAN 1 UNIT/0.01 ML (CHARGE PER UNIT) SC PRN (12:07)
[2021-05-12 12:16] VITALS: BP 152/69
== END 2021-05-12 12:25 | disposition hospice, home (50) | DRG 813 ==
LOC: EDUNIT# 09:57 → ER FS 09:58 → 4TH 15:10
PROVIDERS: ADMIT Family Medicine; ATTEND Family Medicine
DX: D69.3 Immune thrombocytopenic purpura (principal); R04.2 Hemoptysis; C78.6 Secondary malignant neoplasm of retroperitoneum and peritoneum; C78.5 Secondary malignant neoplasm of large intestine and rectum; Z20.822 Contact with and (suspected) exposure to COVID-19; I10 Essential (primary) hypertension; I25.10 Atherosclerotic heart disease of native coronary artery without angina pectoris; Z96.653 Presence of artificial knee joint, bilateral; E89.0 Postprocedural hypothyroidism; D50.0 Iron deficiency anemia secondary to blood loss (chronic); R59.1 Generalized enlarged lymph nodes; C55 Malignant neoplasm of uterus, part unspecified; R41.0 Disorientation, unspecified; Z95.5 Presence of coronary angioplasty implant and graft; Z90.710 Acquired absence of both cervix and uterus; Z79.899 Other long term (current) drug therapy; Z86.73 Personal history of transient ischemic attack (TIA), and cerebral infarction without residual deficits; Z87.891 Personal history of nicotine dependence
CPT/HCPCS: 36410; 36415; 71045; 71275; 76937; 80048; 80053; 82728; 82947; 83540; 83550; 83615; 83880; 85007; 85025; 85027; 85049; 85379; 85384; 85610; 85730; 86850; 86900; 86901; 86920; 87636; 93005; 94640; 94760; J1459

== ENCOUNTER 2021-05-19 10:20 | Inpatient (IN) | payer MEDICARE ==
[~2021-05-19] VITALS: Ht 167.7 cm; Wt 70.1 kg
[~2021-05-19 10:20] MED LIST changes: +ACET-2267 PO; +ACET325C7 PO; +ACET500P24 PO; +AMLO-250 PO; +ATOR40TA70 PO; +CARV3.122 PO; +CYAN100088 PO; +FAMO20TA5 PO; +GLYB1.253 PO; +LISI20TA26 PO; +MULT400T5 PO; +PRED10TA22 PO
--- NOTE | 2021-05-19 10:38 | ED General ---
General Chief Complaint: General Problems/Pain Stated Complaint: HAEMOPTYSIS Nursing Triage Note: PT TO ROOM FS06 WITH C/O "I NEED BLOOD". PT STATES SHE WAS RECENTLY DISCHARGED FROM [facility] WITH A "PLATELET OF 84". Source of Information: Patient, EMS History of Present Illness Date Seen by Provider: May 19, 2021 Time Seen by Provider: 10:30 Initial Comments 75-year-old female with known history of cancer presents with complaint of coughing up blood yesterday and then today feeling lightheaded and weak. Also known history of anemia. No other complaint, denies any recent illness, fever ch ills, chest pain or cough. Denies abdominal pain, bloody or dark stools. Allergies and Home Medications Allergies Coded Allergies: fentanyl (Verified Allergy, Unknown, 05/07/21) CAUSES SEVERE CONFUSION Patient Home Medication List Home Medication List Reviewed: Yes Acetaminophen (Tylenol Extra Strength) 500 Mg Tablet, 500 MG PO Q4H PRN for PAIN-MILD (1-4), (Reported) Entered as Reported by: MAXIMO LOYOLA on 05/06/21 1305 Amlodipine Besylate (Amlodipine Besylate) 5 Mg Tablet, 5 MG PO DAILY Prescribed by: MING GARCIA on 05/12/21 1051 Ascorbic Acid (Vitamin C) 1,000 Mg Tablet, 1,000 MG PO DAILY, (Reported) Entered as Reported by: RYAN GARCÍA on 08/28/20 0956 Atorvastatin Calcium (Atorvastatin Calcium) 40 Mg Tablet, 40 MG PO HS, (Reported) Entered as Reported by: MAXIMO LOYOLA on 05/06/21 1254 Carvedilol (Carvedilol) 3.125 Mg Tablet, 3.125 MG PO BID, (Reported) Entered as Reported by: MAXIMO LOYOLA on 05/06/21 1254 Cholecalciferol (Vitamin D3) (Vitamin D3) 50 Mcg Capsule, 50 MCG PO DAILY, (Reported) Entered as Reported by: RYAN GARCÍA on 08/28/20 0956 Cyanocobalamin (Vitamin B-12) (B-12) 1,000 Mcg Tablet, 1,000 MCG PO DAILY, (Reported) Entered as Reported by: MAXIMO LOYOLA on 05/06/21 1257 Famotidine (Famotidine) 20 Mg Tablet, 20 MG PO BID Prescribed by: MING GARCIA on 05/12/21 1051 Glyburide (Glyburide) 1.25 Mg Tablet, 1.25 MG PO BID Prescribed by: MING GARCIA on 05/12/21 1051 Hydrocodone Bit/Acetaminophen (HYDROcodone/APAP 5 MG/325 MG TAB) 1 Tab Tab, 1 EA PO Q6H PRN for PAIN > 4 Prescribed by: MING GARCIA on 05/12/21 1051 Lisinopril (Lisinopril) 20 Mg Tablet, 20 MG PO DAILY@0900 Prescribed by: MING GARCIA on 05/12/21 1051 Multivitamin with Folic Acid (One Daily Multivitamin Tablet) 400 Mcg Tablet, 400 MCG PO DAILY, (Reported) Entered as Reported by: MAXIMO LOYOLA on 05/06/21 1319 Prednisone (Prednisone) 10 Mg Tab.ds.pk, 10 MG PO DAILY Prescribed by: MING GARCIA on 05/12/21 1051 Review of Systems Review of Systems Constitutional: see HPI; No chills, No fever; malaise, weakness EENTM: no symptoms reported Respiratory: see HPI; No cough; hemoptysis; No short of breath, No wheezing Cardiovascular: No chest pain, No edema, No palpitations Gastrointestinal: No abdominal pain, No nausea, No vomiting Musculoskeletal: back pain; No joint pain, No neck pain Skin: No change in color, No rash Past Aopciov-Poqxty-Bhrqnw Hx Patient Social History Tobacco Use?: No Immunizations Up To Date First/Initial COVID19 Vaccinat: Not currently vaccinated Seasonal Allergies Seasonal Allergies: No Past Medical History Surgery/Hospitalization HX: Total open hysterectomy around 04/08/21. Surgeries: Yes (BILATERAL KNEE REPLACEMENTS; NEUROMA RIGHT FOOT, D&C) Coronary Stent, Joint Replacement, Orthopedic, Thyroidectomy Respiratory: Yes (PNEUMONIA DX 08/25/20) Pneumonia Cardiac: Yes Hypertension Neurological: Yes Stroke HOME HEALTH CLINICAL LIAISON History: Menopausal Genitourinary: No Gastrointestinal: Yes (GALLSTONES ON CT AND US 08/25/20) Gall Bladder Disease Musculoskeletal: Yes (HIP AND KNEE PAIN ;BILAT KNEE REPLACEMENTS; NEUROMA RIGHT FOOT) Arthritis Endocrine: Yes (HYPERGLYCEMIA ON ADMIT 08/27/20 ;THYROIDECTOMY) Hypothyroidsim HEENT: No Cancer: No Psychosocial: No Integumentary: No Blood Disorders: No Family Medical History No Pertinent Family Hx Physical Exam Vital Signs Vital Signs - First Documented 05/19/21 10:27 Temp 36.1 Pulse 91 Resp 19 B/P (MAP) 148/51 (83) Pulse Ox 95 O2 Delivery Room Air O2 Flow Rate 2.00 Capillary Refill : Less Than 3 Seconds Height, Weight, BMI Height: '" Weight: lbs. oz. kg; 26.00 BMI Method: General Appearance: No Apparent Distress Eyes: Bilateral Eye PERRL, Bilateral Eye EOMI HEENT: PERRL/EOMI, Normal ENT Inspection Neck: Non Tender, Supple Respiratory: Chest Non Tender, Lungs Clear Cardiovascular: Regular Rate, Rhythm, No Edema, No JVD Gastrointestinal: Non Tender, Soft Back: Normal Inspection, No CVA Tenderness Extremity: Normal Capillary Refill, Non Tender Neurologic/Psychiatric: Alert, Oriented x3, No Motor/Sensory Deficits Skin: Normal Color, Warm/Dry Progress/Results/Core Measures Suspected Sepsis SIRS Temperature: Pulse: 91 Respiratory Rate: 19 Laboratory Tests 05/19/21 10:30: White Blood Count 23.4H Blood Pressure 148 /51 Mean: 83 Laboratory Tests 05/19/21 10:30: Creatinine 0.88, Platelet Count 26*L, Total Bilirubin 2.2H Results/Orders Lab Results Laboratory Tests Test 05/19/21 10:30 Range/Units White Blood Count 23.4 H 4.3-11.0 10^3/uL Red Blood Count 2.62 L 3.80-5.11 10^6/uL Hemoglobin 6.7 *L 11.5-16.0 g/dL Hematocrit 22 L 35-52 % Mean Corpuscular Volume 85 80-99 fL Mean Corpuscular Hemoglobin 26 25-34 pg Mean Corpuscular Hemoglobin Concent 30 L 32-36 g/dL Red Cell Distribution Width 22.8 H 10.0-14.5 % Platelet Count 26 *L 130-400 10^3/uL Mean Platelet Volume 9.0-12.2 fL Immature Granulocyte % (Auto) 6 % Neutrophils (%) (Auto) 72 42-75 % Lymphocytes (%) (Auto) 15 12-44 % Monocytes (%) (Auto) 6 0-12 % Eosinophils (%) (Auto) 0 0-10 % Basophils (%) (Auto) 0 0-10 % Neutrophils # (Auto) 16.9 H 1.8-7.8 X 10^3 Lymphocytes # (Auto) 3.4 1.0-4.0 X 10^3 Monocytes # (Auto) 1.4 H 0.0-1.0 X 10^3 Eosinophils # (Auto) 0.1 0.0-0.3 10^3/uL Basophils # (Auto) 0.1 0.0-0.1 10^3/uL Immature Granulocyte # (Auto) 1.5 H 0.0-0.1 10^3/uL Neutrophils % (Manual) 72 % Lymphocytes % (Manual) 13 % Monocytes % (Manual) 5 % Metamyelocytes % 2 % Myelocytes % 6 % Band Neutrophils 2 % Nucleated Red Blood Cells 5 Platelet Estimate DECREASED Percent Immature Platelet Fraction 12.5 H 0.0-7.6 % Polychromasia MARKED Poikilocytosis SLIGHT Anisocytosis MODERATE Tear Drop Cells SLIGHT Elliptocytes SLIGHT Blood Morphology Comment ABNORMAL Sodium Level 136 135-145 MMOL/L Potassium Level 4.2 3.6-5.0 MMOL/L Chloride Level 103 98-107 MMOL/L Carbon Dioxide Level 21 21-32 MMOL/L Anion Gap 12 5-14 MMOL/L Blood Urea Nitrogen 34 H 7-18 MG/DL Creatinine 0.88 0.60-1.30 MG/DL Estimat Glomerular Filtration Rate 62 BUN/Creatinine Ratio 39 Glucose Level 147 H 70-105 MG/DL Calcium Level 8.7 8.5-10.1 MG/DL Corrected Calcium 9.1 8.5-10.1 MG/DL Total Bilirubin 2.2 H 0.1-1.0 MG/DL Aspartate Amino Transf (AST/SGOT) 37 H 5-34 U/L Alanine Aminotransferase (ALT/SGPT) 25 0-55 U/L Alkaline Phosphatase 66 40-136 U/L Total Protein 5.7 L 6.4-8.2 GM/DL Albumin 3.5 3.2-4.5 GM/DL My Orders Orders - ROVENSTINEDUSTIN DO Ed Iv/Invasive Line Start (05/19/21 10:33) Cbc With Automated Diff (05/19/21 10:33) Comprehensive Metabolic Panel (05/19/21 10:33) Chest 1 View Ap/Pa Only (05/19/21 10:33) Manual Differential (05/19/21 10:30) Vital Signs/I&O 05/19/21 10:27 Temp 36.1 Pulse 91 Resp 19 B/P (MAP) 148/51 (83) Pulse Ox 95 O2 Delivery Room Air O2 Flow Rate 2.00 Capillary Refill : Less Than 3 Seconds Blood Pressure Mean: 83 Progress Note : Progress Note Further history given when son arrived, patient has had vaginal bleeding since August of this year, hysterectomy for uterine polyp the summer and patient states she is still bleeding. Coughing up blood is rare and not very significant. Patient very coherent and seems to know her history fairly well. Her power of contract attorney is her daughter, Promise Hess. Patient is a DNR status. Diagnostic Imaging Diagonstic Imaging: Xray Plain Films/CT/US/NM/MRI: chest Comments Date of Exam:05/19/21 CHEST 1 VIEW AP/PA ONLY INDICATION: History of chest mass. Coughing up blood. EXAMINATION: Single-view chest at 05/19/2021. COMPARISON: 05/05/2021. FINDINGS: Heart is prominent. The pulmonary vasculature appears prominent as well. There is a density in the right perihilar region, new since previous imaging which could be infiltrate with a mass not excluded. Patchy airspace opacities seen in the left mid and lower lung as well. No effusions. No pneumothorax. No acute osseous abnormality IMPRESSION: 1. Diffuse scattered airspace opacities about both lungs, suspicious for infiltrates. Given history, underlying mass not excluded. Follow-up recommended to assure complete resolution. 2. Pulmonary vascular congestion. Dictated by: Dictated on workstation # [id number] Dict: 05/19/21 1102 Trans: 05/19/21 1155 [id number] [id number] Interpreted by: ISABEL ROMERO MD Electronically signed by: ISABEL ROMERO MD 05/19/21 1155 Departure Communication (Admissions) Time/Spoke to Admitting Phy: 11:30 Dr Lim accepts Impression Primary Impression: Symptomatic anemia Additional Impressions: Idiopathic thrombocytopenic purpura (ITP) Vaginal bleeding Disposition: 30 STILL A PATIENT Condition: Stable Admissions Decision to Admit Reason: Admit from ER (General) Decision to Admit/Date: May 19, 2021 Time/Decision to Admit Time: 11:00 Departure-Patient Inst. Referrals: AMY RAMSAY MD (PCP/Family) Primary Care Physician DUSTIN GO DO May 19, 2021 10:38
[2021-05-19 11:02] LABS: WHITE BLOOD COUNT 23.4 10^3/uL (4.3-11.0)
[2021-05-19 11:05] LABS: HEMATOCRIT 22 % (35-52); HEMOGLOBIN 6.7 g/dL (11.5-16.0); MEAN CORPUSCULAR HEMOGLOBIN 26 pg (25-34); MEAN CORPUSCULAR HGB CONC 30 g/dL (32-36); MEAN CORPUSCULAR VOLUME 85 fL (80-99)
[2021-05-19 11:06] LABS: PLATELET COUNT 26 10^3/uL (130-400)
[2021-05-19 11:08] LABS: BASOPHILS # (AUTO) 0.1 10^3/uL (0.0-0.1); BASOPHILS % (AUTO) 0 % (0-10); EOSINOPHILS # (AUTO) 0.1 10^3/uL (0.0-0.3); EOSINOPHILS % (AUTO) 0 % (0-10); LYMPHOCYTES # (AUTO) 3.4 X 10^3 (1.0-4.0); LYMPHOCYTES % (AUTO) 15 % (12-44); MONOCYTES # (AUTO) 1.4 X 10^3 (0.0-1.0); MONOCYTES % (AUTO) 6 % (0-12); NEUTROPHILS # (AUTO) 16.9 X 10^3 (1.8-7.8); NEUTROPHILS % (AUTO) 72 % (42-75)
--- NOTE | 2021-05-19 11:08 | Diagnostic Imaging Report ---
INDICATION: History of chest mass. Coughing up blood. EXAMINATION: Single-view chest at 05/19/2021. COMPARISON: 05/05/2021. FINDINGS: Heart is prominent. The pulmonary vasculature appears prominent as well. There is a density in the right perihilar region, new since previous imaging which could be infiltrate with a mass not excluded. Patchy airspace opacities seen in the left mid and lower lung as well. No effusions. No pneumothorax. No acute osseous abnormality IMPRESSION: 1. Diffuse scattered airspace opacities about both lungs, suspicious for infiltrates. Given history, underlying mass not excluded. Follow-up recommended to assure complete resolution. 2. Pulmonary vascular congestion. Dictated by: Dictated on workstation # [id number]
[2021-05-19 11:14] LABS: ALBUMIN 3.5 GM/DL (3.2-4.5); BILIRUBIN,TOTAL 2.2 MG/DL (0.1-1.0); CALCIUM 8.7 MG/DL (8.5-10.1); CREATININE SERUM 0.88 MG/DL (0.60-1.30); POTASSIUM 4.2 MMOL/L (3.6-5.0); TOTAL PROTEIN 5.7 GM/DL (6.4-8.2)
[2021-05-19 11:46] LABS: BAND NEUTROPHILS 2 %; LYMPHOCYTES % (MANUAL) 13 %; METAMYELOCYTES % 2 %; MONOCYTES % (MANUAL) 5 %; NEUTROPHILS % (MANUAL) 72 %
[2021-05-19 11:47] LABS: MYELOCYTES % 6 %; NUCLEATED RED BLOOD CELLS 5; PLATELET ESTIMATE DECREASED; POIKILOCYTOSIS SLIGHT; POLYCHROMASIA MARKED; RBC MORPH ABNORMAL
[2021-05-19 11:48] LABS: ANISOCYTOSIS MODERATE; ELLIPT/OVALOCYTES SLIGHT; TEAR DROP CELLS SLIGHT
[2021-05-19 13:20] VITALS: BP 164/74
[2021-05-19] MEDS ORDERED: NS IV 500 ML 500 ML IV SCH ×2 (14:45)
[2021-05-19] MEDS ORDERED: IOHEXOL 350 MG/ML 100 ML (OMNIPAQUE 350) VIAL IV ONE (15:00)
[2021-05-19] MEDS ORDERED: HOLD METFORMIN - RECEIVED CONTRAST 20 ML VIAL IV SCH (15:00)
[2021-05-19] MEDS ORDERED: NS 100 ML (IVPB) BAG IV ONE (15:00)
[2021-05-19] MEDS ORDERED: CATHETER FLUSH 10 ML SYR IV PRN (15:00)
[2021-05-19] MEDS ORDERED: AMLO-250 PO (15:34)
[2021-05-19] MEDS ORDERED: PRD10T PO (15:34)
[2021-05-19] MEDS ORDERED: ACHD5005 PO (15:34)
[2021-05-19] MEDS ORDERED: FAMO20TA5 PO (15:34)
[2021-05-19] MEDS ORDERED: GLYB1.253 PO (15:34)
[2021-05-19] MEDS: NS IV 1000 ML 1,000 ML IV SCH (15:49)
[2021-05-19 15:55] VITALS: BP 138/63
--- NOTE | 2021-05-19 15:59 | Diagnostic Imaging Report ---
PROCEDURE: CT angiography of the chest with contrast. TECHNIQUE: Multiple contiguous axial images were obtained through the chest after uneventful bolus administration of intravenous contrast. 3D reconstructed CTA MIP acquisitions were also performed. Auto Exposure Controls were utilized during the CT exam to meet ALARA standards for radiation dose reduction. INDICATION: Hemoptysis and shortness of breath. CORRELATION is made with prior CT chest from 05/05/2021. Evaluation of the pulmonary arterial system is without thromboembolism. No definite filling defects are seen within central, lobar or segmental branches. The thoracic aorta is normal caliber. No dissection is seen. There is no pericardial fluid. There are small bilateral pleural effusions. Pleural effusions are slightly increased since the prior CT. No axillary lymphadenopathy is identified. Bulky mediastinal and hilar lymphadenopathy is again noted and similar to recent exam. Patchy groundglass infiltrates involving bilateral upper and lower lobes persist. Infiltrates appear to be increasing since prior CT. Upper abdomen demonstrates multiple stones within the gallbladder. IMPRESSION: 1. No evidence of pulmonary embolus or thoracic aortic dissection. 2. Continued bulky mediastinal and hilar lymphadenopathy. 3. Increase in bilateral pleural effusions since prior exam. 4. Continued diffuse bilateral groundglass and airspace pulmonary infiltrates involving all 5 lobes. This does appear to be somewhat increased since the exam 2 weeks earlier. Dictated by: Dictated on workstation # [id number]
--- NOTE | 2021-05-19 17:11 | History & Physical ---
ELOY SIMEON 05/19/21 1711: History of Present Illness History of Present Illness Reason for visit/HPI Cecilia is a 75 year old female who presents with weakness, hemoptysis, lower abdominal and back pain, and signs of anemia. Last night while walking in her home she felt like she was going to pass out. She rested for a while until she felt a little better and then went to bed. This morning she got up, had a breakfast of manzo and eggs, and then began to feel weak, to the point where she was having difficulty walking. She was taken to the ED where she was evaluated and then admitted. She has experienced the lower abdominal and back pain for approximately a year for which she takes hydrocodone/acetaminophen, last dose was this morning at 06:00. She has recently been coughing up blood. She has a PMHx of endometrial cancer. She had a hysterectomy at the beginning of April. Earlier this month she was hospitalized due to similar reasons she presents with today. She reports that during her surgery and her last hospital stay she received blood transfusions. She denies feeling lightheaded currently, headache, fever, chills, difficulty urinating or defecating, blood in urine or stool, or recent changes in vision or hearing. She reports right ear pain, a history of stents in her heart, shortness of breath, and hemoptysis. Discussed her cancer diagnosis and metastasis and talked about how she feels about her diagnosis and what she would like for her next steps to be. She would like to proceed with comfort care with Hospice; does not wish to receive treatment for the cancer. Date of Admission May 19, 2021 at 13:35 Date Seen by a Provider: May 19, 2021 Time Seen by a Provider: 16:00 I consulted on this patient on 05/19/21 16:59 Attending Physician Corbin Chen MD Admitting Physician Spencer Morales MD Consult Allergies and Home Medications Allergies Coded Allergies: fentanyl (Verified Allergy, Unknown, 05/07/21) CAUSES SEVERE CONFUSION Patient Home Medication List Home Medication List Reviewed: Yes Acetaminophen (Tylenol Extra Strength) 500 Mg Tablet, 500 MG PO Q4H, (Reported) Entered as Reported by: MAXIMO LOYOLA on 05/06/21 1305 Last Action: Continued Amlodipine Besylate (Amlodipine Besylate) 5 Mg Tablet, 5 MG PO DAILY, (Reported) Entered as Reported by: RYAN GARCÍA on 05/19/211533 Last Action: Continued Famotidine (Famotidine) 20 Mg Tablet, 20 MG PO BID, (Reported) Entered as Reported by: RYAN GARCÍA on 05/19/211533 Last Action: Continued Glyburide (Glyburide) 1.25 Mg Tablet, 1.25 MG PO BID, (Reported) Entered as Reported by: RYAN GARCÍA on 05/19/211533 Last Action: Held Hydrocodone/Acetaminophen (Hydrocodone-Acetamin 5-325 mg) 1 Each Tablet, 1 TAB PO Q6H PRN for PAIN-MODERATE (5-7), (Reported) Entered as Reported by: RYAN GARCÍA on 05/19/211533 Last Action: Continued Prednisone (Prednisone) 10 Mg Tab, MG PO DAILY, (Reported) Entered as Reported by: RYAN GARCÍA on 05/19/211533 Last Action: Reviewed Discontinued Medications Amlodipine Besylate (Amlodipine Besylate) 5 Mg Tablet, 5 MG PO DAILY Discontinued Reason: No Longer Taking Prescribed by: MING GARCIA on 05/12/21 1051 Last Action: Discontinued Ascorbic Acid (Vitamin C) 1,000 Mg Tablet, 1,000 MG PO DAILY, (Reported) Discontinued Reason: No Longer Taking Entered as Reported by: RYAN GARCÍA on 08/28/20955 Last Action: Discontinued Atorvastatin Calcium (Atorvastatin Calcium) 40 Mg Tablet, 40 MG PO HS, (Reported) Discontinued Reason: No Longer Taking Entered as Reported by: MAXIMO LOYOLA on 05/06/211253 Last Action: Discontinued Carvedilol (Carvedilol) 3.125 Mg Tablet, 3.125 MG PO BID, (Reported) Discontinued Reason: No Longer Taking Entered as Reported by: MAXIMO LOYOLA on 05/06/211253 Last Action: Discontinued Cholecalciferol (Vitamin D3) (Vitamin D3) 50 Mcg Capsule, 50 MCG PO DAILY, (Reported) Discontinued Reason: No Longer Taking Entered as Reported by: RYAN GARCÍA on 08/28/20955 Last Action: Discontinued Cyanocobalamin (Vitamin B-12) (B-12) 1,000 Mcg Tablet, 1,000 MCG PO DAILY, (Reported) Discontinued Reason: No Longer Taking Entered as Reported by: MAXIMO LOYOLA on 05/06/21 1257 Last Action: Discontinued Famotidine (Famotidine) 20 Mg Tablet, 20 MG PO BID Discontinued Reason: No Longer Taking Prescribed by: MING GARCIA on 05/12/21 1051 Last Action: Discontinued Glyburide (Glyburide) 1.25 Mg Tablet, 1.25 MG PO BID Discontinued Reason: No Longer Taking Prescribed by: MING GARCIA on 05/12/21 1051 Last Action: Discontinued Hydrocodone Bit/Acetaminophen (HYDROcodone/APAP 5 MG/325 MG TAB) 1 Tab Tab, 1 EA PO Q6H PRN for PAIN > 4 Discontinued Reason: No Longer Taking Prescribed by: MING GARCIA on 05/12/21 1051 Last Action: Discontinued Lisinopril (Lisinopril) 20 Mg Tablet, 20 MG PO DAILY@0900 Discontinued Reason: No Longer Taking Prescribed by: MING GARCIA on 05/12/21 105 Last Action: Discontinued Multivitamin with Folic Acid (One Daily Multivitamin Tablet) 400 Mcg Tablet, 400 MCG PO DAILY, (Reported) Discontinued Reason: No Longer Taking Entered as Reported by: MAXIMO LOYOLA on 05/06/21 1319 Last Action: Discontinued Prednisone (Prednisone) 10 Mg Tab.ds.pk, 10 MG PO DAILY Discontinued Reason: No Longer Taking Prescribed by: MING GARCIA on 05/12/21 105 Last Action: Discontinued Past Ciwvqvt-Eylvrv-Fxtwbb Hx Patient Social History Tobacco Use?: No Smoking Status: Former Smoker Smokeless Tobacco Frequency: Never a User Use of E-Cig and/or Vaping dev: No Substance use?: No Alcohol Use?: No Pt feels they are or have been: No Immunizations Up To Date First/Initial COVID19 Vaccinat: N/A Second COVID19 Vaccination Nathan: N/A Tetanus Booster (TDap): More Than 5 Years Hepatitis A: No Hepatitis B: No Seasonal Allergies Seasonal Allergies: No Current Status status: No status: No Advance Directives: Yes Advance Directive Location: Family to bring in copy Communicates: Verbally Primary Language: Egyptian Preferred Spoken Language: Egyptian Is interpretation needed?: No Sensory deficits: Vision impairment Implanted or Applied Medical D: Orthopedic hardware, Stents Past Medical History Surgeries: Coronary Stent, Hysterectomy, Joint Replacement, Orthopedic, Thyroidectomy Pneumonia Currently Using CPAP: No Currently Using BIPAP: No 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, Menopausal Gall Bladder Disease Arthritis Hypothyroidsim Loss of Vision: Denies Hearing Impairment: Denies Blood Disorders: No Post menopausal bleeding s/p hysterectomy Family Medical History Reviewed Nursing Family Hx Other Conditions/Hx (Brother due to cancer) Review of Systems Constitutional: weakness EENTM: ear pain (Right ear pain) Respiratory: hemoptysis, short of breath Cardiovascular: see HPI, vascular heart diseas Gastrointestinal: RLQ, LLQ, abdominal pain (LLQ, RLQ) Genitourinary: no symptoms reported : No Musculoskeletal: back pain Skin: other (ecchymosis) Psychiatric/Neurological: No Symptoms Reported, Weakness All Other Systems Reviewed Negative Unless Noted: Yes Physical Exam Vital Signs Vital Signs - First Documented 05/19/21 10:27 Temp 36.1 Pulse 91 Resp 19 B/P (MAP) 148/51 (83) Pulse Ox 95 O2 Delivery Room Air O2 Flow Rate 2.00 Capillary Refill : Less Than 3 Seconds Height, Weight, BMI Height: '" Weight: lbs. oz. kg; 24.92 BMI Method: General Appearance: No Apparent Distress Respiratory: Lungs Clear, Normal Breath Sounds, No Accessory Muscle Use, No Respiratory Distress Cardiovascular: Regular Rate, Rhythm, No Edema, Systolic Murmur (+4 systolic murmur) Gastrointestinal: Normal Bowel Sounds, Non Tender, Soft Extremity: No Pedal Edema Neurologic/Psychiatric: Alert Skin: Normal Color, Cool Assessment/Plan Assessment and Plan Problems: (1) Bleeding Status: Acute Assessment & Plan: Significant bleeding: Consider IVIG. Consult with hematology. Begin 60mg of prednisone. Patient is wishing to begin services with Hospice. Consult with patient, Hospice, and hematology for desicion-making for the course of care if making the shift to comfort care. Bleeding is likely due to thrombocytopenia related to cancer diagnosis. Perform RBC transfusion and re- check CBC. (2) Hypertension Status: Chronic Qualifiers: Qualified Codes: I10 - Essential (primary) hypertension Assessment & Plan: Continue home medication of amlodipine 5mg PO for blood pr essure control. Continue to monitor blood pressure. (3) Shortness of breath Status: Acute Assessment & Plan: Shortness of breath likely related to cancer diagnosis; CT confirms pleural effusions are still present that were identified from her last CT from recent prior admission and appear to be increasing. Patchy groundglass infiltrates involving bilateral upper and lower lobes are still present as well. Consult with patient and Hospice for desicion-making for the course of care if making the shift to comfort care. (4) Gallstones without obstruction of gallbladder Status: Acute Qualifiers: Assessment & Plan: Gallstones were recently identified on CT during recent prior admission. CT today confirms gallstones are still present. Consult with patient and Hospice for comfort care. (5) Hemoptysis Status: Acute Assessment & Plan: Hemoptysis likely related to cancer diagnosis/metastasis. CT was ordered to search for cause of hemoptysis. Pleural effusions are still present bilaterally and appear to be increasing. CT also presented with patchy groundglass infiltrates involving bilateral upper and lower lobes. Infiltrates appear to be increasing since prior CT. Consult with patient and Hospice to begin comfort care. 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 Consult with hematology. Consult with patient and Hospice to begin comfort care. (7) Mediastinal lymphadenopathy Status: Acute Assessment & Plan: Mediastinal lymphadenopathy identified on prior CT from recent admission. CT conducted today shows lymphadenopathy is still present. Likely caused by cancer/metastasis. Consult with patient and Hospice to begin comfort care. (8) Endometrial cancer Status: Chronic Assessment & Plan: Patient wishes not to begin treatment for endometrial cancer with metastasis. Consult with patient and Hospice to begin comfort care. (9) Vaginal bleeding Status: Acute Assessment & Plan: Vaginal bleeding likely due to recent hysterectomy performed in the beginning of April 2021. Bleeding likely still present due to thrombocytopenia. Transfuse with RBCs and begin glucocorticoid therapy. Consult with patient and Hospice to begin comfort care. (10) Symptomatic anemia Status: Acute Assessment & Plan: Anemia likely caused by cancer diagnosis. Begin glucocorticoid therapy and transfuse with RBCs. Re-check CBC. Consult patient and Hospice to begin comfort care. Admission Diagnosis Weakness and signs of anemia Admission Status: Inpatient Order (span 2 midnights) Reason for Inpatient Admission: Weakness and signs of anemia Clinical Quality Measures AMI/AHF: ASA po Prior to arrival: CORBIN Drew MD 05/20/21 1324: Allergies and Home Medications Allergies Coded Allergies: fentanyl (Verified Allergy, Unknown, 05/07/21) CAUSES SEVERE CONFUSION Patient Home Medication List Acetaminophen (Tylenol Extra Strength) 500 Mg Tablet, 500 MG PO Q4H, (Reported) Entered as Reported by: MAXIMO LOYOLA on 05/06/21 1305 Last Action: Continued Amlodipine Besylate (Amlodipine Besylate) 5 Mg Tablet, 5 MG PO DAILY, (Reported) Entered as Reported by: RYAN GARCÍA on 05/19/211533 Last Action: Continued Famotidine (Famotidine) 20 Mg Tablet, 20 MG PO BID, (Reported) Entered as Reported by: RYAN GARCÍA on 05/19/211533 Last Action: Continued Glyburide (Glyburide) 1.25 Mg Tablet, 1.25 MG PO BID, (Reported) Entered as Reported by: RYAN GARCÍA on 05/19/211533 Last Action: Held Hydrocodone/Acetaminophen (Hydrocodone-Acetamin 5-325 mg) 1 Each Tablet, 1 TAB PO Q6H PRN for PAIN-MODERATE (5-7), (Reported) Entered as Reported by: RYAN GARCÍA on 05/19/211533 Last Action: Continued Prednisone (Prednisone) 10 Mg Tab, MG PO DAILY, (Reported) Entered as Reported by: RYAN GARCÍA on 05/19/211533 Last Action: Reviewed Discontinued Medications Amlodipine Besylate (Amlodipine Besylate) 5 Mg Tablet, 5 MG PO DAILY Discontinued Reason: No Longer Taking Prescribed by: MING GARCIA on 05/12/21 1051 Last Action: Discontinued Ascorbic Acid (Vitamin C) 1,000 Mg Tablet, 1,000 MG PO DAILY, (Reported) Discontinued Reason: No Longer Taking Entered as Reported by: RYAN GARCÍA on 08/28/20955 Last Action: Discontinued Atorvastatin Calcium (Atorvastatin Calcium) 40 Mg Tablet, 40 MG PO HS, (Reporte d) Discontinued Reason: No Longer Taking Entered as Reported by: MAXIMO LOYOLA on 05/06/211253 Last Action: Discontinued Carvedilol (Carvedilol) 3.125 Mg Tablet, 3.125 MG PO BID, (Reported) Discontinued Reason: No Longer Taking Entered as Reported by: MAXIMO LOYOLA on 05/06/211253 Last Action: Discontinued Cholecalciferol (Vitamin D3) (Vitamin D3) 50 Mcg Capsule, 50 MCG PO DAILY, (Reported) Discontinued Reason: No Longer Taking Entered as Reported by: RYAN GARCÍA on 08/28/20955 Last Action: Discontinued Cyanocobalamin (Vitamin B-12) (B-12) 1,000 Mcg Tablet, 1,000 MCG PO DAILY, (Reported) Discontinued Reason: No Longer Taking Entered as Reported by: MAXIMO LOYOLA on 05/06/21 1257 Last Action: Discontinued Famotidine (Famotidine) 20 Mg Tablet, 20 MG PO BID Discontinued Reason: No Longer Taking Prescribed by: MING GARCIA on 05/12/21 1051 Last Action: Discontinued Glyburide (Glyburide) 1.25 Mg Tablet, 1.25 MG PO BID Discontinued Reason: No Longer Taking Prescribed by: MING GARCIA on 05/12/21 1051 Last Action: Discontinued Hydrocodone Bit/Acetaminophen (HYDROcodone/APAP 5 MG/325 MG TAB) 1 Tab Tab, 1 EA PO Q6H PRN for PAIN > 4 Discontinued Reason: No Longer Taking Prescribed by: MING GARCIA on 05/12/21 1051 Last Action: Discontinued Lisinopril (Lisinopril) 20 Mg Tablet, 20 MG PO DAILY@0900 Discontinued Reason: No Longer Taking Prescribed by: MNIG GARCIA on 05/12/21 1051 Last Action: Discontinued Multivitamin with Folic Acid (One Daily Multivitamin Tablet) 400 Mcg Tablet, 400 MCG PO DAILY, (Reported) Discontinued Reason: No Longer Taking Entered as Reported by: MAXIMO LOYOLA on 05/06/21 1319 Last Action: Discontinued Prednisone (Prednisone) 10 Mg Tab.ds.pk, 10 MG PO DAILY Discontinued Reason: No Longer Taking Prescribed by: MING GARCIA on 05/12/21 105 Last Action: Discontinued Supervisory-Addendum Brief Verification & Attestation Participated in pt care: history, MDM, physical Personally performed: exam, history Care discussed with: Medical Student Procedures: n/a Verification and Attestation of Medical Student E/M Service I personally saw and evaluated patient and repeated the history and physical and discussed goals of care with patient, who is anxious to get a transfusion and go home as soon as possible. I reviewed and verified all information documented by the medical student and made modifications to such information, when appropriate. I personally performed the physical exam and medical decision making. Corbin Chen, May 20, 2021,13:24 ELOY SIMEON May 19, 2021 17:11 CORBIN CHEN MD May 20, 2021 13:24
[2021-05-19 19:55] VITALS: BP 149/72
[2021-05-19] MEDS ORDERED: LORazepam INJ 2 MG/ML (ATIVAN) VIAL IVP PRN (21:00)
[2021-05-19] MEDS: HYDROcodone/APAP 5 MG/325 MG (LORTAB) TAB PO PRN (21:28)
[2021-05-19] MEDS: ACETAMINOPHEN 500 MG TAB (TYLENOL) PO SCH (21:28)
[2021-05-19 22:33] LABS: ABSOLUTE RETIC # 238 10e9/uL (24-90); BASOPHILS % (AUTO) 0 % (0-10); EOSINOPHILS % (AUTO) 0 % (0-10); LYMPHOCYTES # (AUTO) 2.4 10^3/uL (1.0-4.0); LYMPHOCYTES % (AUTO) 14 % (12-44); MEAN CORPUSCULAR HEMOGLOBIN 26 pg (25-34); MEAN CORPUSCULAR HGB CONC 29 g/dL (32-36); MEAN CORPUSCULAR VOLUME 88 fL (80-99); MONOCYTES # (AUTO) 1.4 10^3/uL (0.0-1.0); MONOCYTES % (AUTO) 8 % (0-12); NEUTROPHILS # (AUTO) 12.4 10^3/uL (1.8-7.8); NEUTROPHILS % (AUTO) 71 % (42-75); RETICULOCYTE % 10.41 % (0.50-2.40); WHITE BLOOD COUNT 17.5 10^3/uL (4.3-11.0)
[2021-05-19 22:35] LABS: HEMATOCRIT 20 % (35-52); HEMOGLOBIN 5.9 g/dL (11.5-16.0)
[2021-05-19 22:36] LABS: PLATELET COUNT 18 10^3/uL (130-400)
[2021-05-19 22:50] LABS: LYMPHOCYTES % (MANUAL) 11 %; MONOCYTES % (MANUAL) 8 %; NEUTROPHILS % (MANUAL) 81 %; NUCLEATED RED BLOOD CELLS 3; POLYCHROMASIA MARKED
[2021-05-19 23:53] VITALS: BP 140/66
[2021-05-20] VITALS (8 sets, daily range): BP systolic 141–172; BP diastolic 63–83
[2021-05-20] MEDS: ACETAMINOPHEN 500 MG TAB (TYLENOL) PO SCH ×6 (01:18→20:13)
[2021-05-20] MEDS: NS IV 1000 ML 1,000 ML IV SCH ×4 (01:18→23:42)
[2021-05-20] MEDS: HYDROcodone/APAP 5 MG/325 MG (LORTAB) TAB PO PRN ×2 (03:36→20:13)
[2021-05-20 06:08] LABS: BASOPHILS # (AUTO) 0.1 10^3/uL (0.0-0.1); BASOPHILS % (AUTO) 0 % (0-10); EOSINOPHILS # (AUTO) 0.1 10^3/uL (0.0-0.3); EOSINOPHILS % (AUTO) 0 % (0-10); HEMATOCRIT 25 % (35-52); HEMOGLOBIN 7.5 g/dL (11.5-16.0); LYMPHOCYTES # (AUTO) 4.5 10^3/uL (1.0-4.0); LYMPHOCYTES % (AUTO) 25 % (12-44); MEAN CORPUSCULAR HEMOGLOBIN 27 pg (25-34); MEAN CORPUSCULAR HGB CONC 30 g/dL (32-36); MEAN CORPUSCULAR VOLUME 89 fL (80-99); MONOCYTES # (AUTO) 1.4 10^3/uL (0.0-1.0); MONOCYTES % (AUTO) 8 % (0-12); NEUTROPHILS # (AUTO) 10.5 10^3/uL (1.8-7.8); NEUTROPHILS % (AUTO) 59 % (42-75); WHITE BLOOD COUNT 17.8 10^3/uL (4.3-11.0)
[2021-05-20 06:13] LABS: PLATELET COUNT 13 10^3/uL (130-400)
[2021-05-20 06:32] LABS: CALCIUM 8.3 MG/DL (8.5-10.1); CREATININE SERUM 0.71 MG/DL (0.60-1.30)
[2021-05-20] MEDS: amLODIPine 5 MG (NORVASC) TAB PO SCH (09:39)
[2021-05-20] MEDS: predniSONE 20 MG TAB PO SCH ×2 (10:19→10:20)
--- NOTE | 2021-05-20 14:56 | Progress Note ---
ELOY SIMEON 05/20/21 1456: Subjective Date Seen by a Provider: May 20, 2021 Time Seen by a Provider: 11:50 Subjective/Events-last exam Cecilia is still experiencing some lower back and lower abdominal pain at this time. Reports mild dizziness after getting up and using the restroom. Denies a ches or chills. Unsure if she is still having vaginal bleeding. Patient has an appetite and is ready to go home. Patient is still decided on going home and receiving Hospice services opposed to seeking further treatment. Review of Systems General: No Chills; Appetite Cardiovascular: Lt Headedness (mild with activity) Gastrointestinal: Abdominal Pain (lower abdominal pain, RLQ and LLQ) Musculoskeletal: back pain (lower back pain) Objective Exam Last Set of Vital Signs Vital Signs Date Time Temp Pulse Resp B/P (MAP) Pulse Ox O2 Delivery O2 Flow Rate FiO2 05/20/21 12:00 36.5 97 20 172/71 (104) 97 Nasal Cannula 2.00 Capillary Refill : Less Than 3 Seconds I&O Intake and Output 05/20/21 00:00 Intake Total 560 ml Balance 560 ml Intake Oral 560 ml # Voids 1 Daily Weight Change No General: Alert, No Acute Distress HEENT: Atraumatic Lungs: Clear to Auscultation, Normal Air Movement Heart: Regular Rate, Other (+4 systolic murmur) Extremities: No Edema, Normal Pulses Neuro: Normal Speech Psych/Mental Status: Mental Status NL, Mood NL Results Lab Laboratory Tests 05/19/21 22:15: White Blood Count 17.5H, Red Blood Count 2.29L, Hemoglobin 5.9*L, Hematocrit 20*L, Mean Corpuscular Volume 88, Mean Corpuscular Hemoglobin 26, Mean Corpuscular Hemoglobin Concent 29L, Red Cell Distribution Width 23.3H, Platelet Count 18*L, Mean Platelet Volume , Immature Granulocyte % (Auto) 8, Neutrophils (%) (Auto) 71, Lymphocytes (%) (Auto) 14, Monocytes (%) (Auto) 8, Eosinophils (%) (Auto) 0, Basophils (%) (Auto) 0, Neutrophils # (Auto) 12.4H, Lymphocytes # (Auto) 2.4, Monocytes # (Auto) 1.4H, Eosinophils # (Auto) 0.0, Basophils # (Auto) 0.0, Immature Granulocyte # (Auto) 1.4H, Neutrophils % (Manual) 81, Lymphocytes % (Manual) 11, Monocytes % (Manual) 8, Nucleated Red Blood Cells 3, Percent Immature Platelet Fraction 16.1H, Polychromasia MARKED, Blood Morphology Comment NA, Absolute Reticulocyte Count 238H, Percent Reticulocyte Count 10.41H 05/20/21 05:40: White Blood Count 17.8H, Red Blood Count 2.81L, Hemoglobin 7.5#L, Hematocrit 25L , Mean Corpuscular Volume 89, Mean Corpuscular Hemoglobin 27, Mean Corpuscular Hemoglobin Concent 30L, Red Cell Distribution Width 20.6H, Platelet Count 13*L, Mean Platelet Volume , Immature Granulocyte % (Auto) 8, Neutrophils (%) (Auto) 59, Lymphocytes (%) (Auto) 25, Monocytes (%) (Auto) 8, Eosinophils (%) (Auto) 0, Basophils (%) (Auto) 0, Neutrophils # (Auto) 10.5H, Lymphocytes # (Auto) 4.5H, Monocytes # (Auto) 1.4H, Eosinophils # (Auto) 0.1, Basophils # (Auto) 0.1, Immature Granulocyte # (Auto) 1.4H, Percent Immature Platelet Fraction 14.6H, Sodium Level 137, Potassium Level 4.0, Chloride Level 109H, Carbon Dioxide Level 18L, Anion Gap 10, Blood Urea Nitrogen 30H, Creatinine 0.71, Estimat Glomerular Filtration Rate 80, BUN/Creatinine Ratio 42, Glucose Level 105, Calcium Level 8.3L 05/20/21 12:42: Lab Scanned Report Transfusion Reaction Form Assessment/Plan Assessment/Plan Assess & Plan/Chief Complaint See problem list Diagnosis/Problems Diagnosis/Problems (1) Bleeding Status: Acute Assessment & Plan: Significant bleeding: Consider IVIG. Consult with hematology. Begin 60mg of prednisone. Patient is wishing to begin services with Hospice. Consult with patient, Hospice, and hematology for desicion-making for the course of care if making the shift to comfort care. Bleeding is likely due to thrombocytopenia related to cancer diagnosis. Perform RBC transfusion and re- check CBC. 05/20/2021: Transfusion of RBCs completed, hemoglobin now 7.5. Consult social work and family to begin Hospice services. Continue with prednisone 60mg at this time. (2) Hypertension Status: Chronic Assessment & Plan: Continue home medication of amlodipine 5mg PO for blood pressure control. Continue to monitor blood pressure. Qualifiers: Qualified Codes: I10 - Essential (primary) hypertension (3) Shortness of breath Status: Acute Assessment & Plan: Shortness of breath likely related to cancer diagnosis; CT confirms pleural effusions are still present that were identified from her last CT from recent prior admission and appear to be increasing. Patchy groundglass infiltrates involving bilateral upper and lower lobes are still present as well. Consult with patient and Hospice for desicion-making for the course of care if making the shift to comfort care. 05/20/21: Consult family and social work to begin Hospice services. (4) Gallstones without obstruction of gallbladder Status: Acute Assessment & Plan: Gallstones were recently identified on CT during recent prior admission. CT today confirms gallstones are still present. Consult with patient and Hospice for comfort care. Qualifiers: (5) Hemoptysis Status: Acute Assessment & Plan: Hemoptysis likely related to cancer diagnosis/metastasis. CT was ordered to search for cause of hemoptysis. Pleural effusions are still present bilaterally and appear to be increasing. CT also presented with patchy groundglass infiltrates involving bilateral upper and lower lobes. Infiltrates appear to be increasing since prior CT. Consult with patient and Hospice to begin comfort care. 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 Consult with hematology. Consult with patient and Hospice to begin comfort care. (7) Mediastinal lymphadenopathy Status: Acute Assessment & Plan: Mediastinal lymphadenopathy identified on prior CT from recent admission. CT conducted today shows lymphadenopathy is still present. Lik mayra caused by cancer/metastasis. Consult with patient and Hospice to begin comfort care. (8) Endometrial cancer Status: Chronic Assessment & Plan: Patient wishes not to begin treatment for endometrial cancer with metastasis. Consult with patient and Hospice to begin comfort care. (9) Vaginal bleeding Status: Acute Assessment & Plan: Vaginal bleeding likely due to recent hysterectomy performed in the beginning of April 2021. Bleeding likely still present due to thrombocytopenia. Transfuse with RBCs and begin glucocorticoid therapy. Consult with patient and Hospice to begin comfort care. 05/20/2021: RBC transfusion complete, continue prednisone 60mg. Consult with family and social work to begin Hospice services. (10) Symptomatic anemia Status: Acute Assessment & Plan: Anemia likely caused by cancer diagnosis. Begin glucocorticoid therapy and transfuse with RBCs. Re-check CBC. Consult patient and Hospice to begin comfort care. 05/20/2021: RBC tranfusion complete, hemoglobin now 7.5 (previously 5.9). Continue prednisone 60mg. Consult family and social work to begin Hospice services. Clinical Quality Measures Admission Status Admission Dx Weakness and signs of anemia AMI/AHF: ASA po Prior to arrival: No CORBIN LIM MD 05/20/212043: Supervisory-Addendum Brief Verification & Attestation Participated in pt care: history, MDM, physical Personally performed: exam, history, MDM Care discussed with: Medical Student Procedures: n/a Verification and Attestation of Medical Student E/M Service I personally saw patient and did my own history and exam which confirmed the findings documented by the medical student. I reviewed and verified all information documented by the medical student and made modifications to such information, when appropriate. I personally performed the physical exam and medical decision making. Corbin Lim, May 20, 2021,20:42 ELOY SIMEON May 20, 2021 14:56 CORBIN LIM MD May 20, 2021 20:44
[2021-05-20] MEDS ORDERED: FAMOTIDINE 20 MG (PEPCID) TABLET PO SCH ×2 (21:00)
[2021-05-21 00:13] VITALS: BP 148/73
[2021-05-21] MEDS: ACETAMINOPHEN 500 MG TAB (TYLENOL) PO SCH ×3 (00:33→08:55)
[2021-05-21] MEDS: HYDROcodone/APAP 5 MG/325 MG (LORTAB) TAB PO PRN (02:29)
[2021-05-21 04:22] VITALS: BP 154/76
[2021-05-21 08:21] VITALS: BP 119/63
[2021-05-21] MEDS: predniSONE 20 MG TAB PO SCH (08:55)
[2021-05-21] MEDS: amLODIPine 5 MG (NORVASC) TAB PO SCH (08:55)
[2021-05-21 10:54] VITALS: BP 119/63
--- NOTE | 2021-05-21 16:41 | Discharge Summary ---
ELOY SIMEON 05/21/21 1625: Discharge Summary Hospital Course Problems Reviewed?: Yes Hospital Course Date of Admission: May 19, 2021 at 13:35 Admission Diagnosis : Family Physician/Provider: Spencer Morales MD Date of Discharge: 05/21/21 Discharge Diagnosis: [Metastatic endometrial cancer, ITP, initiation of Hospice] Hospital Course: [05/19/2021: Patient presented to the ED with PMHx of endometrial cancer, ITP, and signs of anemia, hemoptysis, vaginal bleeding, back and lower abdominal pain, and shortness of breath. A CT was performed and presented similarly to a previous CT from a recent prior hospital visit. Her condition is worsening. Labs were conducted and presented a transfusable hemoglobin level as well as thrombocytopenia. Patient's blood was matched and a RBC transfusion was performed. Patient does not want to initiate aggressive treatment. Patient desires to begin Hospice care. 05/20/2021: Patient's hemoglobin raised to a more stable/non-transfusable level after transfusion. Patient's family was contacted to discuss setting up Hospice. There was some difficulty initially reaching her family members. 05/21/2021: Patient discharged and going home to receive Hospice care.] Labs and Pending Lab Test: Home Meds Active Reported Hydrocodone-Acetamin 5-325 mg (Hydrocodone/Acetaminophen) 1 Each Tablet 1 Tab PO Q6H PRN Amlodipine Besylate 5 Mg Tablet 5 Mg PO DAILY Famotidine 20 Mg Tablet 20 Mg PO BID Prednisone 10 Mg Tab Mg PO DAILY TAKE 6 TABS DAILY X 7 DAYS, THEN DECREASE BY 1 TAB EBERY WEEK UNTIL AN APPT WITH YOUR PRIMARY CARE Glyburide 1.25 Mg Tablet 1.25 Mg PO BID Tylenol Extra Strength (Acetaminophen) 500 Mg Tablet 500 Mg PO Q4H Discharge Diet: No Restrictions Activity as Tolerated: Yes Consulations Consultations Hematology Discharge Physical Examination Allergies: Coded Allergies: fentanyl (Verified Allergy, Unknown, 05/07/21) CAUSES SEVERE CONFUSION General Appearance: No Apparent Distress Respiratory: Lungs Clear Cardiovascular: Regular Rate, Rhythm, No Edema, No Gallop, Normal Peripheral Pulses, Systolic Murmur (+4) Gastrointestinal: Normal Bowel Sounds, Soft, Tenderness Extremity: No Pedal Edema Skin: Normal Color, Cool Neurologic/Psychiatric: Alert Discharge Summary Date of Admission May 19, 2021 at 13:35 Date of Discharge May 21, 2021 at 10:45 Discharge Date: May 21, 2021 Admission Diagnosis Shortness of breath, signs of anemia, hemoptysis, lower back and abdominal pain, thrombocytopenia Consults/Procedures Consulations Hematology Procedures RBC transfusion Comfort Measures/ End of Life Care: Comfort Measures, Hospice Care (Home) Advance Care discuss with: patient Plan: identified end-of-life goals, developed treatment plan (comfort care with Hospice Care) Time spent on discussion (min): 30 minutes Discharge Diagnosis Metastatic endometrial cancer, ITP, initiation of Hospice (1) Bleeding Status: Acute Assessment & Plan: Significant bleeding: Consider IVIG. Consult with hematology. Begin 60mg of prednisone. Patient is wishing to begin services with Hospice. Consult with patient, Hospice, and hematology for desicion-making for the course of care if making the shift to comfort care. Bleeding is likely due to thrombocytopenia related to cancer diagnosis. Perform RBC transfusion and re- check CBC. 05/20/2021: Transfusion of RBCs completed, hemoglobin now 7.5. Consult social work and family to begin Hospice services. Continue with prednisone 60mg at this time. 05/21/2021: Resume steroid taper initiated at recent prior hospital visit. (2) Hypertension Status: Chronic Assessment & Plan: Continue home medication of amlodipine 5mg PO for blood pressure control. Continue to monitor blood pressure. 05/21/2021: initiate Hospice Care. Continue medication as desired. Qualifiers: Qualified Codes: I10 - Essential (primary) hypertension (3) Shortness of breath Status: Acute Assessment & Plan: Shortness of breath likely related to cancer diagnosis; CT confirms pleural effusions are still present that were identified from her last CT from recent prior admission and appear to be increasing. Patchy groundglass infiltrates involving bilateral upper and lower lobes are still present as well. Consult with patient and Hospice for desicion-making for the course of care if making the shift to comfort care. 05/20/21: Consult family and social work to begin Hospice services. (4) Gallstones without obstruction of gallbladder Status: Acute Assessment & Plan: Gallstones were recently identified on CT during recent prior admission. CT today confirms gallstones are still present. Consult with patient and Hospice for comfort care. Qualifiers: (5) Hemoptysis Status: Acute Assessment & Plan: Hemoptysis likely related to cancer diagnosis/metastasis. CT was ordered to search for cause of hemoptysis. Pleural effusions are still present bilaterally and appear to be increasing. CT also presented with patchy groundglass infiltrates involving bilateral upper and lower lobes. Infiltrates appear to be increasing since prior CT. Consult with patient and Hospice to begin comfort care. 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 Consult with hematology. Consult with patient and Hospice to begin comfort care. 05/21/2021: Resume steroid taper initiated at recent prior hospital visit. Init iate Hospice care. (7) Mediastinal lymphadenopathy Status: Acute Assessment & Plan: Mediastinal lymphadenopathy identified on prior CT from recent admission. CT conducted today shows lymphadenopathy is still present. Likely caused by cancer/metastasis. Consult with patient and Hospice to begin comfort care. (8) Endometrial cancer Status: Chronic Assessment & Plan: Patient wishes not to begin treatment for endometrial cancer with metastasis. Consult with patient and Hospice to begin comfort care. (9) Vaginal bleeding Status: Acute Assessment & Plan: Vaginal bleeding likely due to recent hysterectomy performed in the beginning of April 2021. Bleeding likely still present due to thrombocytopenia. Transfuse with RBCs and begin glucocorticoid therapy. Consult with patient and Hospice to begin comfort care. 05/20/2021: RBC transfusion complete, continue prednisone 60mg. Consult with family and social work to begin Hospice services. (10) Symptomatic anemia Status: Acute Assessment & Plan: Anemia likely caused by cancer diagnosis. Begin glucocorticoid therapy and transfuse with RBCs. Re-check CBC. Consult patient and Hospice to begin comfort care. 05/20/2021: RBC tranfusion complete, hemoglobin now 7.5 (previously 5.9). Continue prednisone 60mg. Consult family and social work to begin Hospice services. 05/21/2021: Resume steroid taper initiated at recent prior hospital visit. Clinical Quality Measures AMI/AHF: ASA po Prior to arrival: KIMBERLY Drew MD 05/21/21 1711: Discharge Summary Hospital Course Hospital Course See student note above Assessment/Pt DC Instructions Follow up per hospice at home Discharge Physical Examination Allergies: Coded Allergies: fentanyl (Verified Allergy, Unknown, 05/07/21) CAUSES SEVERE CONFUSION Supervisory-Addendum Brief Verification & Attestation Participated in pt care: history, MDM, physical Personally performed: exam, history, MDM Care discussed with: Medical Student Procedures: n/a Verification and Attestation of Medical Student E/M Service A medical student performed and documented this service in my presence. I reviewed and verified all information documented by the medical student and made modifications to such information, when appropriate. I personally performed the physical exam and medical decision making. Kimberly Chen, May 21, 2021,17:11 ELOY SIMEON May 21, 2021 16:25 KIMBERLY CHEN MD May 21, 2021 17:11
== END 2021-05-21 10:45 | disposition hospice, home (50) | DRG 813 ==
LOC: EDUNIT# 10:20 → ER FS 10:21 → 4TH 13:35
PROVIDERS: ADMIT Family Medicine; ATTEND Family Medicine
DX: D69.3 Immune thrombocytopenic purpura (principal); R04.2 Hemoptysis; J90 Pleural effusion, not elsewhere classified; D64.9 Anemia, unspecified; Z96.653 Presence of artificial knee joint, bilateral; Z95.5 Presence of coronary angioplasty implant and graft; I10 Essential (primary) hypertension; Z86.73 Personal history of transient ischemic attack (TIA), and cerebral infarction without residual deficits; M19.90 Unspecified osteoarthritis, unspecified site; E03.9 Hypothyroidism, unspecified; Z79.899 Other long term (current) drug therapy; Z87.891 Personal history of nicotine dependence; K80.80 Other cholelithiasis without obstruction; R59.1 Generalized enlarged lymph nodes; Z90.710 Acquired absence of both cervix and uterus; C54.1 Malignant neoplasm of endometrium
CPT/HCPCS: 36415; 71045; 71275; 80048; 80053; 85007; 85025; 85027; 85045; 85055; 86850; 86900; 86901; 86920

== ENCOUNTER 2021-05-22 05:18 | Emergency (ER) | payer MEDICAID, MEDICARE ==
[~2021-05-22 05:18] MED LIST changes: +PRD10T PO
--- NOTE | 2021-05-22 05:51 | ED General ---
General Chief Complaint: General Problems/Pain Stated Complaint: GENERAL ILLNESS Source of Information: Patient, EMS, Old Records History of Present Illness Date Seen by Provider: May 22, 2021 Time Seen by Provider: 05:18 Initial Comments 75-year-old female presenting from home by EMS. She complained of passing out around 3 AM. She had been discharged from [facility] on the to go home on hospice. However she stated that overnight she was not feeling very well and she has been speaking with her logging contractor at [facility] in [place]. She reports that the logging contractor wants her to come to [facility] to be evaluated because they felt like there was something else going on. She had been given a blood transfusion during her admission to the hospital in [place] this week. She also had ITP. She has bilateral pleural effusions that have been stable on recent CT scan. This morning when this incident happened EMS was called and she had no chest pain or complaints when they arrived to her house. However she requested to be transported here and she would like to be sent to [facility] because she reports her Plug Shaper Hand is expecting her to come down there. She can not remember his name other than his first name is Marek for her Plug Shaper Hand at [facility] in [place]. She is on home oxygen at 2 Lpm. She had told staff at [facility] this week that she did not want any aggressive measures taken. That is when it was decided to discharge on Hospice. She reports they came to her house last night but that she did not want them in her house and that she felt the [facility] providers "Don't know what they are talking about". Modifying Factors: worse with Movement Associated Systoms: Chest Pain (tightness when she felt like she was going to pass out); No Cough, No Diaphoresis, No Fever/Chills; Malaise; No Nausea/Vomiting; Shortness of Air, Syncope, Weakness Allergies and Home Medications Allergies Coded Allergies: fentanyl (Verified Allergy, Unknown, 05/07/21) CAUSES SEVERE CONFUSION Patient Home Medication List Home Medication List Reviewed: Yes Acetaminophen (Tylenol Extra Strength) 500 Mg Tablet, 500 MG PO Q4H, (Reported) Entered as Reported by: MAXIMO LOYOLA on 05/06/21 1305 Amlodipine Besylate (Amlodipine Besylate) 5 Mg Tablet, 5 MG PO DAILY, (Reported) Entered as Reported by: RYAN GARCÍA on 05/19/21 153 Famotidine (Famotidine) 20 Mg Tablet, 20 MG PO BID, (Reported) Entered as Reported by: RYAN GARCÍA on 05/19/21 153 Glyburide (Glyburide) 1.25 Mg Tablet, 1.25 MG PO BID, (Reported) Entered as Reported by: RYAN GARCÍA on 05/19/21 153 Hydrocodone/Acetaminophen (Hydrocodone-Acetamin 5-325 mg) 1 Each Tablet, 1 TAB PO Q6H PRN for PAIN-MODERATE (5-7), (Reported) Entered as Reported by: RYAN GARCÍA on 05/19/21 153 Prednisone (Prednisone) 10 Mg Tab, MG PO DAILY, (Reported) Entered as Reported by: RYAN GARCÍA on 05/19/21 153 Discontinued Medications Amlodipine Besylate (Amlodipine Besylate) 5 Mg Tablet, 5 MG PO DAILY Discontinued Reason: No Longer Taking Prescribed by: MING GARCIA on 05/12/21 105 Ascorbic Acid (Vitamin C) 1,000 Mg Tablet, 1,000 MG PO DAILY, (Reported) Discontinued Reason: No Longer Taking Entered as Reported by: RYAN GARCÍA on 08/28/20 0956 Atorvastatin Calcium (Atorvastatin Calcium) 40 Mg Tablet, 40 MG PO HS, (Reported) Discontinued Reason: No Longer Taking Entered as Reported by: MAXIMO LOYOLA on 05/06/21 1254 Carvedilol (Carvedilol) 3.125 Mg Tablet, 3.125 MG PO BID, (Reported) Discontinued Reason: No Longer Taking Entered as Reported by: MAXIMO LOYOLA on 05/06/21 1254 Cholecalciferol (Vitamin D3) (Vitamin D3) 50 Mcg Capsule, 50 MCG PO DAILY, (Reported) Discontinued Reason: No Longer Taking Entered as Reported by: RYAN GARCÍA on 08/28/20 0956 Cyanocobalamin (Vitamin B-12) (B-12) 1,000 Mcg Tablet, 1,000 MCG PO DAILY, (Reported) Discontinued Reason: No Longer Taking Entered as Reported by: MAXIMO LOYOLA on 05/06/21 1257 Famotidine (Famotidine) 20 Mg Tablet, 20 MG PO BID Discontinued Reason: No Longer Taking Prescribed by: MING GARCIA on 05/12/21 1051 Glyburide (Glyburide) 1.25 Mg Tablet, 1.25 MG PO BID Discontinued Reason: No Longer Taking Prescribed by: MING GARCIA on 05/12/21 1051 Hydrocodone Bit/Acetaminophen (HYDROcodone/APAP 5 MG/325 MG TAB) 1 Tab Tab, 1 EA PO Q6H PRN for PAIN > 4 Discontinued Reason: No Longer Taking Prescribed by: MING GARCIA on 05/12/21 1051 Lisinopril (Lisinopril) 20 Mg Tablet, 20 MG PO DAILY@0900 Discontinued Reason: No Longer Taking Prescribed by: MING GARCIA on 05/12/21 1051 Multivitamin with Folic Acid (One Daily Multivitamin Tablet) 400 Mcg Tablet, 400 MCG PO DAILY, (Reported) Discontinued Reason: No Longer Taking Entered as Reported by: MAXIMO LOYOLA on 05/06/21 1319 Prednisone (Prednisone) 10 Mg Tab.ds.pk, 10 MG PO DAILY Discontinued Reason: No Longer Taking Prescribed by: MING GARCIA on 05/12/21 1051 Review of Systems Review of Systems Constitutional: No chills, No diaphoresis, No fever; malaise, weakness EENTM: no symptoms reported Respiratory: see HPI Cardiovascular: see HPI Gastrointestinal: no symptoms reported Genitourinary: no symptoms reported Musculoskeletal: no symptoms reported Skin: no symptoms reported Psychiatric/Neurological: Anxiety Past Xtggxoa-Zvsnda-Npxilp Hx Immunizations Up To Date First/Initial COVID19 Vaccinat: N/A Second COVID19 Vaccination Nathan: N/A Seasonal Allergies Seasonal Allergies: No Past Medical History Surgery/Hospitalization HX: THYROIDECTOMY, HYSTERECTOMY, NEUROMA RT FOOT, BILAT KNEES, CARDIAC STENTS Surgeries: Yes (BILATERAL KNEE REPLACEMENTS; NEUROMA RIGHT FOOT, D&C) Coronary Stent, Hysterectomy, Joint Replacement, Orthopedic, Thyroidectomy Respiratory: Yes (PNEUMONIA DX 08/25/20) Pneumonia Currently Using CPAP: No Currently Using BIPAP: No Cardiac: Yes Hypertension Neurological: Yes 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, 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 Genitourinary: No Gastrointestinal: Yes (GALLSTONES ON CT AND US 08/25/20) Gall Bladder Disease Musculoskeletal: Yes (HIP AND KNEE PAIN ;BILAT KNEE REPLACEMENTS; NEUROMA RIGHT FOOT) Arthritis Endocrine: Yes (HYPERGLYCEMIA ON ADMIT 08/27/20 ;THYROIDECTOMY) Hypothyroidsim HEENT: No Loss of Vision: Denies Hearing Impairment: Denies Cancer: No Psychosocial: No Integumentary: No Blood Disorders: No Family Medical History Other Conditions/Hx Physical Exam Vital Signs Vital Signs - First Documented 05/22/21 05:23 Temp 36.7 Pulse 112 Resp 20 B/P (MAP) 105/70 (82) Pulse Ox 97 O2 Delivery Nasal Cannula O2 Flow Rate 2.00 Capillary Refill : Height, Weight, BMI Height: '" Weight: lbs. oz. kg; 24.92 BMI Method: General Appearance: No Apparent Distress, Chronically ill Neck: Non Tender, Supple Respiratory: Chest Non Tender, No Accessory Muscle Use, No Respiratory Distress, Decreased Breath Sounds Cardiovascular: Normal Peripheral Pulses, Tachycardia Gastrointestinal: No Pulsatile Mass, Non Tender, Soft Rectal: Deferred Extremity: Normal Capillary Refill, No Pedal Edema Neurologic/Psychiatric: Alert, Oriented x3, skinner pelts II-XII Norm as Tested Skin: Warm/Dry Progress/Results/Core Measures Suspected Sepsis SIRS Temperature: Pulse: Respiratory Rate: Laboratory Tests 05/22/21 05:37: White Blood Count 20.9H Blood Pressure / Mean: Laboratory Tests 05/22/21 05:37: Creatinine 0.71, INR Comment 1.1, Platelet Count 14*L, Total Bilirubin 1.6H Results/Orders Lab Results Laboratory Tests Test 05/22/21 05:37 Range/Units White Blood Count 20.9 H 4.3-11.0 10^3/uL Red Blood Count 2.12 L 3.80-5.11 10^6/uL Hemoglobin 5.7 #*L 11.5-16.0 g/dL Hematocrit 19 *L 35-52 % Mean Corpuscular Volume 92 80-99 fL Mean Corpuscular Hemoglobin 27 25-34 pg Mean Corpuscular Hemoglobin Concent 29 L 32-36 g/dL Red Cell Distribution Width 22.5 H 10.0-14.5 % Platelet Count 14 *L 130-400 10^3/uL Mean Platelet Volume 9.0-12.2 fL Immature Granulocyte % (Auto) 5 % Neutrophils (%) (Auto) 63 42-75 % Lymphocytes (%) (Auto) 25 12-44 % Monocytes (%) (Auto) 6 0-12 % Eosinophils (%) (Auto) 0 0-10 % Basophils (%) (Auto) 0 0-10 % Neutrophils # (Auto) 13.1 H 1.8-7.8 X 10^3 Lymphocytes # (Auto) 5.3 H 1.0-4.0 X 10^3 Monocytes # (Auto) 1.3 H 0.0-1.0 X 10^3 Eosinophils # (Auto) 0.0 0.0-0.3 10^3/uL Basophils # (Auto) 0.0 0.0-0.1 10^3/uL Immature Granulocyte # (Auto) 1.1 H 0.0-0.1 10^3/uL Neutrophils % (Manual) 73 % Lymphocytes % (Manual) 19 % Monocytes % (Manual) 5 % Myelocytes % 3 % Nucleated Red Blood Cells 13 Platelet Estimate DECREASED Percent Immature Platelet Fraction 20.5 H 0.0-7.6 % Polychromasia MARKED Anisocytosis MARKED Blood Morphology Comment NORMAL Prothrombin Time 15.0 H 12.2-14.7 SEC INR Comment 1.1 0.8-1.4 Activated Partial Thromboplast Time 23 L 24-35 SEC Sodium Level 140 135-145 MMOL/L Potassium Level 4.0 3.6-5.0 MMOL/L Chloride Level 107 98-107 MMOL/L Carbon Dioxide Level 20 L 21-32 MMOL/L Anion Gap 13 5-14 MMOL/L Blood Urea Nitrogen 26 H 7-18 MG/DL Creatinine 0.71 0.60-1.30 MG/DL Estimat Glomerular Filtration Rate 80 BUN/Creatinine Ratio 37 Glucose Level 141 H 70-105 MG/DL Calcium Level 8.7 8.5-10.1 MG/DL Corrected Calcium 9.2 8.5-10.1 MG/DL Magnesium Level 2.2 1.6-2.4 MG/DL Total Bilirubin 1.6 H 0.1-1.0 MG/DL Aspartate Amino Transf (AST/SGOT) 31 5-34 U/L Alanine Aminotransferase (ALT/SGPT) 21 0-55 U/L Alkaline Phosphatase 58 40-136 U/L Troponin I < 0.30 <0.30 NG/ML Pro-B-Type Natriuretic Peptide 398.9 H <75.0 PG/ML Total Protein 5.4 L 6.4-8.2 GM/DL Albumin 3.4 3.2-4.5 GM/DL Lipase 24 8-78 U/L My Orders Orders - AG SUERO MD Cbc With Automated Diff (05/22/21 05:32) Magnesium (05/22/21 05:32) Chest 1 View Ap/Pa Only (05/22/21 05:32) Ekg Tracing (05/22/21 05:32) Comprehensive Metabolic Panel (05/22/21 05:32) Protime With Inr (05/22/21 05:32) Partial Thromboplastin Time (05/22/21 05:32) O2 (05/22/21 05:32) Monitor-Rhythm Ecg Trace Only (05/22/21 05:32) Ed Iv/Invasive Line Start (05/22/21 05:32) Lipase (05/22/21 05:32) Troponin I Fs (05/22/21 05:32) Probnp Fs (05/22/21 05:32) Manual Differential (05/22/21 05:37) Vital Signs/I&O 05/22/21 05/22/21 05:23 05:23 Temp 36.7 Pulse 112 Resp 20 B/P (MAP) 105/70 (82) Pulse Ox 97 99 O2 Delivery Nasal Cannula Nasal Cannula O2 Flow Rate 2.00 2.00 Capillary Refill : Progress Note #1: Progress Note Patient reported frustration with having test done repeatedly with visits to the emergency department and she felt that she had something else going on or something with her heart. She had EMS transport her this morning and is wanting to get to [facility] in [place] so she can see her logging contractor. Advised the patient that with her presenting to the emergency department I would have to repeat at least some initial test to see if there is anything acute that we could address here. Once those tests are back if there is indication for admission [facility] can be contacted to see if they had any beds available. Progress Note #2: Time: 06:04 Progress Note CBC shows she has dropped her Hemoglobin again and it is 5.7 this morning. Platelets are steady at 14. When discharged from [facility] she had Hgb 7.5 after transfusion, and platelets of 13. CXR continues to show diffuse groundglass infiltrates with pulmonary edema and pleural effusions. Coags are not elevated. ECG shows sinus tachycardia without ischemia. Call placed to [facility] Transfer center and gave details to CINDY Swain. She stated she had just walked in the door and not gotten report to know about bed availability. She will check with manager shift and call back once she knows about if they have capacity to take patient or if they are on diversion. Progress Note #3: Time: 06:15 Progress Note Brynn RN, called back from [facility] and reports they do have some beds available so she took some additional information on the patient and will contact Hospitalist to see about transfer. Progress Note #4: Time: 07:15 Progress Note D/w Dr. Whipple, Hospitalist at [facility]. Patient has recurrent anemia with hemoglobin down to 5.7. She has no ischemia or signs of acute coronary syndrome with her troponin. She has continued ITP with platelets of 14. She was requesting to go to [facility] to see her logging contractor and get a second opinion as she did not believe what she was being told from the providers in [place]. She stated that she did not think they knew what they were talking about. He graciously accepted the patient for transfer and evaluation. She will go to a PCU bed as an inpatient. ECG Initial ECG Impression Date: May 22, 2021 Initial ECG Impression Time: 05:35 Initial ECG Rate: 109 Initial ECG Rhythm: S.Tach Initial ECG Comparisson: Unchanged Comment Sinus tachycardia with a heart rate of 109 bpm. MT interval 155 ms. Left atrial enlargement. QT interval 337 ms with a QTc interval 454 ms. There is no acute ST elevation. This appears similar to prior tracings in the system. Diagnostic Imaging Diagonstic Imaging: Xray Plain Films/CT/US/NM/MRI: chest Comments Diffuse groundglass patchy appearance to lungs. Chronic pleural effusions. Appears similar to recent imaging. NAME: ABRAHAM SANTIAGO [facility] REC#: [id number] PT STATUS: REG ER : 1945 PHYSICIAN: AG SUERO MD ADMIT DATE: 05/22/21/ER FS Draft Date of Exam:05/22/21 CHEST 1 VIEW AP/PA ONLY EXAMINATION: Chest 1 view. HISTORY: Syncope, short of breath. COMPARISON: 05/19/2021 FINDINGS: Heart size and pulmonary vasculature are stable. Stable patchy interstitial airspace opacities within the mid and lower lungs. No pleural effusion or pneumothorax. Osseous structures are intact. IMPRESSION: 1. Stable patchy interstitial airspace opacities throughout both lungs. Dictated on workstation # [id number] Dict: 05/22/21 06 Trans: 05/22/2115 [facility] [id number] Interpreted by: ELMER GOSS DO Electronically signed by: Reviewed: Reviewed by Me Departure Impression Primary Impression: Syncope Qualified Codes: R55 - Syncope and collapse Additional Impressions: Shortness of breath Acute anemia Chronic ITP (idiopathic thrombocytopenia) Malignant neoplasm of endometrium metastatic to lung Disposition: 02 XFER SHT-TRM HOSP Condition: Stable Transfer Transfer Reason: Patient preference Time Spoke to Accepting Phy: 07:15 Transfer Progress Notes D/w Dr. Dash Whipple with Hospitalist service at [facility]. He accepted pt for PCU bed inpatient status. Patient requested to go there as she states she did not believe what she was being told at [facility] and wanted to see her Plug Shaper Hand and get another opinion. As she currently is hemodynamically stable, and no blood products available here at [facility] other than uncrossmatched for trauma patients, and she has recently had multiple transfusions so is at risk for antibodies and reaction will defer blood products until she can have crossmatched blood available. Transfer Facility: [facility] Method of Transfer: EMS Departure-Patient Inst. Referrals: AMY RAMSAY MD (PCP/Family) Primary Care Physician AG SUERO MD May 22, 2021 05:51
[2021-05-22 05:58] LABS: WHITE BLOOD COUNT 20.9 10^3/uL (4.3-11.0)
[2021-05-22 06:00] LABS: HEMOGLOBIN 5.7 g/dL (11.5-16.0); MEAN CORPUSCULAR HEMOGLOBIN 27 pg (25-34)
[2021-05-22 06:01] LABS: HEMATOCRIT 19 % (35-52); MEAN CORPUSCULAR HGB CONC 29 g/dL (32-36); MEAN CORPUSCULAR VOLUME 92 fL (80-99)
[2021-05-22 06:02] LABS: PLATELET COUNT 14 10^3/uL (130-400)
[2021-05-22 06:03] LABS: BASOPHILS % (AUTO) 0 % (0-10); EOSINOPHILS % (AUTO) 0 % (0-10); LYMPHOCYTES # (AUTO) 5.3 X 10^3 (1.0-4.0); LYMPHOCYTES % (AUTO) 25 % (12-44); MONOCYTES # (AUTO) 1.3 X 10^3 (0.0-1.0); MONOCYTES % (AUTO) 6 % (0-12); NEUTROPHILS # (AUTO) 13.1 X 10^3 (1.8-7.8); NEUTROPHILS % (AUTO) 63 % (42-75)
[2021-05-22 06:06] LABS: INR 1.1 (0.8-1.4)
--- NOTE | 2021-05-22 06:17 | Diagnostic Imaging Report ---
EXAMINATION: Chest 1 view. HISTORY: Syncope, short of breath. COMPARISON: 05/19/2021 FINDINGS: Heart size and pulmonary vasculature are stable. Stable patchy interstitial airspace opacities within the mid and lower lungs. No pleural effusion or pneumothorax. Osseous structures are intact. IMPRESSION: 1. Stable patchy interstitial airspace opacities throughout both lungs. Dictated by: Dictated on workstation # [id number]
[2021-05-22 06:23] LABS: CALCIUM 8.7 MG/DL (8.5-10.1); CREATININE SERUM 0.71 MG/DL (0.60-1.30); MAGNESIUM 2.2 MG/DL (1.6-2.4)
[2021-05-22 06:24] LABS: ALBUMIN 3.4 GM/DL (3.2-4.5); BILIRUBIN,TOTAL 1.6 MG/DL (0.1-1.0); TOTAL PROTEIN 5.4 GM/DL (6.4-8.2)
[2021-05-22 06:56] LABS: LYMPHOCYTES % (MANUAL) 19 %; MONOCYTES % (MANUAL) 5 %; MYELOCYTES % 3 %; NEUTROPHILS % (MANUAL) 73 %; NUCLEATED RED BLOOD CELLS 13; PLATELET ESTIMATE DECREASED; POLYCHROMASIA MARKED; RBC MORPH NORMAL
[2021-05-22 06:57] LABS: ANISOCYTOSIS MARKED
[2021-05-22 08:22] VITALS: BP 122/71
== END 2021-05-22 08:22 | disposition short-term general hospital (02) ==
LOC: EDUNIT# 05:18 → ER FS 05:20
DX: C54.1 Malignant neoplasm of endometrium (principal); R55 Syncope and collapse; R06.02 Shortness of breath; D64.9 Anemia, unspecified; D69.3 Immune thrombocytopenic purpura; R00.0 Tachycardia, unspecified; I10 Essential (primary) hypertension; Z86.73 Personal history of transient ischemic attack (TIA), and cerebral infarction without residual deficits; Z79.52 Long term (current) use of systemic steroids
CPT/HCPCS: 36415; 71045; 80053; 83690; 83735; 83880; 84484; 85007; 85027; 85610; 85730; 93005; 93041